=== PATIENT | male | born 1960 | race Caucasian/White ===

== ENCOUNTER 2017-07-09 13:03 | Inpatient (IN) | payer OTHER ==
--- NOTE | 2017-07-09 15:28 | PDOC ---
Attending Attestation - Resident Resident Name: KhoiMarkos su - ED Attending Attestation I have performed the following: I have examined & evaluated the patient, The case was reviewed & discussed with the resident, I agree w/resident's findings & plan, Exceptions are as noted - HPI HPI: 07/09/17 15:29 57y M hx of etoh abuse (~6 beers/day) presents with multiple complaints. Pt states that starting approximately 1 month ago, he started feeling weaker than usual, and feeling more sluggish. pt endorses frequent headche that is typically daily an dwors in the AM but pt endorses having a similar headache for many years and improves with aspirin and 'fresh air' denies any signifcian tworsenin gof his headaches. pt denies any associated vertigo, vision changes, double vision, numbness/tingling neck pain, back pain. The patient endorses having a coug hfor the past few days associated with nasal congestion, cough productive of whitish sputum w/o fever, chills, no hemoptysis, leg swelling. The patient denies any dysuria, hematuria, diarrhea, melena, black stool, chest pain, exertional shortness of breath, shortness of breath. GENERAL: The patient is awake, alert, and fully oriented, Nontoxic - in no acute distress. HEAD: Normocephalic, atraumatic. EYES: extraocular movements intact, visual verma intact, sclera anicteric, conjunctiva clear. ENT: Normal voice, dry mucous membranes. NECK: Normal range of motion, supple LUNGS: scattered wheezing HEART: Regular rate and rhythm, normal S1 and S2 without murmur, rub or gallop. ABDOMEN: Soft, nontender, normoactive bowel sounds. No guarding, no rebound. . No CVA tenderness EXTREMITIES: Normal range of motion, no edema. No clubbing or cyanosis. No cords, erythema, or tenderness. PSYCH: Normal mood, normal affect. SKIN: Warm, Dry, normal turgor, NEURO: Mental status: The patient is oriented x3. Cranial nerves: Cranial nerves II through XII are intact Motor: The upper extremities are 5 over 5 in all muscle groups. The lower extremities are 5 over 5 in all muscle groups. Negative pronator drift Sensation: Sensation is intact to light touch throughout. romberg negative Cerebellar: Vopbmd-ygxnmx-vwpw is normal in both upper extremities. Heel-knee- weldon is normal in both lower extremities. rapid alternating movements are normal. Gait: normal gait Differential for the patient's symptoms includes anemia, metabolic derangements , URI Will check labs, EKG, chest x-ray - Physicial Exam PE: 07/16/17 09:24 see above - Medical Decision Making 07/09/17 16:29 pts labs noted for hyponatremia will hydrate and observe for further management Heart Score/ECG Review - ECG Impressions Comment:: 07/09/17 17:03 Twelve-lead EKG was performed and reviewed by me. There is normal sinus rhythm with a normal rate. Rate of 77 Incomplete right bundle-branch block Left anterior fascicular block Abnormal R wave progression
--- NOTE | 2017-07-09 15:47 | PDOC ---
History of Present Illness - General Chief Complaint: Weakness Stated Complaint: WEAKNESS, FLU LIKE SYMPTOMS Time Seen by Provider: 07/09/17 13:57 History Source: Patient Exam Limitations: No Limitations - History of Present Illness Initial Comments: 07/09/17 15:34 Patient is a 57M with history of htn, alcohol abuse, and tobacco abuse here today complaining of morning headaches, weakness, dizziness, diarrhea, confusion and chest pain. He states that he's had progressively worsening headaches over the past few months that are worse in the morning. He states that in the last week he's felt dizzy and his gait has changed so that it's more broad. He's complaining of bodyaches, confusion, weight loss and decreased PO intake. Complains of fevers, chills, nausea. The chest pain is located substernally. It's not worsened with exertion or improved with rest. Denies history of blood clots, no leg swelling. Patient states that he last drank and used tobacco 6 days ago. Denies other illicits. Past History - Past Medical History Allergies/Adverse Reactions: Allergies Allergy/AdvReac Type Severity Reaction Status Date / Time No Known Allergies Allergy Verified 07/09/17 13:16 Home Medications: Ambulatory Orders NK [No Known Home Medication] 07/09/17 COPD: No Other medical history: DENIES. - Suicide/Smoking/Psychosocial Hx Smoking Status: Yes Smoking History: Current some day smoker Have you smoked in the past 12 months: Yes Number of Cigarettes Smoked Daily: 20 Information on smoking cessation initiated: No Review of Systems - Review of Systems Comments:: 07/09/17 15:47 GENERAL/CONSTITUTIONAL: Positive for fever or chills. Positive for weakness. HEAD, EYES, EARS, NOSE AND THROAT: No change in vision. No sore throat. CARDIOVASCULAR: Positive for chest pain and shortness of breath RESPIRATORY: Positive for cough, wheezing. GASTROINTESTINAL: Positive for nausea, diarrhea GENITOURINARY: No dysuria, frequency, or change in urination. MUSCULOSKELETAL: Positive for neck pain, diffuse body aches. SKIN: No rash NEUROLOGIC: Positive for headache, vertigo ENDOCRINE: No increased thirst. Positive for weight loss HEMATOLOGIC/LYMPHATIC: No anemia, easy bleeding, or history of blood clots. ALLERGIC/IMMUNOLOGIC: No hives or skin allergy. *Physical Exam - Vital Signs Last Vital Signs Temp Pulse Resp BP Pulse Ox 98 F 99 H 19 101/66 98 07/09/17 13:16 07/09/17 13:16 07/09/17 13:16 07/09/17 13:16 07/09/17 13:16 - Physical Exam Comments: 07/09/17 15:52 GENERAL: Awake, alert, and fully oriented, in no acute distress HEAD: No signs of trauma, normocephalic, atraumatic EYES: PERRLA, EOMI, sclera anicteric, conjunctiva clear ENT: Auricles normal inspection, hearing grossly normal, nares patent, oropharynx clear without exudates. Moist mucosa NECK: Normal ROM, supple, no lymphadenopathy, JVD, or masses LUNGS: No distress, speaks full sentences, bilateral wheezing HEART: Regular rate and rhythm, normal S1 and S2, no murmurs, rubs or gallops, peripheral pulses normal and equal bilaterally. ABDOMEN: Soft, nontender, normoactive bowel sounds. No guarding, no rebound. No masses EXTREMITIES: Normal inspection, Normal range of motion, no edema. No clubbing or cyanosis. NEUROLOGICAL: Cranial nerves II through XII grossly intact. Normal speech, wide gait, no focal sensorimotor deficits SKIN: Warm, Dry, normal turgor, no rashes or lesions noted. ED Treatment Course - LABORATORY CBC & Chemistry Diagram: 07/09/17 16:00 07/09/17 16:00 - RADIOLOGY Radiology Studies Ordered: Category Date Time Status HEAD CT WITHOUT CONTRAST [CT] Stat CT Scan 07/09/17 15:28 Ordered CHEST PA & LAT [RAD] Stat Radiology 07/09/17 15:27 Ordered Medical Decision Making - Medical Decision Making 07/09/17 15:55 Patient is 57M with multiple complaints. Vital signs stable. Differential diagnosis includes, but is not limited to: lung cancer, flu, viral illness, overdose of nsaids/tylenol. Will evaluate with cbc, cmp, cxr, trop, pt/inr, head ct, vbg, tylenol, salicylate levels. 07/09/17 18:32 Laboratory Tests 07/09/17 07/09/17 07/09/17 16:00 16:00 16:00 WBC 4.1 Hgb 15.6 Hct 44.6 Plt Count 204 VBG pH 7.36 Sodium 122 L* Troponin I 0.03 CBC normal. VBG pH normal. Sodium low. Possible LOI. CXR official read suggests pneumonia, but believe patient may have lung cancer given clinical presentation with lack of concern for pneumonia. Hyponatremia also concerning. CT chest added, admitted to Dr Roach. *DC/Admit/Observation/Transfer Diagnosis at time of Disposition: Shortness of breath - Discharge Dispostion Condition at time of disposition: Stable Admit: Yes - Referrals Referrals: Clarence Zazueta MD [Primary Care Provider] - - Patient Instructions - Post Discharge Activity
[2017-07-09] MEDS ORDERED: ALBUTEROL SO4 2.5/IPRATROPIUM 0.5 INH SOL 3 ML VIAL.NEB. NEB ONE ×2 (15:48→16:07)
[2017-07-09 16:26] LABS: VENOUS PC02 45.9 mmHg (38-52); VENOUS PH 7.36 (7.32-7.42)
[2017-07-09 16:27] LABS: BASO % 0.1 % (0-2.0); EOS % 0.1 % (0-4.5); HEMATOCRIT 44.6 % (35.4-49); HEMOGLOBIN 15.6 GM/dL (11.7-16.9); LYMPH % 6.4 % (8-40); MCH 33.1 pg (25.7-33.7); MCHC 34.9 g/dl (32.0-35.9); MEAN CELL VOLUME 94.8 fl (80-96); MEAN PLT VOLUME 6.6 fl (7.5-11.1); MONO % 12.8 % (3.8-10.2); NEUT % 80.6 % (42.8-82.8); PLATELET COUNT 204 K/MM3 (134-434); RDW 13.8 % (11.9-15.9); WHITE BLOOD COUNT 4.1 K/mm3 (4.0-10.0)
[2017-07-09 16:37] LABS: INR 0.94 (0.82-1.09); PROTHROMBIN TIME (PATIENT) 10.6 SEC (9.98-11.88)
[2017-07-09 16:55] LABS: ALBUMIN 3.4 g/dl (3.4-5.0); ANION GAP 13 (8-16); BILIRUBIN,TOTAL 0.3 mg/dL (0.2-1.0); BLOOD UREA NITROGEN 28 mg/dL (7-18); CALCIUM 8.1 mg/dL (8.5-10.1); CHLORIDE 84 mmol/L (98-107); CO2 25 mmol/L (21-32); CREATININE 1.6 mg/dL (0.7-1.3); GLUCOSE,RANDOM 110 mg/dL (74-106); MAGNESIUM 2.9 mg/dL (1.8-2.4); POTASSIUM 3.5 mmol/L (3.5-5.1); SGOT/AST 55 U/L (15-37); SGPT/ALT 28 U/L (12-78); TOT PROT 6.9 g/dl (6.4-8.2)
[2017-07-09 16:57] LABS: ALK PHOS 66 U/L (45-117)
[2017-07-09 17:33] LABS: SODIUM 122 mmol/L (136-145)
[2017-07-09] MEDS ORDERED: ALBUTEROL SO4 2.5/IPRATROPIUM 0.5 INH SOL 3 ML VIAL.NEB. NEB PRN (19:24)
--- NOTE | 2017-07-09 19:47 | HP ---
CHIEF COMPLAINT: SOB, Cough, CP, [place], Dizziness, Diarrhea, Weakness PCP: Dr. Clarence Zazueta Pharmacy: [facility] ([phone]) HISTORY OF PRESENT ILLNESS: This is a 57 y/o man with a past medical history of Hypertension, Former smoker quit 6 days ago. Who presents to the ED with SOB, cough, CP, dizziness, diarrhea with generalized weakness x 6 days. Patient reports increased ROJAS after taking 10-15 steps. Patient reports the cough as productive- yellow-ovalle thick phlegm. Patient describes the CP as pleuritic- worse when coughing. Patient does not admit to recent weight loss, just decreased appetite secondary to "not feeling well". Patient denies chills, AP, N/V, constipation, dysuria NUTD- Influenza, Pneumococcal vaccines ER course was notable for: (1) Chest Xray image- RUL Pneumonia (2) CT Chest- RUL Pneumonia (2) Hyponatremia- Na 122 (3) LOI- BUN 28, Cr 1.6 Recent Travel: None PAST MEDICAL HISTORY: HTN PAST SURGICAL HISTORY: Denies Social History: Smoking: Former, 1PPD x 40 yrs, quit 6 days ago Alcohol: Former- quit 6 days ago Drugs: Denies Family History: Father: Prostate Ca, age 60 Aunt: Lung Ca Grandparents: Lung Ca Allergies No Known Allergies Allergy (Verified 07/09/17 13:16) HOME MEDICATIONS: Home Medications Medication Instructions Recorded NK [No Known Home Medication] 07/09/17 REVIEW OF SYSTEMS CONSTITUTIONAL: fever, generalized weakness, malaise, loss of appetite Absent: chills, diaphoresis, weight change HEENT: Absent: rhinorrhea, nasal congestion, throat pain, throat swelling, difficulty swallowing, mouth swelling, ear pain, eye pain, visual changes CARDIOVASCULAR: chest pain Absent: syncope, palpitations, irregular heart rate, lightheadedness, peripheral edema RESPIRATORY: cough, shortness of breath, dyspnea with exertion Absent: orthopnea, wheezing, stridor, hemoptysis GASTROINTESTINAL: diarrhea Absent: abdominal pain, abdominal distension, nausea, vomiting, constipation, melena, hematochezia GENITOURINARY: Absent: dysuria, frequency, urgency, hesitancy, hematuria, flank pain, genital pain MUSCULOSKELETAL: Absent: myalgia, arthralgia, joint swelling, back pain, neck pain SKIN: Absent: rash, itching, pallor HEMATOLOGIC/IMMUNOLOGIC: Absent: easy bleeding, easy bruising, lymphadenopathy, frequent infections ENDOCRINE: Absent: unexplained weight gain, unexplained weight loss, heat intolerance, cold intolerance NEUROLOGIC: headache Absent: focal weakness or paresthesias, dizziness, unsteady gait, seizure, mental status changes, bladder or bowel incontinence PSYCHIATRIC: Absent: anxiety, depression, suicidal or homicidal ideation, hallucinations. PHYSICAL EXAMINATION Vital Signs - 24 hr 07/09/17 07/09/17 13:16 15:30 Temperature 98 F Pulse Rate 99 H Respiratory 19 Rate Blood Pressure 101/66 O2 Sat by Pulse 98 97 Oximetry (%) GENERAL: Thin, awake, alert, and fully oriented, in no acute distress. HEAD: Normal with no signs of trauma. EYES: Pupils equal, round and reactive to light, extraocular movements intact, sclera anicteric, conjunctiva clear. No lid lag. EARS, NOSE, THROAT: Dry mucous membranes. Ears normal, nares patent, oropharynx clear without exudates. NECK: Normal range of motion, supple without lymphadenopathy, JVD, or masses. LUNGS: Scattered diffuse wheezes with crackles throughout. No accessory muscle use. HEART: Regular rate and rhythm, normal S1 and S2 without murmur, rub or gallop. ABDOMEN: Soft, nontender, not distended, normoactive bowel sounds, no guarding, no rebound, no masses. No hepatomegaly or splenomegaly. MUSCULOSKELETAL: Normal range of motion at all joints. No bony deformities or tenderness. No CVA tenderness. UPPER EXTREMITIES: 2+ pulses, warm, well-perfused. No cyanosis. No clubbing. No peripheral edema. LOWER EXTREMITIES: 2+ pulses, warm, well-perfused. No calf tenderness. No peripheral edema. NEUROLOGICAL: Cranial nerves II-XII intact. Normal speech. Gait not observed. PSYCHIATRIC: Cooperative. Good eye contact. Appropriate mood and affect. SKIN: Warm, dry, normal turgor, no rashes or lesions noted, normal capillary refill. Laboratory Results - last 24 hr 07/09/17 07/09/17 07/09/17 16:00 16:00 16:00 WBC 4.1 RBC 4.70 Hgb 15.6 Hct 44.6 MCV 94.8 MCH 33.1 MCHC 34.9 RDW 13.8 Plt Count 204 MPV 6.6 L Neutrophils % 80.6 Lymphocytes % 6.4 L Monocytes % 12.8 H Eosinophils % 0.1 Basophils % 0.1 PT with INR 10.60 INR 0.94 VBG pH POC VBG pCO2 POC VBG pO2 Mixed VBG HCO3 Sodium 122 L* Potassium 3.5 Chloride 84 L Carbon Dioxide 25 Anion Gap 13 BUN 28 H Creatinine 1.6 H Creat Clearance w eGFR 44.62 Random Glucose 110 H Calcium 8.1 L Magnesium 2.9 H Total Bilirubin 0.3 AST 55 H ALT 28 Alkaline Phosphatase 66 Creatine Kinase 975 H Creatine Kinase Index 0.1 CK-MB (CK-2) 1.706 Troponin I 0.03 Total Protein 6.9 Albumin 3.4 07/09/17 16:00 WBC RBC Hgb Hct MCV MCH MCHC RDW Plt Count MPV Neutrophils % Lymphocytes % Monocytes % Eosinophils % Basophils % PT with INR INR VBG pH 7.36 POC VBG pCO2 45.9 POC VBG pO2 28.0 Mixed VBG HCO3 26.3 H Sodium Potassium Chloride Carbon Dioxide Anion Gap BUN Creatinine Creat Clearance w eGFR Random Glucose Calcium Magnesium Total Bilirubin AST ALT Alkaline Phosphatase Creatine Kinase Creatine Kinase Index CK-MB (CK-2) Troponin I Total Protein Albumin ASSESSMENT/PLAN: This is a 57 y/o man with a PMHx of HTN, Alcohol Abuse, Former Smoker. Admitted for Pneumonia, SOB, Hyponatremia. Plan: 1. Community Acquired Pneumonia - Chest Xray image- RUL Infiltrate - Chest CT- RUL Infiltrate - Urine Legionella ordered - Blood Cultures ordered - No leukocytosis, no neutrophilia - Will start Ceftriaxone, Azithromycin for CAP - Appreciate ID Consult - Rapid Flu- pending - Tylenol prn fever - Monitor vitals - Repeat CBC in am 2. SOB - Likely secondary to PNA - Chest Xray reviewed - VBG- 7.36/45.9/28.0/26.3 - Duonebs prn - O2 - Appreciate Pulm Consult 3. Hyponatremia - Likely secondary to Dehydration - Sodium Deficit 680meq - Gentle IVF - BMP - Goal Na correction of 6-8meq/24 hrs 4. LOI - Likely secondary to Dehydration - unknown baseline - Gentle IVF - Repeat BMP in am - f/u with Nephrology outpatient 5. Generalized Weakness - Likely secondary to Hyponatremia vs Dehydration - IVF - Monitor BMP - Fall Precautions - Monitor vitals - Consider PT for conditioning and gait strengthening 6. HTN - stable - Monitor BP - patient does not recall name of med, will have day provider verify with pts home pharmacy 7. Alcohol Abuse - Alcohol Cessation 8. Tobacco Dependency - tobacco cessation 6 days ago - Nicorette gum 9. FEN - NS@42cc/hr - Replete Na - Low Na Diet 10. DVT ppx - OOB - SCDs - Heparin SQ Code Status: Full Code Dispo; Requires Inpatient Care Problem List - Problem (1) Community acquired pneumonia Code(s): J18.9 - PNEUMONIA, UNSPECIFIED ORGANISM (2) Shortness of breath Code(s): R06.02 - SHORTNESS OF BREATH (3) Hyponatremia Code(s): E87.1 - HYPO-OSMOLALITY AND HYPONATREMIA (4) HTN (hypertension) Code(s): I10 - ESSENTIAL (PRIMARY) HYPERTENSION (5) Tobacco dependency Code(s): F17.200 - NICOTINE DEPENDENCE, UNSPECIFIED, UNCOMPLICATED (6) Alcohol abuse Code(s): F10.10 - ALCOHOL ABUSE, UNCOMPLICATED (7) DVT prophylaxis Code(s): RGF6106 - Visit type - Emergency Visit Emergency Visit: Yes ED Registration Date: 07/09/17 Care time: The patient presented to the Emergency Department on the above date and was hospitalized for further evaluation of their emergent condition. - New Patient This patient is new to me today: Yes Date on this admission: 07/09/17 - Critical Care Critical Care patient: No Hospitalist Screening - Colonoscopy Questionnaire Colonoscopy Questionnaire: Colonoscopy Questionnaire - Patient: 50 - 75 years old and never had a screening colonoscopy: No History of colon or rectal polyps, or CA: No History of IBD, Crohn's disease or UC: No History of abdominal radiation therapy as a child: No - Relative: 1 with colon or rectal CA, or polyps at age 60 or younger: No Colon or rectal CA diagnosed at age 45 or younger: No Multiple relatives with colon or rectal CA: No - Outcome: Screening Result: Negative Screen
[2017-07-09 19:51] LABS: ACETAMINOPHEN 18.755 ug/mL; SALICYLATE 7.208 mg/dL
[2017-07-09] MEDS ORDERED: AZITHROMYCIN IVPB 500 MG in DEXTROSE 5%-WATER - 250 ML IVPB ONE ×2 (20:58→22:45)
[2017-07-09] MEDS ORDERED: CEFTRIAXONE 1 GM in DEXTROSE 5%-WATER - 100 ML IVPB ONE (20:58)
[2017-07-09] MEDS ORDERED: SODIUM CHLORIDE 250 ML IV STA (21:05)
[2017-07-09] MEDS ORDERED: cefTRIAXone SODIUM 1 GM VIAL ONE (22:35)
[2017-07-09] MEDS ORDERED: DEXTROSE 5%-WATER - 50 ML IVPB ONE (22:36)
[2017-07-09] MEDS ORDERED: CEFTRIAXONE 1 GM in DEXTROSE 5%-WATER - 50 ML IVPB ONE (22:45)
[2017-07-09 23:16] VITALS: BMI 18.8
[2017-07-09] MEDS ORDERED: ACETAMINOPHEN 325 MG TABLET (FP) PO ONE (23:30)
[2017-07-10 02:40] LABS: URINE APPEARANCE CLEAR; URINE BILIRUBIN NEGATIVE (NEGATIVE); URINE BLOOD 1+ (NEGATIVE); URINE COLOR LTYELLOW; URINE GLUCOSE (UA) NEGATIVE (NEGATIVE); URINE KETONE TRACE (NEGATIVE); URINE LEUK ESTERASE NEGATIVE (NEGATIVE); URINE NITRITE NEGATIVE (NEGATIVE); URINE UROBILINOGEN NEGATIVE mg/dL (0.2-1.0)
[2017-07-10 02:55] LABS: URINE PROTEIN 1+ (NEGATIVE)
[2017-07-10 03:01] LABS: URINE MUCUS RARE
[2017-07-10] MEDS: ACETAMINOPHEN 325 MG TABLET (FP) PO PRN (05:33)
[2017-07-10 07:56] LABS: BASO % 0.2 % (0-2.0); EOS % 0.1 % (0-4.5); HEMATOCRIT 40.3 % (35.4-49); HEMOGLOBIN 14.2 GM/dL (11.7-16.9); LYMPH % 6.7 % (8-40); MCH 33.2 pg (25.7-33.7); MCHC 35.2 g/dl (32.0-35.9); MEAN CELL VOLUME 94.3 fl (80-96); MEAN PLT VOLUME 6.9 fl (7.5-11.1); MONO % 14.7 % (3.8-10.2); NEUT % 78.3 % (42.8-82.8); PLATELET COUNT 192 K/MM3 (134-434); RBC 4.27 M/mm3 (4.00-5.60); RDW 13.7 % (11.9-15.9); WHITE BLOOD COUNT 2.9 K/mm3 (4.0-10.0)
--- NOTE | 2017-07-10 08:38 | PN ---
Progress Note (short form) - Note Progress Note: ID Full note dictated Assessment Chronic Pneumonia with hemotysis Hyponatremia Background heavy smoking and Ethoh ? Adrenal insufficiency along with SIADH parneoplastic syndrome considered 20-30lbs weight loss Plan Ceftriaxone and Azithromycin urine Na and K Pulmonary consult HIV test CRP and ESR LDH Cortisol level Fluid restrict Quant gold Sputum for c/s and AFB x 3 plus AFB PCR Will need bronch most likely Isolate as precaution CT abd pelvis Joana ARCEO Problem List - Problems (2) Alcohol abuse Code(s): F10.10 - ALCOHOL ABUSE, UNCOMPLICATED (3) Community acquired pneumonia Code(s): J18.9 - PNEUMONIA, UNSPECIFIED ORGANISM (4) Hyponatremia Code(s): E87.1 - HYPO-OSMOLALITY AND HYPONATREMIA
[2017-07-10 08:55] LABS: CHLORIDE 86 mmol/L (98-107); POTASSIUM 3.7 mmol/L (3.5-5.1)
[2017-07-10] MEDS ORDERED: IBUPROFEN 800 MG/8 ML IJ IVPB ONE (09:00)
[2017-07-10 09:11] LABS: ANION GAP 15 (8-16); BLOOD UREA NITROGEN 18 mg/dL (7-18); CALCIUM 7.3 mg/dL (8.5-10.1); CO2 22 mmol/L (21-32); CREATININE 0.8 mg/dL (0.7-1.3); GLUCOSE,RANDOM 105 mg/dL (74-106)
--- NOTE | 2017-07-10 09:12 | CONS ---
DATE OF CONSULTATION: DATE OF DICTATION: 07/10/2017 HISTORY OF PRESENT ILLNESS: This is a 57-year-old white male whom I am asked to see for evaluation of pneumonia. The patient was admitted with a history of progressive weakness and weight loss over many weeks associated with cough and hemoptysis. He is a heavy smoker for many years and along with this has a history of alcoholism, noting that he drinks 6 cans of beer per day. He states he is HIV negative many years ago and and currently has no risk factors. On evaluation here, the patient was noted to be febrile. He has apparently experienced fever at home along with night sweats, loss of appetite and says that he has lost 20 to 30 pounds over the last several months. He also says that the most difficult thing for him has been a complete loss of energy. He is, however, working. He has a pulmonary infiltrate in the right upper lobe on CAT scan and was found to be severely hyponatremic with a sodium of 122. He has no history of recent travel, was born and raised in [place], never traveled outside the country nor to the [place] or [place]. He is . He has a pet cat and no other pets or unusual hobbies. PAST MEDICAL HISTORY: Otherwise noncontributory. MEDICATIONS: None. ALLERGIES: None known. SOCIAL HISTORY: As outlined. FAMILY HISTORY: Noncontributory. REVIEW OF SYSTEMS:Respiratory: Hemoptysis, productive cough. Denies shortness of breath. Positive night sweats. Cardiac: No chest pain, palpitation. History of murmur. Gastrointestinal: Positive weight loss. No diarrhea. No abdominal pain. No vomiting. Positive night sweats. Genitourinary: No dysuria, hematuria or urinary frequency. PHYSICAL EXAMINATION:General: Revealed a thin-appearing male in no acute distress. Vital Signs: The temperature was 101.5, pulse 94, blood pressure 129/68, respirations 18, O2 saturation 94, room air. HEENT: The pharynx: Several missing teeth. No exudate or thrush. Neck: Supple with no lymphadenopathy. Lungs: Bilateral rhonchi. Heart: S1, S2. Regular rhythm. No audible murmur. Abdomen: Soft, nontender, without organomegaly. Extremities: No clubbing, cyanosis or edema. LABORATORY DATA: Sodium 122, potassium 3.5, creatinine 3.6, BUN 28, glucose 110, bilirubin 0.3, AST 55, alkaline phosphatase 66, total protein 6.9, albumin 3.4. INR 0.94. CPK 975. Urinalysis: RBC 1, no WBC. Two sets of blood cultures currently pending. Urine culture pending. Legionella urinary antigen pending. Influenza screening negative. Chest x-ray shows a right upper lobe infiltrate, ? mass lesion. ASSESSMENT: A 57-year-old male presents with a several-month history of progressive weakness associated with loss of appetite and weight loss, presents now to the hospital with fever and a productive cough with hemoptysis which was witnessed earlier this morning. He is a heavy smoker with a background history of alcoholism. The possibility of a chronic pneumonia is considered, including tuberculosis. Hyponatremia could be on the basis of Echo disease related to TB. Additional considerations would, of course, include the possibility of a paraneoplastic syndrome with inappropriate secretion of ADH related to a lung cancer. PLAN: Treat his pneumonia at this time. Would isolate him as a precaution with AFB isolation and obtaining sputums for AFB and PCR. Cortisol level has been ordered. A TSH will also be ordered. Pulmonary consultation for possible bronchoscopy. QuantiFERON gold, HIV testing and lastly CAT scan of the abdomen. Lastly, patient appears leukopenic currently with a white count of 2.9. This could be on the basis of infection versus neoplastic etiology and/or cirrhosis. DOUGLAS ESCALERA M.D. [facility]/[id number]
[2017-07-10] MEDS: HEPARIN NA (PORCINE) 5,000 UNITS/ML 1ML VIAL SQ SCH ×2 (09:15→23:20)
--- NOTE | 2017-07-10 09:55 | EKG ---
Test Reason : Blood Pressure : / mmHG Vent. Rate : 077 BPM Atrial Rate : 077 BPM P-R Int : 126 ms QRS Dur : 104 ms QT Int : 410 ms P-R-T Axes : 079 -61 065 degrees QTc Int : 463 ms NORMAL SINUS RHYTHM BIATRIAL ENLARGEMENT INCOMPLETE RIGHT BUNDLE BRANCH BLOCK LEFT ANTERIOR FASCICULAR BLOCK SEPTAL INFARCT , AGE UNDETERMINED ABNORMAL ECG NO PREVIOUS ECGS AVAILABLE Confirmed by RIMA MIRAMONTES MD ([id number]) on 07/10/2017 9:55:18 AM Referred By: Confirmed By:RIMA MIRAMONTES MD
[2017-07-10] MEDS ORDERED: CEFTRIAXONE IN IS-OSM DEXTROSE 2 GM/50 ML BAG IVPB SCH (10:00)
[2017-07-10] MEDS ORDERED: AZITHROMYCIN IVPB 500 MG in DEXTROSE 5%-WATER - 250 ML IVPB SCH (10:00)
[2017-07-10 10:20] LABS: SODIUM 123 mmol/L (136-145)
[2017-07-10 10:59] LABS: ANION GAP 11 (8-16); BLOOD UREA NITROGEN 17 mg/dL (7-18); CALCIUM 7.5 mg/dL (8.5-10.1); CHLORIDE 87 mmol/L (98-107); CO2 24 mmol/L (21-32); CREATININE 0.8 mg/dL (0.7-1.3); GLUCOSE,RANDOM 102 mg/dL (74-106); POTASSIUM 3.9 mmol/L (3.5-5.1)
[2017-07-10 11:28] LABS: SODIUM 122 mmol/L (136-145)
[2017-07-10] MEDS ORDERED: CEFTRIAXONE 2 GM in DEXTROSE 5%-WATER - 100 ML IVPB SCH (11:29)
[2017-07-10] MEDS ORDERED: SODIUM CHLORIDE 1,000 ML IV SCH ×2 (11:30→16:02)
--- NOTE | 2017-07-10 12:09 | PN ---
Progress Note, Physician Chief Complaint: in bed coughing drinking contrast for ct scan - Current Medication List Current Medications: Active Medications Acetaminophen (Tylenol -) 650 mg PO Q6H PRN PRN Reason: PAIN OR FEVER Last Admin: 07/10/17 05:33 Dose: 650 mg Albuterol/Ipratropium (Duoneb -) 1 amp NEB Q6H PRN PRN Reason: SHORTNESS OF BREATH Heparin Sodium (Porcine) (Heparin -) 5,000 unit SQ BID TREVOR Last Admin: 07/10/17 09:15 Dose: 5,000 unit Azithromycin 500 mg/ Dextrose 250 mls @ 250 mls/hr IVPB DAILY TREVOR Sodium Chloride (Normal Saline -) 1,000 mls @ 50 mls/hr IV ASDIR TREVOR Stop: 07/11/17 11:28 Ceftriaxone Sodium 2 gm/ (Dextrose) 100 mls @ 100 mls/hr IVPB DAILY TREVOR - Objective Vital Signs: Vital Signs Temperature 99.7 F H 07/10/17 09:00 Pulse Rate 84 07/10/17 09:00 Respiratory Rate 18 07/10/17 09:00 Blood Pressure 132/70 07/10/17 09:00 O2 Sat by Pulse Oximetry (%) 94 L 07/10/17 09:00 Constitutional: Yes: Calm Neck: Yes: Trachea Midline Cardiovascular: Yes: Regular Rate and Rhythm, S1, S2 Respiratory: Yes: Diminished (on right side) Gastrointestinal: Yes: Normal Bowel Sounds, Soft Edema: No Neurological: Yes: Alert, Oriented Labs: CBC, BMP 07/10/17 06:30 07/10/17 10:05 INR, PTT INR 0.94 (0.82-1.09) 07/09/17 16:00 Problem List - Problems (1) Community acquired pneumonia Assessment/Plan: seen by ID airborne isolation ct chest noted to get ct scan abdomen azithromycin and rocephin quantiferon gold ordered dvt ppx pulm eval Code(s): J18.9 - PNEUMONIA, UNSPECIFIED ORGANISM Qualifiers: Laterality: right (2) Hyponatremia Assessment/Plan: ivf renal evaluation Code(s): E87.1 - HYPO-OSMOLALITY AND HYPONATREMIA
[2017-07-10] MEDS: CEFTRIAXONE 2 GM in DEXTROSE 5%-WATER - 100 ML IVPB SCH (12:47)
--- NOTE | 2017-07-10 13:09 | PN ---
Progress Note (short form) - Note Progress Note: PULMONARY CONSULTATION DICTATED 07/10/17 IMP RUL CONSILIDATION LIKELY PNEUMONIA CAP,?MTB,?MALIGNANCY HYPONATREMIA ?SIADH DYSPNEA SECONDARY TO PNA ,LIKELY UNDERYING COPD WT LOSS TOBACCO ABUSE PLAN BROAD SPECTRUM ABX PER ID CULTURES INHALED BRONCHODILATORS O2 URINE LYTES MONITOR LYTES ,NA F/U CHEST X-RAYS F/U CHEST CT 6-8 WKS TO DOCUMENT RESOLUTION OF INFILTRATES PFTS OUTPATIENT SMOKING CESSATION COUNSELED DR CEDENO Problem List - Problems (1) Weight loss Code(s): R63.4 - ABNORMAL WEIGHT LOSS (2) Community acquired pneumonia Code(s): J18.9 - PNEUMONIA, UNSPECIFIED ORGANISM Qualifiers: Laterality: right (3) HTN (hypertension) Code(s): I10 - ESSENTIAL (PRIMARY) HYPERTENSION (4) Hyponatremia Code(s): E87.1 - HYPO-OSMOLALITY AND HYPONATREMIA (5) Shortness of breath Code(s): R06.02 - SHORTNESS OF BREATH (6) Tobacco dependency Code(s): F17.200 - NICOTINE DEPENDENCE, UNSPECIFIED, UNCOMPLICATED (7) Tobacco abuse counseling Code(s): Z71.6 - TOBACCO ABUSE COUNSELING
--- NOTE | 2017-07-10 14:06 | CONS ---
DATE OF CONSULTATION: 07/10/2017 REFERRING PHYSICIAN: Kelly Caputo MD HISTORY OF PRESENT ILLNESS: The patient is a 57-year-old white male with a past medical history of hypertension, longstanding history of tobacco use, approximately 1 pack per day for 40 years, stopped a few days ago, admitted to [facility] with the complaint of increasing shortness of breath, dyspnea on exertion, generalized weakness and coughed up brown sputum, questionable heme. Patient states for the past month or so he has had progressive weakness and increasing dyspnea on exertion. He did not complain of chest pain, nausea or vomiting. He states that for the past month or so he has been unable to hold food down and he does not have any appetite. He says he is unsure how much weight he lost, but he says that his clothes are getting looser. On the day of admission, he states that for the past week or so he started noticing progressive weakness, shortness of breath and fevers and chills. He presented to the emergency room as above. In the ER he was noted to have a right upper lobe consolidation. He had a CT scan of the chest performed which revealed a right upper lobe consolidation. He was admitted to the floor. He was started on broad-spectrum antibiotics. He was evaluated by Infectious Disease. Dr. Bernard placed him on empiric antibiotic therapy for community-acquired pneumonia as well as TB isolation. Patient denies any history of pneumonia. There is no history of TB in the past. 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 He denies any history of COPD or asthma. He states that prior to the past couple months he has not had any shortness of breath or dyspnea on exertion. On admission, he was also noted to be markedly hyponatremic with a serum sodium of 122. He was started on normal saline. PAST MEDICAL HISTORY: Again includes hypertension. REVIEW OF SYSTEMS: Positive shortness of breath. Positive cough. Positive sputum. Questionable hemoptysis. Positive weight loss. Positive night sweats. No abdominal pain. SOCIAL HISTORY: Again has a history of tobacco use, 1 pack per day for greater than 40 years, quit a few days ago. Occasional ETOH. Previously employed in construction. Currently works at [employer]. CURRENT MEDICATIONS: Include Tylenol, ceftriaxone, normal saline and Duo-Neb. PHYSICAL EXAMINATION: General: The patient is a thin white male, well developed, awake, alert, currently in no acute distress. Vital Signs: T-max is 101.5, currently 99.7, blood pressure 132/70, respiratory rate is 18. HEENT: Normocephalic, atraumatic. Neck: Supple. Heart: Regular. Lungs: Rhonchi on the right and a few scattered crackles on the left. Abdomen: Soft. Bowel sounds are positive. Extremities: No cyanosis or edema. LABORATORIES: Serum sodium is 122, BUN 17, creatinine 0.8. CRP is 7.5. WBC is 2.9, hemoglobin 14.2, hematocrit 40.3, the platelet count 192,000. INR is 0.94. Venous blood gas: 7.36, PCO2 of 45, PO2 of 28. Chest CT: Again patchy consolidation in the right upper lobe. There is also a consolidation posteriorly. There was no evidence of adenopathy. IMPRESSION: 1. Right upper lobe consolidation, most likely community-acquired pneumonia, although cannot exclude possible tuberculosis, cannot exclude possible malignancy. 2. Hyponatremia, rule out syndrome of inappropriate antidiuretic hormone secretion. 3. Dyspnea secondary to pneumonia as well as chronic obstructive pulmonary disease secondary to longstanding history of tobacco use. PLAN: Sputum for C & S. Broad-spectrum antibiotics as per Infectious Disease. Obtain followup chest x-rays as well as CT scans to document the resolution of infiltrates. Obtain cultures. Monitor serum sodium. Inhaled bronchodilators. Also smoking cessation. Thank you. SUYAPA CEDENO M.D. [place]/[id number]
[2017-07-10 14:42] LABS: ANION GAP 12 (8-16); BLOOD UREA NITROGEN 19 mg/dL (7-18); CALCIUM 7.9 mg/dL (8.5-10.1); CHLORIDE 87 mmol/L (98-107); CO2 25 mmol/L (21-32); CREATININE 0.9 mg/dL (0.7-1.3); GLUCOSE,RANDOM 100 mg/dL (74-106)
[2017-07-10 15:25] LABS: SODIUM 124 mmol/L (136-145)
--- NOTE | 2017-07-10 16:02 | CONSULT ---
Consult Consult Specialty:: Nephrology Reason for Consultation:: hyponatremia - History of Present Illness Chief Complaint: malaise History of Present Illness: Pt is a 57 year old male who presented to the ER with malaise and fatigue. He was found to have PNA and was admitted for treatment. He was also found to be hyponatremic and I was called to evaluate him. He says he had several days of diarrhea starting Thursday. He says that he has not eaten much of anything for the last few days. He has tried to drink water. He did have loss of balance. He has lost about 20 pounds over the last few months. - History Source History Provided By: Patient, Significant Other - Smoking History Smoking history: Current some day smoker Have you smoked in the past 12 months: Yes Aproximately how many cigarettes per day: 20 Home Medications - Allergies Allergies/Adverse Reactions: Allergies Allergy/AdvReac Type Severity Reaction Status Date / Time No Known Allergies Allergy Verified 07/09/17 13:16 - Home Medications Home Medications: Ambulatory Orders NK [No Known Home Medication] 07/09/17 Family Disease History - Family Disease History Family History: Denies Review of Systems - Review of Systems Constitutional: reports: Malaise. denies: Chills, Fever Eyes: reports: No Symptoms HENT: reports: No Symptoms Neck: reports: No Symptoms Cardiovascular: reports: No Symptoms Respiratory: reports: Cough Gastrointestinal: reports: Diarrhea. denies: Vomiting Genitourinary: reports: No Symptoms Musculoskeletal: reports: No Symptoms Neurological: reports: Dizziness Endocrine: reports: No Symptoms Hematology/Lymphatic: reports: No Symptoms Psychiatric: reports: No Symptoms Physical Exam Vital Signs: Vital Signs Temperature 99.7 F H 07/10/17 09:00 Pulse Rate 84 07/10/17 09:00 Respiratory Rate 18 07/10/17 09:00 Blood Pressure 132/70 07/10/17 09:00 O2 Sat by Pulse Oximetry (%) 94 L 07/10/17 09:00 Constitutional: Yes: Calm Eyes: Yes: Conjunctiva Clear HENT: Yes: Atraumatic Neck: Yes: Supple Cardiovascular: Yes: S1, S2 Respiratory: Yes: Rhonchi Gastrointestinal: Yes: Soft Renal/: Yes: WNL Musculoskeletal: Yes: WNL Extremities: Yes: WNL Edema: No Integumentary: Yes: Tattoos Neurological: Yes: Oriented Psychiatric: Yes: Oriented Labs: CBC, BMP 07/10/17 06:30 07/10/17 14:00 Laboratory Tests 07/09/17 07/09/17 07/10/17 16:00 16:00 01:28 Hgb 15.6 Sodium 122 L* Creatinine TSH Cortisol AM Sample Urine Protein 1+ H Urine Blood 1+ H HIV 1&2 Antibody Screen HIV P24 Antigen 07/10/17 07/10/17 07/10/17 06:30 06:30 10:05 Hgb 14.2 Sodium 123 L* 122 L* Creatinine 0.8 D 0.8 TSH 0.74 Cortisol AM Sample Urine Protein Urine Blood HIV 1&2 Antibody Screen HIV P24 Antigen 07/10/17 07/10/17 07/10/17 10:05 10:05 14:00 Hgb Sodium 124 L* Creatinine 0.9 TSH Cortisol AM Sample Pending Urine Protein Urine Blood HIV 1&2 Antibody Screen Negative HIV P24 Antigen Negative Imaging - Results Cat Scan: Report Reviewed Problem List - Problems (1) HTN (hypertension) Code(s): I10 - ESSENTIAL (PRIMARY) HYPERTENSION (2) Hyponatremia Code(s): E87.1 - HYPO-OSMOLALITY AND HYPONATREMIA Assessment/Plan Current Medications Generic Name Dose Route Start Last Admin Trade Name Freq PRN Reason Stop Dose Admin Acetaminophen 650 mg 07/10/17 05:20 07/10/17 05:33 Tylenol - PO 650 mg Q6H PRN Administration PAIN OR FEVER Albuterol/Ipratropium 1 amp 07/09/17 19:24 Duoneb - NEB Q6H PRN SHORTNESS OF BREATH Heparin Sodium (Porcine) 5,000 unit 07/10/17 10:00 07/10/17 09:15 Heparin - SQ 5,000 unit BID TREVOR Administration Ceftriaxone Sodium 2 gm/ 100 mls @ 100 mls/hr 07/10/17 11:30 07/10/17 12:47 Dextrose IVPB 100 mls/hr DAILY TREVOR Administration Sodium Chloride 1,000 mls @ 75 mls/hr 07/10/17 16:02 07/10/17 16:18 Normal Saline - IV 07/11/17 11:28 75 mls/hr ASDIR TREVOR Administration Impression 1. hyponatremia 2. PNA 3. etoh misuse 4. active smoker 5. right adrenal gland adenoma 6. infrarenal AAA Plan - check urine and plasm osm - check urine sodium - cont with saline as pt clinically appears hypovolemic - malignancy screening as he had weight loss - check ua - restrict free water - diarrhea and decreased PO intake can explain hyponatremia - will comment more on etiology after more data is gathered - follow cortisol level Dr Correa
[2017-07-10 17:31] LABS: ANION GAP 13 (8-16); BLOOD UREA NITROGEN 19 mg/dL (7-18); CALCIUM 7.5 mg/dL (8.5-10.1); CHLORIDE 85 mmol/L (98-107); CO2 25 mmol/L (21-32); CREATININE 0.8 mg/dL (0.7-1.3); GLUCOSE,RANDOM 103 mg/dL (74-106); POTASSIUM 3.6 mmol/L (3.5-5.1)
[2017-07-10 17:33] LABS: SODIUM 123 mmol/L (136-145)
[2017-07-10] MEDS: SODIUM CHLORIDE 1 GM TABLET PO ONE ×2 (18:57→19:48)
[2017-07-10] MEDS: SODIUM CHLORIDE 1,000 ML IV SCH (18:57)
[2017-07-10 20:51] LABS: OSMOLALITY,SERUM 259 mosm/kg (278-305)
[2017-07-10 21:04] LABS: ANION GAP 8 (8-16); BLOOD UREA NITROGEN 16 mg/dL (7-18); CALCIUM 7.2 mg/dL (8.5-10.1); CHLORIDE 90 mmol/L (98-107); CO2 25 mmol/L (21-32); CREATININE 0.8 mg/dL (0.7-1.3); GLUCOSE,RANDOM 126 mg/dL (74-106); POTASSIUM 3.6 mmol/L (3.5-5.1)
[2017-07-10 21:06] LABS: SODIUM 123 mmol/L (136-145)
[2017-07-10] MEDS ORDERED: PT OWN MED DRAWER 7, Y5N ONE (23:14)
[2017-07-10] MEDS ORDERED: guaiFENesin/D-METHORPHAN HB 10 ML UNIT-DOSE CUPS PO PRN (23:16)
[2017-07-10] MEDS: SODIUM CHLORIDE 1 GM TABLET PO SCH (23:20)
[2017-07-11] MEDS: ACETAMINOPHEN 325 MG TABLET (FP) PO PRN (01:56)
[2017-07-11] MEDS: SODIUM CHLORIDE 1,000 ML IV SCH (04:23)
[2017-07-11 08:11] LABS: BASO % 0.2 % (0-2.0); EOS % 0.2 % (0-4.5); HEMATOCRIT 39.1 % (35.4-49); HEMOGLOBIN 13.6 GM/dL (11.7-16.9); MCH 32.8 pg (25.7-33.7); MCHC 34.7 g/dl (32.0-35.9); MEAN CELL VOLUME 94.6 fl (80-96); MEAN PLT VOLUME 6.8 fl (7.5-11.1); MONO % 17.3 % (3.8-10.2); NEUT % 72.3 % (42.8-82.8); PLATELET COUNT 216 K/MM3 (134-434); RBC 4.13 M/mm3 (4.00-5.60); RDW 13.5 % (11.9-15.9); WHITE BLOOD COUNT 3.3 K/mm3 (4.0-10.0)
[2017-07-11 08:44] LABS: CHLORIDE 90 mmol/L (98-107); POTASSIUM 3.8 mmol/L (3.5-5.1); SODIUM 126 mmol/L (136-145)
[2017-07-11 08:49] LABS: ALBUMIN 2.5 g/dl (3.4-5.0); ALK PHOS 55 U/L (45-117); ANION GAP 10 (8-16); BILIRUBIN,TOTAL 0.2 mg/dL (0.2-1.0); BLOOD UREA NITROGEN 11 mg/dL (7-18); CALCIUM 7.2 mg/dL (8.5-10.1); CO2 26 mmol/L (21-32); CREATININE 0.7 mg/dL (0.7-1.3); GLUCOSE,RANDOM 86 mg/dL (74-106); LDH 242 U/L (87-241); SGOT/AST 52 U/L (15-37); SGPT/ALT 21 U/L (12-78); TOT PROT 5.5 g/dl (6.4-8.2)
[2017-07-11] MEDS ORDERED: PT OWN MED DRAWER 7, Y5N ONE ×2 (10:14→22:03)
[2017-07-11] MEDS: CEFTRIAXONE 2 GM in DEXTROSE 5%-WATER - 100 ML IVPB SCH (10:25)
[2017-07-11] MEDS: SODIUM CHLORIDE 1 GM TABLET PO SCH ×2 (10:28→23:20)
[2017-07-11] MEDS: HEPARIN NA (PORCINE) 5,000 UNITS/ML 1ML VIAL SQ SCH ×2 (10:28→23:22)
--- NOTE | 2017-07-11 12:46 | PN ---
Progress Note (short form) - Note Progress Note: PULMONARY DOWNTRENDING TEMPS APPEARS STABLE ANICTERIC DISTANT B/L BREATH SOUNDS S1S2 BS+ NO EDEMA LABS/MICRO/IMAGES/NOTES/MEDS REVIEWED IMP: RUL CONSILIDATION LIKELY PNEUMONIA CAP,?MTB,?MALIGNANCY URINE STREP ANTIGEN + HYPONATREMIA IMPROVING ?SIADH COPD WT LOSS TOBACCO ABUSE/ETOH PLAN ABX PER ID CULTURES NEGATIVE THUS FAR INHALED BRONCHODILATORS/02 F/U CHEST X-RAYS F/U CHEST CT 6-8 WKS TO DOCUMENT RESOLUTION OF INFILTRATES PFTS OUTPATIENT SMOKING CESSATION Kristyn MANZANO MD
--- NOTE | 2017-07-11 13:21 | PN ---
Progress Note, Physician History of Present Illness: Pt feeling better Serum Sodium 126 - Current Medication List Current Medications: Active Medications Acetaminophen (Tylenol -) 650 mg PO Q6H PRN PRN Reason: PAIN OR FEVER Last Admin: 07/11/17 01:56 Dose: 650 mg Albuterol/Ipratropium (Duoneb -) 1 amp NEB Q6H PRN PRN Reason: SHORTNESS OF BREATH Guaifenesin (Robitussin Dm -) 10 ml PO Q4H PRN PRN Reason: COUGH Heparin Sodium (Porcine) (Heparin -) 5,000 unit SQ BID [facility] Last Admin: 07/11/17 10:28 Dose: 5,000 unit Ceftriaxone Sodium 2 gm/ (Dextrose) 100 mls @ 100 mls/hr IVPB DAILY [facility] Last Admin: 07/11/17 10:25 Dose: 100 mls/hr Sodium Chloride (Sodium Chloride Tablet -) 1 gm PO BID [facility] Last Admin: 07/11/17 10:28 Dose: 1 gm - Objective Vital Signs: Vital Signs Temperature 100.4 F H 07/11/17 06:00 Pulse Rate 68 07/11/17 11:38 Respiratory Rate 20 07/11/17 11:38 Blood Pressure 148/78 07/11/17 11:38 O2 Sat by Pulse Oximetry (%) 94 L 07/11/17 09:00 Constitutional: Yes: No Distress Cardiovascular: Yes: S1, S2 Respiratory: Yes: CTA Bilaterally Gastrointestinal: Yes: Soft. No: Tenderness, Rebound Edema: No Labs: CBC, BMP 07/11/17 07:20 07/11/17 07:20 INR, PTT INR 0.94 (0.82-1.09) 07/09/17 16:00 Laboratory Tests 07/11/17 07/11/17 01:40 07:20 Cortisol AM Sample Pending Ur Random Sodium 10 Ur Random Potassium 21.1 Ur Random Chloride 13 Assessment/Plan Impression 1. hyponatremia from Na depletion and which has improved on NS 2. PNA 3. Etoh misuse 4. Active smoker 5. Rght adrenal gland adenoma 6. Infrarenal AAA Plan - Continue with NS IV - Malignancy screening as he had weight loss - Follow cortisol level - Rpt labs in am Dr Gan
--- NOTE | 2017-07-11 13:59 | PN ---
Progress Note (short form) - Note Progress Note: no complaints still with productive cough Vital Signs Period Temp Pulse Resp BP Sys/Garcia Pulse Ox Last 24 Hr 100.2 F-101.5 F 68-92 20-20 123-148/77-79 94-94 cor-rrr lungs clear abd soft,nt ext no edema CBC, BMP 07/11/17 07:20 07/11/17 07:20 Microbiology 07/10/17 08:55 Sputum - Expectorated Gram Stain - Final 07/10/17 08:55 Sputum - Expectorated Sputum Culture - Preliminary NORMAL RESPIRATORY LAKESHA 07/10/17 01:28 Urine - Urine Clean Catch Urine Culture - Final NO GROWTH OBTAINED 07/09/17 22:10 Blood - Peripheral Venous Blood Culture - Preliminary NO GROWTH OBTAINED AFTER 24 HOURS, INCUBATION TO CONTINUE FOR 4 DAYS. 07/09/17 21:40 Blood - Peripheral Venous Blood Culture - Preliminary NO GROWTH OBTAINED AFTER 24 HOURS, INCUBATION TO CONTINUE FOR 4 DAYS. 07/10/17 01:28 Urine For Antigen Detection Legionella Antigen - Final 07/10/17 01:28 Urine For Antigen Detection Streptococcus pneumoniae Antigen (M - Final 07/10/17 05:30 Nasopharyngeal Swab Influenza Types A,B Antigen (HELLEN) - Final 07/10/17 05:30 Nasopharyngeal Swab - Final Pneumococcal antigen is positive in the urine! Laboratory Tests 07/10/17 10:05 HIV 1&2 Antibody Screen Negative HIV P24 Antigen Negative a/p pneumonia-?pneumococcal hyponatremia weight loss continue rocephin f/u cultures sputum afb and quantiferon pending ?malignancy
[2017-07-11 14:04] LABS: HEMATOCRIT 34.6 % (35.4-49); HEMOGLOBIN 12.1 GM/dL (11.7-16.9); MCH 33.2 pg (25.7-33.7); MEAN CELL VOLUME 94.7 fl (80-96); MEAN PLT VOLUME 6.6 fl (7.5-11.1); PLATELET COUNT 204 K/MM3 (134-434); RBC 3.65 M/mm3 (4.00-5.60); RDW 13.6 % (11.9-15.9); WHITE BLOOD COUNT 2.9 K/mm3 (4.0-10.0)
[2017-07-11 14:57] LABS: PLATELET ESTIMATE ADEQUATE
--- NOTE | 2017-07-11 16:10 | PN ---
Progress Note, Physician Chief Complaint: Hyponatremia Pneumonia History of Present Illness: NAD Still coughing a bit seen by pulmonary, ID and Nephrology IV abx, urine strep ag + Hyponatremia improved, on NS IV and tabs - Current Medication List Current Medications: Active Medications Acetaminophen (Tylenol -) 650 mg PO Q6H PRN PRN Reason: PAIN OR FEVER Last Admin: 07/11/17 01:56 Dose: 650 mg Albuterol/Ipratropium (Duoneb -) 1 amp NEB Q6H PRN PRN Reason: SHORTNESS OF BREATH Guaifenesin (Robitussin Dm -) 10 ml PO Q4H PRN PRN Reason: COUGH Heparin Sodium (Porcine) (Heparin -) 5,000 unit SQ BID [facility] Last Admin: 07/11/17 10:28 Dose: 5,000 unit Ceftriaxone Sodium 2 gm/ (Dextrose) 100 mls @ 100 mls/hr IVPB DAILY [facility] Last Admin: 07/11/17 10:25 Dose: 100 mls/hr Sodium Chloride (Sodium Chloride Tablet -) 1 gm PO BID [facility] Last Admin: 07/11/17 10:28 Dose: 1 gm - Objective Vital Signs: Vital Signs Temperature 99.3 F 07/11/17 15:20 Pulse Rate 88 07/11/17 15:20 Respiratory Rate 20 07/11/17 15:20 Blood Pressure 146/75 07/11/17 15:20 O2 Sat by Pulse Oximetry (%) 94 L 07/11/17 09:00 Constitutional: Yes: No Distress, Calm, Cachectic Cardiovascular: Yes: Regular Rate and Rhythm Respiratory: Yes: Regular Gastrointestinal: Yes: Normal Bowel Sounds, Soft Musculoskeletal: Yes: WNL Extremities: Yes: WNL Edema: No Peripheral Pulses WNL: Yes Neurological: Yes: Alert, Oriented Psychiatric: Yes: Alert, Oriented Labs: CBC, BMP 07/11/17 13:44 07/11/17 07:20 INR, PTT INR 0.94 (0.82-1.09) 07/09/17 16:00 Problem List - Problems (1) Malnourished Assessment/Plan: -RD consult -malignancy work up pending Code(s): E46 - UNSPECIFIED PROTEIN-CALORIE MALNUTRITION (2) Community acquired pneumonia Assessment/Plan: -ID consult -IV abx -Urine strep PNE positive -Febrile earlier this AM -Tylenol for fever> 100.0 F -Sputum AFB and culture pending -Quantiferon Gold pending -Airborne isolation precaution for now Code(s): J18.9 - PNEUMONIA, UNSPECIFIED ORGANISM Qualifiers: Laterality: right (3) Hyponatremia Assessment/Plan: -Improved -on IV NS and NS tabs -seen by Nephrology and cardiology -monitor trend Code(s): E87.1 - HYPO-OSMOLALITY AND HYPONATREMIA (4) SIADH (syndrome of inappropriate ADH production) Assessment/Plan: AM cortisol pending (5) Weight loss Assessment/Plan: -Ensure -RD consult Code(s): R63.4 - ABNORMAL WEIGHT LOSS Assessment/Plan see problem list
[2017-07-12] MEDS ORDERED: PT OWN MED DRAWER 7, Y5N ONE ×2 (10:25→21:43)
[2017-07-12] MEDS: SODIUM CHLORIDE 1 GM TABLET PO SCH ×2 (10:41→22:02)
[2017-07-12] MEDS: HEPARIN NA (PORCINE) 5,000 UNITS/ML 1ML VIAL SQ SCH ×2 (10:41→22:02)
[2017-07-12] MEDS: CEFTRIAXONE 2 GM in DEXTROSE 5%-WATER - 100 ML IVPB SCH (10:41)
[2017-07-12 10:59] LABS: ANION GAP 7 (8-16); BLOOD UREA NITROGEN 5 mg/dL (7-18); CALCIUM 7.2 mg/dL (8.5-10.1); CHLORIDE 92 mmol/L (98-107); CO2 29 mmol/L (21-32); GLUCOSE,RANDOM 93 mg/dL (74-106); POTASSIUM 3.8 mmol/L (3.5-5.1); SODIUM 128 mmol/L (136-145)
[2017-07-12 11:01] LABS: CREATININE 0.6 mg/dL (0.7-1.3)
--- NOTE | 2017-07-12 11:15 | PN ---
Progress Note (short form) - Note Progress Note: PULMONARY DOWNTRENDING TEMPS/NOW NORMAL NA IMPROVING APPEARS STABLE ANICTERIC DISTANT B/L BREATH SOUNDS S1S2 BS+ NO EDEMA LABS/MICRO/IMAGES/NOTES/MEDS REVIEWED IMP: RUL CONSILIDATION LIKELY PNEUMONIA CAP,?MTB,?MALIGNANCY URINE STREP ANTIGEN + HYPONATREMIA IMPROVING ?SIADH COPD WT LOSS TOBACCO ABUSE/ETOH PLAN ABX PER ID CULTURES NEGATIVE THUS FAR INHALED BRONCHODILATORS/02 F/U CHEST X-RAYS F/U CHEST CT 6-8 WKS TO DOCUMENT RESOLUTION OF INFILTRATES PFTS OUTPATIENT SMOKING CESSATION SUSPECTED MALIGNANCY W/U CAN BE PERFORMED AN OUTPATIENT Kristyn MANZANO MD
--- NOTE | 2017-07-12 12:42 | CON.NEURO ---
Consult - Smoking History Smoking history: Current some day smoker Have you smoked in the past 12 months: Yes Aproximately how many cigarettes per day: 20 Home Medications - Allergies Allergies/Adverse Reactions: Allergies Allergy/AdvReac Type Severity Reaction Status Date / Time No Known Allergies Allergy Verified 07/09/17 13:16 - Home Medications Home Medications: Ambulatory Orders NK [No Known Home Medication] 07/09/17 Physical Exam-Neuro Vital Signs: Vital Signs Temperature 98.2 F 07/12/17 06:00 Pulse Rate 80 07/12/17 09:00 Respiratory Rate 18 07/12/17 09:00 Blood Pressure 138/80 07/12/17 09:00 O2 Sat by Pulse Oximetry (%) 94 L 07/11/17 21:00 Labs: CBC, BMP 07/11/17 13:44 07/12/17 07:15 INR, PTT INR 0.94 (0.82-1.09) 07/09/17 16:00 Assessment/Plan cc called to evaluate headache and ct scan findings HPI 57 year old male hsitory of htn, former smoker . He came for dizziness, sob , cough and found to have pneumonia. He is being treated with antibiotics. He did get headache. He is not having headache. He was found to have lacunar ischemic lesion on ct head . He denies any focal neurological symptoms ,dysphagia, dyarthria or diplopia. He denies any motor weakness or sensory loss, either during this admission or in past. Past Medical History as above smoker for 40 years and recently quit NKDA FH,ROS,SH reviewed in chart Neurological Examination Alert oriented x 3 CN all intact, eomi, pupils reactive, no face asymmetry moving all ext sensation is normal ct head reviewed Assessment .1 Headache could have due to Intercurrent Illness ( Pneumonia) now resolved. 2. ischemic lesion on right caudate nucleus , totally asymptomatic. advise to start baby aspirin suggest to obtain lipid profile no need for mri a carotid ultrasound can be obtained Thanking you so much Pedro Luis Zhou MD
--- NOTE | 2017-07-12 12:44 | PN ---
Progress Note, Physician Chief Complaint: Hyponatremia Pneumonia History of Present Illness: NAD Still coughing a bit seen by pulmonary, ID and Nephrology IV abx, urine strep ag + Hyponatremia improved, on NS IV and tabs CT head lacunar infarct, Headaches - Current Medication List Current Medications: Active Medications Acetaminophen (Tylenol -) 650 mg PO Q6H PRN PRN Reason: PAIN OR FEVER Last Admin: 07/11/17 01:56 Dose: 650 mg Albuterol/Ipratropium (Duoneb -) 1 amp NEB Q6H PRN PRN Reason: SHORTNESS OF BREATH Guaifenesin (Robitussin Dm -) 10 ml PO Q4H PRN PRN Reason: COUGH Heparin Sodium (Porcine) (Heparin -) 5,000 unit SQ BID [facility] Last Admin: 07/12/17 10:41 Dose: 5,000 unit Ceftriaxone Sodium 2 gm/ (Dextrose) 100 mls @ 100 mls/hr IVPB DAILY [facility] Last Admin: 07/12/17 10:41 Dose: 100 mls/hr Sodium Chloride (Sodium Chloride Tablet -) 1 gm PO BID [facility] Last Admin: 07/12/17 10:41 Dose: 1 gm - Objective Vital Signs: Vital Signs Temperature 98.2 F 07/12/17 06:00 Pulse Rate 80 07/12/17 09:00 Respiratory Rate 18 07/12/17 09:00 Blood Pressure 138/80 07/12/17 09:00 O2 Sat by Pulse Oximetry (%) 94 L 07/11/17 21:00 Constitutional: Yes: No Distress, Calm, Thin Cardiovascular: Yes: Regular Rate and Rhythm Respiratory: Yes: Regular, Cough Gastrointestinal: Yes: Normal Bowel Sounds, Soft Neurological: Yes: Alert, Oriented Psychiatric: Yes: Alert, Oriented Labs: CBC, BMP 07/11/17 13:44 07/12/17 07:15 INR, PTT INR 0.94 (0.82-1.09) 07/09/17 16:00 Problem List - Problems (1) Malnourished Assessment/Plan: -RD consult -malignancy work up pending -Ensure BID -Multivitamin Code(s): E46 - UNSPECIFIED PROTEIN-CALORIE MALNUTRITION (2) Community acquired pneumonia Assessment/Plan: -ID consult -Pulmonary consult -IV abx -Urine strep PNE positive -Afebrile since last evening -Tylenol for fever> 100.0 F -Sputum AFB and culture pending -Quantiferon Gold pending -Airborne isolation precaution for now Code(s): J18.9 - PNEUMONIA, UNSPECIFIED ORGANISM (3) Hyponatremia Assessment/Plan: -Improved -on IV NS and NS tabs -seen by Nephrology and cardiology -monitor trend Code(s): E87.1 - HYPO-OSMOLALITY AND HYPONATREMIA (4) SIADH (syndrome of inappropriate ADH production) Assessment/Plan: AM cortisol pending (5) Weight loss Assessment/Plan: -Ensure -RD consult -Multivitamin Code(s): R63.4 - ABNORMAL WEIGHT LOSS Assessment/Plan see problem list
[2017-07-12] MEDS: MULTIVITAMINS (DAILY MVI) TABLET (FP) PO SCH (14:34)
[2017-07-12] MEDS: ASPIRIN COATED 81 MG TABLET.EC PO SCH (14:35)
--- NOTE | 2017-07-12 15:22 | PN ---
Progress Note, Physician History of Present Illness: Pt feeling better Serum Sodium 128 On isolation to R/O TB Eating well and taking his salt tabs - Current Medication List Current Medications: Active Medications Acetaminophen (Tylenol -) 650 mg PO Q6H PRN PRN Reason: PAIN OR FEVER Last Admin: 07/11/17 01:56 Dose: 650 mg Albuterol/Ipratropium (Duoneb -) 1 amp NEB Q6H PRN PRN Reason: SHORTNESS OF BREATH Aspirin (Ecotrin -) 81 mg PO DAILY [facility] Last Admin: 07/12/17 14:35 Dose: 81 mg Guaifenesin (Robitussin Dm -) 10 ml PO Q4H PRN PRN Reason: COUGH Heparin Sodium (Porcine) (Heparin -) 5,000 unit SQ BID [facility] Last Admin: 07/12/17 10:41 Dose: 5,000 unit Ceftriaxone Sodium 2 gm/ (Dextrose) 100 mls @ 100 mls/hr IVPB DAILY [facility] Last Admin: 07/12/17 10:41 Dose: 100 mls/hr Multivitamins/Minerals/Vitamin C (Tab-A-Vit -) 1 tab PO DAILY [facility] Last Admin: 07/12/17 14:34 Dose: 1 tab Sodium Chloride (Sodium Chloride Tablet -) 1 gm PO BID [facility] Last Admin: 07/12/17 10:41 Dose: 1 gm - Objective Vital Signs: Vital Signs Temperature 98.0 F 07/12/17 14:47 Pulse Rate 72 07/12/17 14:47 Respiratory Rate 20 07/12/17 14:47 Blood Pressure 153/78 07/12/17 14:47 O2 Sat by Pulse Oximetry (%) 94 L 07/11/17 21:00 Constitutional: Yes: No Distress Cardiovascular: Yes: S1, S2 Respiratory: Yes: Rhonchi Gastrointestinal: Yes: Soft. No: Tenderness, Rebound Edema: No Labs: CBC, BMP 07/11/17 13:44 07/12/17 07:15 INR, PTT INR 0.94 (0.82-1.09) 07/09/17 16:00 Assessment/Plan Impression 1. hyponatremia from Na depletion and which has improved on NS 2. PNA 3. Etoh misuse 4. Active smoker 5. Rght adrenal gland adenoma 6. Infrarenal AAA Plan - Reduce NS IV and continue with salt tabs - Malignancy screening and R/O TB as part of W/U for weight loss - Await cortisol level - Rpt labs in am Dr Gan
[2017-07-13 07:30] LABS: HEMATOCRIT 38.6 % (35.4-49); HEMOGLOBIN 13.4 GM/dL (11.7-16.9); MCH 32.9 pg (25.7-33.7); MCHC 34.8 g/dl (32.0-35.9); MEAN CELL VOLUME 94.5 fl (80-96); MEAN PLT VOLUME 6.4 fl (7.5-11.1); PLATELET COUNT 298 K/MM3 (134-434); RBC 4.08 M/mm3 (4.00-5.60); RDW 13.6 % (11.9-15.9)
--- NOTE | 2017-07-13 07:37 | PN ---
Progress Note, Physician History of Present Illness: feels better - Current Medication List Current Medications: Active Medications Acetaminophen (Tylenol -) 650 mg PO Q6H PRN PRN Reason: PAIN OR FEVER Last Admin: 07/11/17 01:56 Dose: 650 mg Albuterol/Ipratropium (Duoneb -) 1 amp NEB Q6H PRN PRN Reason: SHORTNESS OF BREATH Aspirin (Ecotrin -) 81 mg PO DAILY [facility] Last Admin: 07/12/17 14:35 Dose: 81 mg Guaifenesin (Robitussin Dm -) 10 ml PO Q4H PRN PRN Reason: COUGH Last Admin: 07/12/17 22:02 Dose: 10 ml Heparin Sodium (Porcine) (Heparin -) 5,000 unit SQ BID [facility] Last Admin: 07/12/17 22:02 Dose: 5,000 unit Ceftriaxone Sodium 2 gm/ (Dextrose) 100 mls @ 100 mls/hr IVPB DAILY [facility] Last Admin: 07/12/17 10:41 Dose: 100 mls/hr Multivitamins/Minerals/Vitamin C (Tab-A-Vit -) 1 tab PO DAILY [facility] Last Admin: 07/12/17 14:34 Dose: 1 tab Sodium Chloride (Sodium Chloride Tablet -) 1 gm PO BID [facility] Last Admin: 07/12/17 22:02 Dose: 1 gm - Objective Vital Signs: Vital Signs Temperature 98.2 F 07/13/17 05:17 Pulse Rate 71 07/13/17 05:17 Respiratory Rate 18 07/12/17 22:07 Blood Pressure 157/84 07/13/17 05:17 O2 Sat by Pulse Oximetry (%) 95 07/12/17 22:09 Cardiovascular: Yes: Regular Rate and Rhythm Respiratory: Yes: CTA Bilaterally Gastrointestinal: Yes: Normal Bowel Sounds, Soft Labs: INR, PTT INR 0.94 (0.82-1.09) 07/09/17 16:00 Assessment/Plan - Problems (1) Malnourished Assessment/Plan: -RD consult -malignancy work up pending -Ensure BID -Multivitamin Code(s): E46 - UNSPECIFIED PROTEIN-CALORIE MALNUTRITION (2) Community acquired pneumonia Assessment/Plan: -ID consult -Pulmonary consult -IV abx -Urine strep PNE positive -Afebrile since last evening -Tylenol for fever> 100.0 F -Sputum AFB and culture pending -Quantiferon Gold pending -Airborne isolation precaution for now Code(s): J18.9 - PNEUMONIA, UNSPECIFIED ORGANISM (3) Hyponatremia Assessment/Plan: -Improved -on IV NS and NS tabs -seen by Nephrology and cardiology -monitor trend Code(s): E87.1 - HYPO-OSMOLALITY AND HYPONATREMIA (4) SIADH (syndrome of inappropriate ADH production) Assessment/Plan: AM cortisol pending (5) Weight loss Assessment/Plan: -Ensure -RD consult -Multivitamin Code(s): R63.4 - ABNORMAL WEIGHT LOSS
[2017-07-13 08:03] LABS: ALBUMIN 2.5 g/dl (3.4-5.0); ANION GAP 7 (8-16); BLOOD UREA NITROGEN 5 mg/dL (7-18); CALCIUM 7.7 mg/dL (8.5-10.1); CHLORIDE 94 mmol/L (98-107); CHOLESTEROL 119 mg/dL (50-200); CO2 29 mmol/L (21-32); CREATININE 0.5 mg/dL (0.7-1.3); GLUCOSE,RANDOM 94 mg/dL (74-106); POTASSIUM 3.4 mmol/L (3.5-5.1); SGOT/AST 42 U/L (15-37); SGPT/ALT 30 U/L (12-78); SODIUM 130 mmol/L (136-145)
[2017-07-13 08:06] LABS: ALK PHOS 63 U/L (45-117); BILIRUBIN,TOTAL 0.3 mg/dL (0.2-1.0); HDL CHOLESTEROL 46 mg/dL (40-60); LDL CHOLESTEROL (ONLY SJRH) 63 mg/dL (5-100); TOT PROT 5.4 g/dl (6.4-8.2); TRIGLYCERIDES 130 mg/dL (35-160)
[2017-07-13] MEDS ORDERED: PT OWN MED DRAWER 7, Y5N ONE ×2 (10:08→20:52)
--- NOTE | 2017-07-13 10:28 | PN ---
Progress Note (short form) - Note Progress Note: cc57 year old male hsitory of htn, former smoker . He came for dizziness, sob, cough and found to have pneumonia. He is being treated with antibiotics. He did get headache. He is not having headache. He was found to have lacunar ischemic lesion on ct head . He denies any focal neurological symptoms ,dysphagia, dyarthria or diplopia. He denies any motor weakness or sensory loss, either during this admission or in past. no more headache today. Neurological Examination Alert oriented x 3 CN all intact, eomi, pupils reactive, no face asymmetry moving all ext sensation is normal ct head reviewed, carotid ultrasound and lipid profile reviewed Assessment .1 Headache could have due to Intercurrent Illness ( Pneumonia) now resolved.no headache today. 2. ischemic lesion on right caudate nucleus , totally asymptomatic. Continue aspirin, carotid ultrasound and lipid profile reviewed no need for mri of brain for abnormal ct findings Thanking you so much Pedro Luis Zhou MD
--- NOTE | 2017-07-13 10:29 | PN ---
Progress Note (short form) - Note Progress Note: no complaints poor historian now feeling much better afebrile still with productive cough notes voice change for last two weeks now Vital Signs Period Temp Pulse Resp BP Sys/Garcia Pulse Ox Last 24 Hr 98.0 F-98.2 F 71-77 18-20 150-157/78-93 95-95 cor-rrr lungs decreased bs at bases abd soft,nt ext no edema CBC, BMP 07/13/17 07:19 07/13/17 07:19 Pneumococcal antigen is positive in the urine! Laboratory Tests 07/10/17 10:05 HIV 1&2 Antibody Screen Negative HIV P24 Antigen Negative Microbiology 07/11/17 13:00 Sputum - Expectorated Direct Acid Fast Bacilli Smear - Final 07/11/17 13:00 Sputum - Expectorated Mycobacterial Culture - Preliminary 07/09/17 22:10 Blood - Peripheral Venous Blood Culture - Preliminary NO GROWTH OBTAINED AFTER 72 HOURS, INCUBATION TO CONTINUE FOR 2 DAYS. 07/09/17 21:40 Blood - Peripheral Venous Blood Culture - Preliminary NO GROWTH OBTAINED AFTER 72 HOURS, INCUBATION TO CONTINUE FOR 2 DAYS. 07/10/17 08:55 Sputum - Expectorated Gram Stain - Final 07/10/17 08:55 Sputum - Expectorated Sputum Culture - Final NORMAL RESPIRATORY LAKESHA 07/10/17 01:28 Urine - Urine Clean Catch Urine Culture - Final NO GROWTH OBTAINED 07/10/17 01:28 Urine For Antigen Detection Legionella Antigen - Final 07/10/17 01:28 Urine For Antigen Detection Streptococcus pneumoniae Antigen (M - Final 07/10/17 05:30 Nasopharyngeal Swab Influenza Types A,B Antigen (HELLEN) - Final 07/10/17 05:30 Nasopharyngeal Swab - Final Current Medications Acetaminophen (Tylenol -) 650 mg PO Q6H PRN PRN Reason: PAIN OR FEVER Last Admin: 07/11/17 01:56 Dose: 650 mg Albuterol/Ipratropium (Duoneb -) 1 amp NEB Q6H PRN PRN Reason: SHORTNESS OF BREATH Aspirin (Ecotrin -) 81 mg PO DAILY [facility] Last Admin: 07/12/17 14:35 Dose: 81 mg Guaifenesin (Robitussin Dm -) 10 ml PO Q4H PRN PRN Reason: COUGH Last Admin: 07/12/17 22:02 Dose: 10 ml Heparin Sodium (Porcine) (Heparin -) 5,000 unit SQ BID [facility] Last Admin: 07/12/17 22:02 Dose: 5,000 unit Ceftriaxone Sodium 2 gm/ (Dextrose) 100 mls @ 100 mls/hr IVPB DAILY [facility] Last Admin: 07/12/17 10:41 Dose: 100 mls/hr Multivitamins/Minerals/Vitamin C (Tab-A-Vit -) 1 tab PO DAILY [facility] Last Admin: 07/12/17 14:34 Dose: 1 tab Sodium Chloride (Sodium Chloride Tablet -) 1 gm PO BID [facility] Last Admin: 07/12/17 22:02 Dose: 1 gm a/p pneumonia-probable pneumococcal hyponatremia weight loss-not explained by the pneumococcal pneumonia continue rocephin f/u cultures sputum afb and quantiferon pending ?malignancy spoke to lab- only one sputum AFB has been received ent consult- voice change in patient who smokes/+ETOH-ENT evaluation r/o malignancy
[2017-07-13] MEDS: SODIUM CHLORIDE 1 GM TABLET PO SCH ×2 (10:31→22:05)
[2017-07-13] MEDS: CEFTRIAXONE 2 GM in DEXTROSE 5%-WATER - 100 ML IVPB SCH (10:31)
[2017-07-13] MEDS: ASPIRIN COATED 81 MG TABLET.EC PO SCH (10:31)
[2017-07-13] MEDS: MULTIVITAMINS (DAILY MVI) TABLET (FP) PO SCH (10:31)
[2017-07-13] MEDS: HEPARIN NA (PORCINE) 5,000 UNITS/ML 1ML VIAL SQ SCH ×2 (10:31→22:05)
--- NOTE | 2017-07-13 10:34 | PN ---
Progress Note (short form) - Note Progress Note: HPI 66 year old female history of dementia, stroke . She came iwth worsenig of lethargy and found to have worsening of bun and creatinine. Patient has been getting dialysis and as per nursing staff and daughter she has improved. Now she is more awake and alert. She talks very little, and she is able to eat puree diet, She is not mobile and she is mostly bed bound. Patient has stage 5 CKD. Patient has history of Dementia. no new symptoms since yesterday. Neurological Examination Alert and track objects , Patient is not having any spontaneous speech ( spoke to nursing , she speaks very slowly_ as per daughter she has improved since dialysis pupils is reactive and no face asymmetry moving all ext ( though not following command) Reflex generalized diminished CT head showed large ventricles Assessment- 1, Recent worsening of mental status due to uremic encephalopathy, improved after dialysis 2. History of Dementia, unlikley to be NPH Plan- no need for mri ofbrain or , in my opinion she would not benefit from any shunt procedure at this time. - b12,folate tsh is pending. Thanking you so much Pedro Luis Zhou MD
[2017-07-13 11:38] LABS: ACANTHOCYTES 0; ANISOCYTOSIS 0; HELMET CELLS 0; HOWELL-JOLLY BODIES 0; MACROCYTOSIS 0; OVALOCYTE 0; PLATELET ESTIMATE NORMAL; ROULEAU 0; SICKELED CELLS 0; TARGET CELLS 0; TEAR DROP CELLS 0; TOXIC GRANULATION 0
--- NOTE | 2017-07-13 14:15 | PN ---
Progress Note, Physician History of Present Illness: pulmonary feeling better,less dyspneic,+ cough - Current Medication List Current Medications: Active Medications Acetaminophen (Tylenol -) 650 mg PO Q6H PRN PRN Reason: PAIN OR FEVER Last Admin: 07/11/17 01:56 Dose: 650 mg Albuterol/Ipratropium (Duoneb -) 1 amp NEB Q6H PRN PRN Reason: SHORTNESS OF BREATH Aspirin (Ecotrin -) 81 mg PO DAILY [facility] Last Admin: 07/13/17 10:31 Dose: 81 mg Guaifenesin (Robitussin Dm -) 10 ml PO Q4H PRN PRN Reason: COUGH Last Admin: 07/12/17 22:02 Dose: 10 ml Heparin Sodium (Porcine) (Heparin -) 5,000 unit SQ BID [facility] Last Admin: 07/13/17 10:31 Dose: 5,000 unit Ceftriaxone Sodium 2 gm/ (Dextrose) 100 mls @ 100 mls/hr IVPB DAILY [facility] Last Admin: 07/13/17 10:31 Dose: 100 mls/hr Multivitamins/Minerals/Vitamin C (Tab-A-Vit -) 1 tab PO DAILY [facility] Last Admin: 07/13/17 10:31 Dose: 1 tab Sodium Chloride (Sodium Chloride Tablet -) 1 gm PO BID [facility] Last Admin: 07/13/17 10:31 Dose: 1 gm - Objective Vital Signs: Vital Signs Temperature 98.1 F 07/13/17 10:00 Pulse Rate 76 07/13/17 10:00 Respiratory Rate 20 07/13/17 10:00 Blood Pressure 152/84 07/13/17 10:00 O2 Sat by Pulse Oximetry (%) 96 07/13/17 09:00 Constitutional: Yes: Well Nourished, Calm Eyes: Yes: WNL HENT: Yes: WNL Neck: Yes: WNL Cardiovascular: Yes: Regular Rate and Rhythm, S1, S2 Respiratory: Yes: Diminished, Rales (crackles on R) Gastrointestinal: Yes: Normal Bowel Sounds, Soft Extremities: Yes: WNL Edema: No Labs: CBC, BMP 07/13/17 07:19 07/13/17 07:19 INR, PTT INR 0.94 (0.82-1.09) 07/09/17 16:00 Problem List - Problems (1) Weight loss Code(s): R63.4 - ABNORMAL WEIGHT LOSS (2) Community acquired pneumonia Code(s): J18.9 - PNEUMONIA, UNSPECIFIED ORGANISM Qualifiers: Laterality: right (3) HTN (hypertension) Code(s): I10 - ESSENTIAL (PRIMARY) HYPERTENSION (4) Hyponatremia Code(s): E87.1 - HYPO-OSMOLALITY AND HYPONATREMIA (5) Shortness of breath Code(s): R06.02 - SHORTNESS OF BREATH (6) Tobacco dependency Code(s): F17.200 - NICOTINE DEPENDENCE, UNSPECIFIED, UNCOMPLICATED (7) Tobacco abuse counseling Code(s): Z71.6 - TOBACCO ABUSE COUNSELING Assessment/Plan IMP RUL CONSILIDATION LIKELY PNEUMONIA CAP,?MTB,?MALIGNANCY HYPONATREMIA IMPROVING DYSPNEA SECONDARY TO PNA ,LIKELY UNDERYING COPD WT LOSS TOBACCO ABUSE PLAN BROAD SPECTRUM ABX PER ID INHALED BRONCHODILATORS O2 MONITOR LYTES ,NA F/U CHEST X-RAY AM F/U CHEST CT 6-8 WKS TO DOCUMENT RESOLUTION OF INFILTRATES PFTS OUTPATIENT SMOKING CESSATION COUNSELED IVF DR CEDENO Problem List - Problems (1) Weight loss Code(s): R63.4 - ABNORMAL WEIGHT LOSS (2) Community acquired pneumonia Code(s): J18.9 - PNEUMONIA, UNSPECIFIED ORGANISM Qualifiers: Laterality: right (3) HTN (hypertension) Code(s): I10 - ESSENTIAL (PRIMARY) HYPERTENSION (4) Hyponatremia Code(s): E87.1 - HYPO-OSMOLALITY AND HYPONATREMIA (5) Shortness of breath Code(s): R06.02 - SHORTNESS OF BREATH (6) Tobacco dependency Code(s): F17.200 - NICOTINE DEPENDENCE, UNSPECIFIED, UNCOMPLICATED (7) Tobacco abuse counseling Code(s): Z71.6 - TOBACCO ABUSE COUNSELING
--- NOTE | 2017-07-13 15:11 | CON.ENT ---
Consult Consult Specialty:: otolaryngology Reason for Consultation:: hoarseness - History of Present Illness Chief Complaint: hoarseness History of Present Illness: 57M with history of heavy smoking in hospital for pneumonia. He was noted to have a hoarse voice and [facility] was consulted for evaluation. He feels his voice is only slightly raspy along with his recent pulmonary problems, along with a mild cough. Apart from this he denies any dysphonia, dysphagia, sore throat, SOB, otalgia, hemoptysis. He was smoking up till his recent hospitalization. - History Source History Provided By: Patient Limitations to Obtaining History: No Limitations - Smoking History Smoking history: Current some day smoker Have you smoked in the past 12 months: Yes Aproximately how many cigarettes per day: 20 Home Medications - Allergies Allergies/Adverse Reactions: Allergies Allergy/AdvReac Type Severity Reaction Status Date / Time No Known Allergies Allergy Verified 07/09/17 13:16 - Home Medications Home Medications: Ambulatory Orders NK [No Known Home Medication] 07/09/17 Review of Systems - Review of Systems Constitutional: denies: Fever HENT: denies: Throat Pain Physical Exam-ENT Vital Signs: Vital Signs Temperature 98.1 F 07/13/17 10:00 Pulse Rate 76 07/13/17 10:00 Respiratory Rate 20 07/13/17 10:00 Blood Pressure 152/84 07/13/17 10:00 O2 Sat by Pulse Oximetry (%) 96 07/13/17 09:00 Constitutional: Yes: Well Nourished, No Distress, Calm, Normal Voice Quality, Other (no stridor/strertor. Mild husky voice. speaking full sentences. breathing quietly.) Head: Yes: WNL Face: Yes: WNL Eyes: Yes: WNL Nose: Yes: WNL Nasal Passage: Yes: WNL Oral/Pharynx: Yes: Other (2-3mm superficial ulcer left tip of tongue, likely from rubbing against suboptimally-cared for teeth. Flat. No bleeding. No deeper mass. Post o/p clear. Large eddie mandibulari B, bony, benign.) Outer Ear: Yes: WNL Ear Canal: Yes: Cerumen Respiratory: Yes: WNL Neurological: Yes: Other (CN3-7,11,12 intact,symmetrical) Imaging - Results Other: Other (Flexible Fiberoptic Laryngoscopy: Explained r/b/l/a to patient, all questions answered. Consent given. Passed through nasal cavity to supraglottis, withdrawn. Findings: 1. Both true vocal cords with diffuse mild- moderate erythema and patchy thickening/irregularity. No raised masses. 2. Normal cord mobility. 3. Pyriforms, hypopharynx, oropharynx otherwise unremarkable.) Problem List - Problems (1) Chronic laryngitis Assessment/Plan: The irregularity noted on both vocal folds is concerning for dysplasia, precancer, or cancerous changes Urged smoking cessation No airway concern at this time I discussed my findings with him. Given his history, we discussed explicitly the potential for precancerous or even cancerous changes of the vocal cords. I' d like him to see my colleague, Dr. Mehdi Reyna, a manager home improvement who can examine them closer with better optics and determine if a biopsy is needed. This could then likely be done with him awake in the office. He understands and agrees. I discussed the time-sensitivity of this and advised him to schedule as soon as possible once he is discharged. Please give the patient the following contact information for his office: Dr. Dion Reyna [address], [address] [place] [address], but he cannot remember what his insurance company is. As I cannot verify that Dr. Reyna accepts his insurance, I advised him to call me to discuss if he cannot consult with Dr. Reyna for this or any other reason. Code(s): J37.0 - CHRONIC LARYNGITIS (2) Tongue ulcer Assessment/Plan: Small, likely benign ulcer on the tip of his tongue. He is vague about this but it is likely an aphthuous ulcer that is new. I discussed that with his history of smoking and EtOH, if this doesn't resolve in the next couple of weeks, he must see me or his dentist for a biopsy to rule out cancer. He understands and agrees Possibly from rubbing against his mandibular incisors. Code(s): K14.0 - GLOSSITIS
--- NOTE | 2017-07-13 15:17 | PN ---
Progress Note, Physician History of Present Illness: Pt seen and examined at bedside. He is awake and alert. He says that he feels better. - Current Medication List Current Medications: Active Medications Acetaminophen (Tylenol -) 650 mg PO Q6H PRN PRN Reason: PAIN OR FEVER Last Admin: 07/11/17 01:56 Dose: 650 mg Albuterol/Ipratropium (Duoneb -) 1 amp NEB Q6H PRN PRN Reason: SHORTNESS OF BREATH Aspirin (Ecotrin -) 81 mg PO DAILY [facility] Last Admin: 07/13/17 10:31 Dose: 81 mg Guaifenesin (Robitussin Dm -) 10 ml PO Q4H PRN PRN Reason: COUGH Last Admin: 07/12/17 22:02 Dose: 10 ml Heparin Sodium (Porcine) (Heparin -) 5,000 unit SQ BID [facility] Last Admin: 07/13/17 10:31 Dose: 5,000 unit Ceftriaxone Sodium 2 gm/ (Dextrose) 100 mls @ 100 mls/hr IVPB DAILY [facility] Last Admin: 07/13/17 10:31 Dose: 100 mls/hr Multivitamins/Minerals/Vitamin C (Tab-A-Vit -) 1 tab PO DAILY [facility] Last Admin: 07/13/17 10:31 Dose: 1 tab Sodium Chloride (Sodium Chloride Tablet -) 1 gm PO BID [facility] Last Admin: 07/13/17 10:31 Dose: 1 gm - Objective Vital Signs: Vital Signs Temperature 98.1 F 07/13/17 10:00 Pulse Rate 76 07/13/17 10:00 Respiratory Rate 20 07/13/17 10:00 Blood Pressure 152/84 07/13/17 10:00 O2 Sat by Pulse Oximetry (%) 96 07/13/17 09:00 Constitutional: Yes: Calm Eyes: Yes: Conjunctiva Clear HENT: Yes: Atraumatic Neck: Yes: Supple Cardiovascular: Yes: S1, S2 Respiratory: Yes: CTA Bilaterally Gastrointestinal: Yes: Soft Genitourinary: Yes: WNL Musculoskeletal: Yes: WNL Edema: No Neurological: Yes: Oriented Psychiatric: Yes: Oriented Labs: CBC, BMP 07/13/17 07:19 07/13/17 07:19 INR, PTT INR 0.94 (0.82-1.09) 07/09/17 16:00 Problem List - Problems (1) HTN (hypertension) Code(s): I10 - ESSENTIAL (PRIMARY) HYPERTENSION (2) Hyponatremia Code(s): E87.1 - HYPO-OSMOLALITY AND HYPONATREMIA Assessment/Plan Current Medications Generic Name Dose Route Start Last Admin Trade Name Jos PRN Reason Stop Dose Admin Acetaminophen 650 mg 07/10/17 05:20 07/11/17 01:56 Tylenol - PO 650 mg Q6H PRN Administration PAIN OR FEVER Albuterol/Ipratropium 1 amp 07/09/17 19:24 Duoneb - NEB Q6H PRN SHORTNESS OF BREATH Aspirin 81 mg 07/12/17 12:45 07/13/17 10:31 Ecotrin - PO 81 mg DAILY [facility] Administration Guaifenesin 10 ml 07/10/17 23:16 07/12/17 22:02 Robitussin Dm - PO 10 ml Q4H PRN Administration COUGH Heparin Sodium (Porcine) 5,000 unit 07/10/17 10:00 07/13/17 10:31 Heparin - SQ 5,000 unit BID [facility] Administration Ceftriaxone Sodium 2 gm/ 100 mls @ 100 mls/hr 07/10/17 11:30 07/13/17 10:31 Dextrose IVPB 100 mls/hr DAILY [facility] Administration Multivitamins/Minerals/Vitamin C 1 tab 07/12/17 12:45 07/13/17 10:31 Tab-A-Vit - PO 1 tab DAILY [facility] Administration Sodium Chloride 1 gm 07/10/17 22:00 07/13/17 10:31 Sodium Chloride Tablet - PO 1 gm BID [facility] Administration Laboratory Tests 07/11/17 01:40 Ur Random Sodium 10 Impression 1. hyponatremia 2. PNA 3. etoh misuse 4. active smoker 5. right adrenal gland adenoma 6. infrarenal AAA Plan - sodium is improving - urine sodium was very low which speaks against siadh and does support salute loss from GI causes - resume fluids - repeat labs in am - workup in progress - pt now says that he did not have any weight loss Dr Correa
[2017-07-13] MEDS ORDERED: SODIUM CHLORIDE 1,000 ML IV SCH (15:30)
[2017-07-14 07:47] LABS: HEMATOCRIT 36.8 % (35.4-49); HEMOGLOBIN 12.7 GM/dL (11.7-16.9); MCH 32.7 pg (25.7-33.7); MCHC 34.4 g/dl (32.0-35.9); MEAN CELL VOLUME 95.3 fl (80-96); MEAN PLT VOLUME 6.7 fl (7.5-11.1); PLATELET COUNT 371 K/MM3 (134-434); RBC 3.86 M/mm3 (4.00-5.60); RDW 13.7 % (11.9-15.9); WHITE BLOOD COUNT 3.8 K/mm3 (4.0-10.0)
[2017-07-14 08:03] LABS: CHLORIDE 94 mmol/L (98-107); POTASSIUM 4.1 mmol/L (3.5-5.1); SODIUM 134 mmol/L (136-145)
[2017-07-14 08:12] LABS: ALBUMIN 2.5 g/dl (3.4-5.0); ALK PHOS 64 U/L (45-117); ANION GAP 9 (8-16); BILIRUBIN,TOTAL 0.4 mg/dL (0.2-1.0); BLOOD UREA NITROGEN 10 mg/dL (7-18); CALCIUM 7.5 mg/dL (8.5-10.1); CO2 31 mmol/L (21-32); CREATININE 0.7 mg/dL (0.7-1.3); GLUCOSE,RANDOM 95 mg/dL (74-106); SGOT/AST 34 U/L (15-37); SGPT/ALT 37 U/L (12-78); TOT PROT 5.6 g/dl (6.4-8.2)
--- NOTE | 2017-07-14 08:56 | PN ---
Progress Note, Physician History of Present Illness: feels better - Current Medication List Current Medications: Active Medications Acetaminophen (Tylenol -) 650 mg PO Q6H PRN PRN Reason: PAIN OR FEVER Last Admin: 07/11/17 01:56 Dose: 650 mg Albuterol/Ipratropium (Duoneb -) 1 amp NEB Q6H PRN PRN Reason: SHORTNESS OF BREATH Aspirin (Ecotrin -) 81 mg PO DAILY [facility] Last Admin: 07/13/17 10:31 Dose: 81 mg Guaifenesin (Robitussin Dm -) 10 ml PO Q4H PRN PRN Reason: COUGH Last Admin: 07/12/17 22:02 Dose: 10 ml Heparin Sodium (Porcine) (Heparin -) 5,000 unit SQ BID [facility] Last Admin: 07/13/17 22:05 Dose: 5,000 unit Ceftriaxone Sodium 2 gm/ (Dextrose) 100 mls @ 100 mls/hr IVPB DAILY [facility] Last Admin: 07/13/17 10:31 Dose: 100 mls/hr Sodium Chloride (Normal Saline -) 1,000 mls @ 50 mls/hr IV [facility] Stop: 07/14/17 15:17 Last Admin: 07/13/17 16:07 Dose: 50 mls/hr Multivitamins/Minerals/Vitamin C (Tab-A-Vit -) 1 tab PO DAILY [facility] Last Admin: 07/13/17 10:31 Dose: 1 tab Sodium Chloride (Sodium Chloride Tablet -) 1 gm PO BID [facility] Last Admin: 07/13/17 22:05 Dose: 1 gm - Objective Vital Signs: Vital Signs Temperature 98.4 F 07/14/17 06:00 Pulse Rate 68 07/14/17 06:00 Respiratory Rate 20 07/14/17 06:00 Blood Pressure 150/85 07/14/17 06:00 O2 Sat by Pulse Oximetry (%) 96 07/13/17 21:00 Cardiovascular: Yes: Regular Rate and Rhythm Respiratory: Yes: Rhonchi Gastrointestinal: Yes: Normal Bowel Sounds, Soft Labs: CBC, BMP 07/14/17 06:00 07/14/17 06:00 INR, PTT INR 0.94 (0.82-1.09) 07/09/17 16:00 Assessment/Plan - Problems (1) Malnourished Assessment/Plan: -RD consult -malignancy work up pending -Ensure BID -Multivitamin Code(s): E46 - UNSPECIFIED PROTEIN-CALORIE MALNUTRITION (2) Community acquired pneumonia Assessment/Plan: -ID consult -Pulmonary consult -IV abx -Urine strep PNE positive -Afebrile since last evening -Tylenol for fever> 100.0 F -Sputum AFB and culture pending -Quantiferon Gold pending -Airborne isolation precaution for now Code(s): J18.9 - PNEUMONIA, UNSPECIFIED ORGANISM (3) Hyponatremia Assessment/Plan: -Improved -on IV NS and NS tabs -seen by Nephrology and cardiology -monitor trend Code(s): E87.1 - HYPO-OSMOLALITY AND HYPONATREMIA (4) SIADH (syndrome of inappropriate ADH production) Assessment/Plan: AM cortisol pending (5) Weight loss Assessment/Plan: -Ensure -RD consult -Multivitamin Code(s): R63.4 - ABNORMAL WEIGHT LOSS (6) Hoarseness Assessment/Plan: -ENT NOTED--NEEDS FOLLOW UP TOP R/O MALIGNANCY
[2017-07-14] MEDS ORDERED: PT OWN MED DRAWER 7, Y5N ONE (09:00)
[2017-07-14] MEDS: ASPIRIN COATED 81 MG TABLET.EC PO SCH (09:16)
[2017-07-14] MEDS: MULTIVITAMINS (DAILY MVI) TABLET (FP) PO SCH (09:16)
[2017-07-14] MEDS: HEPARIN NA (PORCINE) 5,000 UNITS/ML 1ML VIAL SQ SCH ×2 (09:16→22:32)
[2017-07-14] MEDS: SODIUM CHLORIDE 1 GM TABLET PO SCH ×2 (09:16→22:32)
[2017-07-14] MEDS: CEFTRIAXONE 2 GM in DEXTROSE 5%-WATER - 100 ML IVPB SCH (09:16)
[2017-07-14 10:05] LABS: PLATELET ESTIMATE ADEQUATE
[2017-07-14 11:01] LABS: URINE APPEARANCE CLEAR; URINE BILIRUBIN NEGATIVE (<2.0 mg/dL); URINE BLOOD NEGATIVE (NEGATIVE); URINE COLOR LTYELLOW; URINE GLUCOSE (UA) NEGATIVE (NEGATIVE); URINE KETONE NEGATIVE (NEGATIVE); URINE LEUK ESTERASE NEGATIVE (NEGATIVE); URINE NITRITE NEGATIVE (NEGATIVE); URINE PROTEIN NEGATIVE (NEGATIVE); URINE UROBILINOGEN NEGATIVE mg/dL (0.2-1.0)
--- NOTE | 2017-07-14 11:20 | PN ---
Progress Note (short form) - Note Progress Note: Feels better. Less dyspnea and cough. Afebrile. No hemoptysis. ENT consult noted: concern for VC/tongue CA Intake & Output 07/11/17 07/12/17 07/13/17 07/14/17 23:59 23:59 23:59 23:59 Intake Total 2400 200 1260 600 Output Total 1900 800 Balance 2400 -1700 460 600 Last Vital Signs Temp Pulse Resp BP Pulse Ox 98.4 F 68 20 150/85 96 07/14/17 06:00 07/14/17 06:00 07/14/17 06:00 07/14/17 06:00 07/13/17 21:00 Active Medications Acetaminophen (Tylenol -) 650 mg PO Q6H PRN PRN Reason: PAIN OR FEVER Last Admin: 07/11/17 01:56 Dose: 650 mg Albuterol/Ipratropium (Duoneb -) 1 amp NEB Q6H PRN PRN Reason: SHORTNESS OF BREATH Aspirin (Ecotrin -) 81 mg PO DAILY [facility] Last Admin: 07/14/17 09:16 Dose: 81 mg Guaifenesin (Robitussin Dm -) 10 ml PO Q4H PRN PRN Reason: COUGH Last Admin: 07/12/17 22:02 Dose: 10 ml Heparin Sodium (Porcine) (Heparin -) 5,000 unit SQ BID [facility] Last Admin: 07/14/17 09:16 Dose: 5,000 unit Ceftriaxone Sodium 2 gm/ (Dextrose) 100 mls @ 100 mls/hr IVPB DAILY [facility] Last Admin: 07/14/17 09:16 Dose: 100 mls/hr Sodium Chloride (Normal Saline -) 1,000 mls @ 50 mls/hr IV [facility] Stop: 07/14/17 15:17 Last Admin: 07/13/17 16:07 Dose: 50 mls/hr Multivitamins/Minerals/Vitamin C (Tab-A-Vit -) 1 tab PO DAILY [facility] Last Admin: 07/14/17 09:16 Dose: 1 tab Sodium Chloride (Sodium Chloride Tablet -) 1 gm PO BID [facility] Last Admin: 07/14/17 09:16 Dose: 1 gm Constitutional: Yes: NAD, thin Eyes: Yes: WNL HENT: Yes: WNL Neck: Yes: WNL Cardiovascular: Yes: Regular Rate and Rhythm, S1, S2 Respiratory: Yes: Right rhonchi/crackles, no wheeze Gastrointestinal: Yes: Normal Bowel Sounds, Soft Extremities: Yes: WNL Edema: No Labs: Laboratory Results - last 24 hr 07/11/17 07/13/17 07/14/17 07:20 07:19 06:00 WBC 3.8 L RBC 3.86 L Hgb 12.7 Hct 36.8 MCV 95.3 MCH 32.7 MCHC 34.4 RDW 13.7 Plt Count 371 D MPV 6.7 L Total Counted 100 Neutrophils % No Result Required. Neutrophils % (Manual) 63.6 71.0 Band Neutrophils % 0.0 Lymphocytes % No Result Required. Lymphocytes % (Manual) 8.1 D 7.0 L Monocytes % (Manual) 18 H* 17 H* Eosinophils % (Manual) 3.0 5.0 H Basophils % (Manual) 2.0 Myelocytes % (Man) 0 Promyelocytes % (Man) 0 Blast Cells % (Manual) 0 Nucleated RBC % 0 Metamyelocytes 0 Hypochromia 0 Toxic Granulation 0 Dohle Bodies 0 Platelet Estimate Normal Adequate Polychromasia 0 Poikilocytosis 0 Basophilic Stippling 0 Anisocytosis 0 Microcytosis 0 Macrocytosis 0 Spherocytes 0 Sickle Cells 0 Target Cells 0 Tear Drop Cells 0 Ovalocytes 0 Stomatocytes 0 Helmet Cells 0 [place] Bodies 0 [place] Rings 0 John Cells 0 Acanthocytes (Spur) 0 Rouleaux 0 Fragmented RBCs 0 Schistocytes 0 Sodium Potassium Chloride Carbon Dioxide Anion Gap BUN Creatinine Creat Clearance w eGFR Random Glucose Calcium Total Bilirubin AST ALT Alkaline Phosphatase Total Protein Albumin Cortisol AM Sample 24.7 Urine Color Urine Appearance Urine pH Ur Specific [place] Urine Protein Urine Glucose (UA) Urine Ketones Urine Blood Urine Nitrite Urine Bilirubin Urine Urobilinogen Ur Leukocyte Esterase 07/14/17 07/14/17 06:00 06:30 WBC RBC Hgb Hct MCV MCH MCHC RDW Plt Count MPV Total Counted Neutrophils % Neutrophils % (Manual) Band Neutrophils % Lymphocytes % Lymphocytes % (Manual) Monocytes % (Manual) Eosinophils % (Manual) Basophils % (Manual) Myelocytes % (Man) Promyelocytes % (Man) Blast Cells % (Manual) Nucleated RBC % Metamyelocytes Hypochromia Toxic Granulation Dohle Bodies Platelet Estimate Polychromasia Poikilocytosis Basophilic Stippling Anisocytosis Microcytosis Macrocytosis Spherocytes Sickle Cells Target Cells Tear Drop Cells Ovalocytes Stomatocytes Helmet Cells [place] Bodies [place] Rings John Cells Acanthocytes (Spur) Rouleaux Fragmented RBCs Schistocytes Sodium 134 L Potassium 4.1 D Chloride 94 L Carbon Dioxide 31 Anion Gap 9 BUN 10 D Creatinine 0.7 D Creat Clearance w eGFR > 60 Random Glucose 95 Calcium 7.5 L Total Bilirubin 0.4 D AST 34 ALT 37 D Alkaline Phosphatase 64 Total Protein 5.6 L Albumin 2.5 L Cortisol AM Sample Urine Color Ltyellow Urine Appearance Clear Urine pH 8.0 D Ur Specific [place] 1.010 Urine Protein Negative Urine Glucose (UA) Negative Urine Ketones Negative Urine Blood Negative Urine Nitrite Negative Urine Bilirubin Negative Urine Urobilinogen Negative Ur Leukocyte Esterase Negative Problem List - Problems (1) Weight loss Code(s): R63.4 - ABNORMAL WEIGHT LOSS (2) Community acquired pneumonia Code(s): J18.9 - PNEUMONIA, UNSPECIFIED ORGANISM Qualifiers: Laterality: right (3) HTN (hypertension) Code(s): I10 - ESSENTIAL (PRIMARY) HYPERTENSION (4) Hyponatremia Code(s): E87.1 - HYPO-OSMOLALITY AND HYPONATREMIA (5) Shortness of breath Code(s): R06.02 - SHORTNESS OF BREATH (6) Tobacco dependency Code(s): F17.200 - NICOTINE DEPENDENCE, UNSPECIFIED, UNCOMPLICATED (7) Tobacco abuse counseling Code(s): Z71.6 - TOBACCO ABUSE COUNSELING Assessment/Plan IMP RUL CONSILIDATION: LIKELY PNEUMOCOCCAL PNEUMONIA (+ URINE ANTIGEN) HYPONATREMIA IMPROVING DYSPNEA SECONDARY TO PNA ,LIKELY UNDERYING COPD WT LOSS TOBACCO ABUSE PLAN ABX PER ID INHALED BRONCHODILATORS O2 F/U CHEST CT 6-8 WKS TO DOCUMENT RESOLUTION OF INFILTRATES PFTS OUTPATIENT SMOKING CESSATION COUNSELED FOLLOW AFB DR OTERO
--- NOTE | 2017-07-14 14:02 | PN ---
Progress Note, Physician Chief Complaint: ID Ceftriaxone Subjective improvement Still bringing p purulent sputum not a s bloody NO fever - Current Medication List Current Medications: Active Medications Acetaminophen (Tylenol -) 650 mg PO Q6H PRN PRN Reason: PAIN OR FEVER Last Admin: 07/11/17 01:56 Dose: 650 mg Albuterol/Ipratropium (Duoneb -) 1 amp NEB Q6H PRN PRN Reason: SHORTNESS OF BREATH Aspirin (Ecotrin -) 81 mg PO DAILY [facility] Last Admin: 07/14/17 09:16 Dose: 81 mg Guaifenesin (Robitussin Dm -) 10 ml PO Q4H PRN PRN Reason: COUGH Last Admin: 07/12/17 22:02 Dose: 10 ml Heparin Sodium (Porcine) (Heparin -) 5,000 unit SQ BID [facility] Last Admin: 07/14/17 09:16 Dose: 5,000 unit Ceftriaxone Sodium 2 gm/ (Dextrose) 100 mls @ 100 mls/hr IVPB DAILY [facility] Last Admin: 07/14/17 09:16 Dose: 100 mls/hr Sodium Chloride (Normal Saline -) 1,000 mls @ 50 mls/hr IV ASDIR [facility] Stop: 07/14/17 15:17 Last Admin: 07/13/17 16:07 Dose: 50 mls/hr Multivitamins/Minerals/Vitamin C (Tab-A-Vit -) 1 tab PO DAILY [facility] Last Admin: 07/14/17 09:16 Dose: 1 tab Sodium Chloride (Sodium Chloride Tablet -) 1 gm PO BID [facility] Last Admin: 07/14/17 09:16 Dose: 1 gm - Objective Vital Signs: Vital Signs Temperature 98.4 F 07/14/17 06:00 Pulse Rate 68 07/14/17 06:00 Respiratory Rate 20 07/14/17 06:00 Blood Pressure 150/85 07/14/17 06:00 O2 Sat by Pulse Oximetry (%) 97 07/14/17 11:16 Constitutional: Yes: Cachectic Eyes: Yes: Occular Prosthesis HENT: Yes: WNL. No: Pharyngeal Erythema, Thrush Cardiovascular: Yes: Regular Rate and Rhythm, S1, S2. No: Murmur Respiratory: Yes: WNL, CTA Bilaterally, Tachypnea. No: Rales, Rhonchi Gastrointestinal: Yes: WNL, Soft. No: Tenderness, Tenderness, Rebound Edema: No Labs: CBC, BMP 07/14/17 06:00 07/14/17 06:00 INR, PTT INR 0.94 (0.82-1.09) 07/09/17 16:00 Problem List - Problems (2) Alcohol abuse Code(s): F10.10 - ALCOHOL ABUSE, UNCOMPLICATED (3) Community acquired pneumonia Code(s): J18.9 - PNEUMONIA, UNSPECIFIED ORGANISM Qualifiers: Laterality: right (4) Hyponatremia Code(s): E87.1 - HYPO-OSMOLALITY AND HYPONATREMIA Assessment/Plan Microbiology 07/11/17 13:00 Sputum - Expectorated Direct Acid Fast Bacilli Smear - Final 07/10/17 08:55 Sputum - Expectorated Gram Stain - Final 07/10/17 08:55 Sputum - Expectorated Sputum Culture - Final NORMAL RESPIRATORY [place] 07/11/17 13:00 Sputum - Expectorated Mycobacterial Culture - Preliminary Laboratory Tests 07/10/17 07/10/17 07/11/17 10:05 10:05 07:20 WBC Hgb Hct Plt Count Neutrophils % (Manual) Lymphocytes % (Manual) Monocytes % (Manual) Eosinophils % (Manual) ESR 29 H Anion Gap Creatinine LD Total C-Reactive Protein 7.5 H HIV 1&2 Antibody Screen Negative HIV P24 Antigen Negative TB Test (QFT) 07/11/17 07/11/17 07/14/17 07:20 07:20 06:00 WBC 3.8 L Hgb 12.7 Hct 36.8 Plt Count 371 D Neutrophils % (Manual) 71.0 Lymphocytes % (Manual) 7.0 L Monocytes % (Manual) 17 H* Eosinophils % (Manual) 5.0 H ESR Anion Gap Creatinine LD Total 242 H C-Reactive Protein HIV 1&2 Antibody Screen HIV P24 Antigen TB Test (QFT) Pending 07/14/17 06:00 WBC Hgb Hct Plt Count Neutrophils % (Manual) Lymphocytes % (Manual) Monocytes % (Manual) Eosinophils % (Manual) ESR Anion Gap 9 Creatinine 0.7 D LD Total C-Reactive Protein HIV 1&2 Antibody Screen HIV P24 Antigen TB Test (QFT) Assessment Pneumonia suspect pneumococcal etiology Ag pos Ruling out TB Plan Finish sputum collection Stop IVF Antibiotics Why is he leukopenic monocytosis ?? myeloprliferative Quant john Bernard MD
--- NOTE | 2017-07-14 14:41 | PN ---
Progress Note, Physician History of Present Illness: Pt seen and examined at bedside. He is awake and alert. He feels that his breathing is improved. - Current Medication List Current Medications: Active Medications Acetaminophen (Tylenol -) 650 mg PO Q6H PRN PRN Reason: PAIN OR FEVER Last Admin: 07/11/17 01:56 Dose: 650 mg Albuterol/Ipratropium (Duoneb -) 1 amp NEB Q6H PRN PRN Reason: SHORTNESS OF BREATH Aspirin (Ecotrin -) 81 mg PO DAILY [facility] Last Admin: 07/14/17 09:16 Dose: 81 mg Guaifenesin (Robitussin Dm -) 10 ml PO Q4H PRN PRN Reason: COUGH Last Admin: 07/12/17 22:02 Dose: 10 ml Heparin Sodium (Porcine) (Heparin -) 5,000 unit SQ BID [facility] Last Admin: 07/14/17 09:16 Dose: 5,000 unit Ceftriaxone Sodium 2 gm/ (Dextrose) 100 mls @ 100 mls/hr IVPB DAILY [facility] Last Admin: 07/14/17 09:16 Dose: 100 mls/hr Multivitamins/Minerals/Vitamin C (Tab-A-Vit -) 1 tab PO DAILY [facility] Last Admin: 07/14/17 09:16 Dose: 1 tab Sodium Chloride (Sodium Chloride Tablet -) 1 gm PO BID [facility] Last Admin: 07/14/17 09:16 Dose: 1 gm - Objective Vital Signs: Vital Signs Temperature 98.4 F 07/14/17 06:00 Pulse Rate 68 07/14/17 06:00 Respiratory Rate 20 07/14/17 06:00 Blood Pressure 150/85 07/14/17 06:00 O2 Sat by Pulse Oximetry (%) 97 07/14/17 11:16 Constitutional: Yes: Calm Eyes: Yes: Conjunctiva Clear HENT: Yes: Atraumatic Cardiovascular: Yes: S1, S2 Respiratory: Yes: On Nasal O2 Gastrointestinal: Yes: Soft Genitourinary: Yes: WNL Musculoskeletal: Yes: WNL Edema: No Integumentary: Yes: Tattoos Neurological: Yes: Oriented Psychiatric: Yes: Oriented Labs: CBC, BMP 07/14/17 06:00 07/14/17 06:00 INR, PTT INR 0.94 (0.82-1.09) 07/09/17 16:00 Problem List - Problems (1) HTN (hypertension) Code(s): I10 - ESSENTIAL (PRIMARY) HYPERTENSION (2) Hyponatremia Code(s): E87.1 - HYPO-OSMOLALITY AND HYPONATREMIA Assessment/Plan Current Medications Generic Name Dose Route Start Last Admin Trade Name Freq PRN Reason Stop Dose Admin Acetaminophen 650 mg 07/10/17 05:20 07/11/17 01:56 Tylenol - PO 650 mg Q6H PRN Administration PAIN OR FEVER Albuterol/Ipratropium 1 amp 07/09/17 19:24 Duoneb - NEB Q6H PRN SHORTNESS OF BREATH Aspirin 81 mg 07/12/17 12:45 07/14/17 09:16 Ecotrin - PO 81 mg DAILY [facility] Administration Guaifenesin 10 ml 07/10/17 23:16 07/12/17 22:02 Robitussin Dm - PO 10 ml Q4H PRN Administration COUGH Heparin Sodium (Porcine) 5,000 unit 07/10/17 10:00 07/14/17 09:16 Heparin - SQ 5,000 unit BID [facility] Administration Ceftriaxone Sodium 2 gm/ 100 mls @ 100 mls/hr 07/10/17 11:30 07/14/17 09:16 Dextrose IVPB 100 mls/hr DAILY [facility] Administration Multivitamins/Minerals/Vitamin C 1 tab 07/12/17 12:45 07/14/17 09:16 Tab-A-Vit - PO 1 tab DAILY [facility] Administration Sodium Chloride 1 gm 07/10/17 22:00 07/14/17 09:16 Sodium Chloride Tablet - PO 1 gm BID [facility] Administration Impression 1. hyponatremia 2. PNA 3. etoh misuse 4. active smoker 5. right adrenal gland adenoma 6. infrarenal AAA Plan - sodium continues to improve - cont fluids - PO intake is improving - repeat labs in am - urine sodium was very low which speaks against siadh and does support salute loss from GI causes Dr Correa
[2017-07-15 07:52] LABS: HEMATOCRIT 38.8 % (35.4-49); HEMOGLOBIN 13.4 GM/dL (11.7-16.9); MCH 32.8 pg (25.7-33.7); MCHC 34.5 g/dl (32.0-35.9); MEAN PLT VOLUME 6.5 fl (7.5-11.1); PLATELET COUNT 489 K/MM3 (134-434); RBC 4.08 M/mm3 (4.00-5.60); RDW 13.5 % (11.9-15.9)
--- NOTE | 2017-07-15 08:06 | PN ---
Progress Note, Physician History of Present Illness: feels better - Current Medication List Current Medications: Active Medications Acetaminophen (Tylenol -) 650 mg PO Q6H PRN PRN Reason: PAIN OR FEVER Last Admin: 07/11/17 01:56 Dose: 650 mg Albuterol/Ipratropium (Duoneb -) 1 amp NEB Q6H PRN PRN Reason: SHORTNESS OF BREATH Aspirin (Ecotrin -) 81 mg PO DAILY [facility] Last Admin: 07/14/17 09:16 Dose: 81 mg Guaifenesin (Robitussin Dm -) 10 ml PO Q4H PRN PRN Reason: COUGH Last Admin: 07/12/17 22:02 Dose: 10 ml Heparin Sodium (Porcine) (Heparin -) 5,000 unit SQ BID [facility] Last Admin: 07/14/17 22:32 Dose: 5,000 unit Ceftriaxone Sodium 2 gm/ (Dextrose) 100 mls @ 100 mls/hr IVPB DAILY [facility] Last Admin: 07/14/17 09:16 Dose: 100 mls/hr Multivitamins/Minerals/Vitamin C (Tab-A-Vit -) 1 tab PO DAILY [facility] Last Admin: 07/14/17 09:16 Dose: 1 tab Sodium Chloride (Sodium Chloride Tablet -) 1 gm PO BID [facility] Last Admin: 07/14/17 22:32 Dose: 1 gm - Objective Vital Signs: Vital Signs Temperature 98.5 F 07/15/17 06:00 Pulse Rate 70 07/15/17 06:00 Respiratory Rate 20 07/15/17 06:00 Blood Pressure 144/82 07/15/17 06:00 O2 Sat by Pulse Oximetry (%) 97 07/14/17 21:00 Cardiovascular: Yes: Regular Rate and Rhythm Respiratory: Yes: Rhonchi Gastrointestinal: Yes: Normal Bowel Sounds, Soft Labs: INR, PTT INR 0.94 (0.82-1.09) 07/09/17 16:00 Assessment/Plan - Problems (1) Malnourished Assessment/Plan: -RD consult -malignancy work up pending -Ensure BID -Multivitamin Code(s): E46 - UNSPECIFIED PROTEIN-CALORIE MALNUTRITION (2) Community acquired pneumonia Assessment/Plan: -ID consult -Pulmonary consult -IV abx -Urine strep PNE positive -Afebrile since last evening -Tylenol for fever> 100.0 F -Sputum AFB and culture pending -Quantiferon Gold negative -Airborne isolation precaution for now -CxR today Code(s): J18.9 - PNEUMONIA, UNSPECIFIED ORGANISM (3) Hyponatremia Assessment/Plan: -Improved -on IV NS and NS tabs -seen by Nephrology and cardiology -monitor trend Code(s): E87.1 - HYPO-OSMOLALITY AND HYPONATREMIA (4) SIADH (syndrome of inappropriate ADH production) Assessment/Plan: AM cortisol pending (5) Weight loss Assessment/Plan: -Ensure -RD consult -Multivitamin Code(s): R63.4 - ABNORMAL WEIGHT LOSS (6) Hoarseness Assessment/Plan: -ENT NOTED--NEEDS FOLLOW UP TOP R/O MALIGNANCY
[2017-07-15 08:26] LABS: CALCIUM 7.9 mg/dL (8.5-10.1); CHLORIDE 97 mmol/L (98-107); POTASSIUM 3.6 mmol/L (3.5-5.1); SODIUM 134 mmol/L (136-145)
[2017-07-15 08:32] LABS: ALBUMIN 2.8 g/dl (3.4-5.0); ALK PHOS 76 U/L (45-117); ANION GAP 7 (8-16); BILIRUBIN,TOTAL 0.4 mg/dL (0.2-1.0); BLOOD UREA NITROGEN 9 mg/dL (7-18); CO2 30 mmol/L (21-32); CREATININE 0.6 mg/dL (0.7-1.3); GLUCOSE,RANDOM 87 mg/dL (74-106); SGOT/AST 31 U/L (15-37); SGPT/ALT 41 U/L (12-78)
[2017-07-15 09:31] LABS: ANISOCYTOSIS 0; MACROCYTOSIS 0; PLATELET ESTIMATE INCREASED
[2017-07-15] MEDS ORDERED: PT OWN MED DRAWER 7, Y5N ONE ×2 (10:29→21:51)
[2017-07-15] MEDS: SODIUM CHLORIDE 1 GM TABLET PO SCH ×2 (10:32→22:45)
[2017-07-15] MEDS: ASPIRIN COATED 81 MG TABLET.EC PO SCH (10:32)
[2017-07-15] MEDS: MULTIVITAMINS (DAILY MVI) TABLET (FP) PO SCH (10:32)
[2017-07-15] MEDS: HEPARIN NA (PORCINE) 5,000 UNITS/ML 1ML VIAL SQ SCH ×2 (10:32→22:45)
[2017-07-15] MEDS: CEFTRIAXONE 2 GM in DEXTROSE 5%-WATER - 100 ML IVPB SCH (10:32)
--- NOTE | 2017-07-15 10:36 | PN ---
Progress Note (short form) - Note Progress Note: no complaints poor historian no more hemoptysis less sputum production Vital Signs Period Temp Pulse Resp BP Sys/Garcia Pulse Ox Last 24 Hr 97.5 F-98.8 F 69-70 20-20 144-157/82-88 97-97 cor-rrr lungs bilateral wheezing abd soft,nt ext no edema CBC, BMP 07/15/17 06:40 07/15/17 06:40 Laboratory Tests 07/10/17 10:05 HIV 1&2 Antibody Screen Negative HIV P24 Antigen Negative Microbiology 07/09/17 22:10 Blood - Peripheral Venous Blood Culture - Final NO GROWTH AFTER 5 DAYS INCUBATION 07/09/17 21:40 Blood - Peripheral Venous Blood Culture - Final NO GROWTH AFTER 5 DAYS INCUBATION 07/11/17 13:00 Sputum - Expectorated AFB Smear Concentration - Final 07/11/17 13:00 Sputum - Expectorated Direct Acid Fast Bacilli Smear - Final 07/11/17 13:00 Sputum - Expectorated Mycobacterial Culture - Preliminary 07/10/17 08:55 Sputum - Expectorated Gram Stain - Final 07/10/17 08:55 Sputum - Expectorated Sputum Culture - Final NORMAL RESPIRATORY [place] 07/10/17 01:28 Urine - Urine Clean Catch Urine Culture - Final NO GROWTH OBTAINED 07/10/17 01:28 Urine For Antigen Detection Legionella Antigen - Final 07/10/17 01:28 Urine For Antigen Detection Streptococcus pneumoniae Antigen (M - Final 07/10/17 05:30 Nasopharyngeal Swab Influenza Types A,B Antigen (HELLEN) - Final 07/10/17 05:30 Nasopharyngeal Swab - Final Quantiferon Gold negative Current Medications Acetaminophen (Tylenol -) 650 mg PO Q6H PRN PRN Reason: PAIN OR FEVER Last Admin: 07/11/17 01:56 Dose: 650 mg Albuterol/Ipratropium (Duoneb -) 1 amp NEB Q6H PRN PRN Reason: SHORTNESS OF BREATH Aspirin (Ecotrin -) 81 mg PO DAILY [facility] Last Admin: 07/14/17 09:16 Dose: 81 mg Guaifenesin (Robitussin Dm -) 10 ml PO Q4H PRN PRN Reason: COUGH Last Admin: 07/12/17 22:02 Dose: 10 ml Heparin Sodium (Porcine) (Heparin -) 5,000 unit SQ BID [facility] Last Admin: 07/14/17 22:32 Dose: 5,000 unit Ceftriaxone Sodium 2 gm/ (Dextrose) 100 mls @ 100 mls/hr IVPB DAILY [facility] Last Admin: 07/14/17 09:16 Dose: 100 mls/hr Multivitamins/Minerals/Vitamin C (Tab-A-Vit -) 1 tab PO DAILY [facility] Last Admin: 07/14/17 09:16 Dose: 1 tab Sodium Chloride (Sodium Chloride Tablet -) 1 gm PO BID [facility] Last Admin: 07/14/17 22:32 Dose: 1 gm a/p pneumonia- pneumococcal hyponatremia weight loss-not explained by the pneumococcal pneumonia continue rocephin day #7 today f/u cultures sputum afb and quantiferon pending ?malignancy f/u sputum afb- pending results from AFB lab
--- NOTE | 2017-07-15 13:23 | PN ---
Progress Note, Physician History of Present Illness: Pt seen and examined at bedside. He is awake and alert. He denies shortness of breath. He feels that his cough is improving. - Current Medication List Current Medications: Active Medications Acetaminophen (Tylenol -) 650 mg PO Q6H PRN PRN Reason: PAIN OR FEVER Last Admin: 07/11/17 01:56 Dose: 650 mg Albuterol/Ipratropium (Duoneb -) 1 amp NEB Q6H PRN PRN Reason: SHORTNESS OF BREATH Aspirin (Ecotrin -) 81 mg PO DAILY [facility] Last Admin: 07/15/17 10:32 Dose: 81 mg Guaifenesin (Robitussin Dm -) 10 ml PO Q4H PRN PRN Reason: COUGH Last Admin: 07/12/17 22:02 Dose: 10 ml Heparin Sodium (Porcine) (Heparin -) 5,000 unit SQ BID [facility] Last Admin: 07/15/17 10:32 Dose: 5,000 unit Ceftriaxone Sodium 2 gm/ (Dextrose) 100 mls @ 100 mls/hr IVPB DAILY [facility] Last Admin: 07/15/17 10:32 Dose: 100 mls/hr Multivitamins/Minerals/Vitamin C (Tab-A-Vit -) 1 tab PO DAILY [facility] Last Admin: 07/15/17 10:32 Dose: 1 tab Sodium Chloride (Sodium Chloride Tablet -) 1 gm PO BID [facility] Last Admin: 07/15/17 10:32 Dose: 1 gm - Objective Vital Signs: Vital Signs Temperature 98.5 F 07/15/17 06:00 Pulse Rate 84 07/15/17 09:00 Respiratory Rate 20 07/15/17 09:00 Blood Pressure 144/73 07/15/17 09:00 O2 Sat by Pulse Oximetry (%) 97 07/14/17 21:00 Constitutional: Yes: Calm Eyes: Yes: Conjunctiva Clear HENT: Yes: Atraumatic Neck: Yes: Supple Cardiovascular: Yes: S1, S2 Respiratory: Yes: On Nasal O2 Gastrointestinal: Yes: Soft Genitourinary: Yes: WNL Musculoskeletal: Yes: WNL Edema: No Neurological: Yes: Oriented Psychiatric: Yes: Oriented Labs: CBC, BMP 07/15/17 06:40 07/15/17 06:40 INR, PTT INR 0.94 (0.82-1.09) 07/09/17 16:00 Problem List - Problems (1) HTN (hypertension) Code(s): I10 - ESSENTIAL (PRIMARY) HYPERTENSION (2) Hyponatremia Code(s): E87.1 - HYPO-OSMOLALITY AND HYPONATREMIA Assessment/Plan Current Medications Generic Name Dose Route Start Last Admin Trade Name Freq PRN Reason Stop Dose Admin Acetaminophen 650 mg 07/10/17 05:20 07/11/17 01:56 Tylenol - PO 650 mg Q6H PRN Administration PAIN OR FEVER Albuterol/Ipratropium 1 amp 07/09/17 19:24 Duoneb - NEB Q6H PRN SHORTNESS OF BREATH Aspirin 81 mg 07/12/17 12:45 07/15/17 10:32 Ecotrin - PO 81 mg DAILY [facility] Administration Guaifenesin 10 ml 07/10/17 23:16 07/12/17 22:02 Robitussin Dm - PO 10 ml Q4H PRN Administration COUGH Heparin Sodium (Porcine) 5,000 unit 07/10/17 10:00 07/15/17 10:32 Heparin - SQ 5,000 unit BID [facility] Administration Ceftriaxone Sodium 2 gm/ 100 mls @ 100 mls/hr 07/10/17 11:30 07/15/17 10:32 Dextrose IVPB 100 mls/hr DAILY [facility] Administration Multivitamins/Minerals/Vitamin C 1 tab 07/12/17 12:45 07/15/17 10:32 Tab-A-Vit - PO 1 tab DAILY [facility] Administration Sodium Chloride 1 gm 07/10/17 22:00 07/15/17 10:32 Sodium Chloride Tablet - PO 1 gm BID [facility] Administration Impression 1. hyponatremia 2. PNA 3. etoh misuse 4. active smoker 5. right adrenal gland adenoma 6. infrarenal AAA Plan - sodium is stabilizing - repeat labs in the am - encourage PO intake - will cont to follow pt - he again denies weight loss Dr Correa
--- NOTE | 2017-07-15 17:00 | PN ---
Progress Note, Physician History of Present Illness: PULMONARY ALERT,FEELING BETTER,-SOB,LESS COUGH,GOOD APPETITE - Current Medication List Current Medications: Active Medications Acetaminophen (Tylenol -) 650 mg PO Q6H PRN PRN Reason: PAIN OR FEVER Last Admin: 07/11/17 01:56 Dose: 650 mg Albuterol/Ipratropium (Duoneb -) 1 amp NEB Q6H PRN PRN Reason: SHORTNESS OF BREATH Aspirin (Ecotrin -) 81 mg PO DAILY [facility] Last Admin: 07/15/17 10:32 Dose: 81 mg Guaifenesin (Robitussin Dm -) 10 ml PO Q4H PRN PRN Reason: COUGH Last Admin: 07/12/17 22:02 Dose: 10 ml Heparin Sodium (Porcine) (Heparin -) 5,000 unit SQ BID [facility] Last Admin: 07/15/17 10:32 Dose: 5,000 unit Ceftriaxone Sodium 2 gm/ (Dextrose) 100 mls @ 100 mls/hr IVPB DAILY [facility] Last Admin: 07/15/17 10:32 Dose: 100 mls/hr Multivitamins/Minerals/Vitamin C (Tab-A-Vit -) 1 tab PO DAILY [facility] Last Admin: 07/15/17 10:32 Dose: 1 tab Sodium Chloride (Sodium Chloride Tablet -) 1 gm PO BID [facility] Last Admin: 07/15/17 10:32 Dose: 1 gm - Objective Vital Signs: Vital Signs Temperature 98.5 F 07/15/17 06:00 Pulse Rate 84 07/15/17 09:00 Respiratory Rate 20 07/15/17 09:00 Blood Pressure 144/73 07/15/17 09:00 O2 Sat by Pulse Oximetry (%) 97 07/14/17 21:00 Constitutional: Yes: Well Nourished, Calm Eyes: Yes: WNL HENT: Yes: WNL Neck: Yes: WNL Cardiovascular: Yes: Regular Rate and Rhythm, S1, S2 Respiratory: Yes: Wheezes (FEW SCATTERED WHEEZES) Gastrointestinal: Yes: Normal Bowel Sounds, Soft Extremities: Yes: WNL Edema: No Labs: CBC, BMP 07/15/17 06:40 07/15/17 06:40 INR, PTT INR 0.94 (0.82-1.09) 07/09/17 16:00 - ....Imaging Chest X-ray: Report Reviewed, Image Reviewed (IMPROVING RUL INFILTRATE) Problem List - Problems (1) Weight loss Code(s): R63.4 - ABNORMAL WEIGHT LOSS (2) Community acquired pneumonia Code(s): J18.9 - PNEUMONIA, UNSPECIFIED ORGANISM Qualifiers: Laterality: right (3) HTN (hypertension) Code(s): I10 - ESSENTIAL (PRIMARY) HYPERTENSION (4) Hyponatremia Code(s): E87.1 - HYPO-OSMOLALITY AND HYPONATREMIA (5) Shortness of breath Code(s): R06.02 - SHORTNESS OF BREATH (6) Tobacco dependency Code(s): F17.200 - NICOTINE DEPENDENCE, UNSPECIFIED, UNCOMPLICATED (7) Tobacco abuse counseling Code(s): Z71.6 - TOBACCO ABUSE COUNSELING Assessment/Plan IMP RUL CONSOLIDATION LIKELY PNEUMONIA CAP,?MTB,?MALIGNANCY HYPONATREMIA IMPROVING DYSPNEA SECONDARY TO PNA ,LIKELY UNDERYING COPD WT LOSS TOBACCO ABUSE PLAN BROAD SPECTRUM ABX PER ID INHALED BRONCHODILATORS O2 MONITOR LYTES ,NA F/U CHEST CT 6-8 WKS TO DOCUMENT RESOLUTION OF INFILTRATES PFTS OUTPATIENT SMOKING CESSATION COUNSELED IVF DR CEDENO Problem List - Problems (1) Weight loss Code(s): R63.4 - ABNORMAL WEIGHT LOSS (2) Community acquired pneumonia Code(s): J18.9 - PNEUMONIA, UNSPECIFIED ORGANISM Qualifiers: Laterality: right (3) HTN (hypertension) Code(s): I10 - ESSENTIAL (PRIMARY) HYPERTENSION (4) Hyponatremia Code(s): E87.1 - HYPO-OSMOLALITY AND HYPONATREMIA (5) Shortness of breath Code(s): R06.02 - SHORTNESS OF BREATH (6) Tobacco dependency Code(s): F17.200 - NICOTINE DEPENDENCE, UNSPECIFIED, UNCOMPLICATED (7) Tobacco abuse counseling Code(s): Z71.6 - TOBACCO ABUSE COUNSELING
--- NOTE | 2017-07-15 20:58 | CONSULT ---
Consult Consult Specialty:: Hematology - History of Present Illness History of Present Illness: 7M with history of htn, alcohol abuse, and tobacco abuse ad mitted for headaches Found to have penumococcal PNA. LE ulcers. Hematology consulted for Monocytosis. Pt seen and examined - History Source History Provided By: Patient, Medical Record - Smoking History Smoking history: Current some day smoker Have you smoked in the past 12 months: Yes Aproximately how many cigarettes per day: 20 Home Medications - Allergies Allergies/Adverse Reactions: Allergies Allergy/AdvReac Type Severity Reaction Status Date / Time No Known Allergies Allergy Verified 07/09/17 13:16 - Home Medications Home Medications: Ambulatory Orders NK [No Known Home Medication] 07/09/17 Physical Exam Vital Signs: Vital Signs Temperature 98.7 F 07/15/17 18:00 Pulse Rate 77 07/15/17 18:00 Respiratory Rate 20 07/15/17 18:00 Blood Pressure 153/93 07/15/17 18:00 O2 Sat by Pulse Oximetry (%) 97 07/14/17 21:00 Constitutional: Yes: No Distress, Calm Eyes: Yes: Conjunctiva Clear HENT: Yes: Atraumatic, Normocephalic Neck: Yes: Supple, Trachea Midline Cardiovascular: Yes: Regular Rate and Rhythm Respiratory: Yes: Regular, CTA Bilaterally Gastrointestinal: Yes: Normal Bowel Sounds, Soft ...Rectal Exam: Yes: Deferred Musculoskeletal: Yes: WNL Extremities: Yes: WNL Edema: Yes Edema: LLE: 1+, RLE: 1+ Labs: CBC, BMP 07/15/17 06:40 07/15/17 06:40 Imaging - Results Cat Scan: Report Reviewed Problem List - Problems (1) Community acquired pneumonia Code(s): J18.9 - PNEUMONIA, UNSPECIFIED ORGANISM Qualifiers: Laterality: right Assessment/Plan Monocytosis: Likely reactive , cant rule out a clonal disorder will review smear for flow to be done in the am ENT consult reviewed, pt advised again for f/u abd per ID
--- NOTE | 2017-07-16 09:28 | PN ---
Progress Note, Physician History of Present Illness: feels better - Current Medication List Current Medications: Active Medications Acetaminophen (Tylenol -) 650 mg PO Q6H PRN PRN Reason: PAIN OR FEVER Last Admin: 07/11/17 01:56 Dose: 650 mg Albuterol/Ipratropium (Duoneb -) 1 amp NEB Q6H PRN PRN Reason: SHORTNESS OF BREATH Aspirin (Ecotrin -) 81 mg PO DAILY [facility] Last Admin: 07/15/17 10:32 Dose: 81 mg Guaifenesin (Robitussin Dm -) 10 ml PO Q4H PRN PRN Reason: COUGH Last Admin: 07/12/17 22:02 Dose: 10 ml Heparin Sodium (Porcine) (Heparin -) 5,000 unit SQ BID [facility] Last Admin: 07/15/17 22:45 Dose: 5,000 unit Ceftriaxone Sodium 2 gm/ (Dextrose) 100 mls @ 100 mls/hr IVPB DAILY [facility] Last Admin: 07/15/17 10:32 Dose: 100 mls/hr Multivitamins/Minerals/Vitamin C (Tab-A-Vit -) 1 tab PO DAILY [facility] Last Admin: 07/15/17 10:32 Dose: 1 tab Sodium Chloride (Sodium Chloride Tablet -) 1 gm PO BID [facility] Last Admin: 07/15/17 22:45 Dose: 1 gm - Objective Vital Signs: Vital Signs Temperature 98.9 F 07/16/17 06:00 Pulse Rate 71 07/16/17 06:00 Respiratory Rate 20 07/16/17 06:00 Blood Pressure 140/85 07/16/17 06:00 O2 Sat by Pulse Oximetry (%) 97 07/14/17 21:00 Cardiovascular: Yes: Regular Rate and Rhythm Respiratory: Yes: Rhonchi. No: Wheezes Gastrointestinal: Yes: Normal Bowel Sounds, Soft Labs: CBC, BMP 07/15/17 06:40 07/15/17 06:40 INR, PTT INR 0.94 (0.82-1.09) 07/09/17 16:00 Assessment/Plan - Problems (1) Malnourished Assessment/Plan: -RD consult -malignancy work up pending -Ensure BID -Multivitamin Code(s): E46 - UNSPECIFIED PROTEIN-CALORIE MALNUTRITION (2) Community acquired pneumonia Assessment/Plan: -ID consult--F/U REGARDING DURATION -Pulmonary consult -IV abx -Urine strep PNE positive -Afebrile since last evening -Tylenol for fever> 100.0 F -Sputum AFB and culture pending -Quantiferon Gold negative -Airborne isolation precaution for now -CxR IMOROVED Code(s): J18.9 - PNEUMONIA, UNSPECIFIED ORGANISM (3) Hyponatremia Assessment/Plan: -Improved -on IV NS and NS tabs -seen by Nephrology and cardiology -monitor trend Code(s): E87.1 - HYPO-OSMOLALITY AND HYPONATREMIA (4) SIADH (syndrome of inappropriate ADH production) Assessment/Plan: AM cortisol pending (5) Weight loss Assessment/Plan: -Ensure -RD consult -Multivitamin Code(s): R63.4 - ABNORMAL WEIGHT LOSS (6) Hoarseness Assessment/Plan: -ENT NOTED--NEEDS FOLLOW UP TOP R/O MALIGNANCY
[2017-07-16 09:48] LABS: URIC ACID 1.6 mg/dL (2.6-7.2)
[2017-07-16] MEDS ORDERED: PT OWN MED DRAWER 7, Y5N ONE ×2 (10:45→21:04)
[2017-07-16] MEDS: MULTIVITAMINS (DAILY MVI) TABLET (FP) PO SCH (10:47)
[2017-07-16] MEDS: HEPARIN NA (PORCINE) 5,000 UNITS/ML 1ML VIAL SQ SCH ×2 (10:47→23:27)
[2017-07-16] MEDS: ASPIRIN COATED 81 MG TABLET.EC PO SCH (10:47)
[2017-07-16] MEDS: CEFTRIAXONE 2 GM in DEXTROSE 5%-WATER - 100 ML IVPB SCH (10:47)
[2017-07-16] MEDS: SODIUM CHLORIDE 1 GM TABLET PO SCH ×2 (10:48→23:27)
--- NOTE | 2017-07-16 12:04 | PN ---
Progress Note, Physician Chief Complaint: ID Day 7 antibiotics Afebrile feels better - Current Medication List Current Medications: Active Medications Acetaminophen (Tylenol -) 650 mg PO Q6H PRN PRN Reason: PAIN OR FEVER Last Admin: 07/11/17 01:56 Dose: 650 mg Albuterol/Ipratropium (Duoneb -) 1 amp NEB Q6H PRN PRN Reason: SHORTNESS OF BREATH Aspirin (Ecotrin -) 81 mg PO DAILY [facility] Last Admin: 07/16/17 10:47 Dose: 81 mg Guaifenesin (Robitussin Dm -) 10 ml PO Q4H PRN PRN Reason: COUGH Last Admin: 07/12/17 22:02 Dose: 10 ml Heparin Sodium (Porcine) (Heparin -) 5,000 unit SQ BID [facility] Last Admin: 07/16/17 10:47 Dose: 5,000 unit Ceftriaxone Sodium 2 gm/ (Dextrose) 100 mls @ 100 mls/hr IVPB DAILY [facility] Last Admin: 07/16/17 10:47 Dose: 100 mls/hr Multivitamins/Minerals/Vitamin C (Tab-A-Vit -) 1 tab PO DAILY [facility] Last Admin: 07/16/17 10:47 Dose: 1 tab Sodium Chloride (Sodium Chloride Tablet -) 1 gm PO BID [facility] Last Admin: 07/16/17 10:48 Dose: 1 gm - Objective Vital Signs: Vital Signs Temperature 98.9 F 07/16/17 06:00 Pulse Rate 71 07/16/17 06:00 Respiratory Rate 20 07/16/17 06:00 Blood Pressure 140/85 07/16/17 06:00 O2 Sat by Pulse Oximetry (%) 97 07/14/17 21:00 Constitutional: Yes: No Distress Neck: Yes: WNL, Supple Cardiovascular: Yes: S1, S2 Respiratory: Yes: WNL, Regular, CTA Bilaterally Gastrointestinal: Yes: WNL, Normal Bowel Sounds, Soft. No: Tenderness Labs: CBC, BMP 07/15/17 06:40 07/15/17 06:40 INR, PTT INR 0.94 (0.82-1.09) 07/09/17 16:00 Problem List - Problems (2) Alcohol abuse Code(s): F10.10 - ALCOHOL ABUSE, UNCOMPLICATED (3) Community acquired pneumonia Code(s): J18.9 - PNEUMONIA, UNSPECIFIED ORGANISM Qualifiers: Laterality: right (4) Hyponatremia Code(s): E87.1 - HYPO-OSMOLALITY AND HYPONATREMIA Assessment/Plan Laboratory Tests 07/10/17 07/15/17 10:05 06:40 WBC 4.0 Hgb 13.4 Hct 38.8 Plt Count 489 H D HIV 1&2 Antibody Screen Negative HIV P24 Antigen Negative Assessment Pneumonia pneumococcal etiology Plan Can be discharged in am thursday no antibiotic Malignancy evaluation to continue Will sign off Thanks Joana ARCEO
--- NOTE | 2017-07-16 12:21 | PN ---
Progress Note (short form) - Note Progress Note: Feels overall better. No CP or SOB. Cough is improving. Intake & Output 07/13/17 07/14/17 07/15/17 07/16/17 23:59 23:59 23:59 23:59 Intake Total 1260 1900 950 Output Total 800 800 Balance 460 1100 950 Last Vital Signs Temp Pulse Resp BP Pulse Ox 98.9 F 71 20 140/85 97 07/16/17 06:00 07/16/17 06:00 07/16/17 06:00 07/16/17 06:00 07/14/17 21:00 Active Medications Acetaminophen (Tylenol -) 650 mg PO Q6H PRN PRN Reason: PAIN OR FEVER Last Admin: 07/11/17 01:56 Dose: 650 mg Albuterol/Ipratropium (Duoneb -) 1 amp NEB Q6H PRN PRN Reason: SHORTNESS OF BREATH Aspirin (Ecotrin -) 81 mg PO DAILY [facility] Last Admin: 07/16/17 10:47 Dose: 81 mg Guaifenesin (Robitussin Dm -) 10 ml PO Q4H PRN PRN Reason: COUGH Last Admin: 07/12/17 22:02 Dose: 10 ml Heparin Sodium (Porcine) (Heparin -) 5,000 unit SQ BID [facility] Last Admin: 07/16/17 10:47 Dose: 5,000 unit Ceftriaxone Sodium 2 gm/ (Dextrose) 100 mls @ 100 mls/hr IVPB DAILY [facility] Last Admin: 07/16/17 10:47 Dose: 100 mls/hr Multivitamins/Minerals/Vitamin C (Tab-A-Vit -) 1 tab PO DAILY [facility] Last Admin: 07/16/17 10:47 Dose: 1 tab Sodium Chloride (Sodium Chloride Tablet -) 1 gm PO BID [facility] Last Admin: 07/16/17 10:48 Dose: 1 gm Constitutional: Yes: NAD Eyes: Yes: WNL HENT: Yes: WNL Neck: Yes: WNL Cardiovascular: Yes: Regular Rate and Rhythm, S1, S2 Respiratory: Yes: few scattered rhonchi Gastrointestinal: Yes: Normal Bowel Sounds, Soft Extremities: Yes: WNL Edema: No Labs: Laboratory Results - last 24 hr 07/16/17 07:45 Uric Acid 1.6 L LD Total 133 D Problem List - Problems (1) Weight loss Code(s): R63.4 - ABNORMAL WEIGHT LOSS (2) Community acquired pneumonia Code(s): J18.9 - PNEUMONIA, UNSPECIFIED ORGANISM Qualifiers: Laterality: right (3) HTN (hypertension) Code(s): I10 - ESSENTIAL (PRIMARY) HYPERTENSION (4) Hyponatremia Code(s): E87.1 - HYPO-OSMOLALITY AND HYPONATREMIA (5) Shortness of breath Code(s): R06.02 - SHORTNESS OF BREATH (6) Tobacco dependency Code(s): F17.200 - NICOTINE DEPENDENCE, UNSPECIFIED, UNCOMPLICATED (7) Tobacco abuse counseling Code(s): Z71.6 - TOBACCO ABUSE COUNSELING Assessment/Plan IMP RUL CONSOLIDATION LIKELY PNEUMONIA CAP,?MTB,?MALIGNANCY HYPONATREMIA IMPROVING DYSPNEA SECONDARY TO PNA ,LIKELY UNDERYING COPD WT LOSS TOBACCO ABUSE PLAN ABX PER ID INHALED BRONCHODILATORS O2 F/U CHEST CT 6-8 WKS TO DOCUMENT RESOLUTION OF INFILTRATES PFTS OUTPATIENT SMOKING CESSATION COUNSELED FOLLOW PENDING [employer] SMEARS DR OTERO
--- NOTE | 2017-07-16 13:35 | PN ---
Progress Note, Physician History of Present Illness: Pt seen and examined at bedside. He has no complaints. He denies shortness of breath. - Current Medication List Current Medications: Active Medications Acetaminophen (Tylenol -) 650 mg PO Q6H PRN PRN Reason: PAIN OR FEVER Last Admin: 07/11/17 01:56 Dose: 650 mg Albuterol/Ipratropium (Duoneb -) 1 amp NEB Q6H PRN PRN Reason: SHORTNESS OF BREATH Aspirin (Ecotrin -) 81 mg PO DAILY [facility] Last Admin: 07/16/17 10:47 Dose: 81 mg Guaifenesin (Robitussin Dm -) 10 ml PO Q4H PRN PRN Reason: COUGH Last Admin: 07/12/17 22:02 Dose: 10 ml Heparin Sodium (Porcine) (Heparin -) 5,000 unit SQ BID [facility] Last Admin: 07/16/17 10:47 Dose: 5,000 unit Ceftriaxone Sodium 2 gm/ (Dextrose) 100 mls @ 100 mls/hr IVPB DAILY [facility] Last Admin: 07/16/17 10:47 Dose: 100 mls/hr Multivitamins/Minerals/Vitamin C (Tab-A-Vit -) 1 tab PO DAILY [facility] Last Admin: 07/16/17 10:47 Dose: 1 tab Sodium Chloride (Sodium Chloride Tablet -) 1 gm PO BID [facility] Last Admin: 07/16/17 10:48 Dose: 1 gm - Objective Vital Signs: Vital Signs Temperature 98.9 F 07/16/17 06:00 Pulse Rate 71 07/16/17 06:00 Respiratory Rate 20 07/16/17 06:00 Blood Pressure 140/85 07/16/17 06:00 O2 Sat by Pulse Oximetry (%) 97 07/14/17 21:00 Constitutional: Yes: Calm Eyes: Yes: Conjunctiva Clear HENT: Yes: Atraumatic Neck: Yes: Supple Cardiovascular: Yes: S1, S2 Respiratory: Yes: CTA Bilaterally, On Nasal O2 Gastrointestinal: Yes: Soft Genitourinary: Yes: WNL Musculoskeletal: Yes: WNL Edema: No Neurological: Yes: Oriented Psychiatric: Yes: Oriented Labs: CBC, BMP 07/15/17 06:40 07/15/17 06:40 INR, PTT INR 0.94 (0.82-1.09) 07/09/17 16:00 Problem List - Problems (1) HTN (hypertension) Code(s): I10 - ESSENTIAL (PRIMARY) HYPERTENSION (2) Hyponatremia Code(s): E87.1 - HYPO-OSMOLALITY AND HYPONATREMIA Assessment/Plan Current Medications Generic Name Dose Route Start Last Admin Trade Name Freq PRN Reason Stop Dose Admin Acetaminophen 650 mg 07/10/17 05:20 07/11/17 01:56 Tylenol - PO 650 mg Q6H PRN Administration PAIN OR FEVER Albuterol/Ipratropium 1 amp 07/09/17 19:24 Duoneb - NEB Q6H PRN SHORTNESS OF BREATH Aspirin 81 mg 07/12/17 12:45 07/16/17 10:47 Ecotrin - PO 81 mg DAILY [facility] Administration Guaifenesin 10 ml 07/10/17 23:16 07/12/17 22:02 Robitussin Dm - PO 10 ml Q4H PRN Administration COUGH Heparin Sodium (Porcine) 5,000 unit 07/10/17 10:00 07/16/17 10:47 Heparin - SQ 5,000 unit BID [facility] Administration Ceftriaxone Sodium 2 gm/ 100 mls @ 100 mls/hr 07/10/17 11:30 07/16/17 10:47 Dextrose IVPB 100 mls/hr DAILY [facility] Administration Multivitamins/Minerals/Vitamin C 1 tab 07/12/17 12:45 07/16/17 10:47 Tab-A-Vit - PO 1 tab DAILY [facility] Administration Sodium Chloride 1 gm 07/10/17 22:00 07/16/17 10:48 Sodium Chloride Tablet - PO 1 gm BID [facility] Administration Impression 1. hyponatremia 2. PNA 3. etoh misuse 4. active smoker 5. right adrenal gland adenoma 6. infrarenal AAA Plan - check bmp - encourage PO intake - will cont to follow pt - sodium had been improving, no labs from today Dr Correa
[2017-07-17 06:09] LABS: IGG ANTIBODY 733 mg/dL (700-1600); IGG SUBCLASS 1 435 mg/dL (248-810); IGG SUBCLASS 2 201 mg/dL (130-555); IGG SUBCLASS 3 37 mg/dL (15-102); IGG SUBCLASS 4 5 mg/dL (2-96)
--- NOTE | 2017-07-17 09:42 | DS ---
Physical Examination Vital Signs: Vital Signs Temperature 98.3 F 07/17/17 06:00 Pulse Rate 68 07/17/17 06:00 Respiratory Rate 20 07/17/17 06:00 Blood Pressure 160/98 07/17/17 06:00 O2 Sat by Pulse Oximetry (%) 98 07/16/17 21:00 Labs: CBC, BMP 07/15/17 06:40 07/15/17 06:40 Discharge Summary Reason For Visit: SHORTNESS OF BREATH Current Active Problems Alcohol abuse (Acute) Chronic laryngitis (Acute) Community acquired pneumonia (Acute) DVT prophylaxis (Acute) HTN (hypertension) (Acute) Hyponatremia (Acute) Malnourished (Acute) SIADH (syndrome of inappropriate ADH production) (Acute) Shortness of breath (Acute) Tobacco abuse counseling (Acute) Tobacco dependency (Acute) Tongue ulcer (Acute) Weight loss (Acute) Hospital Course: 57 y/o man with a past medical history of Hypertension, Former smoker quit 6 days ago. Who presents to the ED with SOB, cough, CP, dizziness, diarrhea with generalized weakness x 6 days. Patient reports increased ROJAS after taking 10-15 steps. Patient reports the cough as productive- yellow-ovalle thick phlegm. Patient describes the CP as pleuritic- worse when coughing. Patient does not admit to recent weight loss, just decreased appetite secondary to "not feeling well". Patient denies chills, AP, N/V, constipation, dysuria NUTD- Influenza, Pneumococcal vaccines ER course was notable for: (1) Chest Xray image- RUL Pneumonia (2) CT Chest- RUL Pneumonia (2) Hyponatremia- Na 122 (3) LOI- BUN 28, Cr 1.6 Recent Travel: None PAST MEDICAL HISTORY: HTN PAST SURGICAL HISTORY: Denies Social History: Smoking: Former, 1PPD x 40 yrs, quit 6 days ago Alcohol: Former- quit 6 days ago Drugs: Denies - Problems (1) Malnourished Assessment/Plan: -RD consult -malignancy work up pending -Ensure BID -Multivitamin Code(s): E46 - UNSPECIFIED PROTEIN-CALORIE MALNUTRITION (2) Community acquired pneumonia Assessment/Plan: -ID consult--F/U REGARDING DURATION -Pulmonary consult -IV abx day 7/ -Urine strep PNE positive -Afebrile since last evening -Tylenol for fever> 100.0 F -Sputum AFB and culture pending -Quantiferon Gold negative -Airborne isolation precaution for now -CxR IMOROVED Code(s): J18.9 - PNEUMONIA, UNSPECIFIED ORGANISM (3) Hyponatremia Assessment/Plan: -Improved -on IV NS and NS tabs -seen by Nephrology and cardiology -monitor trend Code(s): E87.1 - HYPO-OSMOLALITY AND HYPONATREMIA (4) SIADH (syndrome of inappropriate ADH production) Assessment/Plan: AM cortisol pending (5) Weight loss Assessment/Plan: -Ensure -RD consult -Multivitamin Code(s): R63.4 - ABNORMAL WEIGHT LOSS (6) Hoarseness Assessment/Plan: -ENT NOTED--NEEDS FOLLOW UP TOP R/O MALIGNANCY dc home and follow up with dr dominguez ent and ct follow up discussed with patient Condition: Stable - Instructions Diet, Activity, Other Instructions: Follow up with ENT biopsy Pulmonary follow up follow up ct scan Referrals: Clarence Dominguez MD [Primary Care Provider] - 1 Week Disposition: HOME - Home Medications Comprehensive Discharge Medication List: Ambulatory Orders Albuterol 2.5/Ipratropium 0.5 [Duoneb -] 1 amp NEB Q6H PRN amp 07/17/17 Aspirin Coated [Ecotrin -] 81 mg PO DAILY tablet.ec 07/17/17 Ipratropium/Albuterol Sulfate [Combivent Respimat Inhal [place]] 4 gm IH QID #1 aer.w.adap 07/17/17 Multivitamins [Multivit ([facility] Formulary)] 1 tab PO DAILY tab 07/17/17 Sodium Chloride Tablet - 1 gm PO BID #60 tablet 07/17/17
[2017-07-17] MEDS ORDERED: PT OWN MED DRAWER 7, Y5N ONE (09:45)
[2017-07-17] MEDS: ASPIRIN COATED 81 MG TABLET.EC PO SCH (09:48)
[2017-07-17] MEDS: MULTIVITAMINS (DAILY MVI) TABLET (FP) PO SCH (09:48)
[2017-07-17] MEDS: CEFTRIAXONE 2 GM in DEXTROSE 5%-WATER - 100 ML IVPB SCH (09:48)
[2017-07-17] MEDS: HEPARIN NA (PORCINE) 5,000 UNITS/ML 1ML VIAL SQ SCH (09:49)
[2017-07-17] MEDS: SODIUM CHLORIDE 1 GM TABLET PO SCH (09:51)
[2017-07-17 12:08] VITALS: BP 139/77; PULSE 73; TEMP 98.1
[2017-07-17 12:19] LABS: HEMATOCRIT 40.5 % (35.4-49); HEMOGLOBIN 13.9 GM/dL (11.7-16.9); MCH 33.3 pg (25.7-33.7); MCHC 34.4 g/dl (32.0-35.9); MEAN CELL VOLUME 96.6 fl (80-96); MEAN PLT VOLUME 6.3 fl (7.5-11.1); PLATELET COUNT 658 K/MM3 (134-434); RBC 4.19 M/mm3 (4.00-5.60); WHITE BLOOD COUNT 5.8 K/mm3 (4.0-10.0)
[2017-07-17 12:42] LABS: ANION GAP 9 (8-16); BLOOD UREA NITROGEN 11 mg/dL (7-18); CALCIUM 8.8 mg/dL (8.5-10.1); CHLORIDE 93 mmol/L (98-107); CO2 35 mmol/L (21-32); CREATININE 0.6 mg/dL (0.7-1.3); GLUCOSE,RANDOM 106 mg/dL (74-106); POTASSIUM 3.8 mmol/L (3.5-5.1); SODIUM 137 mmol/L (136-145)
[2017-07-17 13:18] LABS: PLATELET ESTIMATE SIGNIFICANT INCREASE
--- NOTE | 2017-07-17 15:38 | PATH ---
Surgical Pathology Report Patient Name: ABBY CARBAJAL Med. Rec. #: [id number] /Age/Gender: 1960 (Age: 57) / M Account: [id number] Location: [address] [place] [address] Taken: 07/16/2017 Received: 07/16/2017 Reported: 07/17/2017 Physicians: Clementina Hardy M.D. Specimen(s) Received PERIPHERAL BLOOD Clinical History Monocytosis Final Diagnosis PERIPHERAL BLOOD: FLOW CYTOMETRY performed and interpreted at [facility], [place], [place] ([id number]) shows the following: INTERPRETATION: In the sample analyzed, there is no evidence of B or T-cell proliferative disorders or increased blasts. The monocytic cells are 11% of total events, see comment. Comment: The findings are nonspecific. Correlation with relevant clinical and laboratory data is essential. Close followup is suggested in order to assess for persistent monocytosis. Phenotype: In the sample analyzed there is a mixed population of granulocytes, monocytes, and lymphoid cells. CD34+ myeloblasts are less than 0.1%. Granulocytes are 77% of total cells. Monocytes are 11% of total cells. There is no overt abnormal myeloid antigen expression. The B-cells (0.5% of total) appear polytypic. The T-cells (9% of total) show no meeks T-cell antigenic deletion. .The CD4:CD8 ratio is 2.9:1. Electronically Signed Peter Babcock M.D. Addendum Reported: 07/23/2017 Addendum Diagnosis PERIPHERAL BLOOD: Molecular Pathology Report received from [facility] in [place], [place] ([id number]) shows the following: JAK2 [id number] MUTATION ANALYSIS BY PCR RESULTS: Only the wild-type JAK2 sequence was detected. INTERPRETATION: Negative for JAK2 (V617F) mutation Peter Babcock M.D. Gross Description Received labelled with the patient's name are 2 green top tubes of peripheral blood which are forwarded to [facility] for ancillary testing.
== END 2017-07-17 12:15 | disposition home or self-care (01) | DRG 139 ==
LOC: JER 13:03 → JERFT 13:03 → JERBED 18:35 → J7W 21:13 → J6S 07-10 09:54
PROVIDERS: ADMIT Internal Medicine; ATTEND Family Medicine
PROC: 5A1D70Z Performance of Urinary Filtration, Intermittent, Less than 6 Hours Per Day (ICD-10-PCS; principal; 2017-07-13)
DX: J13 Pneumonia due to Streptococcus pneumoniae (principal); G93.49 Other encephalopathy; N17.9 Acute kidney failure, unspecified; E46 Unspecified protein-calorie malnutrition; E22.2 Syndrome of inappropriate secretion of antidiuretic hormone; R64 Cachexia; I12.0 Hypertensive chronic kidney disease with stage 5 chronic kidney disease or end stage renal disease; N18.5 Chronic kidney disease, stage 5; E87.1 Hypo-osmolality and hyponatremia; J44.9 Chronic obstructive pulmonary disease, unspecified; I45.2 Bifascicular block; F10.10 Alcohol abuse, uncomplicated; F17.210 Nicotine dependence, cigarettes, uncomplicated; E86.0 Dehydration; D35.01 Benign neoplasm of right adrenal gland; I71.4 Abdominal aortic aneurysm, without rupture; E86.1 Hypovolemia; R63.4 Abnormal weight loss; Z68.1 Body mass index [BMI] 19.9 or less, adult; Z74.01 Bed confinement status; K14.0 Glossitis; J37.0 Chronic laryngitis; R49.0 Dysphonia
CPT/HCPCS: 36415; 70450-TC; 71046-TC-FY; 71250-TC; 74176-TC; 80048; 80053; 80061; 80307; 81003; 81015; 82378; 82436; 82533; 82550; 82553; 82784; 82787; 82803; 83615; 83721; 83735; 83883; 83930; 83935; 84133; 84300; 84443; 84484; 84550; 85025; 85610; 85651; 86140; 86480; 87040; 87070; 87086; 87116; 87205; 87206; 87389; 87804; 87899; 88300-TC; 93005; 93010; 93880-TC; 99285-25; J1644; J7030

== ENCOUNTER 2019-12-27 21:55 | Inpatient (IN) | payer OTHER ==
[2019-12-27] MEDS ORDERED: PANTOPRAZOLE SODIUM 40 MG in SODIUM CHLORIDE 100 ML IVPB ONE (22:13)
--- NOTE | 2019-12-27 22:30 | PDOC ---
Documentation entered by Enrrique Muse SCRIBE, acting as scribe for Hazel Burrows MD. Hazel Burrows MD: This documentation has been prepared by the Duane barrientos Xhesika, SCRIBE, under my direction and personally reviewed by me in its entirety. I confirm that the documentation accurately reflects all work, treatment, procedures, and medical decision making performed by me. Attending Attestation - Resident Resident Name: JasonMoose - ED Attending Attestation I have performed the following: I have examined & evaluated the patient, The case was reviewed & discussed with the resident, I agree w/resident's findings & plan, Exceptions are as noted - HPI HPI: 12/27/19 22:15 The patient is a 59y/o M with a pmh of HTN, long history of tobacco use, peripheral vascular disease (on plavix) who presents to the ED with haematemesis in front of EMS crew and then syncopized. Allergies: NKDA PCP: Clarence Zazueta - Physicial Exam PE: 12/27/19 22:18 thin appearing, slender 59 yo male with hematemsis alert, conversant eyes og eomi no head trauma neck no cervical vertebral tenderness abdomen no rebound rectal melena lungs cta b/l cvs [id number] extremites clubbing ,no edema axo x3, moving all extremities 12/27/19 22:25 12/27/19 23:46 - Medical Decision Making 12/27/19 23:44 pt now having melena hemoglobin=11.4 hct=34 will admit for GI bleed,GI consult 12/27/19 23:47 Discharge - Discharge Information Problems reviewed: Yes Clinical Impression/Diagnosis: GIB (gastrointestinal bleeding) Qualifiers: GI bleed type/associated pathology: unspecified gastrointestinal hemorrhage type Qualified Code(s): K92.2 - Gastrointestinal hemorrhage, unspecified Condition: Guarded - Follow up/Referral - Patient Discharge Instructions - Post Discharge Activity
--- NOTE | 2019-12-27 22:33 | PDOC ---
History of Present Illness - General Stated Complaint: VOMITING BLOOD Time Seen by Provider: 12/27/19 22:14 History Source: Patient Exam Limitations: No Limitations - History of Present Illness Initial Comments: 12/27/19 22:28 PCP: Carlita HPI: 59 M pmh COPD (no home O2), ETOH abuse, smoker 2ppd, PVD (on plavix) presenting with hematemesis today, syncope witnessed by EMS, no head trauma. Daily drinker, no h/o GIB. No complaints at present. 100% NRB, reportedly hypoxic en route, reduced to 3L NC on arrival. Ho history of GIB, varices, or liver cirrhosis. Meds: Per chart All: NKDA PMH: As above PSH: Per chart SHx: ETOH daily, 2ppd smoker, denies illicits Past History - Travel History Traveled outside of the country in the last 30 days: No Close contact w/someone who was outside of country & ill: No - Medical History Allergies/Adverse Reactions: Allergies Allergy/AdvReac Type Severity Reaction Status Date / Time No Known Allergies Allergy Verified 07/09/17 13:16 Home Medications: Ambulatory Orders Losartan Potassium 10 mg PO DAILY 12/28/19 Plavix 75 mg Q2D 12/28/19 COPD: No HTN: Yes - Psycho-Social/Smoking History Smoking Status: Yes Smoking History: Unknown if ever smoked Have you smoked in the past 12 months: Yes Number of Cigarettes Smoked Daily: 20 - Substance Abuse Hx (Audit-C & DAST Scrn) How often the patient has a drink containing alcohol: Monthly or less Score: In Men: 4 or > Positive; In Women: 3 or > Positive: 1 Screen Result (Pos requires Nsg. Audit-10AR): Negative Review of Systems - Review of Systems Able to Perform ROS?: Yes Is the patient limited Romanian proficient: Yes Constitutional: No: Chills, Night Sweats, Weakness HEENTM: No: Recent change in vision, Nose Congestion, Throat Pain Respiratory: No: Cough, Shortness of Breath, Wheezing Cardiac (ROS): Yes: Syncope. No: Chest Pain, Edema, Irregular Heart Rate, Lightheadedness, Palpitations, Chest Tightness ABD/GI: Yes: Nausea, Vomiting. No: Constipated, Diarrhea, Poor Appetite, Poor Fluid Intake : No: Burning, Dysuria, Frequency Musculoskeletal: No: Back Pain, Muscle Pain, Muscle Weakness, Neck Pain Neurological: No: Headache, Numbness, Tingling, Weakness Psychiatric: No: Stressors, Change in Appetite Endocrine: No: Increased Hunger, Increased Thirst Hematologic/Lymphatic: No: Anemia, Blood Clots, Easy Bleeding All Other Systems: Reviewed and Negative *Physical Exam - Vital Signs Last Vital Signs Temp Pulse Resp BP Pulse Ox 61 16 124/58 L 98 12/27/19 22:22 12/27/19 22:22 12/27/19 22:22 12/27/19 22:22 - Physical Exam 12/27/19 22:34 Vitals reviewed, AFVSS GEN: Well appearing, appears stated age, NAD, comfortable. AAOx3. HEENT: NCAT, EOMI, PERRL. Sclera anicteric, noninjected. No facial asymmetry. Moist mucous membranes. Normal voice. Trachea midline. CV: RRR, S1/S2, no murmurs / rubs / gallops appreciated. LUNG: CTABL, normal work of breathing. No wheezes, rales, rhonchi. No cough. Speaking full sentences. GI: Soft, NTND, +BS, no guarding, no rebound. No masses. EXTREMITIES: 2+ distal pulses. No clubbing / cyanosis / edema. No gross deformi ty in any extremity. SKIN: Warm, dry, no rashes appreciated, non-jaundiced. PSYCH: Normal mood and affect. Cooperative and appropriate. NEURO: CN grossly intact. Moving all extremities well. Normal strength and sensation grossly. Procedures - Intubation Time of Intubation: 04:15 Intubation Method: orotracheal Blade used: Mac Tube Size (Fr): 7.5 Medications: Rocuronium, Versed Tube position @ lip (cm): 20 Tube position confirmed by: Direct visualization, CO2 detector, Chest x-ray, Breath sounds Breath Sounds after Intubation: equal Intubation Complications: vomited, apparent aspiration, oralbleed Post Intubation Xray: Yes (advanced 20 to 22at the lip) ED Treatment Course - LABORATORY CBC & Chemistry Diagram: 01/02/20 14:00 01/02/20 05:50 Medical Decision Making - Critical Care Time Total Critical Care Time (minutes): 90 Critical Care Statement: The care of this patient involved high complexity decision making to prevent further life threatening deterioration of the patient's condition and/or to evaluate & treat vital organ system(s) failure or risk of failure. - Medical Decision Making 12/27/19 22:34 59 M pmh COPD (no home O2), ETOH abuse, smoker 2ppd, PVD (on plavix) presenting with hematemesis today, syncope witnessed by EMS, no head trauma. Concerning for GIB, h/o ETOH making varices possible. Likely admission for continued monitoring. - CBC, CMP, Coags, Cardiac Profile, T&S, FOBT - Pantoprazole - EKG, CXR 12/27/19 23:57 - Developed BRBPR in the department - Na 124 - H&H within normal limits - Rectal with external hemorrhoids, normal tone, +melena, FOBT sent - EKG ordered, pending 12/28/19 00:31 EKG: Sinus with short FL, left axis, 86bpm, QTc 445 Admit Tele 12/28/19 05:16 Patient with episode of unresponsiveness, vomiting with gurgling respirations. Immediate intubation with 50 kobe, 4 versed with copious emesis >1.5L of dark / coffee ground emesis. Cordis placed in R femoral vein. MTP initiated. Protonix Drip, Octreotide drip initiated. GI Dr. Youngblood consulted. Zosyn ordered. Plts for plavix / ASA use. Sedated post intubation with versed drip given return of baseline hypertension. CT chest / abdomen / pelvis ordered. Call placed to patient's partner, no answer. Endorsed to ICU team for upgraded admission. Discharge - Discharge Information Problems reviewed: Yes Clinical Impression/Diagnosis: Respiratory distress, acute GIB (gastrointestinal bleeding) Qualifiers: GI bleed type/associated pathology: unspecified gastrointestinal hemorrhage type Qualified Code(s): K92.2 - Gastrointestinal hemorrhage, unspecified Condition: Critical Disposition: TRANSFER ACUTE CARE/OTHER HOSP - Follow up/Referral - Patient Discharge Instructions - Post Discharge Activity
[2019-12-27 23:19] LABS: BASO % 0.7 % (0-2.0); EOS % 1.4 % (0-4.5); HEMATOCRIT 34.1 % (35.4-49); HEMOGLOBIN 11.6 GM/dL (11.7-16.9); LYMPH % 8.4 % (8-40); MCH 35.5 pg (25.7-33.7); MCHC 33.9 g/dl (32.0-35.9); MEAN CELL VOLUME 104.7 fl (80-96); MEAN PLT VOLUME 6.2 fl (7.5-11.1); MONO % 5.9 % (3.8-10.2); NEUT % 83.6 % (42.8-82.8); PLATELET COUNT 312 K/MM3 (134-434); RBC 3.26 M/mm3 (4.00-5.60); RDW 13.3 % (11.9-15.9); WHITE BLOOD COUNT 7.1 K/mm3 (4.0-10.0)
[2019-12-27 23:27] LABS: INR 1.01 (0.83-1.09); PROTHROMBIN TIME (PATIENT) 11.9 SEC (9.7-13.0)
[2019-12-27 23:44] LABS: ALBUMIN 3.2 g/dl (3.4-5.0); BILIRUBIN,TOTAL 0.4 mg/dL (0.2-1); BLOOD UREA NITROGEN 8.9 mg/dL (7-18); CREATININE 0.9 mg/dL (0.55-1.3); POTASSIUM 4.4 mmol/L (3.5-5.1)
[2019-12-27] MEDS ORDERED: PANTOPRAZOLE SODIUM 40 MG/100 ML BAG IVPB ONE (23:53)
--- NOTE | 2019-12-28 02:51 | PN ---
Teaching Attending Note Name of Resident: Jessica Gambino ATTENDING PHYSICIAN STATEMENT I saw and evaluated the patient. I reviewed the resident's note and discussed the case with the resident. I agree with the resident's findings and plan as documented. 59yoM with h/o chronic alcohol use, HTN, peripheral vascular disease on Plavix and aspirin, COPD, and chronic NSAID use who presented with hematemesis and also noted to have maroon colored stools in the ED. No known history of cirrhosis, varices, or prior GI bleed. Initial vitals stable without tachycardia or hypotension and labs notable for Hgb 11.6, sodium 125. Plan as discussed with resident had been for fluid resuscitation, rpt H/H, NPO, GI consult, hold antiplatelets/NSAIDs, consider CTA if active/brisk bleeding. When I arrived to assess patient in the ED, he was unresponsive and ED team was in the process of intubating patient. Please see ED documentation for additional details.
[2019-12-28] MEDS ORDERED: SODIUM CHLORIDE 1,000 ML IV STA (02:54)
--- NOTE | 2019-12-28 03:10 | HP ---
CHIEF COMPLAINT: I vomited so much blood PCP: Dr. Zazueta HISTORY OF PRESENT ILLNESS: 59yo M with PMHx of HTN, PVD (on plavix), active smoker, alcohol use disorder, extensive NSAIDs use, and COPD who presents to the ED due to hematemesis. Patient was going about his usual business earlier in the day. He went to the pharmacy to buy eccedrin which he takes multiple times per week for occasional headaches. At around 4pm, we started feeling a bit dizzy and when we went to the bathroom he started vomiting blood. Patient explained that "it looked like I committed murder in my bathroom" because there was so much blood. He has never experienced anything like this before. Besides his usual occasional headaches and some mild dizziness earlier in the day, patient denied any associated symptoms including nausea, diarrhea, constipation, dysuria, polyuria. Patient had a colonoscopy ~6months ago and said that they found some polyps but his doctor "cleared me for the next 5 years". ER course was notable for: (1) Hgb 11.6, Hct 34.1, Na 125 (2) FOBT + (3) EKG: short MA interval, left axis deviation, septal infarct (4) inverted -[place] BP 120/59, sitting BP 102/61 Recent Travel: none PAST MEDICAL HISTORY: as per HPI PAST SURGICAL HISTORY: vasectomy angioplasty x2 (each leg) Family History: father: prostate cancer, alcohol use disorder mother: " of boredom" brother: of heroin overdose sister: of "alcohol poisoning" Social History: Smokin to 1.5 ppd since ~45 years Alcohol: 8x 12oz beer cans per day Drugs: denied Work: [employer], not working since COVID Home: lives with long-term life partner Allergies No Known Allergies Allergy (Verified 07/09/17 13:16) HOME MEDICATIONS: Home Medications Medication Instructions Recorded Losartan Potassium 10 mg PO DAILY 12/28/19 Plavix 75 mg Q2D 12/28/19 REVIEW OF SYSTEMS as per HPI PHYSICAL EXAMINATION Vital Signs - 24 hr 12/27/19 22:22 Pulse Rate 61 Respiratory 16 Rate Blood Pressure 124/58 L O2 Sat by Pulse 98 Oximetry (%) GENERAL: M, cachectic body habitus, AAOx4 showing no signs of acute distress HEAD: Normal with no signs of trauma, poor dentition EYES: PERRL, extraocular movements intact bilaterally EARS, NOSE, THROAT: dry mucous membranes. NECK: Normal range of motion, no lymphadenopathy noted LUNGS: Distant breath sounds but CTAB. No wheezing appreciated HEART: RRR, normal S1 more pronounced than S2 without murmur ABDOMEN: Soft, nontender, flat, not distended not protuberant, active bowel sounds EXTREMITIES: 2+ radial and dorsalis pedis pulses, warm to touch bilaterally, nontender to palpation, no peripheral edema appreciated NEUROLOGICAL: Cranial nerves II-XII grossly intact. Normal speech with symmetricalfacial movements. Normal gait but weak PSYCHIATRIC: Cooperative and interactive, responds appropriately. Good eye contact. Appropriate/good mood and affect congruent with stated mood SKIN: Warm, dry, normal turgor, no rashes or lesions noted, normal capillary refill. Laboratory Results - last 24 hr 12/27/19 12/27/19 12/27/19 22:45 22:45 22:45 WBC 7.1 RBC 3.26 L Hgb 11.6 L Hct 34.1 L D MCV 104.7 H MCH 35.5 H MCHC 33.9 RDW 13.3 Plt Count 312 D MPV 6.2 L Absolute Neuts (auto) 5.9 Neutrophils % 83.6 H Lymphocytes % 8.4 Monocytes % 5.9 Eosinophils % 1.4 D Basophils % 0.7 D Nucleated RBC % 0 Retic Count 1.50 PT with INR INR Sodium 125 L Potassium 4.4 Chloride 90 L Carbon Dioxide 20 L Anion Gap 14 BUN 8.9 Creatinine 0.9 Est GFR (CKD-EPI)AfAm 107.22 Est GFR (CKD-EPI)NonAf 92.51 Random Glucose 105 Calcium 8.0 L Total Bilirubin 0.4 AST 22 ALT 15 Alkaline Phosphatase 99 Creatine Kinase Troponin I Total Protein 6.0 L Albumin 3.2 L Stool Occult Blood Blood Type A NEGATIVE Antibody Screen Negative 12/27/19 12/27/19 12/28/19 22:45 22:45 00:01 WBC RBC Hgb Hct MCV MCH MCHC RDW Plt Count MPV Absolute Neuts (auto) Neutrophils % Lymphocytes % Monocytes % Eosinophils % Basophils % Nucleated RBC % Retic Count PT with INR 11.90 INR 1.01 Sodium Potassium Chloride Carbon Dioxide Anion Gap BUN Creatinine Est GFR (CKD-EPI)AfAm Est GFR (CKD-EPI)NonAf Random Glucose Calcium Total Bilirubin AST ALT Alkaline Phosphatase Creatine Kinase 84 Troponin I < 0.02 Total Protein Albumin Stool Occult Blood Positive Blood Type Antibody Screen ASSESSMENT/PLAN: 59yo M with PMHx of HTN, PVD (on plavix), active smoker, alcohol use disorder, extensive NSAIDs use, and COPD who presents to the ED due to hematemesis. ED workup was remarkable for Hgb 11.6, Hct 34.1, Na 125, FOBT +, EKG: short MA interval, left axis deviation, septal infarct, and inverted -[place] BP 120/59, sitting BP 102/61. #GIB --likely upper GIB 2/2 to chronic NSAID usage; possibly EtOH-gastritis; less likely esophageal varices #hematemesis, then dark-maroon colored-stool, then bright mucoid stool >HD stable, but at-risk for rapid acute decompensation >CT A/P from June 2017 showed normal sized liver with normal contours >Hgb 11.6 >FOBT positive - NPO - GI consult - 1L NS bolus - hold HTN meds - hold ASA, plavix, NSAIDs - 2 large bore IVs - orthostatics done: 120/59 --> 102/61 - SCDs - repeat H&H - monitor sodium - Dispo: Telemetry Family Medical History Family History: As Documented Visit type - Emergency Visit Emergency Visit: Yes ED Registration Date: 12/28/19 Care time: The patient presented to the Emergency Department on the above date and was hospitalized for further evaluation of their emergent condition. - New Patient This patient is new to me today: Yes Date on this admission: 12/29/19 - Critical Care Critical Care patient: No ATTENDING PHYSICIAN STATEMENT I saw and evaluated the patient. I reviewed the resident's note and discussed the case with the resident. I agree with the resident's findings and plan as documented. SUBJECTIVE: OBJECTIVE: ASSESSMENT AND PLAN:
[2019-12-28] MEDS ORDERED: RAPID SEQUENCE INTUBATION KIT NR ONE (03:30)
[2019-12-28] MEDS ORDERED: MIDAZOLAM HCL 2 MG/2 ML SINGLE DOSE VIAL ONE ×2 (03:31→04:15)
[2019-12-28] MEDS ORDERED: PIPERACILLIN/TAZOB 3.375 GM 3.375 GM in DEXTROSE 5%-WATER - 50 ML IVPB ONE (03:53)
[2019-12-28] MEDS ORDERED: MIDAZOLAM HCL 5 MG/1 ML Single Dose Vial IVPUSH ONE ×2 (04:00→04:13)
[2019-12-28] MEDS ORDERED: MIDAZOLAM IN 0.9 % SOD.CHLORID 1 MG/1 ML PLAST..BAG ONE ×2 (04:14→23:40)
[2019-12-28] MEDS ORDERED: MIDAZOLAM 100 MG in SODIUM CHLORIDE 100 ML IVPB SCH (04:15)
[2019-12-28] MEDS ORDERED: ROCURONIUM BROMIDE 50 MG/5 ML VIAL IV ONE (04:16)
--- NOTE | 2019-12-28 04:16 | CONSULT ---
Consultation: REQUESTING PROVIDER: Dr. Hazel Burrows CONSULT REQUEST: We have been asked to medically evaluate this patient for GI bleed with intubation for airway protection. HISTORY OF PRESENT ILLNESS: 59 YO M with PMH HTN, PVD (on plavix), chronic NSAID use (excedrine, ibuprofen), h/o tobacco use presents with hematemsis and syncope. Pt endorsed hematemasis in bathtub at home. Endorsed feeling weak and light-headed. Per ED note, EMS witnessed hematemasis and syncope. En route to the ED, patient was hypoxic and started on 100% NRB, which was later decreased to 3 L NC on arrival to the ED. While in the ED, the patient had an episode of maroon colored stool and later had bright red blood per rectum. On admission, Na+ was 125 and Hgb/Hct was 11.4/34. Pt was admitted for GI bleed. Patient drinks alcohol daily and uses NSAIDs chronically [~ 5 days/week, 3 tabs/day (including excedrine & ibuprofen)]/ Patient later became unresponsive, and had further hematemasis with gurgling. Patient was intubated for airway protection. Patient had >1.5 coffee ground emesis. Protonix drip & octreotide drip were started, and zosyn was ordered for aspiration pneumonia. History was per ED and night float team, as patient was intubated and sedated on exam. PHYSICAL EXAMINATION Vital Signs - 24 hr 12/27/19 22:22 Pulse Rate 61 Respiratory 16 Rate Blood Pressure 124/58 L O2 Sat by Pulse 98 Oximetry (%) GENERAL: Intubated and Sedated; thin male HEENT: Normal with no signs of trauma. PERRL, dry mucous membranes. LUNGS: Breath sounds equal, wheezes b/l. No crackles. HEART: Regular rate and rhythm, normal S1 and S2 without murmur, rub or gallop. ABDOMEN: Soft, nontender, not distended, normoactive bowel sounds, no guarding MUSCULOSKELETAL: Normal range of motion at all joints. No bony deformities or tenderness. No CVA tenderness. UPPER EXTREMITIES: 2+ pulses, warm, well-perfused. No cyanosis. No clubbing. Cap refill <2 seconds. No peripheral edema. LOWER EXTREMITIES: 2+ pulses, warm, well-perfused. No calf tenderness. No peripheral edema. Laboratory Results - last 24 hr 12/27/19 12/27/19 12/27/19 22:45 22:45 22:45 WBC 7.1 RBC 3.26 L Hgb 11.6 L Hct 34.1 L D MCV 104.7 H MCH 35.5 H MCHC 33.9 RDW 13.3 Plt Count 312 D MPV 6.2 L Absolute Neuts (auto) 5.9 Neutrophils % 83.6 H Lymphocytes % 8.4 Monocytes % 5.9 Eosinophils % 1.4 D Basophils % 0.7 D Nucleated RBC % 0 Retic Count 1.50 PT with INR INR Sodium 125 L Potassium 4.4 Chloride 90 L Carbon Dioxide 20 L Anion Gap 14 BUN 8.9 Creatinine 0.9 Est GFR (CKD-EPI)AfAm 107.22 Est GFR (CKD-EPI)NonAf 92.51 Random Glucose 105 Calcium 8.0 L Total Bilirubin 0.4 AST 22 ALT 15 Alkaline Phosphatase 99 Creatine Kinase Troponin I Total Protein 6.0 L Albumin 3.2 L Stool Occult Blood Blood Type A NEGATIVE Antibody Screen Negative Crossmatch See Detail 12/27/19 12/27/19 12/28/19 22:45 22:45 00:01 WBC RBC Hgb Hct MCV MCH MCHC RDW Plt Count MPV Absolute Neuts (auto) Neutrophils % Lymphocytes % Monocytes % Eosinophils % Basophils % Nucleated RBC % Retic Count PT with INR 11.90 INR 1.01 Sodium Potassium Chloride Carbon Dioxide Anion Gap BUN Creatinine Est GFR (CKD-EPI)AfAm Est GFR (CKD-EPI)NonAf Random Glucose Calcium Total Bilirubin AST ALT Alkaline Phosphatase Creatine Kinase 84 Troponin I < 0.02 Total Protein Albumin Stool Occult Blood Positive Blood Type Antibody Screen Crossmatch Active Medications Generic Name Dose Route Start Last Admin Trade Name Freq PRN Reason Stop Dose Admin Pantoprazole Sodium 80 mg/ 100 mls @ 10 mls/hr 12/28/19 03:45 Sodium Chloride IVPB 12/31/19 03:43 Q10H TREVOR 8 MG/HR Octreotide Acetate 200 mcg/ 500 mls @ 20.833 mls/hr 12/28/19 03:45 Octreotide Acetate 1,000 mcg/ IVPB Dextrose ASDIR TREVOR Piperacillin Sod/Tazobactam 50 mls @ 100 mls/hr 12/28/19 03:53 Sod 3.375 gm/ Dextrose IVPB 12/28/19 04:22 ONCE ONE Protocol Midazolam HCl 100 mg/ Sodium 100 mls @ 1 mls/hr 12/28/19 04:15 Chloride IVPB 12/29/19 04:14 TITR TREVOR Protocol 1 MG/HR ASSESSMENT/PLAN: 59 YO M with PMH HTN, PVD (on plavix), chronic NSAID use (excedrine, ibuprofen), h/o tobacco use presents with hematemsis and syncope. Neuro -Patient is intubated and sedated. Patient is unresponsive -syncope per ED note. orthostatics per night team : 120/59 --> 102/61 -CTH without contrast ordered Gastroenterology -likely varices 2/2 alcohol use VS peptic ulcer disease 2/2 extensive NSAID use. Hold NSAIDs, ASA, plavix. -NPO -ED discussed with Dr. Youngblood. Recommended octretotide, platelets, FFP. -Massive transfusion protocol initiated with blood, platelets, and ffp. s/p 1 unit RBC in ED. 1 L NS bolus in ED -octreotide drip -protonix drip -CTAP ordered -GI consulted Pulm -intubated and sedated with versed 2 mcg -Rate 14, TV 400, O2 80%, PEEP 5, Pplat 13 -f/u CXR -Chest CT ordered -ABG ordered Cardio EKG ordered #HTN #PVD (on plavix) ID -zosyn 3.375 Q8H for aspiration pneumonia. -ID (Dr. Bey) consulted Heme Hgb/Hct 11.6/34.1 to 9.5/28.4. PRBCs ordered Renal BUN/Cr: 8.9/0.9 Hyponatremia improved from 125 to 127. On NS @125 ml/hr. Will continue to m onitor Na+ DVT PPX hold AC in setting of GI bleed. SCDs Lines Right femoral cordis (12/27) 18 gauge Left AC (12/27) 20 gauge R AC (12/27) Left IJ (12/27) DISPO icu Dispo: We will continue to follow the patient. Thank you for this consultative opportunity. Visit type - Emergency Visit Emergency Visit: Yes ED Registration Date: 12/28/19 Care time: The patient presented to the Emergency Department on the above date and was hospitalized for further evaluation of their emergent condition. - New Patient This patient is new to me today: No - Critical Care Critical Care patient: No ATTENDING PHYSICIAN STATEMENT I saw and evaluated the patient. I reviewed the resident's note and discussed the case with the resident. I agree with the resident's findings and plan as documented. SUBJECTIVE: OBJECTIVE: ASSESSMENT AND PLAN:
--- NOTE | 2019-12-28 04:31 | PDOC ---
*Physical Exam - Vital Signs Last Vital Signs Temp Pulse Resp BP Pulse Ox 61 16 124/58 L 100 12/27/19 22:22 12/28/19 04:02 12/27/19 22:22 12/28/19 04:02 ED Treatment Course - LABORATORY CBC & Chemistry Diagram: 12/29/19 05:35 12/29/19 05:35 - ADDITIONAL ORDERS Additional order review: Laboratory Results 12/28/19 12/28/19 12/27/19 00:01 00:00 22:45 PT with INR 11.90 INR 1.01 Sodium Potassium Chloride Carbon Dioxide Anion Gap BUN Creatinine Est GFR (CKD-EPI)AfAm Est GFR (CKD-EPI)NonAf Random Glucose Calcium Total Bilirubin AST ALT Alkaline Phosphatase Creatine Kinase Troponin I Total Protein Albumin Stool Occult Blood Positive Blood Type A NEGATIVE Antibody Screen Crossmatch 12/27/19 12/27/19 12/27/19 22:45 22:45 22:45 PT with INR INR Sodium 125 L Potassium 4.4 Chloride 90 L Carbon Dioxide 20 L Anion Gap 14 BUN 8.9 Creatinine 0.9 Est GFR (CKD-EPI)AfAm 107.22 Est GFR (CKD-EPI)NonAf 92.51 Random Glucose 105 Calcium 8.0 L Total Bilirubin 0.4 AST 22 ALT 15 Alkaline Phosphatase 99 Creatine Kinase 84 Troponin I < 0.02 Total Protein 6.0 L Albumin 3.2 L Stool Occult Blood Blood Type A NEGATIVE Antibody Screen Negative Crossmatch See Detail 12/27/19 22:45 RBC 3.26 L MCV 104.7 H MCHC 33.9 RDW 13.3 MPV 6.2 L Neutrophils % 83.6 H Lymphocytes % 8.4 Monocytes % 5.9 Eosinophils % 1.4 D Basophils % 0.7 D - Medications Given in the ED: ED Medications Discontinued Medications Generic Name Dose Route Start Last Admin Trade Name Freq PRN Reason Stop Dose Admin Pantoprazole Sodium 40 mg/ 100 mls @ 200 mls/hr 12/27/19 22:13 12/28/19 00:25 Sodium Chloride IVPB 12/27/19 22:42 200 mls/hr ONCE ONE Administration Sodium Chloride 1,000 mls @ 1,000 mls/hr 12/28/19 02:54 12/28/19 04:10 Normal Saline - IV 12/28/19 03:53 1,000 mls/hr ASDIR STA Administration Medical Decision Making - Medical Decision Making 12/28/19 04:31 Patient started vomiting large amounts of coffee ground emesis in the ED - Cordis placed emergently for large bore access - Massive transfusion protocol initiated with blood, platelets, and ffp Additional triple lumen placed in left IJ in case patient needs pressors and due to multiple drips running for patient Discharge - Discharge Information Problems reviewed: Yes Clinical Impression/Diagnosis: Respiratory distress, acute GIB (gastrointestinal bleeding) Qualifiers: GI bleed type/associated pathology: unspecified gastrointestinal hemorrhage type Qualified Code(s): K92.2 - Gastrointestinal hemorrhage, unspecified Condition: Guarded - Follow up/Referral - Patient Discharge Instructions - Post Discharge Activity Procedures - Central Line Central Line Lumen: Cordis Central Line Position: femoral (R) Complications: none Post Central Line Insertion: sutured, good blood return
--- NOTE | 2019-12-28 04:55 | PDOC ---
*Physical Exam - Vital Signs Last Vital Signs Temp Pulse Resp BP Pulse Ox 61 16 124/58 L 100 12/27/19 22:22 12/28/19 04:02 12/27/19 22:22 12/28/19 04:02 ED Treatment Course - LABORATORY CBC & Chemistry Diagram: 12/27/19 22:45 12/27/19 22:45 - ADDITIONAL ORDERS Additional order review: Laboratory Results 12/28/19 12/28/19 12/27/19 00:01 00:00 22:45 PT with INR 11.90 INR 1.01 Sodium Potassium Chloride Carbon Dioxide Anion Gap BUN Creatinine Est GFR (CKD-EPI)AfAm Est GFR (CKD-EPI)NonAf Random Glucose Calcium Total Bilirubin AST ALT Alkaline Phosphatase Creatine Kinase Troponin I Total Protein Albumin Stool Occult Blood Positive Blood Type A NEGATIVE Antibody Screen Crossmatch 12/27/19 12/27/19 12/27/19 22:45 22:45 22:45 PT with INR INR Sodium 125 L Potassium 4.4 Chloride 90 L Carbon Dioxide 20 L Anion Gap 14 BUN 8.9 Creatinine 0.9 Est GFR (CKD-EPI)AfAm 107.22 Est GFR (CKD-EPI)NonAf 92.51 Random Glucose 105 Calcium 8.0 L Total Bilirubin 0.4 AST 22 ALT 15 Alkaline Phosphatase 99 Creatine Kinase 84 Troponin I < 0.02 Total Protein 6.0 L Albumin 3.2 L Stool Occult Blood Blood Type A NEGATIVE Antibody Screen Negative Crossmatch See Detail 12/27/19 22:45 RBC 3.26 L MCV 104.7 H MCHC 33.9 RDW 13.3 MPV 6.2 L Neutrophils % 83.6 H Lymphocytes % 8.4 Monocytes % 5.9 Eosinophils % 1.4 D Basophils % 0.7 D - Medications Given in the ED: ED Medications Discontinued Medications Generic Name Dose Route Start Last Admin Trade Name Freq PRN Reason Stop Dose Admin Pantoprazole Sodium 40 mg/ 100 mls @ 200 mls/hr 12/27/19 22:13 12/28/19 00:25 Sodium Chloride IVPB 12/27/19 22:42 200 mls/hr ONCE ONE Administration Sodium Chloride 1,000 mls @ 1,000 mls/hr 12/28/19 02:54 12/28/19 04:10 Normal Saline - IV 12/28/19 03:53 1,000 mls/hr ASDIR STA Administration Medical Decision Making - Critical Care Time Total Critical Care Time (minutes): 90 Critical Care Statement: The care of this patient involved high complexity decision making to prevent further life threatening deterioration of the patient's condition and/or to evaluate & treat vital organ system(s) failure or risk of failure. - Medical Decision Making 12/28/19 04:50 Patient noted to have gurgling respirations Patient appeared diaphoretic with labored respirations Patient vomited copious amounts of coffee-ground emesis Patient intubated using RSI technique with 7.5 ET tube End-tidal CO2 confirmed Post intubation chest x-ray showed ET tube in place though in need of advancem ent Advanced from 20 cm to 22 cm with respiratory at bedside Zosyn 3.75 given for aspiration risk Right femoral Cordis inserted Massive transfusion protocol initiated due to active rectal bleeding and coffee- ground emesis as well as history of alcohol abuse and possible varices GI called, platelets and octreotide recommended and ordered Case discussed with ICU team Plan for CT scan of the chest abdomen and pelvis with IV contrast and moved to the ICU note attempt was made to contact patient's significant other without success 12/28/19 04:55 Discharge - Discharge Information Problems reviewed: Yes Clinical Impression/Diagnosis: Respiratory distress, acute GIB (gastrointestinal bleeding) Qualifiers: GI bleed type/associated pathology: unspecified gastrointestinal hemorrhage type Qualified Code(s): K92.2 - Gastrointestinal hemorrhage, unspecified Condition: Guarded - Follow up/Referral - Patient Discharge Instructions - Post Discharge Activity
[2019-12-28 05:31] LABS: HEMATOCRIT 28.4 % (35.4-49); HEMOGLOBIN 9.5 GM/dL (11.7-16.9); MCHC 33.4 g/dl (32.0-35.9); MEAN CELL VOLUME 104.6 fl (80-96); MEAN PLT VOLUME 6.6 fl (7.5-11.1); PLATELET COUNT 348 K/MM3 (134-434); RBC 2.72 M/mm3 (4.00-5.60); RDW 13.6 % (11.9-15.9); WHITE BLOOD COUNT 11.5 K/mm3 (4.0-10.0)
[2019-12-28] MEDS ORDERED: MIDAZOLAM HCL 2 MG/2 ML SINGLE DOSE VIAL IVPUSH ONE (05:34)
[2019-12-28 05:37] LABS: ALBUMIN 2.7 g/dl (3.4-5.0); BILIRUBIN,TOTAL 0.4 mg/dL (0.2-1); BLOOD UREA NITROGEN 15.8 mg/dL (7-18); CALCIUM 7.2 mg/dL (8.5-10.1); CREATININE 0.9 mg/dL (0.55-1.3); POTASSIUM 4.6 mmol/L (3.5-5.1); TOT PROT 5.1 g/dl (6.4-8.2)
[2019-12-28] MEDS ORDERED: FOLIC ACID INJECTION - 1 MG, THIAMINE HCL 100 MG, MULTIVIT INJECTION ADULT 10 ML in SOD... IVPB ONE (06:00)
[2019-12-28] MEDS ORDERED: PROPOFOL 1,000,000 MCG/100 ML VIAL ONE ×2 (06:46→12:41)
[2019-12-28] MEDS ORDERED: FENTANYL IVPB 500 MCG/100 ML BAG IVPB ONE (06:57)
[2019-12-28] MEDS: FENTANYL NS IVPB 500 MCG/100 ML BAG IVPB SCH ×2 (07:00→20:10)
[2019-12-28] MEDS ORDERED: PHENYLEPHRINE HCL 10 MG/1 ML SINGLE DOSE VIAL ONE ×2 (07:09→07:13)
[2019-12-28] MEDS: PROPOFOL 1,000,000 MCG/100 ML VIAL IVPB SCH ×2 (07:30→20:09)
[2019-12-28 07:50] LABS: ARTERIAL BLD GAS O2 SATURATION 98.1 mmHg (95-98); ARTERIAL BLOOD GAS BASE EXCESS -9.3 mmol/L (-2-2); ARTERIAL BLOOD GAS PO2 128.3 mmHg (80-100); ARTERIAL BLOOD GAS pH 7.246 (7.350-7.450)
[2019-12-28] MEDS ORDERED: ERYTHROMYCIN *INJECTION* 500 MG VIAL IVPB ONE (07:56)
[2019-12-28] MEDS: OCTREOTIDE ACETATE 200 MCG, OCTREOTIDE ACETATE 1,000 MCG in DEXTROSE 5%-WATER - 496 ML IVPB SCH (08:17)
[2019-12-28] MEDS: PANTOPRAZOLE SODIUM 80 MG in SODIUM CHLORIDE 100 ML IVPB SCH ×2 (08:17→16:43)
[2019-12-28] MEDS: SODIUM CHLORIDE 1,000 ML IV SCH (08:18)
[2019-12-28 08:23] LABS: ALLENS TEST POSITIVE; VENT MODE AC; VENT RATE 14
[2019-12-28] MEDS ORDERED: DEXTROSE 5%-WATER - 50 ML IVPB ONE ×2 (08:30→16:14)
[2019-12-28] MEDS ORDERED: PIPERACILLIN/TAZOBACTAM 3.375 GM VIAL IVPB ONE ×2 (08:30→16:14)
[2019-12-28] MEDS ORDERED: SODIUM CHLORIDE IVPB ONE (08:45)
[2019-12-28] MEDS ORDERED: ERYTHROMYCIN IVPB ONE (08:45)
[2019-12-28] MEDS ORDERED: CEFTRIAXONE 1 GM in DEXTROSE 5%-WATER - 50 ML IVPB SCH (10:00)
[2019-12-28] MEDS: MUPIROCIN 2% TOPICAL OINTMENT FOR DECOLONIZATION NS SCH ×2 (10:03→22:06)
[2019-12-28] MEDS: PIPERACILLIN/TAZOB 3.375 GM 3.375 GM in DEXTROSE 5%-WATER - 50 ML IVPB SCH ×2 (10:04→17:01)
--- NOTE | 2019-12-28 10:54 | PN ---
Progress Note, Physician Chief Complaint: Hematemesis Acute respiratory failure History of Present Illness: 59 M pmh COPD (no home O2), ETOH abuse, smoker 2ppd, PVD (on plavix) presenting with hematemesis today, syncope witnessed by EMS, no head trauma. Daily drinker, no h/o GIB. No complaints at present. 100% NRB, reportedly hypoxic en route, reduced to 3L NC on arrival. Ho history of GIB, varices, or liver cirrhosis. - Current Medication List Current Medications: Active Medications Chlorhexidine Gluconate (Hibiclens For Decolonization -) 1 applic TP HS TREVOR Pantoprazole Sodium 80 mg/ (Sodium Chloride) 100 mls @ 10 mls/hr IVPB Q10H TREVOR Stop: 12/31/19 03:43 Last Admin: 12/28/19 08:17 Dose: 10 mls/hr Documented by: Octreotide Acetate 200 mcg/Octreotide Acetate 1,000 mcg/Dextrose 500 mls @ 20.833 mls/hr IVPB ASDIR TREVOR Last Admin: 12/28/19 08:17 Dose: 20.833 mls/hr Documented by: Midazolam HCl 100 mg/ Sodium (Chloride) 100 mls @ 1 mls/hr IVPB TITR TREVOR; Protocol Stop: 12/29/19 04:14 Last Admin: 12/28/19 05:03 Dose: 2 mg/hr, 2 mls/hr Documented by: Sodium Chloride (Normal Saline -) 1,000 mls @ 125 mls/hr IV ASDIR TREVOR Last Admin: 12/28/19 08:18 Dose: 125 mls/hr Documented by: Folic Acid 1 mg/ Thiamine HCl 100 mg/ Multivitamins/Minerals 10 ml/ Sodium Chloride 1,000 mls @ 125 mls/hr IVPB ONCE ONE Stop: 12/28/19 13:59 Last Admin: 12/28/19 10:02 Dose: 125 mls/hr Documented by: Piperacillin Sod/Tazobactam (Sod 3.375 gm/ Dextrose) 50 mls @ 100 mls/hr IVPB Q8H-IV TREVOR; Protocol Piperacillin Sod/Tazobactam (Sod 3.375 gm/ Dextrose) 50 mls @ 100 mls/hr IVPB Q8H-IV TREVOR; Protocol Stop: 12/29/19 02:29 Last Admin: 12/28/19 10:04 Dose: 100 mls/hr Documented by: Mupirocin (Bactroban Ointment (For Decolonization) -) 1 applic NS BID TREVOR Stop: 01/02/20 09:59 Last Admin: 12/28/19 10:03 Dose: 1 applic Documented by: - Objective Vital Signs: Vital Signs Temperature Pulse Rate 61 12/27/19 22:22 Respiratory Rate 24 H 12/28/19 08:25 Blood Pressure 124/58 L 12/27/19 22:22 O2 Sat by Pulse Oximetry (%) 100 12/28/19 08:25 Constitutional: Yes: No Distress, Calm, Cachectic Cardiovascular: Yes: Regular Rate and Rhythm Respiratory: Yes: Regular, CTA Bilaterally Gastrointestinal: Yes: Normal Bowel Sounds, Soft Genitourinary: Yes: Munoz Present Musculoskeletal: Yes: WNL Extremities: Yes: WNL Edema: No Labs: CBC, BMP 12/28/19 04:34 12/28/19 04:34 INR, PTT INR 1.01 (0.83-1.09) 12/27/19 22:45 Problem List - Problems (1) Anemia Assessment/Plan: -2/2 to acute blood loss -Monitor H/H -normal transfusion parameters -Check Iron profile, replace if indicated -B12 inj daily -PPI -Continue octreotide drip Problems reviewed: Yes Code(s): D64.9 - ANEMIA, UNSPECIFIED (2) GIB (gastrointestinal bleeding) Assessment/Plan: -GI consult appreciated -EGD in AM -monitor H/H closely -Transfuse as needed to keep Hg>8.0 -PPI -Octreotide drip Problems reviewed: Yes Code(s): K92.2 - GASTROINTESTINAL HEMORRHAGE, UNSPECIFIED Qualifiers: GI bleed type/associated pathology: unspecified gastrointestinal hemorrhage type Qualified Code(s): K92.2 - Gastrointestinal hemorrhage, unspecified (3) Pneumonia Assessment/Plan: -Pulmonary on board -[facility] vent -COVID 19 PCR negative Problems reviewed: Yes Code(s): J18.9 - PNEUMONIA, UNSPECIFIED ORGANISM (4) Respiratory failure Assessment/Plan: as above -Wean as tolerated Problems reviewed: Yes Code(s): J96.90 - RESPIRATORY FAILURE, UNSP, UNSP W HYPOXIA OR HYPERCAPNIA (5) Alcohol abuse Assessment/Plan: -Thiamine IVPB -Cyanocobalamine 1g IM daily Problems reviewed: Yes Code(s): F10.10 - ALCOHOL ABUSE, UNCOMPLICATED (6) Hyponatremia Assessment/Plan: -Nephrology consult -Continue IVF -Monitor trend Problems reviewed: Yes Code(s): E87.1 - HYPO-OSMOLALITY AND HYPONATREMIA (7) Malnourished Problems reviewed: Yes Code(s): E46 - UNSPECIFIED PROTEIN-CALORIE MALNUTRITION Assessment/Plan See problem list
[2019-12-28 11:33] LABS: BASO % 0.1 % (0-2.0); LYMPH % 1.6 % (8-40); MCH 31.1 pg (25.7-33.7); MCHC 34.2 g/dl (32.0-35.9); MEAN CELL VOLUME 91.2 fl (80-96); MEAN PLT VOLUME 6.6 fl (7.5-11.1); MONO % 3.8 % (3.8-10.2); NEUT % 94.5 % (42.8-82.8); PLATELET COUNT 217 K/MM3 (134-434); RBC 3.84 M/mm3 (4.00-5.60); RDW 27.1 % (11.9-15.9); WHITE BLOOD COUNT 7.5 K/mm3 (4.0-10.0)
[2019-12-28 11:42] LABS: INR 1.11 (0.83-1.09); PROTHROMBIN TIME (PATIENT) 13.1 SEC (9.7-13.0)
--- NOTE | 2019-12-28 12:56 | EKG ---
Test Reason : Blood Pressure : / mmHG Vent. Rate : 086 BPM Atrial Rate : 086 BPM P-R Int : 108 ms QRS Dur : 082 ms QT Int : 372 ms P-R-T Axes : 072 -44 033 degrees QTc Int : 445 ms SINUS RHYTHM WITH SHORT MN LEFT AXIS DEVIATION SEPTAL INFARCT (CITED ON OR BEFORE 09-JUL-2017) ABNORMAL ECG WHEN COMPARED WITH ECG OF 09-JUL-2017 16:38, INCOMPLETE RIGHT BUNDLE BRANCH BLOCK IS NO LONGER PRESENT QUESTIONABLE CHANGE IN INITIAL FORCES OF SEPTAL LEADS Confirmed by MD TRI, MELITA ([id number]) on 12/28/2019 12:56:30 PM Referred By: Confirmed By:MELITA BARTLETT MD
[2019-12-28 13:01] LABS: EPI CELLS 6 /uL (0-25.1); HYALINE CASTS 0 /uL (0-3.1); PH,URINE 6.5 (5.0-8.0); URINE APPEARANCE CLEAR; URINE BACTERIA 57 /uL (0-1359); URINE BILIRUBIN NEGATIVE (NEGATIVE); URINE COLOR YELLOW; URINE GLUCOSE (UA) 1+ (NEGATIVE); URINE KETONE NEGATIVE (NEGATIVE); URINE LEUK ESTERASE NEGATIVE (NEGATIVE); URINE NITRITE NEGATIVE (NEGATIVE); URINE PROTEIN NEGATIVE (NEGATIVE); URINE RBC 99 /uL (0-23.9); URINE UROBILINOGEN 0.2 mg/dL (0.2-1.0); URINE WBC 3 /uL (0-25.8)
[2019-12-28 13:16] LABS: COCAINE, UR NEGATIVE ng/ml (CUTOFF=300); METHADONE, UR NEGATIVE ng/ml (CUTOFF=300); OPIATES, URI NEGATIVE ng/ml (CUTOFF=300); PHENCYCLIDINE,URINE NEGATIVE ng/ml (CUTOFF=25); URINE AMPHETAMINES NEGATIVE ng/ml (CUTOFF=500); URINE BARBITURATES NEGATIVE ng/ml (CUTOFF=200)
--- NOTE | 2019-12-28 13:24 | PN ---
Progress Note (short form) - Note Progress Note: GI CONSULT DICTATED - NPO / IVF - OCTREOTIDE AND PPI INFUSION - SERIAL H/H KEEP HG BETWEEN 8-9 - HOLD ANTIPLATELET REGIMEN - F/U COVID 19 TESTING - PLAN FOR EGD TOMORROW - MICU CARE
--- NOTE | 2019-12-28 13:27 | PN ---
Teaching Attending Note Name of Resident: Varsha Davis ATTENDING PHYSICIAN STATEMENT I saw and evaluated the patient. I reviewed the resident's note and discussed the case with the resident. I agree with the resident's findings and plan as documented. SUBJECTIVE: Pt seen and examined in the ICU. Remains intubated, sedated on protonix and octreotide gtts. Phenylephrine gtt tapered off this AM. Old blood lavaged from NGT this AM. Last H/H stable OBJECTIVE: Vital Signs Period Temp Pulse Resp BP Sys/Garcia Pulse Ox Last 24 Hr 96.4 F-96.8 F 61-100 10-24 92-139/58-90 78-100 Intake & Output 12/25/19 12/26/19 12/27/19 12/28/19 23:59 23:59 23:59 23:59 Weight 72.575 kg 58.7 kg Gen: intubated, sedated Heart: RRR Lung: bilateral rhonchi Abd: soft, nontender Ext: no edema CBC, BMP 12/28/19 11:00 12/28/19 04:34 Active Medications Chlorhexidine Gluconate (Hibiclens For Decolonization -) 1 applic TP HS TREVOR Pantoprazole Sodium 80 mg/ (Sodium Chloride) 100 mls @ 10 mls/hr IVPB Q10H TREVOR Stop: 12/31/19 03:43 Last Admin: 12/28/19 08:17 Dose: 10 mls/hr Documented by: Octreotide Acetate 200 mcg/Octreotide Acetate 1,000 mcg/Dextrose 500 mls @ 20.833 mls/hr IVPB ASDIR TREVOR Last Admin: 12/28/19 08:17 Dose: 20.833 mls/hr Documented by: Midazolam HCl 100 mg/ Sodium (Chloride) 100 mls @ 1 mls/hr IVPB TITR TREVOR; Protocol Stop: 12/29/19 04:14 Last Admin: 12/28/19 05:03 Dose: 2 mg/hr, 2 mls/hr Documented by: Sodium Chloride (Normal Saline -) 1,000 mls @ 125 mls/hr IV ASDIR TREVOR Last Admin: 12/28/19 08:18 Dose: 125 mls/hr Documented by: Folic Acid 1 mg/ Thiamine HCl 100 mg/ Multivitamins/Minerals 10 ml/ Sodium Chloride 1,000 mls @ 125 mls/hr IVPB ONCE ONE Stop: 12/28/19 13:59 Last Admin: 12/28/19 10:02 Dose: 125 mls/hr Documented by: Piperacillin Sod/Tazobactam (Sod 3.375 gm/ Dextrose) 50 mls @ 100 mls/hr IVPB Q8H-IV TREVOR; Protocol Piperacillin Sod/Tazobactam (Sod 3.375 gm/ Dextrose) 50 mls @ 100 mls/hr IVPB Q8H-IV TREVOR; Protocol Stop: 12/29/19 02:29 Last Admin: 12/28/19 10:04 Dose: 100 mls/hr Documented by: Propofol (Diprivan -) 1,000,000 mcg in 100 mls @ 1.761 mls/hr IVPB TITR TREVOR; Protocol Mupirocin (Bactroban Ointment (For Decolonization) -) 1 applic NS BID TREVOR Stop: 01/02/20 09:59 Last Admin: 12/28/19 10:03 Dose: 1 applic Documented by: ASSESSMENT AND PLAN: Acute Respiratory Failure GI Bleed suspect Upper Pneumonia likely Aspiration Chronic NSAID use Hyponatremia Lactic Acidosis HTN PAD - continue protonix, octreotide gtts - monitor H/H - transfuse as needed - continue antibiotics - f/u cultures - IVF - monitor lytes - NPO - continue volume assist control - DVT prophylaxis - continue ICU monitoring critical care time spent in reviewing chart, evaluating patient and formulating plan 35 min
[2019-12-28 13:42] LABS: URINE BENZODIAZEPINES POSITIVE ng/ml (CUTOFF=200)
[2019-12-28 13:57] LABS: ANISOCYTOSIS 1+; MACROCYTOSIS 0; PLATELET ESTIMATE NORMAL
--- NOTE | 2019-12-28 14:48 | PN ---
Progress Note (short form) - Note Progress Note: ID consult dictated imp/reccd 59 yo man admitted from home on 12/26 with hemetemesis and maroon stool he became unresponsive in the ED and was intubated chest ct with left base consolidation and upper lobe patchy infiltrate he was started on zosyn this am resp failure GI bleed probable aspiration pneumonia sputum culture urinary antigens zosyn for now GI f/u for endoscopy Problem List - Problems (1) Respiratory failure Code(s): J96.90 - RESPIRATORY FAILURE, UNSP, UNSP W HYPOXIA OR HYPERCAPNIA (2) GIB (gastrointestinal bleeding) Code(s): K92.2 - GASTROINTESTINAL HEMORRHAGE, UNSPECIFIED Qualifiers: GI bleed type/associated pathology: unspecified gastrointestinal hemorrhage type Qualified Code(s): K92.2 - Gastrointestinal hemorrhage, unspecified (3) Pneumonia Code(s): J18.9 - PNEUMONIA, UNSPECIFIED ORGANISM
--- NOTE | 2019-12-28 15:15 | PN ---
Physical Exam: SUBJECTIVE: Patient seen and examined bedside, intubated and sedated. With Dr. Rahman NGT was lavaged. No jagdish blood but lots of brown coffee ground emesis. OBJECTIVE: Vital Signs Temp Pulse Resp BP Pulse Ox 96.4 F L 100 H 22 H 92/69 100 12/28/19 09:00 12/28/19 11:00 12/28/19 12:35 12/28/19 11:00 12/28/19 12:35 GENERAL: The patient is sedated HEAD: Normal with no signs of trauma. EYES: PERRL ENT: intubated, NGT in place NECK: Trachea midline LUNGS: decreased breath sounds on right side HEART: Tachy, regular rhythm ABDOMEN: Soft, nontender, nondistended, EXTREMITIES: warm, well-perfused, no edema. NEUROLOGICAL: sedated SKIN: Warm, dry, multiple ecchymosis on BL arms and legs Intake & Output 12/25/19 12/26/19 12/27/19 12/28/19 23:59 23:59 23:59 23:59 Weight 160 lb 129 lb 6.581 oz Laboratory Results - last 24 hr 12/27/19 12/27/19 12/27/19 22:45 22:45 22:45 WBC 7.1 RBC 3.26 L Hgb 11.6 L Hct 34.1 L D MCV 104.7 H MCH 35.5 H MCHC 33.9 RDW 13.3 Plt Count 312 D MPV 6.2 L Absolute Neuts (auto) 5.9 Neutrophils % 83.6 H Neutrophils % (Manual) Band Neutrophils % Lymphocytes % 8.4 Lymphocytes % (Manual) Monocytes % 5.9 Monocytes % (Manual) Eosinophils % 1.4 D Eosinophils % (Manual) Basophils % 0.7 D Basophils % (Manual) Myelocytes % (Man) Promyelocytes % (Man) Blast Cells % (Manual) Nucleated RBC % 0 Metamyelocytes Hypochromia Platelet Estimate Polychromasia Poikilocytosis Anisocytosis Microcytosis Macrocytosis [place] Cells Retic Count 1.50 PT with INR INR PTT (Actin FS) Fibrinogen Anticoagulation Therapy Puncture Site Patient Temperature ABG pH ABG pCO2 ABG pO2 ABG HCO3 ABG O2 Sat (Measured) ABG O2 Content ABG Base Excess Vipul Test Patient On Oxygen O2 Delivery Device Oxygen Flow Rate Vent Mode Vent Rate Mechanical Rate PEEP Pressure Support Vent Sodium 125 L Potassium 4.4 Chloride 90 L Carbon Dioxide 20 L Anion Gap 14 BUN 8.9 Creatinine 0.9 Est GFR (CKD-EPI)AfAm 107.22 Est GFR (CKD-EPI)NonAf 92.51 Random Glucose 105 Lactic Acid Calcium 8.0 L Phosphorus Magnesium Total Bilirubin 0.4 AST 22 ALT 15 Alkaline Phosphatase 99 Creatine Kinase Troponin I Total Protein 6.0 L Albumin 3.2 L Vitamin B12 Serum Folate Urine Color Urine Appearance Urine pH Ur Specific Strum Urine Protein Urine Glucose (UA) Urine Ketones Urine Blood Urine Nitrite Urine Bilirubin Urine Urobilinogen Ur Leukocyte Esterase Urine WBC (Auto) Urine RBC (Auto) Urine Casts (Auto) U Epithel Cells (Auto) Urine Bacteria (Auto) Stool Occult Blood Opiates Screen Methadone Screen Barbiturate Screen Phencyclidine Screen Ur Amphetamines Screen MDMA (Ecstasy) Screen Benzodiazepines Screen Cocaine Screen U Marijuana (THC) Screen Alcohol, Quantitative Blood Type A NEGATIVE Antibody Screen Negative Crossmatch See Detail 12/27/19 12/27/19 12/28/19 22:45 22:45 00:00 WBC RBC Hgb Hct MCV MCH MCHC RDW Plt Count MPV Absolute Neuts (auto) Neutrophils % Neutrophils % (Manual) Band Neutrophils % Lymphocytes % Lymphocytes % (Manual) Monocytes % Monocytes % (Manual) Eosinophils % Eosinophils % (Manual) Basophils % Basophils % (Manual) Myelocytes % (Man) Promyelocytes % (Man) Blast Cells % (Manual) Nucleated RBC % Metamyelocytes Hypochromia Platelet Estimate Polychromasia Poikilocytosis Anisocytosis Microcytosis Macrocytosis [place] Cells Retic Count PT with INR 11.90 INR 1.01 PTT (Actin FS) Fibrinogen Anticoagulation Therapy Puncture Site Patient Temperature ABG pH ABG pCO2 ABG pO2 ABG HCO3 ABG O2 Sat (Measured) ABG O2 Content ABG Base Excess Vipul Test Patient On Oxygen O2 Delivery Device Oxygen Flow Rate Vent Mode Vent Rate Mechanical Rate PEEP Pressure Support Vent Sodium Potassium Chloride Carbon Dioxide Anion Gap BUN Creatinine Est GFR (CKD-EPI)AfAm Est GFR (CKD-EPI)NonAf Random Glucose Lactic Acid Calcium Phosphorus Magnesium Total Bilirubin AST ALT Alkaline Phosphatase Creatine Kinase 84 Troponin I < 0.02 Total Protein Albumin Vitamin B12 Serum Folate Urine Color Urine Appearance Urine pH Ur Specific Strum Urine Protein Urine Glucose (UA) Urine Ketones Urine Blood Urine Nitrite Urine Bilirubin Urine Urobilinogen Ur Leukocyte Esterase Urine WBC (Auto) Urine RBC (Auto) Urine Casts (Auto) U Epithel Cells (Auto) Urine Bacteria (Auto) Stool Occult Blood Opiates Screen Methadone Screen Barbiturate Screen Phencyclidine Screen Ur Amphetamines Screen MDMA (Ecstasy) Screen Benzodiazepines Screen Cocaine Screen U Marijuana (THC) Screen Alcohol, Quantitative Blood Type A NEGATIVE Antibody Screen Crossmatch 12/28/19 12/28/19 12/28/19 00:01 04:34 04:34 WBC RBC Hgb Hct MCV MCH MCHC RDW Plt Count MPV Absolute Neuts (auto) Neutrophils % Neutrophils % (Manual) Band Neutrophils % Lymphocytes % Lymphocytes % (Manual) Monocytes % Monocytes % (Manual) Eosinophils % Eosinophils % (Manual) Basophils % Basophils % (Manual) Myelocytes % (Man) Promyelocytes % (Man) Blast Cells % (Manual) Nucleated RBC % Metamyelocytes Hypochromia Platelet Estimate Polychromasia Poikilocytosis Anisocytosis Microcytosis Macrocytosis [place] Cells Retic Count PT with INR INR PTT (Actin FS) Fibrinogen Anticoagulation Therapy Puncture Site Patient Temperature ABG pH ABG pCO2 ABG pO2 ABG HCO3 ABG O2 Sat (Measured) ABG O2 Content ABG Base Excess Vipul Test Patient On Oxygen O2 Delivery Device Oxygen Flow Rate Vent Mode Vent Rate Mechanical Rate PEEP Pressure Support Vent Sodium 127 L Potassium 4.6 Chloride 92 L Carbon Dioxide 20 L Anion Gap 15 BUN 15.8 Creatinine 0.9 Est GFR (CKD-EPI)AfAm 107.22 Est GFR (CKD-EPI)NonAf 92.51 Random Glucose 143 H Lactic Acid Calcium 7.2 L Phosphorus 6.0 H Magnesium 2.0 Total Bilirubin 0.4 AST 23 ALT 16 Alkaline Phosphatase 89 Creatine Kinase Troponin I Total Protein 5.1 L Albumin 2.7 L Vitamin B12 338 Serum Folate 6 Urine Color Urine Appearance Urine pH Ur Specific Strum Urine Protein Urine Glucose (UA) Urine Ketones Urine Blood Urine Nitrite Urine Bilirubin Urine Urobilinogen Ur Leukocyte Esterase Urine WBC (Auto) Urine RBC (Auto) Urine Casts (Auto) U Epithel Cells (Auto) Urine Bacteria (Auto) Stool Occult Blood Positive Opiates Screen Methadone Screen Barbiturate Screen Phencyclidine Screen Ur Amphetamines Screen MDMA (Ecstasy) Screen Benzodiazepines Screen Cocaine Screen U Marijuana (THC) Screen Alcohol, Quantitative Blood Type A NEGATIVE Antibody Screen Negative Crossmatch 0912/28/19 12/28/19 04:34 04:34 04:34 WBC 11.5 H RBC 2.72 L Hgb 9.5 L Hct 28.4 L D MCV 104.6 H MCH 35.0 H MCHC 33.4 RDW 13.6 Plt Count 348 MPV 6.6 L Absolute Neuts (auto) Neutrophils % Neutrophils % (Manual) Band Neutrophils % Lymphocytes % Lymphocytes % (Manual) Monocytes % Monocytes % (Manual) Eosinophils % Eosinophils % (Manual) Basophils % Basophils % (Manual) Myelocytes % (Man) Promyelocytes % (Man) Blast Cells % (Manual) Nucleated RBC % Metamyelocytes Hypochromia Platelet Estimate Polychromasia Poikilocytosis Anisocytosis Microcytosis Macrocytosis [place] Cells Retic Count PT with INR INR PTT (Actin FS) Fibrinogen Anticoagulation Therapy Puncture Site Patient Temperature ABG pH ABG pCO2 ABG pO2 ABG HCO3 ABG O2 Sat (Measured) ABG O2 Content ABG Base Excess Vipul Test Patient On Oxygen O2 Delivery Device Oxygen Flow Rate Vent Mode Vent Rate Mechanical Rate PEEP Pressure Support Vent Sodium Potassium Chloride Carbon Dioxide Anion Gap BUN Creatinine Est GFR (CKD-EPI)AfAm Est GFR (CKD-EPI)NonAf Random Glucose Lactic Acid 6.5 H* Calcium Phosphorus Magnesium Total Bilirubin AST ALT Alkaline Phosphatase Creatine Kinase Troponin I Total Protein Albumin Vitamin B12 Serum Folate Urine Color Urine Appearance Urine pH Ur Specific Strum Urine Protein Urine Glucose (UA) Urine Ketones Urine Blood Urine Nitrite Urine Bilirubin Urine Urobilinogen Ur Leukocyte Esterase Urine WBC (Auto) Urine RBC (Auto) Urine Casts (Auto) U Epithel Cells (Auto) Urine Bacteria (Auto) Stool Occult Blood Opiates Screen Methadone Screen Barbiturate Screen Phencyclidine Screen Ur Amphetamines Screen MDMA (Ecstasy) Screen Benzodiazepines Screen Cocaine Screen U Marijuana (THC) Screen Alcohol, Quantitative 64.2 H Blood Type Antibody Screen Crossmatch 12/28/19 12/28/19 12/28/19 07:42 11:00 11:00 WBC 7.5 RBC 3.84 L Hgb 12.0 Hct 35.0 L D MCV 91.2 D MCH 31.1 D MCHC 34.2 RDW 27.1 H Plt Count 217 D MPV 6.6 L Absolute Neuts (auto) 7.1 Neutrophils % 94.5 H Neutrophils % (Manual) 94.9 H D Band Neutrophils % 1.0 Lymphocytes % 1.6 L D Lymphocytes % (Manual) 1.0 L D Monocytes % 3.8 Monocytes % (Manual) 3 L Eosinophils % 0.0 D Eosinophils % (Manual) 0.0 D Basophils % 0.1 Basophils % (Manual) 0.0 Myelocytes % (Man) 0 Promyelocytes % (Man) 0 Blast Cells % (Manual) 0 Nucleated RBC % 0 Metamyelocytes 0 Hypochromia 0 Platelet Estimate Normal Polychromasia 1+ Poikilocytosis 1+ Anisocytosis 1+ Microcytosis 1+ Macrocytosis 0 John Cells 1+ Retic Count PT with INR INR PTT (Actin FS) Fibrinogen 249.0 Anticoagulation Therapy No Result Required. Puncture Site Right radial Patient Temperature No Result Required. ABG pH 7.246 L ABG pCO2 41.10 ABG pO2 128.3 H ABG HCO3 17.5 L ABG O2 Sat (Measured) 98.1 H ABG O2 Content No Result Required. ABG Base Excess -9.3 L Vipul Test Positive Patient On Oxygen Yes O2 Delivery Device V Oxygen Flow Rate 100 Vent Mode Ac Vent Rate 14 Mechanical Rate V PEEP 10.0 Pressure Support Vent 360 Sodium Potassium Chloride Carbon Dioxide Anion Gap BUN Creatinine Est GFR (CKD-EPI)AfAm Est GFR (CKD-EPI)NonAf Random Glucose Lactic Acid Calcium Phosphorus Magnesium Total Bilirubin AST ALT Alkaline Phosphatase Creatine Kinase Troponin I Total Protein Albumin Vitamin B12 Serum Folate Urine Color Urine Appearance Urine pH Ur Specific Strum Urine Protein Urine Glucose (UA) Urine Ketones Urine Blood Urine Nitrite Urine Bilirubin Urine Urobilinogen Ur Leukocyte Esterase Urine WBC (Auto) Urine RBC (Auto) Urine Casts (Auto) U Epithel Cells (Auto) Urine Bacteria (Auto) Stool Occult Blood Opiates Screen Methadone Screen Barbiturate Screen Phencyclidine Screen Ur Amphetamines Screen MDMA (Ecstasy) Screen Benzodiazepines Screen Cocaine Screen U Marijuana (THC) Screen Alcohol, Quantitative Blood Type Antibody Screen Crossmatch 12/28/19 12/28/19 12/28/19 11:00 11:00 11:55 WBC RBC Hgb Hct MCV MCH MCHC RDW Plt Count MPV Absolute Neuts (auto) Neutrophils % Neutrophils % (Manual) Band Neutrophils % Lymphocytes % Lymphocytes % (Manual) Monocytes % Monocytes % (Manual) Eosinophils % Eosinophils % (Manual) Basophils % Basophils % (Manual) Myelocytes % (Man) Promyelocytes % (Man) Blast Cells % (Manual) Nucleated RBC % Metamyelocytes Hypochromia Platelet Estimate Polychromasia Poikilocytosis Anisocytosis Microcytosis Macrocytosis [place] Cells Retic Count PT with INR 13.10 H INR 1.11 H PTT (Actin FS) 30.0 Fibrinogen Anticoagulation Therapy Puncture Site Patient Temperature ABG pH ABG pCO2 ABG pO2 ABG HCO3 ABG O2 Sat (Measured) ABG O2 Content ABG Base Excess Vipul Test Patient On Oxygen O2 Delivery Device Oxygen Flow Rate Vent Mode Vent Rate Mechanical Rate PEEP Pressure Support Vent Sodium Potassium Chloride Carbon Dioxide Anion Gap BUN Creatinine Est GFR (CKD-EPI)AfAm Est GFR (CKD-EPI)NonAf Random Glucose Lactic Acid 1.4 Calcium Phosphorus Magnesium Total Bilirubin AST ALT Alkaline Phosphatase Creatine Kinase Troponin I Total Protein Albumin Vitamin B12 Serum Folate Urine Color Yellow Urine Appearance Clear Urine pH 6.5 Ur Specific Strum 1.033 Urine Protein Negative Urine Glucose (UA) 1+ H Urine Ketones Negative Urine Blood 1+ H Urine Nitrite Negative Urine Bilirubin Negative Urine Urobilinogen 0.2 Ur Leukocyte Esterase Negative Urine WBC (Auto) 3 Urine RBC (Auto) 99 Urine Casts (Auto) 0 U Epithel Cells (Auto) 6 Urine Bacteria (Auto) 57 Stool Occult Blood Opiates Screen Methadone Screen Barbiturate Screen Phencyclidine Screen Ur Amphetamines Screen MDMA (Ecstasy) Screen Benzodiazepines Screen Cocaine Screen U Marijuana (THC) Screen Alcohol, Quantitative Blood Type Antibody Screen Crossmatch 12/28/19 11:55 WBC RBC Hgb Hct MCV MCH MCHC RDW Plt Count MPV Absolute Neuts (auto) Neutrophils % Neutrophils % (Manual) Band Neutrophils % Lymphocytes % Lymphocytes % (Manual) Monocytes % Monocytes % (Manual) Eosinophils % Eosinophils % (Manual) Basophils % Basophils % (Manual) Myelocytes % (Man) Promyelocytes % (Man) Blast Cells % (Manual) Nucleated RBC % Metamyelocytes Hypochromia Platelet Estimate Polychromasia Poikilocytosis Anisocytosis Microcytosis Macrocytosis [place] Cells Retic Count PT with INR INR PTT (Actin FS) Fibrinogen Anticoagulation Therapy Puncture Site Patient Temperature ABG pH ABG pCO2 ABG pO2 ABG HCO3 ABG O2 Sat (Measured) ABG O2 Content ABG Base Excess Vipul Test Patient On Oxygen O2 Delivery Device Oxygen Flow Rate Vent Mode Vent Rate Mechanical Rate PEEP Pressure Support Vent Sodium Potassium Chloride Carbon Dioxide Anion Gap BUN Creatinine Est GFR (CKD-EPI)AfAm Est GFR (CKD-EPI)NonAf Random Glucose Lactic Acid Calcium Phosphorus Magnesium Total Bilirubin AST ALT Alkaline Phosphatase Creatine Kinase Troponin I Total Protein Albumin Vitamin B12 Serum Folate Urine Color Urine Appearance Urine pH Ur Specific Strum Urine Protein Urine Glucose (UA) Urine Ketones Urine Blood Urine Nitrite Urine Bilirubin Urine Urobilinogen Ur Leukocyte Esterase Urine WBC (Auto) Urine RBC (Auto) Urine Casts (Auto) U Epithel Cells (Auto) Urine Bacteria (Auto) Stool Occult Blood Opiates Screen Negative Methadone Screen Negative Barbiturate Screen Negative Phencyclidine Screen Negative Ur Amphetamines Screen Negative MDMA (Ecstasy) Screen Negative Benzodiazepines Screen Positive A* Cocaine Screen Negative U Marijuana (THC) Screen Negative Alcohol, Quantitative Blood Type Antibody Screen Crossmatch Active Medications Generic Name Dose Route Start Last Admin Trade Name Freq PRN Reason Stop Dose Admin Chlorhexidine Gluconate 1 applic 12/28/19 22:00 Hibiclens For Decolonization - TP HS TREVOR Pantoprazole Sodium 80 mg/ 100 mls @ 10 mls/hr 12/28/19 03:45 12/28/19 08:17 Sodium Chloride IVPB 12/31/19 03:43 10 mls/hr Q10H TREVOR Administration 8 MG/HR Octreotide Acetate 200 mcg/ 500 mls @ 20.833 mls/hr 12/28/19 03:45 12/28/19 08:17 Octreotide Acetate 1,000 mcg/ IVPB 20.833 mls/hr Dextrose ASDIR TREVOR Administration Midazolam HCl 100 mg/ Sodium 100 mls @ 1 mls/hr 12/28/19 04:15 12/28/19 05:03 Chloride IVPB 12/29/19 04:14 2 mg/hr TITR TREVOR 2 mls/hr Administration Protocol 1 MG/HR Sodium Chloride 1,000 mls @ 125 mls/hr 12/28/19 04:30 12/28/19 08:18 Normal Saline - IV 125 mls/hr ASDIR TREVOR Administration Piperacillin Sod/Tazobactam 50 mls @ 100 mls/hr 12/28/19 10:00 Sod 3.375 gm/ Dextrose IVPB Q8H-IV TREVOR Protocol Piperacillin Sod/Tazobactam 50 mls @ 100 mls/hr 12/28/19 10:00 12/28/19 10:04 Sod 3.375 gm/ Dextrose IVPB 12/29/19 02:29 100 mls/hr Q8H-IV TREVOR Administration Protocol Propofol 1,000,000 mcg in 100 mls @ 1.761 mls/hr 12/28/19 12:45 Diprivan - IVPB TITR TREVOR Protocol 5 MCG/KG/MIN Mupirocin 1 applic 12/28/19 10:00 12/28/19 10:03 Bactroban Ointment (For Decolonization) - NS 01/02/20 09:59 1 applic BID TREVOR Administration CTA Left lower lobe consolidate with patchy infiltrations within the upper lobes. The study is limited from motion artifact. Saccular aneurysm of the infrarenal aorta as described previously. No rupture seen. Liquid stools within the cecum and right colon which could represent diarrhea illness. No colonic wall thickening, or pneumatosis seen. No evidence of bowel obstruction. No extravasation intraluminal of contrast media was identified. Nasogastric tube and endotracheal tube as discussed above. Additional comments above. ASSESSMENT/PLAN: 59 YO M with PMH HTN, PVD (on plavix), chronic alcohol, NSAID, & tobacco use presents with hematemsis and syncope. Neuro - Patient is intubated and sedated. Patient is unresponsive - on fentanyl, propofol & versed GI - likely varices 2/2 alcohol use VS peptic ulcer disease 2/2 extensive NSAID use. Hold NSAIDs, ASA, plavix. - S/P 1 unit RBC in ED. 1 L NS bolus in ED - octreotide drip - protonix drip - GI consulted, Dr. Smith: EGD tomorrow Pulm - intubated and sedated - CXR showed ET too high, adjusted Cardio - HTN - PVD (on plavix) - phenylephrine stopped, BP stable ID - Zosyn 3.375 Q8H for aspiration pneumonia. - Lactic acid 6.5 >> down to 1.4 - ID (Dr. Rdz) consulted probable aspiration pneumonia sputum culture urinary antigens Heme - continue to monitor hbg/hct - Repeat CBC @ 8 pm - transfuse if Hbg < 7.0 Renal - Dr. Correa consulted - monitor hyponatremia, don't correct too quickly DVT PPX - hold AC in setting of GI bleed. - SCDs Lines - Right femoral cordis (12/27) >>> if patient remains stable, remove line tomorrow - 18 gauge Left AC (12/27) - 20 gauge R AC (12/27) - Left IJ (12/27) FEN - NPO DISPO icu Visit type - Emergency Visit Emergency Visit: Yes ED Registration Date: 12/28/19 Care time: The patient presented to the Emergency Department on the above date and was hospitalized for further evaluation of their emergent condition. - New Patient This patient is new to me today: Yes Date on this admission: 12/28/19 - Critical Care Critical Care patient: Yes Total Critical Care Time (in minutes): 38 Critical Care Statement: The care of this patient involved high complexity decision making to prevent further life threatening deterioration of the patient's condition and/or to evaluate & treat vital organ system(s) failure or risk of failure. - Discharge Referral Referred to [facility] No ATTENDING PHYSICIAN STATEMENT I saw and evaluated the patient. I reviewed the resident's note and discussed the case with the resident. I agree with the resident's findings and plan as documented. SUBJECTIVE: OBJECTIVE: ASSESSMENT AND PLAN:
--- NOTE | 2019-12-28 15:20 | CONS ---
INFECTIOUS DISEASE CONSULTATION DATE OF CONSULTATION: DATE OF DICTATION: 12/28/2019 HISTORY: This is a 59-year-old man with a history of peripheral vascular disease on Plavix. He has a history of hypertension, tobacco use and alcohol use who presented to the ER with feeling weak-headed and lightheaded. He had hematemesis at home and maroon stools. In the ER he was found to be hypoxic. He was placed on 100% nonrebreather. In the ER he became unresponsive and required intubation. He had further hematemesis as well. He was intubated for airway protection. He had large amount of coffee-ground emesis. Protonix drip and octreotide drip were started. He had a CAT scan of his chest, abdomen and pelvis and was noted to have a left basilar consolidation with upper lobe patchy infiltrates. He also has an infrarenal aortic aneurysm which was noted on the CAT scan. He was admitted and sedated and is in the ICU. I am asked to see him for further evaluation. PAST MEDICAL HISTORY: Hypertension, peripheral vascular disease. SOCIAL HISTORY: He smokes cigarettes and drinks alcohol. He is also a chronic nonsteroidal user. ALLERGIES: He has no known drug allergies. MEDICATIONS AT HOME: Include losartan and Plavix. REVIEW OF SYSTEMS: Not obtainable. PHYSICAL EXAMINATION: Vital Signs: Temperature is 96.4. He has had no fever. Pulse of 100, blood pressure is 92/69. He is saturating 100% on 50% FiO2 and he is sedated. He is not on any pressors. He was transiently on pressors when he was intubated, but was weaned off. General: He is a thin man in no acute distress. HEENT: He is normocephalic. He is orally intubated. NG tube has coffee grounds. Lungs: Diminished breath sounds at the bases. Heart: Tachycardic. Abdomen: Soft. There is no distention. Extremities: Without edema. White count was 11.5, now 7.5, hemoglobin 12. Platelets are 217. BUN is 15 and creatinine 0.9. LFTs are normal. Lactic acid was 6.5, on repeat is 1.4. Urinalysis is negative for white cells. Stool occult blood is positive. He had a measurable alcohol level of 64 and his COVID serology is pending. cultures were sent. Imaging is as stated. In summary, this is a 59-year-old man admitted with respiratory failure, GI bleed, probable aspiration pneumonia. Would obtain sputum cultures and a urinary antigen for completeness. Would continue Zosyn for now with GI followup for endoscopy. Overall status is guarded. JOSUE NGUYEN M.D. [id number]
--- NOTE | 2019-12-28 16:34 | CONS ---
DATE OF CONSULTATION: 12/28/2019 Patient is a 59-year-old man with a past medical history of hypertension, PVD on Plavix, chronic NSAID use with Excedrin and ibuprofen, who was admitted to the hospital with coffee-ground emesis. Apparently there was a witnessed episode with EMS with hematemesis and syncope. En route to the emergency room the patient was hypoxic and was intubated on arrival. He also became unresponsive. Therefore, he was intubated for airway protection. As per the FAST and nurse on duty, he has not had any further episodes of melena or hematemesis while in the ICU. He has been started on Protonix and octreotide drip and covered with Zosyn for aspiration pneumonia. Of note, he was noted to have an abnormal lactic acid and hyponatremia also. PAST MEDICAL AND SURGICAL HISTORY: As listed in the HPI and as per the chart. ALLERGIES: No known drug allergies. HOME MEDICATIONS: Reviewed. SOCIAL HISTORY: Significant for alcohol use. No drug abuse. FAMILY HISTORY: Unable to obtain. PHYSICAL EXAMINATION: Vital Signs: Temperature 98, pulse 98, blood pressure 108/80, pulse oximetry 100% on 50% FiO2, respiratory rate 16. General: Intubated, sedated, no acute distress. HEENT: Anicteric sclera. Cardiovascular: S1, S2, regular rate and rhythm. Lungs: Clear bilaterally anteriorly. Abdomen: Soft and nontender. Extremities: No edema. LABORATORY: White blood cell count is 7.5, hemoglobin on admission was 11.6, down to 9.5. Received blood transfusion and presently 12. Hematocrit 35, MCV 91, platelet count 217, INR 1.1. Sodium 127, potassium 4.6, chloride 92, BUN 15, creatinine 0.9, lactic acid 6.5, calcium 7.2, AST 23, ALT 16, alkaline phosphatase 89, troponin is negative. Stool for occult blood was positive. Benzodiazepine screen was positive. Alcohol also positive at 64. COVID-19 testing is pending at this time. He had a chest x-ray, which revealed an NG tube below the level of the GE junction. Questionable atelectasis or infiltrate. He also had an abdominal x-ray, which revealed generalized abdominal distention and ileus. No obstruction. Cultures were not done during this admission. IMPRESSION: Episode of coffee-ground emesis. Differential diagnoses include peptic ulcer disease, varices, portal hypertensive gastropathy as an etiology of his gastrointestinal bleed considering he does abuse alcohol. At this time, there is no sign of an overt gastrointestinal bleed. He is hemodynamically stable and off pressors. RECOMMENDATIONS: N.P.O., IV fluids, continue him on octreotide and Protonix infusion, serial hemoglobin and hematocrit q.8. Keep hemoglobin between 8 and 9. Alcohol withdrawal protocol. Hold antiplatelet regimen and follow up COVID-19 testing. I would continue him on Zosyn therapy for likely aspiration pneumonia. We will tentatively put him on schedule for upper endoscopy tomorrow. If he were to develop signs of an overt GI bleed, this can be done sooner, but once again he should be adequately resuscitated considering he has a lactic acid over 6. This patient will be followed by the GI service. DO ERICA CASTAÑEDA/[id number]
[2019-12-28] MEDS ORDERED: FENTANYL NS IVPB 500 MCG/100 ML BAG IVPB SCH (17:15)
--- NOTE | 2019-12-28 18:37 | CONSULT ---
Consult Consult Specialty:: Nephrology Reason for Consultation:: hyponatremia and lactic acidosis - History of Present Illness Chief Complaint: hematemesis History of Present Illness: Pt is a 59 year old male with pmhx of etoh abuse, copd on home o2, active smoker, pvd who presents with hematemesis. He was found to have hyponatremia and I was called to evaluate him. He is now intubated. He was also found to have lectic acidosis. He is unable to give history. His is an active drinker and drinks every day. He does not have history of varices or GI bleed. - Past Medical History Cardio/Vascular: Yes: HTN Pulmonary: Yes: COPD - Alcohol/Substance Use Hx Alcohol Use: Yes (daily) - Smoking History Smoking history: Current every day smoker Have you smoked in the past 12 months: Yes Aproximately how many cigarettes per day: 40 Home Medications - Allergies Allergies/Adverse Reactions: Allergies Allergy/AdvReac Type Severity Reaction Status Date / Time No Known Allergies Allergy Verified 07/09/17 13:16 - Home Medications Home Medications: Ambulatory Orders Losartan Potassium 10 mg PO DAILY 12/28/19 Plavix 75 mg Q2D 12/28/19 Family Medical History Family History: Unable to Obtain Review of Systems Unable to obtain ROS, reason: intubated Physical Exam Vital Signs: Vital Signs Temperature 98.3 F 12/28/19 18:00 Pulse Rate 100 H 12/28/19 18:00 Respiratory Rate 16 12/28/19 18:00 Blood Pressure 97/61 12/28/19 18:00 O2 Sat by Pulse Oximetry (%) 100 12/28/19 14:00 Constitutional: Yes: Cachectic Eyes: Yes: Conjunctiva Clear HENT: Yes: Atraumatic Cardiovascular: Yes: S1, S2 Respiratory: Yes: Mechanically Ventilated Gastrointestinal: Yes: Soft Renal/: Yes: Munoz Present Musculoskeletal: Yes: Muscle Weakness Edema: No Integumentary: Yes: Tattoos Neurological: Yes: Lethargy Labs: CBC, BMP 12/28/19 11:00 12/28/19 04:34 Laboratory Tests 12/27/19 12/28/19 12/28/19 22:45 04:34 04:34 Sodium 125 L 127 L Creatinine 0.9 0.9 Lactic Acid 6.5 H* Phosphorus 6.0 H 12/28/19 11:00 Sodium Creatinine Lactic Acid 1.4 Phosphorus Imaging - Results Chest X-ray: Report Reviewed Problem List - Problems (1) GIB (gastrointestinal bleeding) Code(s): K92.2 - GASTROINTESTINAL HEMORRHAGE, UNSPECIFIED Qualifiers: GI bleed type/associated pathology: unspecified gastrointestinal hemorrhage type Qualified Code(s): K92.2 - Gastrointestinal hemorrhage, unspecified (2) Respiratory distress, acute Code(s): R06.03 - ACUTE RESPIRATORY DISTRESS (3) Alcohol abuse Code(s): F10.10 - ALCOHOL ABUSE, UNCOMPLICATED (4) HTN (hypertension) Code(s): I10 - ESSENTIAL (PRIMARY) HYPERTENSION (5) Hyponatremia Code(s): E87.1 - HYPO-OSMOLALITY AND HYPONATREMIA Assessment/Plan Current Medications Generic Name Dose Route Start Last Admin Trade Name Freq PRN Reason Stop Dose Admin Chlorhexidine Gluconate 1 applic 12/28/19 22:00 Hibiclens For Decolonization - TP HS TREVOR Pantoprazole Sodium 80 mg/ 100 mls @ 10 mls/hr 12/28/19 03:45 12/28/19 16:43 Sodium Chloride IVPB 12/31/19 03:43 10 mls/hr Q10H TREVOR Administration 8 MG/HR Octreotide Acetate 200 mcg/ 500 mls @ 20.833 mls/hr 12/28/19 03:45 12/28/19 08:17 Octreotide Acetate 1,000 mcg/ IVPB 20.833 mls/hr Dextrose ASDIR TREVOR Administration Midazolam HCl 100 mg/ Sodium 100 mls @ 1 mls/hr 12/28/19 04:15 12/28/19 05:03 Chloride IVPB 12/29/19 04:14 2 mg/hr TITR TREVOR 2 mls/hr Administration Protocol 1 MG/HR Sodium Chloride 1,000 mls @ 125 mls/hr 12/28/19 04:30 12/28/19 08:18 Normal Saline - IV 125 mls/hr ASDIR TREVOR Administration Piperacillin Sod/Tazobactam 50 mls @ 100 mls/hr 12/28/19 10:00 Sod 3.375 gm/ Dextrose IVPB Q8H-IV TREVOR Protocol Piperacillin Sod/Tazobactam 50 mls @ 100 mls/hr 12/28/19 10:00 12/28/19 17:01 Sod 3.375 gm/ Dextrose IVPB 12/29/19 02:29 100 mls/hr Q8H-IV TREVOR Administration Protocol Propofol 1,000,000 mcg in 100 mls @ 1.761 mls/hr 12/28/19 12:45 12/28/19 15:30 Diprivan - IVPB 28.39 mcg/kg/min TITR TREVOR 10 mls/hr Titration Protocol 5 MCG/KG/MIN Fentanyl 500 mcg in 100 mls @ 1 mls/hr 12/28/19 17:50 12/28/19 07:00 Sublimaze Ivpb IVPB 25 mcg/hr TITR TREVOR 5 mls/hr Administration 5 MCG/HR Mupirocin 1 applic 12/28/19 10:00 12/28/19 10:03 Bactroban Ointment (For Decolonization) - NS 01/02/20 09:59 1 applic BID TREVOR Administration Impression 1. hyponatremia 2. lactic acidosis 3. resp failure requiring intubation 4. etoh abuse 5. hematemesis 6. possible aspiration pna 7. active smoker 8. cood on home oxygen 9. pvd 10. gi bleed Plan - cont fluids - sodium improving - lactiv acid improved - monitor hg - gi eval - cont vent support - monitor in ICU - monitor response to saline - avoid a change in sodium of greater than 6 to 8 in 24 hours - will follow
[2019-12-28 21:38] LABS: HEMATOCRIT 27.8 % (35.4-49); HEMOGLOBIN 9.7 GM/dL (11.7-16.9); MEAN CELL VOLUME 91.6 fl (80-96); MEAN PLT VOLUME 6.8 fl (7.5-11.1); PLATELET COUNT 186 K/MM3 (134-434); RBC 3.04 M/mm3 (4.00-5.60); RDW 27.3 % (11.9-15.9); WHITE BLOOD COUNT 7.1 K/mm3 (4.0-10.0)
[2019-12-28] MEDS: CHLORHEXIDINE GLUCONATE 4% CLEANSER FOR DECOLONIZATION TP SCH (22:06)
[2019-12-28 23:40] LABS: EPI CELLS 2 /uL (0-25.1); HYALINE CASTS 0 /uL (0-3.1); URINE APPEARANCE CLEAR; URINE BACTERIA 0 /uL (0-1359); URINE BILIRUBIN NEGATIVE (NEGATIVE); URINE COLOR YELLOW; URINE GLUCOSE (UA) NEGATIVE (NEGATIVE); URINE KETONE NEGATIVE (NEGATIVE); URINE LEUK ESTERASE NEGATIVE (NEGATIVE); URINE NITRITE NEGATIVE (NEGATIVE); URINE PROTEIN NEGATIVE (NEGATIVE); URINE RBC 289 /uL (0-23.9); URINE UROBILINOGEN 0.2 mg/dL (0.2-1.0); URINE WBC 9 /uL (0-25.8)
[2019-12-29] MEDS ORDERED: PIPERACILLIN/TAZOBACTAM 3.375 GM VIAL IVPB ONE ×2 (02:05→17:12)
[2019-12-29] MEDS ORDERED: DEXTROSE 5%-WATER - 50 ML IVPB ONE ×2 (02:06→17:12)
[2019-12-29] MEDS: PANTOPRAZOLE SODIUM 80 MG in SODIUM CHLORIDE 100 ML IVPB SCH ×2 (02:55→18:30)
[2019-12-29] MEDS: PIPERACILLIN/TAZOB 3.375 GM 3.375 GM in DEXTROSE 5%-WATER - 50 ML IVPB SCH ×2 (02:55→17:16)
[2019-12-29] MEDS: SODIUM CHLORIDE 1,000 ML IV SCH ×2 (02:56→21:28)
[2019-12-29] MEDS: PROPOFOL 1,000,000 MCG/100 ML VIAL IVPB SCH ×3 (02:58→21:16)
[2019-12-29] MEDS: MIDAZOLAM IN 0.9 % SOD.CHLORID 100 MG/100 ML PLAST..BAG IVPB SCH (05:37)
[2019-12-29 06:54] LABS: HEMATOCRIT 27.1 % (35.4-49); HEMOGLOBIN 9.2 GM/dL (11.7-16.9); MCH 31.1 pg (25.7-33.7); MCHC 34.1 g/dl (32.0-35.9); MEAN CELL VOLUME 91.5 fl (80-96); PLATELET COUNT 174 K/MM3 (134-434); RBC 2.96 M/mm3 (4.00-5.60); RDW 27.4 % (11.9-15.9); WHITE BLOOD COUNT 6.3 K/mm3 (4.0-10.0)
[2019-12-29 07:24] LABS: ALBUMIN 2.1 g/dl (3.4-5.0); BILIRUBIN,TOTAL 0.8 mg/dL (0.2-1); CREATININE 0.7 mg/dL (0.55-1.3); MAGNESIUM 1.5 mg/dL (1.8-2.4); PHOSPHOROUS 2.7 mg/dL (2.5-4.9); POTASSIUM 4.4 mmol/L (3.5-5.1); TOT PROT 4.3 g/dl (6.4-8.2)
[2019-12-29 07:48] LABS: CALCIUM 6.9 mg/dL (8.5-10.1)
[2019-12-29] MEDS ORDERED: CALCIUM ACETATE 667 MG CAPSULE (FP) PO ONE (07:59)
--- NOTE | 2019-12-29 09:13 | PN.GI ---
GI Progress Note Subjective: Remains intubated No gross bleeding Dark blood from NGT noted - Objective Vital Signs: Vital Signs Temperature 97.8 F 12/29/19 06:00 Pulse Rate 85 12/29/19 06:00 Respiratory Rate 14 12/29/19 06:00 Blood Pressure 83/57 L 12/29/19 06:00 O2 Sat by Pulse Oximetry (%) 100 12/29/19 06:00 Constitutional: Calm Eyes: No: Sclera Icterus HENT: Yes: Other (NGT in place, lavaged with 500 sterile water. Some clots aspirated) Cardiovascular: Yes: Regular Rate and Rhythm Respiratory: Yes: Diminished (At bases b/l) Gastrointestinal Inspection: No: Distention ...Auscultate: Yes: Normoactive Bowel Sounds ...Palpate: Yes: Soft. No: Tenderness (No grimacing upon palpation) ...Percussion: No: Tympanitic ...Rectal Exam: Yes: Other (Dark blood in rectal vault) Edema: No (No LE edema) Neurological: Yes: Alert Labs: CBC, BMP 12/29/19 05:35 12/29/19 05:35 INR, PTT INR 1.11 (0.83-1.09) H 12/28/19 11:00 Fibrinogen 249.0 mg/dL (238-498) 12/28/19 11:00 Hepatic Panel Total Bilirubin 0.8 mg/dL (0.2-1) 12/29/19 05:35 AST 20 U/L (15-37) 12/29/19 05:35 ALT 11 U/L (13-61) L 12/29/19 05:35 Alkaline Phosphatase 51 U/L (45-117) 12/29/19 05:35 Albumin 2.1 g/dl (3.4-5.0) L 12/29/19 05:35 Problem List - Problems (1) GIB (gastrointestinal bleeding) Assessment/Plan: Transfuse 1 U SD Platelets Keep 2 U PRBC on hold Monitor for overt bleding Plan for EGD. Will d/w family Code(s): K92.2 - GASTROINTESTINAL HEMORRHAGE, UNSPECIFIED Qualifiers: GI bleed type/associated pathology: unspecified gastrointestinal hemorrhage type Qualified Code(s): K92.2 - Gastrointestinal hemorrhage, unspecified
[2019-12-29] MEDS: FENTANYL NS IVPB 500 MCG/100 ML BAG IVPB SCH (10:00)
[2019-12-29] MEDS ORDERED: MAGNESIUM 1GM/D5W 100ML - 100 ML IVPB IVPB ONE (10:15)
[2019-12-29] MEDS: MUPIROCIN 2% TOPICAL OINTMENT FOR DECOLONIZATION NS SCH ×2 (10:56→22:43)
[2019-12-29] MEDS: OCTREOTIDE ACETATE 200 MCG, OCTREOTIDE ACETATE 1,000 MCG in DEXTROSE 5%-WATER - 496 ML IVPB SCH (10:56)
--- NOTE | 2019-12-29 11:35 | PN ---
Progress Note (short form) - Note Progress Note: Discussed current clinical situation with patient's sister Danna via telephone [phone]. Discussed plan for upper endoscopy to assess and potentially treat source of upper GI bleeding. Discussed potential risks of the procedure like but not limited to bleeding, perforation requiring surgery to repair, infection, sedation medication effects all of which could be potentially life threatening. Discussed possibility of banding of esophageal varices as well. She has agreed to the procedure. Consent witnessed by ICU nursing staff. Problem List - Problems (1) GIB (gastrointestinal bleeding) Code(s): K92.2 - GASTROINTESTINAL HEMORRHAGE, UNSPECIFIED Qualifiers: GI bleed type/associated pathology: unspecified gastrointestinal hemorrhage type Qualified Code(s): K92.2 - Gastrointestinal hemorrhage, unspecified
--- NOTE | 2019-12-29 12:01 | PN ---
Physical Exam: SUBJECTIVE: Patient seen and examined bedside. Sedated and intubated. No events overnight. Plan for EGD today. OBJECTIVE: Vital Signs Temp Pulse Resp BP Pulse Ox 97.6 F 74 14 95/56 L 100 12/29/19 10:00 12/29/19 10:00 12/29/19 10:00 12/29/19 10:00 12/29/19 09:20 GENERAL: The patient is sedated HEAD: Normal with no signs of trauma. EYES: PERRL ENT: intubated, NGT in place NECK: Trachea midline LUNGS: decreased breath sounds on right side HEART: RRR, s1, s2 ABDOMEN: Soft, nontender, nondistended, EXTREMITIES: warm, well-perfused, no edema. NEUROLOGICAL: sedated SKIN: Warm, dry, multiple ecchymosis on BL arms and legs Laboratory Results - last 24 hr 12/28/19 12/28/19 12/28/19 04:34 11:00 11:00 WBC RBC Hgb Hct MCV MCH MCHC RDW Plt Count MPV Neutrophils % (Manual) 94.9 H D Band Neutrophils % 1.0 Lymphocytes % (Manual) 1.0 L D Monocytes % (Manual) 3 L Eosinophils % (Manual) 0.0 D Basophils % (Manual) 0.0 Myelocytes % (Man) 0 Promyelocytes % (Man) 0 Blast Cells % (Manual) 0 Nucleated RBC % 0 Metamyelocytes 0 Hypochromia 0 Platelet Estimate Normal Polychromasia 1+ Poikilocytosis 1+ Anisocytosis 1+ Microcytosis 1+ Macrocytosis 0 John Cells 1+ Fibrinogen 249.0 Sodium Potassium Chloride Carbon Dioxide Anion Gap BUN Creatinine Est GFR (CKD-EPI)AfAm Est GFR (CKD-EPI)NonAf Random Glucose Serum Osmolality Lactic Acid Calcium Phosphorus Magnesium Total Bilirubin AST ALT Alkaline Phosphatase Total Protein Albumin Vitamin B12 Serum Folate Urine Color Urine Appearance Urine pH Ur Specific [place] Urine Protein Urine Glucose (UA) Urine Ketones Urine Blood Urine Nitrite Urine Bilirubin Urine Urobilinogen Ur Leukocyte Esterase Urine WBC (Auto) Urine RBC (Auto) Urine Casts (Auto) U Epithel Cells (Auto) Urine Bacteria (Auto) Urine Osmolality Ur Random Sodium Ur Random Potassium Ur Random Chloride Opiates Screen Methadone Screen Barbiturate Screen Phencyclidine Screen Ur Amphetamines Screen MDMA (Ecstasy) Screen Benzodiazepines Screen Cocaine Screen U Marijuana (THC) Screen Alcohol, Quantitative 64.2 H COVID-19 (PASQUALE) Blood Type Antibody Screen Crossmatch 12/28/19 12/28/19 12/28/19 11:00 11:00 11:55 WBC RBC Hgb Hct MCV MCH MCHC RDW Plt Count MPV Neutrophils % (Manual) Band Neutrophils % Lymphocytes % (Manual) Monocytes % (Manual) Eosinophils % (Manual) Basophils % (Manual) Myelocytes % (Man) Promyelocytes % (Man) Blast Cells % (Manual) Nucleated RBC % Metamyelocytes Hypochromia Platelet Estimate Polychromasia Poikilocytosis Anisocytosis Microcytosis Macrocytosis [place] Cells Fibrinogen Sodium Potassium Chloride Carbon Dioxide Anion Gap BUN Creatinine Est GFR (CKD-EPI)AfAm Est GFR (CKD-EPI)NonAf Random Glucose Serum Osmolality Lactic Acid 1.4 Calcium Phosphorus Magnesium Total Bilirubin AST ALT Alkaline Phosphatase Total Protein Albumin Vitamin B12 Serum Folate Urine Color Yellow Urine Appearance Clear Urine pH 6.5 Ur Specific [place] 1.033 Urine Protein Negative Urine Glucose (UA) 1+ H Urine Ketones Negative Urine Blood 1+ H Urine Nitrite Negative Urine Bilirubin Negative Urine Urobilinogen 0.2 Ur Leukocyte Esterase Negative Urine WBC (Auto) 3 Urine RBC (Auto) 99 Urine Casts (Auto) 0 U Epithel Cells (Auto) 6 Urine Bacteria (Auto) 57 Urine Osmolality Ur Random Sodium Ur Random Potassium Ur Random Chloride Opiates Screen Methadone Screen Barbiturate Screen Phencyclidine Screen Ur Amphetamines Screen MDMA (Ecstasy) Screen Benzodiazepines Screen Cocaine Screen U Marijuana (THC) Screen Alcohol, Quantitative COVID-19 ([place]ALE) Not detected Blood Type Antibody Screen Crossmatch 12/28/19 12/28/19 12/28/19 11:55 20:20 20:20 WBC RBC Hgb Hct MCV MCH MCHC RDW Plt Count MPV Neutrophils % (Manual) Band Neutrophils % Lymphocytes % (Manual) Monocytes % (Manual) Eosinophils % (Manual) Basophils % (Manual) Myelocytes % (Man) Promyelocytes % (Man) Blast Cells % (Manual) Nucleated RBC % Metamyelocytes Hypochromia Platelet Estimate Polychromasia Poikilocytosis Anisocytosis Microcytosis Macrocytosis [place] Cells Fibrinogen Sodium Potassium Chloride Carbon Dioxide Anion Gap BUN Creatinine Est GFR (CKD-EPI)AfAm Est GFR (CKD-EPI)NonAf Random Glucose Serum Osmolality Lactic Acid Calcium Phosphorus Magnesium Total Bilirubin AST ALT Alkaline Phosphatase Total Protein Albumin Vitamin B12 Serum Folate Urine Color Yellow Urine Appearance Clear Urine pH 6.0 Ur Specific [place] 1.023 Urine Protein Negative Urine Glucose (UA) Negative Urine Ketones Negative Urine Blood 3+ H Urine Nitrite Negative Urine Bilirubin Negative Urine Urobilinogen 0.2 Ur Leukocyte Esterase Negative Urine WBC (Auto) 9 Urine RBC (Auto) 289 Urine Casts (Auto) 0 U Epithel Cells (Auto) 2 Urine Bacteria (Auto) 0 Urine Osmolality 518 Ur Random Sodium 39 L Ur Random Potassium 62.0 Ur Random Chloride 78 L Opiates Screen Negative Methadone Screen Negative Barbiturate Screen Negative Phencyclidine Screen Negative Ur Amphetamines Screen Negative MDMA (Ecstasy) Screen Negative Benzodiazepines Screen Positive A* Cocaine Screen Negative U Marijuana (THC) Screen Negative Alcohol, Quantitative COVID-19 (P[place]ALE) Blood Type Antibody Screen Crossmatch 12/28/19 12/29/19 12/29/19 21:15 05:35 05:35 WBC 7.1 6.3 RBC 3.04 L 2.96 L Hgb 9.7 L 9.2 L Hct 27.8 L D 27.1 L MCV 91.6 91.5 MCH 32.0 31.1 MCHC 35.0 34.1 RDW 27.3 H 27.4 H Plt Count 186 174 MPV 6.8 L 7.0 L Neutrophils % (Manual) Band Neutrophils % Lymphocytes % (Manual) Monocytes % (Manual) Eosinophils % (Manual) Basophils % (Manual) Myelocytes % (Man) Promyelocytes % (Man) Blast Cells % (Manual) Nucleated RBC % Metamyelocytes Hypochromia Platelet Estimate Polychromasia Poikilocytosis Anisocytosis Microcytosis Macrocytosis [place] Cells Fibrinogen Sodium 131 L Potassium 4.4 Chloride 100 Carbon Dioxide 25 Anion Gap 6 L BUN 14.0 Creatinine 0.7 Est GFR (CKD-EPI)AfAm 118.88 Est GFR (CKD-EPI)NonAf 102.57 Random Glucose 141 H Serum Osmolality Lactic Acid Calcium 6.9 L* Phosphorus 2.7 Magnesium 1.5 L Total Bilirubin 0.8 AST 20 ALT 11 L Alkaline Phosphatase 51 Total Protein 4.3 L Albumin 2.1 L Vitamin B12 Serum Folate Urine Color Urine Appearance Urine pH Ur Specific [place] Urine Protein Urine Glucose (UA) Urine Ketones Urine Blood Urine Nitrite Urine Bilirubin Urine Urobilinogen Ur Leukocyte Esterase Urine WBC (Auto) Urine RBC (Auto) Urine Casts (Auto) U Epithel Cells (Auto) Urine Bacteria (Auto) Urine Osmolality Ur Random Sodium Ur Random Potassium Ur Random Chloride Opiates Screen Methadone Screen Barbiturate Screen Phencyclidine Screen Ur Amphetamines Screen MDMA (Ecstasy) Screen Benzodiazepines Screen Cocaine Screen U Marijuana (THC) Screen Alcohol, Quantitative COVID-19 (P[place]ALE) Blood Type Antibody Screen Crossmatch 12/29/19 05:35 WBC RBC Hgb Hct MCV MCH MCHC RDW Plt Count MPV Neutrophils % (Manual) Band Neutrophils % Lymphocytes % (Manual) Monocytes % (Manual) Eosinophils % (Manual) Basophils % (Manual) Myelocytes % (Man) Promyelocytes % (Man) Blast Cells % (Manual) Nucleated RBC % Metamyelocytes Hypochromia Platelet Estimate Polychromasia Poikilocytosis Anisocytosis Microcytosis Macrocytosis [place] Cells Fibrinogen Sodium Potassium Chloride Carbon Dioxide Anion Gap BUN Creatinine Est GFR (CKD-EPI)AfAm Est GFR (CKD-EPI)NonAf Random Glucose Serum Osmolality 268 L Lactic Acid Calcium Phosphorus Magnesium Total Bilirubin AST ALT Alkaline Phosphatase Total Protein Albumin Vitamin B12 Serum Folate Urine Color Urine Appearance Urine pH Ur Specific [place] Urine Protein Urine Glucose (UA) Urine Ketones Urine Blood Urine Nitrite Urine Bilirubin Urine Urobilinogen Ur Leukocyte Esterase Urine WBC (Auto) Urine RBC (Auto) Urine Casts (Auto) U Epithel Cells (Auto) Urine Bacteria (Auto) Urine Osmolality Ur Random Sodium Ur Random Potassium Ur Random Chloride Opiates Screen Methadone Screen Barbiturate Screen Phencyclidine Screen Ur Amphetamines Screen MDMA (Ecstasy) Screen Benzodiazepines Screen Cocaine Screen U Marijuana (THC) Screen Alcohol, Quantitative COVID-19 (PASQUALE) Blood Type Antibody Screen Crossmatch Active Medications Generic Name Dose Route Start Last Admin Trade Name Freq PRN Reason Stop Dose Admin Chlorhexidine Gluconate 1 applic 12/28/19 22:00 12/28/19 22:06 Hibiclens For Decolonization - TP 1 applic HS TREVOR Administration Pantoprazole Sodium 80 mg/ 100 mls @ 10 mls/hr 12/28/19 03:45 12/29/19 02:55 Sodium Chloride IVPB 12/31/19 03:43 10 mls/hr Q10H TREVOR Administration 8 MG/HR Octreotide Acetate 200 mcg/ 500 mls @ 20.833 mls/hr 12/28/19 03:45 12/29/19 10:56 Octreotide Acetate 1,000 mcg/ IVPB 20.833 mls/hr Dextrose ASDIR TREVOR Administration Sodium Chloride 1,000 mls @ 125 mls/hr 12/28/19 04:30 12/29/19 02:56 Normal Saline - IV 125 mls/hr ASDIR TREVOR Administration Piperacillin Sod/Tazobactam 50 mls @ 100 mls/hr 12/28/19 10:00 Sod 3.375 gm/ Dextrose IVPB Q8H-IV TREVOR Protocol Propofol 1,000,000 mcg in 100 mls @ 1.761 mls/hr 12/28/19 12:45 12/29/19 02:58 Diprivan - IVPB 35 mcg/kg/min TITR TREVOR 12.327 mls/hr Administration Protocol 5 MCG/KG/MIN Fentanyl 500 mcg in 100 mls @ 1 mls/hr 12/28/19 17:50 12/28/19 20:10 Sublimaze Ivpb IVPB 25 mcg/hr TITR TREVOR 5 mls/hr Administration 5 MCG/HR Midazolam HCl 100 mg in 100 mls @ 1 mls/hr 12/29/19 05:00 12/29/19 05:37 Midazolam 100mg/100ml-0.9%Nacl IVPB 2 mg/hr TITR TREVOR 2 mls/hr Administration Protocol 1 MG/HR Mupirocin 1 applic 12/28/19 10:00 12/29/19 10:56 Bactroban Ointment (For Decolonization) - NS 01/02/20 09:59 1 applic BID TREVOR Administration ASSESSMENT/PLAN: ASSESSMENT/PLAN: 59 YO M with PMH HTN, PVD (on plavix), chronic alcohol, NSAID, & tobacco use presents with hematemsis and syncope. Neuro - Patient is intubated and sedated. Patient is unresponsive - on fentanyl, propofol & versed GI - likely varices 2/2 alcohol use VS peptic ulcer disease 2/2 extensive NSAID use - protonix drip - EGD today with Dr. Steven Transfuse 1 U SD Platelets prior to EGD no varices, clot in fundus with linear ulcers in gastric cardia large clean based ulcer with non bleeding flat red spots in angulated area of junction of duodenal bulb and 1st portion duodenum d/c octreotide Pulm - intubated and sedated Cardio - HTN - PVD (on plavix) - no pressors ID - Zosyn 3.375 Q8H for aspiration pneumonia. - ID (Dr. Rdz) consulted probable aspiration pneumonia sputum culture pending urine cultures pending Heme - acute blood loss, hbg/hct remain stable - continue to monitor hbg/hct Renal - Dr. Correa consulted - monitor hyponatremia, 127 >> 131 - avoid a change in sodium > 6-8 in 24H DVT PPX - hold AC in setting of GI bleed. - SCDs GI PPX - protonix drip Lines - Right femoral cordis (12/27) plan to remove today after EGD - 18 gauge Left AC (12/27) - 20 gauge R AC (12/27) - Left IJ (12/27) FEN - NPO DISPO Visit type - Emergency Visit Emergency Visit: Yes ED Registration Date: 12/28/19 Care time: The patient presented to the Emergency Department on the above date and was hospitalized for further evaluation of their emergent condition. - New Patient This patient is new to me today: No - Critical Care Critical Care patient: Yes Total Critical Care Time (in minutes): 38 Critical Care Statement: The care of this patient involved high complexity decision making to prevent further life threatening deterioration of the patient's condition and/or to evaluate & treat vital organ system(s) failure or risk of failure. - Discharge Referral Referred to [facility] No ATTENDING PHYSICIAN STATEMENT I saw and evaluated the patient. I reviewed the resident's note and discussed the case with the resident. I agree with the resident's findings and plan as documented. SUBJECTIVE: OBJECTIVE: ASSESSMENT AND PLAN:
--- NOTE | 2019-12-29 12:48 | PN ---
Progress Note (short form) - Note Progress Note: Bedside EGD complete. report will be left in the procedural section of the physical chart and will be scanned into [employer]. Problem List - Problems (1) GIB (gastrointestinal bleeding) Code(s): K92.2 - GASTROINTESTINAL HEMORRHAGE, UNSPECIFIED Qualifiers: GI bleed type/associated pathology: unspecified gastrointestinal hemorrhage type Qualified Code(s): K92.2 - Gastrointestinal hemorrhage, unspecified
[2019-12-29] MEDS ORDERED: FOLIC ACID 5 MG/1 ML SQ ONE ×2 (13:29)
--- NOTE | 2019-12-29 13:30 | PN ---
Progress Note, Physician Chief Complaint: Hematemesis Acute respiratory failure Anemia GI bleed Hyponatremia History of Present Illness: 59 M pmh COPD (no home O2), ETOH abuse, smoker 2ppd, PVD (on plavix) presenting with hematemesis, syncope witnessed by EMS, no head trauma. Daily drinker, no h/o GIB. No complaints at present. 100% NRB, reportedly hypoxic en route, acute respiratory failure in ER, intubated thereafter NAD remains intubated s/p egd today - Current Medication List Current Medications: Active Medications Chlorhexidine Gluconate (Hibiclens For Decolonization -) 1 applic TP HS [facility] Last Admin: 12/28/19 22:06 Dose: 1 applic Documented by: Pantoprazole Sodium 80 mg/ (Sodium Chloride) 100 mls @ 10 mls/hr IVPB Q10H [facility] Stop: 12/31/19 03:43 Last Admin: 12/29/19 02:55 Dose: 10 mls/hr Documented by: Octreotide Acetate 200 mcg/Octreotide Acetate 1,000 mcg/Dextrose 500 mls @ 20.833 mls/hr IVPB ASDIR [facility] Last Admin: 12/29/19 10:56 Dose: 20.833 mls/hr Documented by: Sodium Chloride (Normal Saline -) 1,000 mls @ 125 mls/hr IV ASDIR [facility]REV[facility] Last Admin: 12/29/19 02:56 Dose: 125 mls/hr Documented by: Piperacillin Sod/Tazobactam (Sod 3.375 gm/ Dextrose) 50 mls @ 100 mls/hr IVPB Q8H-IV [facility]; Protocol Propofol (Diprivan -) 1,000,000 mcg in 100 mls @ 1.761 mls/hr IVPB TITR [facility]; Protocol Last Admin: 12/29/19 02:58 Dose: 35 mcg/kg/min, 12.327 mls/hr Documented by: Fentanyl (Sublimaze Ivpb) 500 mcg in 100 mls @ 1 mls/hr IVPB TITR [facility] Last Admin: 12/28/19 20:10 Dose: 25 mcg/hr, 5 mls/hr Documented by: Midazolam HCl (Midazolam 100mg/100ml-0.9%Nacl) 100 mg in 100 mls @ 1 mls/hr IVPB TITR [facility]; Protocol Last Admin: 12/29/19 05:37 Dose: 2 mg/hr, 2 mls/hr Documented by: Mupirocin (Bactroban Ointment (For Decolonization) -) 1 applic NS BID [facility] Stop: 01/02/20 09:59 Last Admin: 12/29/19 10:56 Dose: 1 applic Documented by: - Objective Vital Signs: Vital Signs Temperature 97.3 F L 12/29/19 13:25 Pulse Rate 74 12/29/19 13:25 Respiratory Rate 14 12/29/19 13:25 Blood Pressure 106/51 L 12/29/19 13:25 O2 Sat by Pulse Oximetry (%) 100 12/29/19 09:20 Constitutional: Yes: No Distress, Calm, Cachectic Cardiovascular: Yes: Regular Rate and Rhythm Respiratory: Yes: Regular, Mechanically Ventilated, Rhonchi (diffuse) Gastrointestinal: Yes: Normal Bowel Sounds, Soft Genitourinary: Yes: Munoz Present Musculoskeletal: Yes: Muscle Weakness Edema: No Peripheral Pulses WNL: Yes Neurological: Yes: Other (sedated) Labs: CBC, BMP 12/29/19 05:35 12/29/19 05:35 INR, PTT INR 1.11 (0.83-1.09) H 12/28/19 11:00 Fibrinogen 249.0 mg/dL (238-498) 12/28/19 11:00 Problem List - Problems (1) GIB (gastrointestinal bleeding) Assessment/Plan: -GI consult appreciated -S/P EGD-awit report -monitor H/H closely -S/P PRBC x 1 FFP X 2 Problems reviewed: Yes Code(s): K92.2 - GASTROINTESTINAL HEMORRHAGE, UNSPECIFIED Qualifiers: GI bleed type/associated pathology: unspecified gastrointestinal hemorrhage type Qualified Code(s): K92.2 - Gastrointestinal hemorrhage, unspecified (2) Pneumonia Assessment/Plan: -Pulmonary on board -[facility] vent -COVID 19 PCR negative Problems reviewed: Yes Code(s): J18.9 - PNEUMONIA, UNSPECIFIED ORGANISM (3) Respiratory failure Assessment/Plan: as above -Wean as tolerated Problems reviewed: Yes Code(s): J96.90 - RESPIRATORY FAILURE, UNSP, UNSP W HYPOXIA OR HYPERCAPNIA (4) Alcohol abuse Assessment/Plan: -Thiamine IVPB -Cyanocobalamine 1g IM daily -FA 0.4 mg once Problems reviewed: Yes Code(s): F10.10 - ALCOHOL ABUSE, UNCOMPLICATED (5) Malnourished Problems reviewed: Yes Code(s): E46 - UNSPECIFIED PROTEIN-CALORIE MALNUTRITION (6) Anemia Assessment/Plan: -2/2 to acute blood loss -Monitor H/H -normal transfusion parameters -Check Iron profile, replace if indicated -B12 inj daily Problems reviewed: Yes Code(s): D64.9 - ANEMIA, UNSPECIFIED (7) Hyponatremia Assessment/Plan: -Nephrology consult -Continue IVF -Monitor trend Problems reviewed: Yes Code(s): E87.1 - HYPO-OSMOLALITY AND HYPONATREMIA Assessment/Plan See problem list SCD's
[2019-12-29] MEDS ORDERED: CALCIUM GLUCONATE 10% - 1,000 MG/10 ML VIAL IVPB ONE (15:05)
[2019-12-29] MEDS: THIAMINE HCL 200 MG/2 ML VIAL IVPB SCH (15:08)
--- NOTE | 2019-12-29 15:08 | PN ---
Progress Note, Physician History of Present Illness: Pt seen and examined at bedside. He remains in the ICU. He remains intubated. - Current Medication List Current Medications: Active Medications Calcium Gluconate (Calcium Gluconate 10% -) 1,000 mg IVPB ONCE ONE Stop: 12/29/19 15:06 Chlorhexidine Gluconate (Hibiclens For Decolonization -) 1 applic TP HS TRE[facility] Last Admin: 12/28/19 22:06 Dose: 1 applic Documented by: Cyanocobalamin (Vitamin B12 Injection -) 1,000 mcg IM DAILY [facility] Pantoprazole Sodium 80 mg/ (Sodium Chloride) 100 mls @ 10 mls/hr IVPB Q10H [facility] Stop: 12/31/19 03:43 Last Admin: 12/29/19 02:55 Dose: 10 mls/hr Documented by: Sodium Chloride (Normal Saline -) 1,000 mls @ 125 mls/hr IV ASDIR [facility]RE[facility] Last Admin: 12/29/19 02:56 Dose: 125 mls/hr Documented by: Piperacillin Sod/Tazobactam (Sod 3.375 gm/ Dextrose) 50 mls @ 100 mls/hr IVPB Q8H-IV [facility]; Protocol Propofol (Diprivan -) 1,000,000 mcg in 100 mls @ 1.761 mls/hr IVPB TITR [facility]; Protocol Last Admin: 12/29/19 02:58 Dose: 35 mcg/kg/min, 12.327 mls/hr Documented by: Fentanyl (Sublimaze Ivpb) 500 mcg in 100 mls @ 1 mls/hr IVPB TITR [facility] Last Admin: 12/28/19 20:10 Dose: 25 mcg/hr, 5 mls/hr Documented by: Midazolam HCl (Midazolam 100mg/100ml-0.9%Nacl) 100 mg in 100 mls @ 1 mls/hr IVPB TITR [facility]; Protocol Last Admin: 12/29/19 05:37 Dose: 2 mg/hr, 2 mls/hr Documented by: Mupirocin (Bactroban Ointment (For Decolonization) -) 1 applic NS BID [facility] Stop: 01/02/20 09:59 Last Admin: 12/29/19 10:56 Dose: 1 applic Documented by: Thiamine HCl (Vitamin B1 Injection -) 200 mg IVPB DAILY [facility] - Objective Vital Signs: Vital Signs Temperature 97.3 F L 12/29/19 14:00 Pulse Rate 69 12/29/19 14:55 Respiratory Rate 14 12/29/19 14:55 Blood Pressure 105/59 L 12/29/19 14:55 O2 Sat by Pulse Oximetry (%) 100 12/29/19 10:00 Constitutional: Yes: Calm HENT: Yes: Atraumatic Neck: Yes: Supple Cardiovascular: Yes: S1, S2 Respiratory: Yes: Mechanically Ventilated Gastrointestinal: Yes: Normal Bowel Sounds, Soft Genitourinary: Yes: Munoz Present Musculoskeletal: Yes: Muscle Weakness Edema: No Integumentary: Yes: Tattoos Neurological: Yes: Lethargy Labs: CBC, BMP 12/29/19 05:35 12/29/19 05:35 INR, PTT INR 1.11 (0.83-1.09) H 12/28/19 11:00 Fibrinogen 249.0 mg/dL (238-498) 12/28/19 11:00 Problem List - Problems (1) GIB (gastrointestinal bleeding) Code(s): K92.2 - GASTROINTESTINAL HEMORRHAGE, UNSPECIFIED Qualifiers: Qualified Code(s): K92.2 - Gastrointestinal hemorrhage, unspecified (2) Respiratory distress, acute Code(s): R06.03 - ACUTE RESPIRATORY DISTRESS (3) Alcohol abuse Code(s): F10.10 - ALCOHOL ABUSE, UNCOMPLICATED (4) HTN (hypertension) Code(s): I10 - ESSENTIAL (PRIMARY) HYPERTENSION (5) Hyponatremia Code(s): E87.1 - HYPO-OSMOLALITY AND HYPONATREMIA Assessment/Plan Current Medications Generic Name Dose Route Start Last Admin Trade Name Jos PRN Reason Stop Dose Admin Calcium Gluconate 1,000 mg 12/29/19 15:05 Calcium Gluconate 10% - IVPB 12/29/19 15:06 ONCE ONE Chlorhexidine Gluconate 1 applic 12/28/19 22:00 12/28/19 22:06 Hibiclens For Decolonization - TP 1 applic HS TRE[facility]OR Administration Cyanocobalamin 1,000 mcg 12/29/19 13:30 Vitamin B12 Injection - IM DAILY TRE[facility] Pantoprazole Sodium 80 mg/ 100 mls @ 10 mls/hr 12/28/19 03:45 12/29/19 02:55 Sodium Chloride IVPB 12/31/19 03:43 10 mls/hr Q10H TRE[facility] Administration 8 MG/HR Sodium Chloride 1,000 mls @ 125 mls/hr 12/28/19 04:30 12/29/19 02:56 Normal Saline - IV 125 mls/hr ASDIR TREVOR Administration Piperacillin Sod/Tazobactam 50 mls @ 100 mls/hr 12/28/19 10:00 Sod 3.375 gm/ Dextrose IVPB Q8H-IV [facility] Protocol Propofol 1,000,000 mcg in 100 mls @ 1.761 mls/hr 12/28/19 12:45 12/29/19 02:58 Diprivan - IVPB 35 mcg/kg/min TITR T[facility] 12.327 mls/hr Administration Protocol 5 MCG/KG/MIN Fentanyl 500 mcg in 100 mls @ 1 mls/hr 12/28/19 17:50 12/28/19 20:10 Sublimaze Ivpb IVPB 25 mcg/hr TITR [facility] 5 mls/hr Administration 5 MCG/HR Midazolam HCl 100 mg in 100 mls @ 1 mls/hr 12/29/19 05:00 12/29/19 05:37 Midazolam 100mg/100ml-0.9%Nacl IVPB 2 mg/hr TITR TRE[facility] 2 mls/hr Administration Protocol 1 MG/HR Mupirocin 1 applic 12/28/19 10:00 12/29/19 10:56 Bactroban Ointment (For Decolonization) - NS 01/02/20 09:59 1 applic BID TRE[facility] Administration Thiamine HCl 200 mg 12/29/19 13:45 Vitamin B1 Injection - IVPB DAILY TRE[facility] Impression 1. hyponatremia 2. lactic acidosis 3. resp failure requiring intubation 4. etoh abuse 5. hematemesis 6. possible aspiration pna 7. active smoker 8. copd on home oxygen 9. pvd 10. gi bleed Plan - sodium improving - pt responding to saline - replace calcium - can start to decrease rate of fluids - GI follow up - avoid a change in sodium of greater than 6 to 8 in 24 hours - will follow
--- NOTE | 2019-12-29 15:09 | PN ---
Progress Note (short form) - Note Progress Note: s/p egd today-clots, no varices remains intubated Vital Signs Period Temp Pulse Resp BP Sys/Garcia Pulse Ox Last 24 Hr 97.3 F-98.8 F 69-100 14-28 81-126/51-81 99-100 cor-rrr lungs decreased bs at bases abd soft,nt ext no edema CBC, BMP 12/29/19 05:35 12/29/19 05:35 Microbiology 12/28/19 18:00 Urine For Antigen Detection Legionella Antigen - Final 12/28/19 18:00 Urine For Antigen Detection Streptococcus pneumoniae Antigen (M - Final Active Medications Calcium Gluconate (Calcium Gluconate 10% -) 1,000 mg IVPB ONCE ONE Stop: 12/29/19 15:06 Chlorhexidine Gluconate (Hibiclens For Decolonization -) 1 applic TP HS TREVOR Last Admin: 12/28/19 22:06 Dose: 1 applic Documented by: Cyanocobalamin (Vitamin B12 Injection -) 1,000 mcg IM DAILY [facility] Pantoprazole Sodium 80 mg/ (Sodium Chloride) 100 mls @ 10 mls/hr IVPB Q10H [facility] Stop: 12/31/19 03:43 Last Admin: 12/29/19 02:55 Dose: 10 mls/hr Documented by: Sodium Chloride (Normal Saline -) 1,000 mls @ 125 mls/hr IV ASDIR TREVOR Last Admin: 12/29/19 02:56 Dose: 125 mls/hr Documented by: Piperacillin Sod/Tazobactam (Sod 3.375 gm/ Dextrose) 50 mls @ 100 mls/hr IVPB Q8H-IV [facility]RE[facility]OR; Protocol Propofol (Diprivan -) 1,000,000 mcg in 100 mls @ 1.761 mls/hr IVPB TITR [facility]RE[facility]; Protocol Last Admin: 12/29/19 02:58 Dose: 35 mcg/kg/min, 12.327 mls/hr Documented by: Fentanyl (Sublimaze Ivpb) 500 mcg in 100 mls @ 1 mls/hr IVPB TITR TRE[facility] Last Admin: 12/28/19 20:10 Dose: 25 mcg/hr, 5 mls/hr Documented by: Midazolam HCl (Midazolam 100mg/100ml-0.9%Nacl) 100 mg in 100 mls @ 1 mls/hr IVPB TITR TRE[facility]; Protocol Last Admin: 12/29/19 05:37 Dose: 2 mg/hr, 2 mls/hr Documented by: Mupirocin (Bactroban Ointment (For Decolonization) -) 1 applic NS BID [facility] Stop: 01/02/20 09:59 Last Admin: 12/29/19 10:56 Dose: 1 applic Documented by: Thiamine HCl (Vitamin B1 Injection -) 200 mg IVPB DAILY [facility] imp/reccd resp failure GI bleed probable aspiration pneumonia sputum culture urinary antigens are negative zosyn for now Problem List - Problems (1) Respiratory failure Code(s): J96.90 - RESPIRATORY FAILURE, UNSP, UNSP W HYPOXIA OR HYPERCAPNIA (2) GIB (gastrointestinal bleeding) Code(s): K92.2 - GASTROINTESTINAL HEMORRHAGE, UNSPECIFIED Qualifiers: GI bleed type/associated pathology: unspecified gastrointestinal hemorrhage type Qualified Code(s): K92.2 - Gastrointestinal hemorrhage, unspecified (3) Pneumonia Code(s): J18.9 - PNEUMONIA, UNSPECIFIED ORGANISM
--- NOTE | 2019-12-29 15:36 | PN ---
Teaching Attending Note Name of Resident: Varsha Davis ATTENDING PHYSICIAN STATEMENT I saw and evaluated the patient. I reviewed the resident's note and discussed the case with the resident. I agree with the resident's findings and plan as documented. SUBJECTIVE: Patient seen and examined in the ICU. Sedated and intubated. Plan for EGD today. OBJECTIVE: Intake & Output 12/26/19 12/27/19 12/28/19 12/29/19 23:59 23:59 23:59 23:59 Intake Total 2830 4518 Output Total 1300 2400 Balance 1530 2118 Weight 160 lb 129 lb 6.581 oz Last Vital Signs Temp Pulse Resp BP Pulse Ox 97.3 F L 69 14 105/59 L 100 12/29/19 14:00 12/29/19 14:55 12/29/19 14:55 12/29/19 14:55 12/29/19 10:00 Active Medications Chlorhexidine Gluconate (Hibiclens For Decolonization -) 1 applic TP HS TRE[facility] Last Admin: 12/28/19 22:06 Dose: 1 applic Documented by: Cyanocobalamin (Vitamin B12 Injection -) 1,000 mcg IM DAILY [facility] Pantoprazole Sodium 80 mg/ (Sodium Chloride) 100 mls @ 10 mls/hr IVPB Q10H [facility] Stop: 12/31/19 03:43 Last Admin: 12/29/19 02:55 Dose: 10 mls/hr Documented by: Sodium Chloride (Normal Saline -) 1,000 mls @ 125 mls/hr IV ASDIR [facility] Last Admin: 12/29/19 02:56 Dose: 125 mls/hr Documented by: Piperacillin Sod/Tazobactam (Sod 3.375 gm/ Dextrose) 50 mls @ 100 mls/hr IVPB Q8H-IV [facility]; Protocol Propofol (Diprivan -) 1,000,000 mcg in 100 mls @ 1.761 mls/hr IVPB TITR [facility]; Protocol Last Admin: 12/29/19 02:58 Dose: 35 mcg/kg/min, 12.327 mls/hr Documented by: Fentanyl (Sublimaze Ivpb) 500 mcg in 100 mls @ 1 mls/hr IVPB TITR [facility] Last Admin: 12/28/19 20:10 Dose: 25 mcg/hr, 5 mls/hr Documented by: Midazolam HCl (Midazolam 100mg/100ml-0.9%Nacl) 100 mg in 100 mls @ 1 mls/hr IVPB TITR [facility]; Protocol Last Admin: 12/29/19 05:37 Dose: 2 mg/hr, 2 mls/hr Documented by: Mupirocin (Bactroban Ointment (For Decolonization) -) 1 applic NS BID [facility] Stop: 01/02/20 09:59 Last Admin: 12/29/19 10:56 Dose: 1 applic Documented by: Thiamine HCl (Vitamin B1 Injection -) 200 mg IVPB DAILY [facility] Last Admin: 12/29/19 15:08 Dose: 200 mg Documented by: GENERAL: Intubated and sedated HEAD: NC / AT EYES: (-) Icterus ENT: intubated, NGT in place NECK: Trachea midline LUNGS: Vented, diminished at the bases HEART: RRR, S1, S2 ABDOMEN: Soft, nontender, nondistended, EXTREMITIES: warm, well-perfused, no edema. NEUROLOGICAL: sedated SKIN: Warm, dry, multiple ecchymosis on BL arms and legs Laboratory Results - last 24 hr 12/28/19 12/28/19 12/28/19 04:34 11:00 11:00 WBC RBC Hgb Hct MCV MCH MCHC RDW Plt Count MPV Neutrophils % (Manual) 94.9 H D Band Neutrophils % 1.0 Lymphocytes % (Manual) 1.0 L D Monocytes % (Manual) 3 L Eosinophils % (Manual) 0.0 D Basophils % (Manual) 0.0 Myelocytes % (Man) 0 Promyelocytes % (Man) 0 Blast Cells % (Manual) 0 Nucleated RBC % 0 Metamyelocytes 0 Hypochromia 0 Platelet Estimate Normal Polychromasia 1+ Poikilocytosis 1+ Anisocytosis 1+ Microcytosis 1+ Macrocytosis 0 [place] Cells 1+ Fibrinogen 249.0 Sodium Potassium Chloride Carbon Dioxide Anion Gap BUN Creatinine Est GFR (CKD-EPI)AfAm Est GFR (CKD-EPI)NonAf Random Glucose Serum Osmolality Lactic Acid Calcium Phosphorus Magnesium Total Bilirubin AST ALT Alkaline Phosphatase Total Protein Albumin Vitamin B12 Serum Folate Urine Color Urine Appearance Urine pH Ur Specific [place] Urine Protein Urine Glucose (UA) Urine Ketones Urine Blood Urine Nitrite Urine Bilirubin Urine Urobilinogen Ur Leukocyte Esterase Urine WBC (Auto) Urine RBC (Auto) Urine Casts (Auto) U Epithel Cells (Auto) Urine Bacteria (Auto) Urine Osmolality Ur Random Sodium Ur Random Potassium Ur Random Chloride Opiates Screen Methadone Screen Barbiturate Screen Phencyclidine Screen Ur Amphetamines Screen MDMA (Ecstasy) Screen Benzodiazepines Screen Cocaine Screen U Marijuana (THC) Screen Alcohol, Quantitative 64.2 H COVID-19 ([place]ALE) Blood Type Antibody Screen Crossmatch 12/28/19 12/28/19 12/28/19 11:00 11:00 11:55 WBC RBC Hgb Hct MCV MCH MCHC RDW Plt Count MPV Neutrophils % (Manual) Band Neutrophils % Lymphocytes % (Manual) Monocytes % (Manual) Eosinophils % (Manual) Basophils % (Manual) Myelocytes % (Man) Promyelocytes % (Man) Blast Cells % (Manual) Nucleated RBC % Metamyelocytes Hypochromia Platelet Estimate Polychromasia Poikilocytosis Anisocytosis Microcytosis Macrocytosis [place] Cells Fibrinogen Sodium Potassium Chloride Carbon Dioxide Anion Gap BUN Creatinine Est GFR (CKD-EPI)AfAm Est GFR (CKD-EPI)NonAf Random Glucose Serum Osmolality Lactic Acid 1.4 Calcium Phosphorus Magnesium Total Bilirubin AST ALT Alkaline Phosphatase Total Protein Albumin Vitamin B12 Serum Folate Urine Color Yellow Urine Appearance Clear Urine pH 6.5 Ur Specific [place] 1.033 Urine Protein Negative Urine Glucose (UA) 1+ H Urine Ketones Negative Urine Blood 1+ H Urine Nitrite Negative Urine Bilirubin Negative Urine Urobilinogen 0.2 Ur Leukocyte Esterase Negative Urine WBC (Auto) 3 Urine RBC (Auto) 99 Urine Casts (Auto) 0 U Epithel Cells (Auto) 6 Urine Bacteria (Auto) 57 Urine Osmolality Ur Random Sodium Ur Random Potassium Ur Random Chloride Opiates Screen Methadone Screen Barbiturate Screen Phencyclidine Screen Ur Amphetamines Screen MDMA (Ecstasy) Screen Benzodiazepines Screen Cocaine Screen U Marijuana (THC) Screen Alcohol, Quantitative COVID-19 ([place]) Not detected Blood Type Antibody Screen Crossmatch 12/28/19 12/28/19 12/28/19 11:55 20:20 20:20 WBC RBC Hgb Hct MCV MCH MCHC RDW Plt Count MPV Neutrophils % (Manual) Band Neutrophils % Lymphocytes % (Manual) Monocytes % (Manual) Eosinophils % (Manual) Basophils % (Manual) Myelocytes % (Man) Promyelocytes % (Man) Blast Cells % (Manual) Nucleated RBC % Metamyelocytes Hypochromia Platelet Estimate Polychromasia Poikilocytosis Anisocytosis Microcytosis Macrocytosis [place] Cells Fibrinogen Sodium Potassium Chloride Carbon Dioxide Anion Gap BUN Creatinine Est GFR (CKD-EPI)AfAm Est GFR (CKD-EPI)NonAf Random Glucose Serum Osmolality Lactic Acid Calcium Phosphorus Magnesium Total Bilirubin AST ALT Alkaline Phosphatase Total Protein Albumin Vitamin B12 Serum Folate Urine Color Yellow Urine Appearance Clear Urine pH 6.0 Ur Specific [place] 1.023 Urine Protein Negative Urine Glucose (UA) Negative Urine Ketones Negative Urine Blood 3+ H Urine Nitrite Negative Urine Bilirubin Negative Urine Urobilinogen 0.2 Ur Leukocyte Esterase Negative Urine WBC (Auto) 9 Urine RBC (Auto) 289 Urine Casts (Auto) 0 U Epithel Cells (Auto) 2 Urine Bacteria (Auto) 0 Urine Osmolality 518 Ur Random Sodium 39 L Ur Random Potassium 62.0 Ur Random Chloride 78 L Opiates Screen Negative Methadone Screen Negative Barbiturate Screen Negative Phencyclidine Screen Negative Ur Amphetamines Screen Negative MDMA (Ecstasy) Screen Negative Benzodiazepines Screen Positive A* Cocaine Screen Negative U Marijuana (THC) Screen Negative Alcohol, Quantitative COVID-19 ([place]) Blood Type Antibody Screen Crossmatch 12/28/19 12/29/19 12/29/19 21:15 05:35 05:35 WBC 7.1 6.3 RBC 3.04 L 2.96 L Hgb 9.7 L 9.2 L Hct 27.8 L D 27.1 L MCV 91.6 91.5 MCH 32.0 31.1 MCHC 35.0 34.1 RDW 27.3 H 27.4 H Plt Count 186 174 MPV 6.8 L 7.0 L Neutrophils % (Manual) Band Neutrophils % Lymphocytes % (Manual) Monocytes % (Manual) Eosinophils % (Manual) Basophils % (Manual) Myelocytes % (Man) Promyelocytes % (Man) Blast Cells % (Manual) Nucleated RBC % Metamyelocytes Hypochromia Platelet Estimate Polychromasia Poikilocytosis Anisocytosis Microcytosis Macrocytosis [place] Cells Fibrinogen Sodium 131 L Potassium 4.4 Chloride 100 Carbon Dioxide 25 Anion Gap 6 L BUN 14.0 Creatinine 0.7 Est GFR (CKD-EPI)AfAm 118.88 Est GFR (CKD-EPI)NonAf 102.57 Random Glucose 141 H Serum Osmolality Lactic Acid Calcium 6.9 L* Phosphorus 2.7 Magnesium 1.5 L Total Bilirubin 0.8 AST 20 ALT 11 L Alkaline Phosphatase 51 Total Protein 4.3 L Albumin 2.1 L Vitamin B12 Serum Folate Urine Color Urine Appearance Urine pH Ur Specific [place] Urine Protein Urine Glucose (UA) Urine Ketones Urine Blood Urine Nitrite Urine Bilirubin Urine Urobilinogen Ur Leukocyte Esterase Urine WBC (Auto) Urine RBC (Auto) Urine Casts (Auto) U Epithel Cells (Auto) Urine Bacteria (Auto) Urine Osmolality Ur Random Sodium Ur Random Potassium Ur Random Chloride Opiates Screen Methadone Screen Barbiturate Screen Phencyclidine Screen Ur Amphetamines Screen MDMA (Ecstasy) Screen Benzodiazepines Screen Cocaine Screen U Marijuana (THC) Screen Alcohol, Quantitative COVID-19 ([place]) Blood Type Antibody Screen Crossmatch 12/29/19 05:35 WBC RBC Hgb Hct MCV MCH MCHC RDW Plt Count MPV Neutrophils % (Manual) Band Neutrophils % Lymphocytes % (Manual) Monocytes % (Manual) Eosinophils % (Manual) Basophils % (Manual) Myelocytes % (Man) Promyelocytes % (Man) Blast Cells % (Manual) Nucleated RBC % Metamyelocytes Hypochromia Platelet Estimate Polychromasia Poikilocytosis Anisocytosis Microcytosis Macrocytosis [place] Cells Fibrinogen Sodium Potassium Chloride Carbon Dioxide Anion Gap BUN Creatinine Est GFR (CKD-EPI)AfAm Est GFR (CKD-EPI)NonAf Random Glucose Serum Osmolality 268 L Lactic Acid Calcium Phosphorus Magnesium Total Bilirubin AST ALT Alkaline Phosphatase Total Protein Albumin Vitamin B12 Serum Folate Urine Color Urine Appearance Urine pH Ur Specific [place] Urine Protein Urine Glucose (UA) Urine Ketones Urine Blood Urine Nitrite Urine Bilirubin Urine Urobilinogen Ur Leukocyte Esterase Urine WBC (Auto) Urine RBC (Auto) Urine Casts (Auto) U Epithel Cells (Auto) Urine Bacteria (Auto) Urine Osmolality Ur Random Sodium Ur Random Potassium Ur Random Chloride Opiates Screen Methadone Screen Barbiturate Screen Phencyclidine Screen Ur Amphetamines Screen MDMA (Ecstasy) Screen Benzodiazepines Screen Cocaine Screen U Marijuana (THC) Screen Alcohol, Quantitative COVID-19 ([place]) Blood Type Antibody Screen Crossmatch ASSESSMENT/PLAN: Acute Respiratory Failure Suspected Aspiration PNA HTN PVD Chronic alcohol abuse, NSAID, & tobacco abuse Hematemsis Syncope EGD Follow CBC Normal transfusion thresholds Octreotide PPI drip Hold AC Mechanical VTE prophylaxis ABX per ID Can DC femoral access if no occult bleeding Requires ICU monitoring Dr Avalos Critical care time spent in reviewing chart, evaluating patient and formulating plan - 36 minutes.
[2019-12-29 17:14] LABS: BASO % 0.8 % (0-2.0); EOS % 0.9 % (0-4.5); HEMATOCRIT 23.6 % (35.4-49); HEMOGLOBIN 8.1 GM/dL (11.7-16.9); LYMPH % 6.4 % (8-40); MCHC 34.3 g/dl (32.0-35.9); MEAN CELL VOLUME 93.3 fl (80-96); MEAN PLT VOLUME 7.3 fl (7.5-11.1); MONO % 5.6 % (3.8-10.2); NEUT % 86.3 % (42.8-82.8); PLATELET COUNT 184 K/MM3 (134-434); RBC 2.53 M/mm3 (4.00-5.60); RDW 27.5 % (11.9-15.9); WHITE BLOOD COUNT 5.9 K/mm3 (4.0-10.0)
[2019-12-29] MEDS: CYANOCOBALAMIN (VITAMIN B-12) 1000 MCG/1 ML VIAL IM SCH (17:16)
[2019-12-29 17:33] LABS: IRON SERUM 10 ug/dL (50-175); TOTAL IRON BINDING CAPACITY 128 ug/dL (250-450)
[2019-12-29] MEDS: CHLORHEXIDINE GLUCONATE 4% CLEANSER FOR DECOLONIZATION TP SCH (22:43)
[2019-12-30] MEDS ORDERED: PIPERACILLIN/TAZOBACTAM 3.375 GM VIAL IVPB ONE ×3 (01:32→17:46)
[2019-12-30] MEDS ORDERED: DEXTROSE 5%-WATER - 50 ML IVPB ONE ×3 (01:32→17:46)
[2019-12-30] MEDS ORDERED: INSULIN (NOVOLOG) ASPART 100 UNITS/ML 10ML VIAL ONE (01:33)
[2019-12-30] MEDS: PIPERACILLIN/TAZOB 3.375 GM 3.375 GM in DEXTROSE 5%-WATER - 50 ML IVPB SCH ×3 (01:39→18:06)
[2019-12-30] MEDS: MIDAZOLAM IN 0.9 % SOD.CHLORID 100 MG/100 ML PLAST..BAG IVPB SCH ×2 (03:02→21:37)
[2019-12-30] MEDS: PROPOFOL 1,000,000 MCG/100 ML VIAL IVPB SCH (03:02)
[2019-12-30] MEDS: PANTOPRAZOLE SODIUM 80 MG in SODIUM CHLORIDE 100 ML IVPB SCH ×2 (03:03→16:05)
[2019-12-30] MEDS: SODIUM CHLORIDE 1,000 ML IV SCH (05:17)
[2019-12-30 06:48] LABS: HEMATOCRIT 22.9 % (35.4-49); HEMOGLOBIN 7.7 GM/dL (11.7-16.9); MCH 31.3 pg (25.7-33.7); MCHC 33.8 g/dl (32.0-35.9); MEAN CELL VOLUME 92.7 fl (80-96); PLATELET COUNT 185 K/MM3 (134-434); RBC 2.48 M/mm3 (4.00-5.60); RDW 27.4 % (11.9-15.9); WHITE BLOOD COUNT 5.3 K/mm3 (4.0-10.0)
[2019-12-30 07:06] LABS: ARTERIAL BLD GAS O2 SATURATION 96.9 mmHg (95-98); ARTERIAL BLOOD GAS BASE EXCESS -1.6 mmol/L (-2-2)
[2019-12-30 07:08] LABS: ALLENS TEST POSITIVE; VENT MODE AC; VENT RATE 16
[2019-12-30 07:16] LABS: ALBUMIN 1.9 g/dl (3.4-5.0); BILIRUBIN,TOTAL 0.6 mg/dL (0.2-1); BLOOD UREA NITROGEN 9.2 mg/dL (7-18); CREATININE 0.5 mg/dL (0.55-1.3); PHOSPHOROUS 2.2 mg/dL (2.5-4.9); TOT PROT 4.3 g/dl (6.4-8.2)
[2019-12-30] MEDS ORDERED: PT OWN MED DRAWER 7, Y5N ONE ×2 (09:40→13:52)
[2019-12-30] MEDS: THIAMINE HCL 200 MG/2 ML VIAL IVPB SCH (10:02)
[2019-12-30] MEDS: CYANOCOBALAMIN (VITAMIN B-12) 1000 MCG/1 ML VIAL IM SCH (10:02)
[2019-12-30] MEDS: MUPIROCIN 2% TOPICAL OINTMENT FOR DECOLONIZATION NS SCH ×2 (10:02→22:00)
--- NOTE | 2019-12-30 10:46 | PN ---
Progress Note (short form) - Note Progress Note: s/p egd yesterday-clots, no varices remains intubated Vital Signs Period Temp Pulse Resp BP Sys/Garcia Pulse Ox Last 24 Hr 97.3 F-98.4 F 62-79 14-28 94-120/51-71 16-100 cor-rrr lungs decreased bs at bases abd soft, nt ext no edema CBC, BMP 12/30/19 06:00 12/30/19 06:00 Microbiology 12/28/19 18:00 Sputum - Endotrachea Suction/Ventilator Gram Stain - Final 12/28/19 18:00 Sputum - Endotrachea Suction/Ventilator Sputum Culture - Preliminary Non Lactose Fermenting Gnb Yeast Like Organism 12/28/19 18:00 Urine For Antigen Detection Legionella Antigen - Final 12/28/19 18:00 Urine For Antigen Detection Streptococcus pneumoniae Antigen (M - Final imp/reccd resp failure GI bleed probable aspiration pneumonia sputum culture pending urinary antigens are negative continue zosyn day #3 extubation per ICU Problem List - Problems (1) Respiratory failure Code(s): J96.90 - RESPIRATORY FAILURE, UNSP, UNSP W HYPOXIA OR HYPERCAPNIA (2) GIB (gastrointestinal bleeding) Code(s): K92.2 - GASTROINTESTINAL HEMORRHAGE, UNSPECIFIED Qualifiers: GI bleed type/associated pathology: unspecified gastrointestinal hemorrhage type Qualified Code(s): K92.2 - Gastrointestinal hemorrhage, unspecified (3) Pneumonia Code(s): J18.9 - PNEUMONIA, UNSPECIFIED ORGANISM
--- NOTE | 2019-12-30 11:10 | PN ---
Progress Note, Physician Chief Complaint: Hematemesis Acute respiratory failure History of Present Illness: 59 M pmh COPD (no home O2), ETOH abuse, smoker 2ppd, PVD (on plavix) presenting with hematemesis today, syncope witnessed by EMS, no head trauma. Daily drinker, no h/o GIB. No complaints at present. 100% NRB, reportedly hypoxic en route, reduced to 3L NC on arrival. Ho history of GIB, varices, or liver cirrhosis. Remains intubated and sedated S/P EGD- gastric erosions + Duodenal ulceration Hematochezia upon examination, Hg plumbed to 6.4, with systolic BP in 50's STAT bolus IVF + 2 U PRBC + Plts in process CTA abd STAT - Current Medication List Current Medications: Active Medications Chlorhexidine Gluconate (Hibiclens For Decolonization -) 1 applic TP HS [facility] Last Admin: 12/29/19 22:43 Dose: 1 applic Documented by: Cyanocobalamin (Vitamin B12 Injection -) 1,000 mcg IM DAILY [facility] Last Admin: 12/30/19 10:02 Dose: 1,000 mcg Documented by: Pantoprazole Sodium 80 mg/ (Sodium Chloride) 100 mls @ 10 mls/hr IVPB Q10H [facility] Stop: 12/31/19 03:43 Last Admin: 12/30/19 03:03 Dose: 10 mls/hr Documented by: Sodium Chloride (Normal Saline -) 1,000 mls @ 125 mls/hr IV ASDIR [facility] Last Admin: 12/30/19 05:17 Dose: 125 mls/hr Documented by: Piperacillin Sod/Tazobactam (Sod 3.375 gm/ Dextrose) 50 mls @ 100 mls/hr IVPB Q8H-IV [facility]; Protocol Last Admin: 12/30/19 10:02 Dose: 100 mls/hr Documented by: Propofol (Diprivan -) 1,000,000 mcg in 100 mls @ 1.761 mls/hr IVPB TITR [facility]; Protocol Last Admin: 12/30/19 03:02 Dose: 30 mcg/kg/min, 10.566 mls/hr Documented by: Fentanyl (Sublimaze Ivpb) 500 mcg in 100 mls @ 1 mls/hr IVPB TITR [facility] Last Admin: 12/29/19 10:00 Dose: 25 mcg/hr, 5 mls/hr Documented by: Midazolam HCl (Midazolam 100mg/100ml-0.9%Nacl) 100 mg in 100 mls @ 1 mls/hr IVPB TITR [facility]; Protocol Last Admin: 12/30/19 03:02 Dose: 5 mg/hr, 5 mls/hr Documented by: Mupirocin (Bactroban Ointment (For Decolonization) -) 1 applic NS BID [facility] Stop: 01/02/20 09:59 Last Admin: 12/30/19 10:02 Dose: 1 applic Documented by: Thiamine HCl (Vitamin B1 Injection -) 200 mg IVPB DAILY [facility] Last Admin: 12/30/19 10:02 Dose: 200 mg Documented by: - Objective Vital Signs: Vital Signs Temperature 98.2 F 12/30/19 06:00 Pulse Rate 75 12/30/19 10:03 Respiratory Rate 16 12/30/19 10:03 Blood Pressure 111/64 12/30/19 10:03 O2 Sat by Pulse Oximetry (%) 98 12/30/19 10:03 Constitutional: Yes: Well Nourished, No Distress, Calm Cardiovascular: Yes: Regular Rate and Rhythm Respiratory: Yes: Regular, CTA Bilaterally, Mechanically Ventilated Gastrointestinal: Yes: Normal Bowel Sounds, Soft Genitourinary: Yes: Munoz Present Edema: No Peripheral Pulses WNL: Yes Neurological: Yes: Other (sedated) Labs: CBC, BMP 12/30/19 06:00 12/30/19 06:00 INR, PTT INR 1.11 (0.83-1.09) H 12/28/19 11:00 Fibrinogen 249.0 mg/dL (238-498) 12/28/19 11:00 Problem List - Problems (1) Anemia Assessment/Plan: -2/2 to acute blood loss -Monitor H/H -normal transfusion parameters -Check Iron profile, replace if indicated -B12 inj daily -PPI -Continue octreotide drip Problems reviewed: Yes Code(s): D64.9 - ANEMIA, UNSPECIFIED (2) GIB (gastrointestinal bleeding) Assessment/Plan: -GI consult appreciated -S/P EGD, may need repeat -monitor H/H closely -Transfuse as needed to keep Hg>8.0 -PPI -Octreotide drip -CTA abd stat -IVF bolus -Plt Problems reviewed: Yes Code(s): K92.2 - GASTROINTESTINAL HEMORRHAGE, UNSPECIFIED Qualifiers: GI bleed type/associated pathology: unspecified gastrointestinal hemorrhage type Qualified Code(s): K92.2 - Gastrointestinal hemorrhage, unspecified (3) Pneumonia Assessment/Plan: -Pulmonary on board -Mech vent -COVID 19 PCR negative Problems reviewed: Yes Code(s): J18.9 - PNEUMONIA, UNSPECIFIED ORGANISM (4) Respiratory failure Assessment/Plan: as above -Wean as tolerated Problems reviewed: Yes Code(s): J96.90 - RESPIRATORY FAILURE, UNSP, UNSP W HYPOXIA OR HYPERCAPNIA (5) Alcohol abuse Assessment/Plan: -Thiamine IVPB -Cyanocobalamine 1g IM daily Problems reviewed: Yes Code(s): F10.10 - ALCOHOL ABUSE, UNCOMPLICATED (6) Hyponatremia Assessment/Plan: -Nephrology consult -Continue IVF -Monitor trend Problems reviewed: Yes Code(s): E87.1 - HYPO-OSMOLALITY AND HYPONATREMIA (7) Malnourished Problems reviewed: Yes Code(s): E46 - UNSPECIFIED PROTEIN-CALORIE MALNUTRITION Assessment/Plan See problem list Spoke to Kaden (son) who wants to defer all the medical decision making to pt's sister Danna. Called Magali twice with no answer, left 2 messages. SW Lori Luciano was able to get hold of Magali, who told Lori Luciano that "she herself cannot make decisions" and she "needs it to be Danna to make all decisions."
--- NOTE | 2019-12-30 11:16 | PN.GI ---
GI Progress Note Subjective: No acute events No overt bleeding reported - Objective Vital Signs: Vital Signs Temperature 98.2 F 12/30/19 06:00 Pulse Rate 75 12/30/19 10:03 Respiratory Rate 16 12/30/19 10:03 Blood Pressure 111/64 12/30/19 10:03 O2 Sat by Pulse Oximetry (%) 98 12/30/19 10:03 Constitutional: Calm Eyes: No: Sclera Icterus Cardiovascular: Yes: Regular Rate and Rhythm Respiratory: Yes: Diminished (at bases bilaterally) Gastrointestinal Inspection: No: Distention ...Auscultate: Yes: Normoactive Bowel Sounds ...Palpate: No: Tenderness (No grimacing upon palpation) ...Percussion: No: Tympanitic Edema: No (No LE edema) Neurological: Yes: Alert Labs: CBC, BMP 12/30/19 06:00 12/30/19 06:00 INR, PTT INR 1.11 (0.83-1.09) H 12/28/19 11:00 Fibrinogen 249.0 mg/dL (238-498) 12/28/19 11:00 Hepatic Panel Total Bilirubin 0.6 mg/dL (0.2-1) 12/30/19 06:00 AST 12 U/L (15-37) L 12/30/19 06:00 ALT 9 U/L (13-61) L 12/30/19 06:00 Alkaline Phosphatase 55 U/L (45-117) 12/30/19 06:00 Albumin 1.9 g/dl (3.4-5.0) L 12/30/19 06:00 Problem List - Problems (1) GIB (gastrointestinal bleeding) Assessment/Plan: No overt bleeding and Remains hemodynamically stable Advise: NPO IV Hydration Continued Protonix infusion @ 8mg/hr Repeat CBC @ 12 Code(s): K92.2 - GASTROINTESTINAL HEMORRHAGE, UNSPECIFIED Qualifiers: GI bleed type/associated pathology: unspecified gastrointestinal hemorrhage type Qualified Code(s): K92.2 - Gastrointestinal hemorrhage, unspecified
[2019-12-30] MEDS: VASOPRESSIN 40 UNITS in SODIUM CHLORIDE 98 ML IVPB SCH (12:00)
[2019-12-30 12:35] LABS: BASO % 1.5 % (0-2.0); EOS % 1.8 % (0-4.5); HEMATOCRIT 18.8 % (35.4-49); MCH 32.4 pg (25.7-33.7); MCHC 34.2 g/dl (32.0-35.9); MEAN CELL VOLUME 94.9 fl (80-96); MEAN PLT VOLUME 7.3 fl (7.5-11.1); MONO % 5.8 % (3.8-10.2); NEUT % 79.9 % (42.8-82.8); PLATELET COUNT 266 K/MM3 (134-434); RBC 1.98 M/mm3 (4.00-5.60); RDW 27.3 % (11.9-15.9); WHITE BLOOD COUNT 9.2 K/mm3 (4.0-10.0)
[2019-12-30 12:39] LABS: HEMOGLOBIN 6.4 GM/dL (11.7-16.9)
[2019-12-30] MEDS ORDERED: NOREPINEPHRINE NS PREMIX 16,000 MCG/500 ML BAG IVPB ONE (13:10)
[2019-12-30] MEDS ORDERED: VASOPRESSIN 20 UNITS/ML VIAL IV ONE (13:22)
--- NOTE | 2019-12-30 13:43 | PN ---
Progress Note (short form) - Note Progress Note: Called by resident: hematochezia, Hgb 6.4 Reeval;uated patient: hypotensive to 50's systolic Being resuscitated. Receiving blood. Advised platelet transfusion as well Not stable enough for repeat EGD at this time. Ordered CTA to try to localize bleeding source D/W IR Dr. Valentin Cortez. Aware of the need for possible embolization Discussed findings with patient's sister Danna. Consented for repeat EGD if clinical status permits. Problem List - Problems (1) GIB (gastrointestinal bleeding) Code(s): K92.2 - GASTROINTESTINAL HEMORRHAGE, UNSPECIFIED Qualifiers: GI bleed type/associated pathology: unspecified gastrointestinal hemorrhage type Qualified Code(s): K92.2 - Gastrointestinal hemorrhage, unspecified
[2019-12-30] MEDS ORDERED: ERYTHROMYCIN *INJECTION* 500 MG VIAL IVPB ONE (13:45)
[2019-12-30] MEDS ORDERED: ERYTHROMYCIN INJECTION - 250 MG in SODIUM CHLORIDE 100 ML IVPB ONE (14:15)
[2019-12-30] MEDS ORDERED: ROCURONIUM BROMIDE 50 MG/5 ML SYRINGE ONE (14:28)
--- NOTE | 2019-12-30 14:28 | PN ---
Teaching Attending Note Name of Resident: Varsha Davis ATTENDING PHYSICIAN STATEMENT I saw and evaluated the patient. I reviewed the resident's note and discussed the case with the resident. I agree with the resident's findings and plan as documented. SUBJECTIVE: Patient seen and examined in the ICU. Sedated and intubated. Recurrent GI bleeding : Now on NE and Vasopressin for hemodynamic support. GI at the bedside for emergent EGD. CTA also being arranged. OBJECTIVE: Intake & Output 12/27/19 12/28/19 12/29/19 12/30/19 23:59 23:59 23:59 23:59 Intake Total 2830 6504.4 1461 Output Total 1300 2400 500 Balance 1530 4104.4 961 Weight 160 lb 129 lb 6.581 oz Last Vital Signs Temp Pulse Resp BP Pulse Ox 98.2 F 123 H 24 H 95/65 96 12/30/19 06:00 12/30/19 12:00 12/30/19 12:10 12/30/19 12:00 12/30/19 12:16 Active Medications Chlorhexidine Gluconate (Hibiclens For Decolonization -) 1 applic TP HS [facility] Last Admin: 12/29/19 22:43 Dose: 1 applic Documented by: Cyanocobalamin (Vitamin B12 Injection -) 1,000 mcg IM DAILY [facility] Last Admin: 12/30/19 10:02 Dose: 1,000 mcg Documented by: Pantoprazole Sodium 80 mg/ (Sodium Chloride) 100 mls @ 10 mls/hr IVPB Q10H [facility] Stop: 12/31/19 03:43 Last Admin: 12/30/19 03:03 Dose: 10 mls/hr Documented by: Sodium Chloride (Normal Saline -) 1,000 mls @ 125 mls/hr IV ASDIR [facility] Last Admin: 12/30/19 05:17 Dose: 125 mls/hr Documented by: Piperacillin Sod/Tazobactam (Sod 3.375 gm/ Dextrose) 50 mls @ 100 mls/hr IVPB Q8H-IV [facility]; Protocol Last Admin: 12/30/19 10:02 Dose: 100 mls/hr Documented by: Propofol (Diprivan -) 1,000,000 mcg in 100 mls @ 1.761 mls/hr IVPB TITR [facility]; Protocol Last Admin: 12/30/19 03:02 Dose: 30 mcg/kg/min, 10.566 mls/hr Documented by: Fentanyl (Sublimaze Ivpb) 500 mcg in 100 mls @ 1 mls/hr IVPB TITR [facility] Last Admin: 12/29/19 10:00 Dose: 25 mcg/hr, 5 mls/hr Documented by: Midazolam HCl (Midazolam 100mg/100ml-0.9%Nacl) 100 mg in 100 mls @ 1 mls/hr IVPB TITR [facility]; Protocol Last Admin: 12/30/19 03:02 Dose: 5 mg/hr, 5 mls/hr Documented by: Vasopressin 40 units/ Sodium (Chloride) 100 mls @ 5 mls/hr IVPB ASDIR [facility]; Protocol Erythromycin Lactobionate 250 (mg/ Sodium Chloride) 100 mls @ 100 mls/hr IVPB ONCE ONE Stop: 12/30/19 15:14 Mupirocin (Bactroban Ointment (For Decolonization) -) 1 applic NS BID [facility] Stop: 01/02/20 09:59 Last Admin: 12/30/19 10:02 Dose: 1 applic Documented by: Thiamine HCl (Vitamin B1 Injection -) 200 mg IVPB DAILY [facility] Last Admin: 12/30/19 10:02 Dose: 200 mg Documented by: GENERAL: Intubated and sedated HEAD: NC / AT EYES: (-) Icterus ENT: intubated, NGT in place NECK: Trachea midline LUNGS: Vented, diminished at the bases HEART: RRR, S1, S2 ABDOMEN: Soft, nontender, nondistended, EXTREMITIES: cool, no edema. NEUROLOGICAL: sedated SKIN: Warm, dry, multiple ecchymosis on BL arms and legs Laboratory Results - last 24 hr 12/28/19 12/29/19 12/29/19 04:34 16:00 16:00 WBC RBC Hgb Hct MCV MCH MCHC RDW Plt Count MPV Absolute Neuts (auto) Neutrophils % Lymphocytes % Monocytes % Eosinophils % Basophils % Nucleated RBC % Anticoagulation Therapy Puncture Site Patient Temperature ABG pH ABG pCO2 ABG pO2 ABG HCO3 ABG O2 Sat (Measured) ABG O2 Content ABG Base Excess Vipul Test Patient On Oxygen O2 Delivery Device Oxygen Flow Rate Vent Mode Vent Rate Mechanical Rate PEEP Pressure Support Vent Sodium Potassium Chloride Carbon Dioxide Anion Gap BUN Creatinine Est GFR (CKD-EPI)AfAm Est GFR (CKD-EPI)NonAf Random Glucose Calcium Phosphorus Magnesium Iron 10 L TIBC 128 L Iron Saturation 7 L Unsaturated IBC 118 L Ferritin 325.7 Total Bilirubin AST ALT Alkaline Phosphatase Total Protein Albumin Blood Type A NEGATIVE Antibody Screen Negative Crossmatch See Detail 12/29/19 12/30/19 12/30/19 16:00 06:00 06:00 WBC 5.9 5.3 RBC 2.53 L 2.48 L Hgb 8.1 L 7.7 L Hct 23.6 L 22.9 L MCV 93.3 92.7 MCH 32.0 31.3 MCHC 34.3 33.8 RDW 27.5 H 27.4 H Plt Count 184 185 MPV 7.3 L 7.0 L Absolute Neuts (auto) 5.1 Neutrophils % 86.3 H Lymphocytes % 6.4 L D Monocytes % 5.6 Eosinophils % 0.9 D Basophils % 0.8 D Nucleated RBC % 0 Anticoagulation Therapy Puncture Site Patient Temperature ABG pH ABG pCO2 ABG pO2 ABG HCO3 ABG O2 Sat (Measured) ABG O2 Content ABG Base Excess Vipul Test Patient On Oxygen O2 Delivery Device Oxygen Flow Rate Vent Mode Vent Rate Mechanical Rate PEEP Pressure Support Vent Sodium 134 L Potassium 4.0 Chloride 102 Carbon Dioxide 26 Anion Gap 5 L BUN 9.2 Creatinine 0.5 L Est GFR (CKD-EPI)AfAm 136.51 Est GFR (CKD-EPI)NonAf 117.79 Random Glucose 91 Calcium 7.0 L Phosphorus 2.2 L Magnesium 2.0 Iron TIBC Iron Saturation Unsaturated IBC Ferritin Total Bilirubin 0.6 AST 12 L ALT 9 L Alkaline Phosphatase 55 Total Protein 4.3 L Albumin 1.9 L Blood Type Antibody Screen Crossmatch 12/30/19 12/30/19 12/30/19 06:00 06:25 12:20 WBC 9.2 RBC 1.98 L Hgb 6.4 L* Hct 18.8 L D MCV 94.9 MCH 32.4 MCHC 34.2 RDW 27.3 H Plt Count 266 D MPV 7.3 L Absolute Neuts (auto) 7.4 Neutrophils % 79.9 Lymphocytes % 11.0 D Monocytes % 5.8 Eosinophils % 1.8 D Basophils % 1.5 Nucleated RBC % 0 Anticoagulation Therapy No Result Required. Puncture Site Left radial Patient Temperature No Result Required. ABG pH 7.370 ABG pCO2 41.70 ABG pO2 93.0 ABG HCO3 23.6 ABG O2 Sat (Measured) 96.9 ABG O2 Content No Result Required. ABG Base Excess -1.6 Vipul Test Positive Patient On Oxygen Yes O2 Delivery Device Vent Oxygen Flow Rate 50% Vent Mode Ac Vent Rate 16 Mechanical Rate Yes PEEP 5.0 Pressure Support Vent 450 Sodium Potassium Chloride Carbon Dioxide Anion Gap BUN Creatinine Est GFR (CKD-EPI)AfAm Est GFR (CKD-EPI)NonAf Random Glucose Calcium Phosphorus Magnesium Iron TIBC Iron Saturation Unsaturated IBC Ferritin Total Bilirubin AST ALT Alkaline Phosphatase Total Protein Albumin Blood Type A NEGATIVE Antibody Screen Negative Crossmatch See Detail ASSESSMENT/PLAN: Acute Respiratory Failure Suspected Aspiration PNA HTN PVD Chronic alcohol abuse, NSAID, & tobacco abuse Hematemsis Syncope EGD per GI CTA was ordered Close monitoring of CBC Transfusional support Octreotide PPI drip Hold AC Mechanical VTE prophylaxis ABX per ID Requires ICU monitoring Dr Avalos Critical care time spent in reviewing chart, evaluating patient and formulating plan - 36 minutes.
--- NOTE | 2019-12-30 15:25 | PN ---
Progress Note, Physician History of Present Illness: Pt seen and examined at bedside. He remains in the ICU. He remains intubated. - Current Medication List Current Medications: Active Medications Chlorhexidine Gluconate (Hibiclens For Decolonization -) 1 applic TP HS [facility] Last Admin: 12/29/19 22:43 Dose: 1 applic Documented by: Cyanocobalamin (Vitamin B12 Injection -) 1,000 mcg IM DAILY [facility] Last Admin: 12/30/19 10:02 Dose: 1,000 mcg Documented by: Pantoprazole Sodium 80 mg/ (Sodium Chloride) 100 mls @ 10 mls/hr IVPB Q10H [facility] Stop: 12/31/19 03:43 Last Admin: 12/30/19 03:03 Dose: 10 mls/hr Documented by: Sodium Chloride (Normal Saline -) 1,000 mls @ 125 mls/hr IV ASDIR [facility] Last Admin: 12/30/19 05:17 Dose: 125 mls/hr Documented by: Piperacillin Sod/Tazobactam (Sod 3.375 gm/ Dextrose) 50 mls @ 100 mls/hr IVPB Q8H-IV [facility]; Protocol Last Admin: 12/30/19 10:02 Dose: 100 mls/hr Documented by: Propofol (Diprivan -) 1,000,000 mcg in 100 mls @ 1.761 mls/hr IVPB TITR [facility]; Pr otocol Last Admin: 12/30/19 03:02 Dose: 30 mcg/kg/min, 10.566 mls/hr Documented by: Fentanyl (Sublimaze Ivpb) 500 mcg in 100 mls @ 1 mls/hr IVPB TITR [facility] Last Admin: 12/29/19 10:00 Dose: 25 mcg/hr, 5 mls/hr Documented by: Midazolam HCl (Midazolam 100mg/100ml-0.9%Nacl) 100 mg in 100 mls @ 1 mls/hr IVPB TITR [facility]; Protocol Last Admin: 12/30/19 03:02 Dose: 5 mg/hr, 5 mls/hr Documented by: Vasopressin 40 units/ Sodium (Chloride) 100 mls @ 5 mls/hr IVPB ASDIR [facility]; Protocol Mupirocin (Bactroban Ointment (For Decolonization) -) 1 applic NS BID [facility] Stop: 01/02/20 09:59 Last Admin: 12/30/19 10:02 Dose: 1 applic Documented by: Thiamine HCl (Vitamin B1 Injection -) 200 mg IVPB DAILY [facility] Last Admin: 12/30/19 10:02 Dose: 200 mg Documented by: - Objective Vital Signs: Vital Signs Temperature 98.2 F 12/30/19 06:00 Pulse Rate 123 H 12/30/19 12:00 Respiratory Rate 24 H 12/30/19 12:10 Blood Pressure 95/65 12/30/19 12:00 O2 Sat by Pulse Oximetry (%) 96 12/30/19 12:16 Constitutional: Yes: Calm HENT: Yes: Atraumatic Cardiovascular: Yes: S1, S2 Respiratory: Yes: Mechanically Ventilated Gastrointestinal: Yes: Soft Genitourinary: Yes: Munoz Present Musculoskeletal: Yes: WNL Edema: No Neurological: Yes: Lethargy Labs: CBC, BMP 12/30/19 12:20 12/30/19 06:00 INR, PTT INR 1.11 (0.83-1.09) H 12/28/19 11:00 Fibrinogen 249.0 mg/dL (238-498) 12/28/19 11:00 Problem List - Problems (1) GIB (gastrointestinal bleeding) Code(s): K92.2 - GASTROINTESTINAL HEMORRHAGE, UNSPECIFIED Qualifiers: GI bleed type/associated pathology: unspecified gastrointestinal hemorrhage type Qualified Code(s): K92.2 - Gastrointestinal hemorrhage, unspecified (2) Respiratory distress, acute Code(s): R06.03 - ACUTE RESPIRATORY DISTRESS (3) Alcohol abuse Code(s): F10.10 - ALCOHOL ABUSE, UNCOMPLICATED (4) HTN (hypertension) Code(s): I10 - ESSENTIAL (PRIMARY) HYPERTENSION (5) Hyponatremia Code(s): E87.1 - HYPO-OSMOLALITY AND HYPONATREMIA Assessment/Plan Current Medications Generic Name Dose Route Start Last Admin Trade Name Freq PRN Reason Stop Dose Admin Chlorhexidine Gluconate 1 applic 12/28/19 22:00 12/29/19 22:43 Hibiclens For Decolonization - TP 1 applic HS [facility] Administration Cyanocobalamin 1,000 mcg 12/29/19 13:30 12/30/19 10:02 Vitamin B12 Injection - IM 1,000 mcg DAILY [facility] Administration Pantoprazole Sodium 80 mg/ 100 mls @ 10 mls/hr 12/28/19 03:45 12/30/19 03:03 Sodium Chloride IVPB 12/31/19 03:43 10 mls/hr Q10H [facility] Administration 8 MG/HR Sodium Chloride 1,000 mls @ 125 mls/hr 12/28/19 04:30 12/30/19 05:17 Normal Saline - IV 125 mls/hr ASDIR [facility] Administration Piperacillin Sod/Tazobactam 50 mls @ 100 mls/hr 12/29/19 18:00 12/30/19 10:02 Sod 3.375 gm/ Dextrose IVPB 100 mls/hr Q8H-IV [facility] Administration Protocol Propofol 1,000,000 mcg in 100 mls @ 1.761 mls/hr 12/28/19 12:45 12/30/19 03:02 Diprivan - IVPB 30 mcg/kg/min TITR [facility] 10.566 mls/hr Administration Protocol 5 MCG/KG/MIN Fentanyl 500 mcg in 100 mls @ 1 mls/hr 12/28/19 17:50 12/29/19 10:00 Sublimaze Ivpb IVPB 25 mcg/hr TITR [facility] 5 mls/hr Administration 5 MCG/HR Midazolam HCl 100 mg in 100 mls @ 1 mls/hr 12/29/19 05:00 12/30/19 03:02 Midazolam 100mg/100ml-0.9%Nacl IVPB 5 mg/hr TITR [facility] 5 mls/hr Administration Protocol 1 MG/HR Vasopressin 40 units/ Sodium 100 mls @ 5 mls/hr 12/30/19 13:30 Chloride IVPB ASDIR [facility] Protocol 2 UNITS/HR Mupirocin 1 applic 12/28/19 10:00 12/30/19 10:02 Bactroban Ointment (For Decolonization) - NS 01/02/20 09:59 1 applic BID [facility] Administration Thiamine HCl 200 mg 12/29/19 13:45 12/30/19 10:02 Vitamin B1 Injection - IVPB 200 mg DAILY [facility] Administration Impression 1. hyponatremia 2. lactic acidosis 3. resp failure requiring intubation 4. etoh abuse 5. hematemesis 6. possible aspiration pna 7. active smoker 8. copd on home oxygen 9. pvd 10. gi bleed Plan - sodium continues to improve - monitor hg - gi follow up - cont vent support - avoid a change in sodium of greater than 6 to 8 in 24 hours - will follow
--- NOTE | 2019-12-30 16:11 | PN ---
Physical Exam: SUBJECTIVE: Patient seen and examined at the bedside, intubated and sedated OBJECTIVE: Vital Signs Period Temp Pulse Resp BP Sys/Garcia Pulse Ox Last 24 Hr 98.2 F-98.4 F 62-123 14-28 94-117/54-71 16-100 GENERAL: The patient is sedated HEAD: Normal with no signs of trauma. EYES: PERRL ENT: intubated, NGT in place NECK: Trachea midline LUNGS: decreased breath sounds on right side HEART: RRR, s1, s2 ABDOMEN: Soft, nontender, nondistended, EXTREMITIES: warm, well-perfused, no edema. NEUROLOGICAL: sedated SKIN: Warm, dry, multiple ecchymosis on BL arms and legs Laboratory Results - last 24 hr 12/28/19 12/29/19 12/29/19 04:34 16:00 16:00 WBC RBC Hgb Hct MCV MCH MCHC RDW Plt Count MPV Absolute Neuts (auto) Neutrophils % Lymphocytes % Monocytes % Eosinophils % Basophils % Nucleated RBC % Anticoagulation Therapy Puncture Site Patient Temperature ABG pH ABG pCO2 ABG pO2 ABG HCO3 ABG O2 Sat (Measured) ABG O2 Content ABG Base Excess Vipul Test Patient On Oxygen O2 Delivery Device Oxygen Flow Rate Vent Mode Vent Rate Mechanical Rate PEEP Pressure Support Vent Sodium Potassium Chloride Carbon Dioxide Anion Gap BUN Creatinine Est GFR (CKD-EPI)AfAm Est GFR (CKD-EPI)NonAf Random Glucose Calcium Phosphorus Magnesium Iron 10 L TIBC 128 L Iron Saturation 7 L Unsaturated IBC 118 L Ferritin 325.7 Total Bilirubin AST ALT Alkaline Phosphatase Total Protein Albumin Blood Type A NEGATIVE Antibody Screen Negative Crossmatch See Detail 12/29/19 12/30/19 12/30/19 16:00 06:00 06:00 WBC 5.9 5.3 RBC 2.53 L 2.48 L Hgb 8.1 L 7.7 L Hct 23.6 L 22.9 L MCV 93.3 92.7 MCH 32.0 31.3 MCHC 34.3 33.8 RDW 27.5 H 27.4 H Plt Count 184 185 MPV 7.3 L 7.0 L Absolute Neuts (auto) 5.1 Neutrophils % 86.3 H Lymphocytes % 6.4 L D Monocytes % 5.6 Eosinophils % 0.9 D Basophils % 0.8 D Nucleated RBC % 0 Anticoagulation Therapy Puncture Site Patient Temperature ABG pH ABG pCO2 ABG pO2 ABG HCO3 ABG O2 Sat (Measured) ABG O2 Content ABG Base Excess Vipul Test Patient On Oxygen O2 Delivery Device Oxygen Flow Rate Vent Mode Vent Rate Mechanical Rate PEEP Pressure Support Vent Sodium 134 L Potassium 4.0 Chloride 102 Carbon Dioxide 26 Anion Gap 5 L BUN 9.2 Creatinine 0.5 L Est GFR (CKD-EPI)AfAm 136.51 Est GFR (CKD-EPI)NonAf 117.79 Random Glucose 91 Calcium 7.0 L Phosphorus 2.2 L Magnesium 2.0 Iron TIBC Iron Saturation Unsaturated IBC Ferritin Total Bilirubin 0.6 AST 12 L ALT 9 L Alkaline Phosphatase 55 Total Protein 4.3 L Albumin 1.9 L Blood Type Antibody Screen Crossmatch 12/30/19 12/30/19 12/30/19 06:00 06:25 12:20 WBC 9.2 RBC 1.98 L Hgb 6.4 L* Hct 18.8 L D MCV 94.9 MCH 32.4 MCHC 34.2 RDW 27.3 H Plt Count 266 D MPV 7.3 L Absolute Neuts (auto) 7.4 Neutrophils % 79.9 Lymphocytes % 11.0 D Monocytes % 5.8 Eosinophils % 1.8 D Basophils % 1.5 Nucleated RBC % 0 Anticoagulation Therapy No Result Required. Puncture Site Left radial Patient Temperature No Result Required. ABG pH 7.370 ABG pCO2 41.70 ABG pO2 93.0 ABG HCO3 23.6 ABG O2 Sat (Measured) 96.9 ABG O2 Content No Result Required. ABG Base Excess -1.6 Vipul Test Positive Patient On Oxygen Yes O2 Delivery Device Vent Oxygen Flow Rate 50% Vent Mode Ac Vent Rate 16 Mechanical Rate Yes PEEP 5.0 Pressure Support Vent 450 Sodium Potassium Chloride Carbon Dioxide Anion Gap BUN Creatinine Est GFR (CKD-EPI)AfAm Est GFR (CKD-EPI)NonAf Random Glucose Calcium Phosphorus Magnesium Iron TIBC Iron Saturation Unsaturated IBC Ferritin Total Bilirubin AST ALT Alkaline Phosphatase Total Protein Albumin Blood Type A NEGATIVE Antibody Screen Negative Crossmatch See Detail Active Medications Generic Name Dose Route Start Last Admin Trade Name Freq PRN Reason Stop Dose Admin Chlorhexidine Gluconate 1 applic 12/28/19 22:00 12/29/19 22:43 Hibiclens For Decolonization - TP 1 applic HS TREVOR Administration Cyanocobalamin 1,000 mcg 12/29/19 13:30 12/30/19 10:02 Vitamin B12 Injection - IM 1,000 mcg DAILY TREVOR Administration Pantoprazole Sodium 80 mg/ 100 mls @ 10 mls/hr 12/28/19 03:45 12/30/19 03:03 Sodium Chloride IVPB 12/31/19 03:43 10 mls/hr Q10H TREVOR Administration 8 MG/HR Sodium Chloride 1,000 mls @ 125 mls/hr 12/28/19 04:30 12/30/19 05:17 Normal Saline - IV 125 mls/hr ASDIR TREVOR Administration Piperacillin Sod/Tazobactam 50 mls @ 100 mls/hr 12/29/19 18:00 12/30/19 10:02 Sod 3.375 gm/ Dextrose IVPB 100 mls/hr Q8H-IV TREVOR Administration Protocol Propofol 1,000,000 mcg in 100 mls @ 1.761 mls/hr 12/28/19 12:45 12/30/19 03:02 Diprivan - IVPB 30 mcg/kg/min TITR TREVOR 10.566 mls/hr Administration Protocol 5 MCG/KG/MIN Fentanyl 500 mcg in 100 mls @ 1 mls/hr 12/28/19 17:50 12/29/19 10:00 Sublimaze Ivpb IVPB 25 mcg/hr TITR TREVOR 5 mls/hr Administration 5 MCG/HR Midazolam HCl 100 mg in 100 mls @ 1 mls/hr 12/29/19 05:00 12/30/19 03:02 Midazolam 100mg/100ml-0.9%Nacl IVPB 5 mg/hr TITR TRE[facility]OR 5 mls/hr Administration Protocol 1 MG/HR Vasopressin 40 units/ Sodium 100 mls @ 5 mls/hr 12/30/19 13:30 Chloride IVPB ASDIR [facility]RE[facility] Protocol 2 UNITS/HR Mupirocin 1 applic 12/28/19 10:00 12/30/19 10:02 Bactroban Ointment (For Decolonization) - NS 01/02/20 09:59 1 applic BID TREVOR Administration Thiamine HCl 200 mg 12/29/19 13:45 12/30/19 10:02 Vitamin B1 Injection - IVPB 200 mg DAILY TREVOR Administration ASSESSMENT/PLAN: 59 YO M with PMH HTN, PVD (on plavix), chronic alcohol, NSAID, & tobacco use presents with hematemsis and syncope, had an episode of ME bleeding today, given PRBC, put back on pressors, CTA and angio performed. #Neuro - Intubated, on fentanyl, propofol #Cardio - Started on Vasopressin and Norepinephrine after he pt became hypotensive 2/2 bleeding ME #Pulm - intubated and sedated - PEEP 5, FiO2 50 #GI - EGD (12/28): large clean based ulcer with non bleeding flat red spots in angulated area of junction of duodenal bulb and 1st portion duodenum - ME bleeding today, CTA done, Dr. Cortez read on the spot and took the pt for angio and embolization, pt currently in procedure #ID - Urine Leg negative, Sputum cx positive for yeast like organism as well as NLFGNB - ID on board - Zosyn 3.375 Q8H for aspiration pneumonia. #Heme - Will trend H/H #Renal - Hyponatremia, 127 >> 131 - avoid a change in sodium > 6-8 in 24H - Nephro on board #FEN - NPO #Prophylaxis - Hold AC, on Protonix drip #Dispo - ICU monitoring Visit type - Emergency Visit Emergency Visit: No - New Patient This patient is new to me today: No - Critical Care Critical Care patient: Yes Total Critical Care Time (in minutes): 36 Critical Care Statement: The care of this patient involved high complexity decision making to prevent further life threatening deterioration of the patient's condition and/or to evaluate & treat vital organ system(s) failure or risk of failure. ATTENDING PHYSICIAN STATEMENT I saw and evaluated the patient. I reviewed the resident's note and discussed the case with the resident. I agree with the resident's findings and plan as documented. SUBJECTIVE: OBJECTIVE: ASSESSMENT AND PLAN:
[2019-12-30 16:26] VITALS: BMI 19.5
[2019-12-30 18:33] LABS: BASO % 0.3 % (0-2.0); HEMOGLOBIN 7.4 GM/dL (11.7-16.9); LYMPH % 2.2 % (8-40); MCH 30.5 pg (25.7-33.7); MCHC 33.8 g/dl (32.0-35.9); MEAN CELL VOLUME 90.2 fl (80-96); MEAN PLT VOLUME 7.4 fl (7.5-11.1); MONO % 8.3 % (3.8-10.2); NEUT % 89.2 % (42.8-82.8); PLATELET COUNT 167 K/MM3 (134-434); RBC 2.43 M/mm3 (4.00-5.60); RDW 19.6 % (11.9-15.9)
[2019-12-30] MEDS: FENTANYL NS IVPB 500 MCG/100 ML BAG IVPB SCH (21:37)
[2019-12-30] MEDS: NOREPINEPHRINE D5W PREMIX 16,000 MCG/500 ML BAG IVPB SCH (21:37)
[2019-12-30] MEDS: CHLORHEXIDINE GLUCONATE 4% CLEANSER FOR DECOLONIZATION TP SCH (22:00)
[2019-12-30 22:23] LABS: ARTERIAL BLD GAS O2 SATURATION 99.3 mmHg (95-98); ARTERIAL BLOOD GAS BASE EXCESS -5.5 mmol/L (-2-2); ARTERIAL BLOOD GAS PO2 203.2 mmHg (80-100); ARTERIAL BLOOD GAS pH 7.298 (7.350-7.450)
[2019-12-30 22:24] LABS: ALLENS TEST POSITIVE; VENT MODE A/C; VENT RATE 16
[2019-12-31] MEDS ORDERED: DEXTROSE 5%-WATER - 50 ML IVPB ONE ×3 (01:16→17:58)
[2019-12-31] MEDS ORDERED: PT OWN MED DRAWER 7, Y5N ONE ×2 (01:16→09:24)
[2019-12-31] MEDS ORDERED: PIPERACILLIN/TAZOBACTAM 3.375 GM VIAL IVPB ONE ×3 (01:16→17:58)
[2019-12-31] MEDS: PIPERACILLIN/TAZOB 3.375 GM 3.375 GM in DEXTROSE 5%-WATER - 50 ML IVPB SCH ×3 (02:15→18:29)
[2019-12-31] MEDS: PANTOPRAZOLE SODIUM 80 MG in SODIUM CHLORIDE 100 ML IVPB SCH ×2 (02:30→13:30)
[2019-12-31] MEDS: MIDAZOLAM IN 0.9 % SOD.CHLORID 100 MG/100 ML PLAST..BAG IVPB SCH ×3 (04:52→10:00)
[2019-12-31 05:05] LABS: HEMATOCRIT 24.4 % (35.4-49); HEMOGLOBIN 8.6 GM/dL (11.7-16.9); MCH 31.8 pg (25.7-33.7); MCHC 35.4 g/dl (32.0-35.9); MEAN CELL VOLUME 89.9 fl (80-96); MEAN PLT VOLUME 7.9 fl (7.5-11.1); PLATELET COUNT 162 K/MM3 (134-434); RBC 2.71 M/mm3 (4.00-5.60); RDW 17.6 % (11.9-15.9); WHITE BLOOD COUNT 10.7 K/mm3 (4.0-10.0)
[2019-12-31 05:15] LABS: INR 1.22 (0.83-1.09); PROTHROMBIN TIME (PATIENT) 14.4 SEC (9.7-13.0)
[2019-12-31 05:18] LABS: ACTIVATED PTT 35.9 SECONDS (25.2-36.5)
[2019-12-31 05:26] LABS: ALBUMIN 1.4 g/dl (3.4-5.0); BILIRUBIN,TOTAL 0.8 mg/dL (0.2-1); MAGNESIUM 1.6 mg/dL (1.8-2.4); PHOSPHOROUS 3.9 mg/dL (2.5-4.9); POTASSIUM 4.9 mmol/L (3.5-5.1); TOT PROT 3.2 g/dl (6.4-8.2)
[2019-12-31 05:57] LABS: CALCIUM 6.5 mg/dL (8.5-10.1)
[2019-12-31 06:51] LABS: ARTERIAL BLD GAS O2 SATURATION 99.3 mmHg (95-98); ARTERIAL BLOOD GAS BASE EXCESS -8.7 mmol/L (-2-2); ARTERIAL BLOOD GAS PO2 223.6 mmHg (80-100)
[2019-12-31 06:58] LABS: ALLENS TEST POSITIVE
[2019-12-31 06:59] LABS: VENT MODE A/C; VENT RATE 16
[2019-12-31] MEDS: SODIUM CHLORIDE 1,000 ML IV SCH ×3 (07:00→11:58)
[2019-12-31 07:01] LABS: ARTERIAL BLOOD GAS pH 7.191 (7.350-7.450)
--- NOTE | 2019-12-31 08:38 | PN ---
Progress Note (short form) - Note Progress Note: Attending Surgeon Patient was seen and evaluated last PM; full note follow; s/p embolization of the GDA for bleeding DU; continue present tx. Justin Johnston MD FACS
[2019-12-31] MEDS: PROPOFOL 1,000,000 MCG/100 ML VIAL IVPB SCH ×2 (09:39→18:28)
[2019-12-31] MEDS: CYANOCOBALAMIN (VITAMIN B-12) 1000 MCG/1 ML VIAL IM SCH (09:41)
[2019-12-31] MEDS: THIAMINE HCL 200 MG/2 ML VIAL IVPB SCH (09:41)
[2019-12-31] MEDS: MUPIROCIN 2% TOPICAL OINTMENT FOR DECOLONIZATION NS SCH ×2 (09:41→23:00)
--- NOTE | 2019-12-31 10:52 | CONSULT ---
- Consultation REQUESTING PROVIDER: Eulogio Flynn MD CONSULT REQUEST: We have been asked to surgically evaluate this patient for an UGIB Hospitalist:Brennan Baird HISTORY OF PRESENT ILLNESS: TENAP who is a 59 y/o male who presented with UGI bleeding; called 72 hours post admission and after extensive dx. and tx. w/u; aptient ahs # co mobid medical problems most notable EtOH abuse ( 8 12 oz. cans of beer/day and nicotine dependance and use of Excedrin for headaches. PMHx: PSHx: Home Medications Medication Instructions Recorded Losartan Potassium 10 mg PO DAILY 12/28/19 Plavix 75 mg Q2D 12/28/19 Allergies Allergy/AdvReac Type Severity Reaction Status Date / Time No Known Allergies Allergy Verified 07/09/17 13:16 REVIEW OF SYSTEMS: CONSTITUTIONAL: Absent: fever, chills, diaphoresis, generalized weakness, malaise, loss of appetite, weight change CARDIOVASCULAR: Absent: chest pain, syncope, palpitations, irregular heart rate, lightheadedness, peripheral edema RESPIRATORY: Absent: cough, shortness of breath, dyspnea with exertion, wheezing, stridor, hemoptysis GASTROINTESTINAL: Absent: abdominal pain, abdominal distension, nausea, vomiting, diarrhea, constipation, melena, hematochezia GENITOURINARY: Absent: dysuria, frequency, urgency, hesitancy, hematuria, flank pain, genital pain MUSCULOSKELETAL: Absent: myalgia, arthralgia, joint swelling, back pain, neck pain SKIN: Absent: rash, itching, pallor HEMATOLOGIC/IMMUNOLOGIC: Absent: easy bleeding, easy bruising, lymphadenopathy NEUROLOGIC: Absent: headache, focal weakness, paresthesias, dizziness, unsteady gait, seizure, mental status changes, bladder or bowel incontinence PSYCHIATRIC: Absent: anxiety, depression, suicidal or homicidal ideation, hallucinations. PHYSICAL EXAM: GENERAL: Awake, alert, and fully oriented, in no acute distress. HEAD: Normal with no signs of trauma. EYES: PERRL, sclera anicteric, conjunctiva clear. NECK: Normal ROM, supple without lymphadenopathy, JVD, or masses. LUNGS: Clear to auscultation bilat anteriorly. No wheezes, and no crackles. No accessory muscle use. HEART: Regular rate and rhythm. No murmurs ABDOMEN: Soft, nontender, not distended, normoactive bowel sounds, no guarding, no rebound, no masses. No organomegaly. MUSCULOSKELETAL: Normal ROM at all joints. No bony deformities or tenderness. No CVA tenderness. UPPER EXTREMITIES: 2+ pulses, warm, well-perfused. No cyanosis. Cap refill <2 seconds. No peripheral edema. LOWER EXTREMITIES: 2+ pulses, warm, well-perfused. No calf tenderness. No peripheral edema. NEUROLOGICAL: Normal speech, gait not observed. PSYCH: Cooperative. Good eye contact. Appropriate mood and affect. SKIN: Warm, dry, normal turgor, no rashes or lesions noted. Vital Signs Temperature 99.2 F 12/31/19 06:00 Pulse Rate 73 12/31/19 08:00 Respiratory Rate 17 12/31/19 08:57 Blood Pressure 114/63 12/31/19 08:00 O2 Sat by Pulse Oximetry (%) 97 12/31/19 08:35 Lab Results WBC 10.7 K/mm3 (4.0-10.0) H 12/31/19 04:27 RBC 2.71 M/mm3 (4.00-5.60) L 12/31/19 04:27 Hgb 8.6 GM/dL (11.7-16.9) L 12/31/19 04:27 Hct 24.4 % (35.4-49) L 12/31/19 04:27 MCV 89.9 fl (80-96) 12/31/19 04:27 MCHC 35.4 g/dl (32.0-35.9) 12/31/19 04:27 RDW 17.6 % (11.9-15.9) H 12/31/19 04:27 Plt Count 162 K/MM3 (134-434) 12/31/19 04:27 INR 1.22 (0.83-1.09) H 12/31/19 04:27 Sodium 139 mmol/L (136-145) 12/31/19 04:27 Potassium 4.9 mmol/L (3.5-5.1) 12/31/19 04:27 Chloride 111 mmol/L (98-107) H 12/31/19 04:27 Carbon Dioxide 24 mmol/L (21-32) 12/31/19 04:27 Anion Gap 5 MMOL/L (8-16) L 12/31/19 04:27 BUN 19.0 mg/dL (7-18) H 12/31/19 04:27 Creatinine 1.0 mg/dL (0.55-1.3) 12/31/19 04:27 Random Glucose 131 mg/dL (74-106) H 12/31/19 04:27 Calcium 6.5 mg/dL (8.5-10.1) L* 12/31/19 04:27 Blood Type A NEGATIVE 12/30/19 06:00 Antibody Screen Negative 12/30/19 06:00
--- NOTE | 2019-12-31 10:54 | PN ---
Progress Note, Physician Chief Complaint: Hematemesis Acute respiratory failure History of Present Illness: 59 M pmh COPD (no home O2), ETOH abuse, smoker 2ppd, PVD (on plavix) presenting with hematemesis today, syncope witnessed by EMS, no head trauma. Daily drinker, no h/o GIB. No complaints at present. 100% NRB, reportedly hypoxic en route, reduced to 3L NC on arrival. Ho history of GIB, varices, or liver cirrhosis. Remains intubated and sedated S/P EGD- gastric erosions + Duodenal ulceration s/p embolization of the GDA for bleeding DU Hg dropped to 6.8 again overnight Transfused PRBC On Vasopressin + Levophed - Current Medication List Current Medications: Active Medications Chlorhexidine Gluconate (Hibiclens For Decolonization -) 1 applic TP HS TREVOR Last Admin: 12/30/19 22:00 Dose: 1 applic Documented by: Cyanocobalamin (Vitamin B12 Injection -) 1,000 mcg IM DAILY TREVOR Last Admin: 12/31/19 09:41 Dose: 1,000 mcg Documented by: Sodium Chloride (Normal Saline -) 1,000 mls @ 125 mls/hr IV ASDIR TREVOR Last Admin: 12/31/19 00:00 Dose: 125 mls/hr Documented by: Piperacillin Sod/Tazobactam (Sod 3.375 gm/ Dextrose) 50 mls @ 100 mls/hr IVPB Q8H-IV TREVOR; Protocol Last Admin: 12/31/19 09:40 Dose: 100 mls/hr Documented by: Propofol (Diprivan -) 1,000,000 mcg in 100 mls @ 1.761 mls/hr IVPB TITR TREVOR; Protocol Last Admin: 12/31/19 09:39 Dose: 30 mcg/kg/min, 10.566 mls/hr Documented by: Fentanyl (Sublimaze Ivpb) 500 mcg in 100 mls @ 1 mls/hr IVPB TITR TREVOR Last Titration: 12/30/19 23:29 Dose: 75 mcg/hr, 15 mls/hr Documented by: Midazolam HCl (Midazolam 100mg/100ml-0.9%Nacl) 100 mg in 100 mls @ 1 mls/hr IVPB TITR TREVOR; Protocol Last Admin: 12/31/19 09:39 Dose: 5 mg/hr, 5 mls/hr Documented by: Vasopressin 40 units/ Sodium (Chloride) 100 mls @ 5 mls/hr IVPB ASDIR [facility]; Protocol Last Admin: 12/30/19 12:00 Dose: 2.4 units/hr, 6 mls/hr Documented by: Norepinephrine Bitartrate (Levophed Bag) 16,000 mcg in 500 mls @ 9.375 mls/hr IVPB TITR [facility]; Protocol Last Admin: 12/30/19 21:37 Dose: 10 mcg/min, 18.75 mls/hr Documented by: Mupirocin (Bactroban Ointment (For Decolonization) -) 1 applic NS BID [facility] Stop: 01/02/20 09:59 Last Admin: 12/31/19 09:41 Dose: 1 applic Documented by: Thiamine HCl (Vitamin B1 Injection -) 200 mg IVPB DAILY [facility] Last Admin: 12/31/19 09:41 Dose: 200 mg Documented by: - Objective Vital Signs: Vital Signs Temperature 99.2 F 12/31/19 06:00 Pulse Rate 73 12/31/19 08:00 Respiratory Rate 17 12/31/19 08:57 Blood Pressure 114/63 12/31/19 08:00 O2 Sat by Pulse Oximetry (%) 97 12/31/19 08:35 Constitutional: Yes: No Distress, Calm, Cachectic Cardiovascular: Yes: Regular Rate and Rhythm Respiratory: Yes: Regular, CTA Bilaterally, Mechanically Ventilated Gastrointestinal: Yes: Normal Bowel Sounds, Soft Genitourinary: Yes: Munoz Present Edema: Yes Edema: LLE: 1+, RLE: 1+ Peripheral Pulses WNL: Yes Neurological: Yes: Other (sedated) Labs: CBC, BMP 12/31/19 04:27 12/31/19 04:27 INR, PTT INR 1.22 (0.83-1.09) H 12/31/19 04:27 Fibrinogen 249.0 mg/dL (238-498) 12/28/19 11:00 Problem List - Problems (1) Anemia Assessment/Plan: -2/2 to acute blood loss -Monitor H/H -normal transfusion parameters -Iron % low -Injectafer once -B12 inj daily -PPI -Continue octreotide drip Problems reviewed: Yes Code(s): D64.9 - ANEMIA, UNSPECIFIED (2) GIB (gastrointestinal bleeding) Assessment/Plan: -GI consult appreciated -S/P EGD, may need repeat -monitor H/H closely -Transfuse as needed to keep Hg>8.0 -PPI -Octreotide drip -CTA abd -bleeding DU,s/p embolization of the GDA for bleeding DU -IVF Problems reviewed: Yes Code(s): K92.2 - GASTROINTESTINAL HEMORRHAGE, UNSPECIFIED Qualifiers: GI bleed type/associated pathology: unspecified gastrointestinal hemorrhage type Qualified Code(s): K92.2 - Gastrointestinal hemorrhage, unspecified (3) Pneumonia Assessment/Plan: -Pulmonary on board -[facility] vent -COVID 19 PCR negative Problems reviewed: Yes Code(s): J18.9 - PNEUMONIA, UNSPECIFIED ORGANISM (4) Respiratory failure Assessment/Plan: as above -Wean as tolerated Problems reviewed: Yes Code(s): J96.90 - RESPIRATORY FAILURE, UNSP, UNSP W HYPOXIA OR HYPERCAPNIA (5) Alcohol abuse Assessment/Plan: -Thiamine IVPB -Cyanocobalamine 1g IM daily Problems reviewed: Yes Code(s): F10.10 - ALCOHOL ABUSE, UNCOMPLICATED (6) Hyponatremia Assessment/Plan: -Nephrology consult -Continue IVF -Monitor trend Problems reviewed: Yes Code(s): E87.1 - HYPO-OSMOLALITY AND HYPONATREMIA (7) Malnourished Problems reviewed: Yes Code(s): E46 - UNSPECIFIED PROTEIN-CALORIE MALNUTRITION Assessment/Plan See problem list Spoke to Kaden (son) who wants to defer all the medical decision making to pt's sister Danna. Called Magali twice with no answer, left 2 messages. SW Lori Luciano was able to get hold of Magali, who told Lori Luciano that "she herself cannot make decisions" and she "needs it to be Danna to make all decisions."
--- NOTE | 2019-12-31 11:12 | CONSULT ---
- Consultation REQUESTING PROVIDER: Rina ARCEO CONSULT REQUEST: We have been asked to surgically evaluate this patient for UGIB Hospitalist:Brennan Baird HISTORY OF PRESENT ILLNESS: CTSP 72 hours into admission for e/m of UGIBleeding; patient presented w/hematemesis; he has been taking Excedrin for PENNINGTON's on a regular basis and Plavix for arterial PVD; he drinks 8 12 oz. beers per day; he had a syncopal episode and hematemesis and was BIBA; an extensive imaging and GI w/u has been done; he had IR embolization of his GDA; he remains intubated and sedated in the ICU on pressors and a Protonix gtt. PMHx: HTN/Arterial PVD PSHx: none known Home Medications Medication Instructions Recorded Losartan Potassium 10 mg PO DAILY 12/28/19 Plavix 75 mg Q2D 12/28/19 Allergies Allergy/AdvReac Type Severity Reaction Status Date / Time No Known Allergies Allergy Verified 07/09/17 13:16 REVIEW OF SYSTEMS: unable to provide and reviewed from earlier in the admission. PHYSICAL EXAM: GENERAL: intubated and sedated HEAD: Normal with no signs of trauma. EYES: sclera anicteric, conjunctiva clear. NECK: supple without lymphadenopathy, JVD, or masses. ABDOMEN: Soft, nontender, not distended, normoactive bowel sounds, no hernias MUSCULOSKELETAL: No bony deformities or tenderness. UPPER EXTREMITIES: 1+ pulses, warm, well-perfused. No cyanosis. Cap refill <2 seconds. No peripheral edema. LOWER EXTREMITIES: 1+ pulses, warm, well-perfused. No calf tenderness. No peripheral edema. NEUROLOGICAL: intubated SKIN: Warm, dry, normal turgor, no rashes or lesions noted. Vital Signs Temperature 99.2 F 12/31/19 06:00 Pulse Rate 73 12/31/19 08:00 Respiratory Rate 17 12/31/19 08:57 Blood Pressure 114/63 12/31/19 08:00 O2 Sat by Pulse Oximetry (%) 97 12/31/19 08:35 Lab Results WBC 10.7 K/mm3 (4.0-10.0) H 12/31/19 04:27 RBC 2.71 M/mm3 (4.00-5.60) L 12/31/19 04:27 Hgb 8.6 GM/dL (11.7-16.9) L 12/31/19 04:27 Hct 24.4 % (35.4-49) L 12/31/19 04:27 MCV 89.9 fl (80-96) 12/31/19 04:27 MCHC 35.4 g/dl (32.0-35.9) 12/31/19 04:27 RDW 17.6 % (11.9-15.9) H 12/31/19 04:27 Plt Count 162 K/MM3 (134-434) 12/31/19 04:27 INR 1.22 (0.83-1.09) H 12/31/19 04:27 Sodium 139 mmol/L (136-145) 12/31/19 04:27 Potassium 4.9 mmol/L (3.5-5.1) 12/31/19 04:27 Chloride 111 mmol/L (98-107) H 12/31/19 04:27 Carbon Dioxide 24 mmol/L (21-32) 12/31/19 04:27 Anion Gap 5 MMOL/L (8-16) L 12/31/19 04:27 BUN 19.0 mg/dL (7-18) H 12/31/19 04:27 Creatinine 1.0 mg/dL (0.55-1.3) 12/31/19 04:27 Random Glucose 131 mg/dL (74-106) H 12/31/19 04:27 Calcium 6.5 mg/dL (8.5-10.1) L* 12/31/19 04:27 Blood Type A NEGATIVE 12/30/19 06:00 Antibody Screen Negative 12/30/19 06:00 Imaging and Consultative w/u reviewed; he had embolization of the GDA; reports and images reviewed IMP: UGI secondary to duodenal ulcer. PLAN: Continue as per recommendations of GI; there is no indication for surgical intervention at this time; will f/u. Justin Johnston MD FACS
[2019-12-31 11:21] LABS: ANISOCYTOSIS 1+; MACROCYTOSIS 0; PLATELET ESTIMATE DECREASED
--- NOTE | 2019-12-31 11:24 | PN ---
Progress Note, Physician History of Present Illness: SEDATED ON VENTILATOR HYPOTENSIVE ON PRESSORS AFEBRILE WBC IMPROVED - Current Medication List Current Medications: Active Medications Chlorhexidine Gluconate (Hibiclens For Decolonization -) 1 applic TP HS TREVOR Last Admin: 12/30/19 22:00 Dose: 1 applic Documented by: Cyanocobalamin (Vitamin B12 Injection -) 1,000 mcg IM DAILY TREVOR Last Admin: 12/31/19 09:41 Dose: 1,000 mcg Documented by: Sodium Chloride (Normal Saline -) 1,000 mls @ 125 mls/hr IV ASDIR TREVOR Last Admin: 12/31/19 00:00 Dose: 125 mls/hr Documented by: Piperacillin Sod/Tazobactam (Sod 3.375 gm/ Dextrose) 50 mls @ 100 mls/hr IVPB Q8H-IV TREVOR; Protocol Last Admin: 12/31/19 09:40 Dose: 100 mls/hr Documented by: Propofol (Diprivan -) 1,000,000 mcg in 100 mls @ 1.761 mls/hr IVPB TITR TREVOR; Protocol Last Admin: 12/31/19 09:39 Dose: 30 mcg/kg/min, 10.566 mls/hr Documented by: Fentanyl (Sublimaze Ivpb) 500 mcg in 100 mls @ 1 mls/hr IVPB TITR TREVOR Last Titration: 12/30/19 23:29 Dose: 75 mcg/hr, 15 mls/hr Documented by: Midazolam HCl (Midazolam 100mg/100ml-0.9%Nacl) 100 mg in 100 mls @ 1 mls/hr IVPB TITR TREVOR; Protocol Last Admin: 12/31/19 09:39 Dose: 5 mg/hr, 5 mls/hr Documented by: Vasopressin 40 units/ Sodium (Chloride) 100 mls @ 5 mls/hr IVPB ASDIR TRE[facility]OR; Protocol Last Admin: 12/30/19 12:00 Dose: 2.4 units/hr, 6 mls/hr Documented by: Norepinephrine Bitartrate (Levophed Bag) 16,000 mcg in 500 mls @ 9.375 mls/hr IVPB TITR TREVOR; Protocol Last Admin: 12/30/19 21:37 Dose: 10 mcg/min, 18.75 mls/hr Documented by: Mupirocin (Bactroban Ointment (For Decolonization) -) 1 applic NS BID [facility] Stop: 01/02/20 09:59 Last Admin: 12/31/19 09:41 Dose: 1 applic Documented by: Thiamine HCl (Vitamin B1 Injection -) 200 mg IVPB DAILY [facility] Last Admin: 12/31/19 09:41 Dose: 200 mg Documented by: - Objective Vital Signs: Vital Signs Temperature 99.2 F 12/31/19 06:00 Pulse Rate 73 12/31/19 08:00 Respiratory Rate 17 12/31/19 08:57 Blood Pressure 114/63 12/31/19 08:00 O2 Sat by Pulse Oximetry (%) 97 12/31/19 08:35 Constitutional: Yes: No Distress Eyes: Yes: Conjunctiva Clear Cardiovascular: Yes: Regular Rate and Rhythm, S1, S2 Respiratory: Yes: Mechanically Ventilated Gastrointestinal: Yes: Normal Bowel Sounds, Soft. No: Tenderness Edema: No Labs: CBC, BMP 12/31/19 04:27 12/31/19 04:27 INR, PTT INR 1.22 (0.83-1.09) H 12/31/19 04:27 Fibrinogen 249.0 mg/dL (238-498) 12/28/19 11:00 Assessment/Plan S/P GI BLEED RESP FAILURE R/O ASP PNEUMONIA CONTINUE EMPIRIC ZOSYN, VENTILATORY SUPPORT
--- NOTE | 2019-12-31 11:49 | PN ---
Progress Note, Physician History of Present Illness: Pt seen and examined at bedside. He remains in the ICU. He remains intubated. - Current Medication List Current Medications: Active Medications Chlorhexidine Gluconate (Hibiclens For Decolonization -) 1 applic TP HS [facility] Last Admin: 12/30/19 22:00 Dose: 1 applic Documented by: Cyanocobalamin (Vitamin B12 Injection -) 1,000 mcg IM DAILY [facility] Last Admin: 12/31/19 09:41 Dose: 1,000 mcg Documented by: Sodium Chloride (Normal Saline -) 1,000 mls @ 125 mls/hr IV ASDIR [facility] Last Admin: 12/31/19 00:00 Dose: 125 mls/hr Documented by: Piperacillin Sod/Tazobactam (Sod 3.375 gm/ Dextrose) 50 mls @ 100 mls/hr IVPB Q8H-IV [facility]; Protocol Last Admin: 12/31/19 09:40 Dose: 100 mls/hr Documented by: Propofol (Diprivan -) 1,000,000 mcg in 100 mls @ 1.761 mls/hr IVPB TITR [facility]; Protocol Last Admin: 12/31/19 09:39 Dose: 30 mcg/kg/min, 10.566 mls/hr Documented by: Fentanyl (Sublimaze Ivpb) 500 mcg in 100 mls @ 1 mls/hr IVPB TITR [facility] Last Titration: 12/30/19 23:29 Dose: 75 mcg/hr, 15 mls/hr Documented by: Midazolam HCl (Midazolam 100mg/100ml-0.9%Nacl) 100 mg in 100 mls @ 1 mls/hr IVPB TITR [facility]; Protocol Last Admin: 12/31/19 09:39 Dose: 5 mg/hr, 5 mls/hr Documented by: Vasopressin 40 units/ Sodium (Chloride) 100 mls @ 5 mls/hr IVPB ASDIR [facility]TE[facility]; Protocol Last Admin: 12/30/19 12:00 Dose: 2.4 units/hr, 6 mls/hr Documented by: Norepinephrine Bitartrate (Levophed Bag) 16,000 mcg in 500 mls @ 9.375 mls/hr IVPB TITR [facility]; Protocol Last Admin: 12/30/19 21:37 Dose: 10 mcg/min, 18.75 mls/hr Documented by: Mupirocin (Bactroban Ointment (For Decolonization) -) 1 applic NS BID [facility] Stop: 01/02/20 09:59 Last Admin: 12/31/19 09:41 Dose: 1 applic Documented by: Thiamine HCl (Vitamin B1 Injection -) 200 mg IVPB DAILY [facility] Last Admin: 12/31/19 09:41 Dose: 200 mg Documented by: - Objective Vital Signs: Vital Signs Temperature 99.2 F 12/31/19 06:00 Pulse Rate 73 12/31/19 08:00 Respiratory Rate 17 12/31/19 08:57 Blood Pressure 114/63 12/31/19 08:00 O2 Sat by Pulse Oximetry (%) 97 12/31/19 08:35 Constitutional: Yes: Calm Eyes: Yes: Conjunctiva Clear HENT: Yes: Atraumatic Cardiovascular: Yes: S1, S2 Respiratory: Yes: Mechanically Ventilated Gastrointestinal: Yes: Soft Genitourinary: Yes: Munoz Present Musculoskeletal: Yes: Muscle Weakness Edema: No Integumentary: Yes: Tattoos Neurological: Yes: Lethargy Labs: CBC, BMP 12/31/19 04:27 12/31/19 04:27 INR, PTT INR 1.22 (0.83-1.09) H 12/31/19 04:27 Fibrinogen 249.0 mg/dL (238-498) 12/28/19 11:00 Problem List - Problems (1) GIB (gastrointestinal bleeding) Code(s): K92.2 - GASTROINTESTINAL HEMORRHAGE, UNSPECIFIED Qualifiers: GI bleed type/associated pathology: unspecified gastrointestinal hemorrhage type Qualified Code(s): K92.2 - Gastrointestinal hemorrhage, unspecified (2) Respiratory distress, acute Code(s): R06.03 - ACUTE RESPIRATORY DISTRESS (3) Alcohol abuse Code(s): F10.10 - ALCOHOL ABUSE, UNCOMPLICATED (4) HTN (hypertension) Code(s): I10 - ESSENTIAL (PRIMARY) HYPERTENSION (5) Hyponatremia Code(s): E87.1 - HYPO-OSMOLALITY AND HYPONATREMIA Assessment/Plan Current Medications Generic Name Dose Route Start Last Admin Trade Name Freq PRN Reason Stop Dose Admin Chlorhexidine Gluconate 1 applic 12/28/19 22:00 12/30/19 22:00 Hibiclens For Decolonization - TP 1 applic HS [facility] Administration Cyanocobalamin 1,000 mcg 12/29/19 13:30 12/31/19 09:41 Vitamin B12 Injection - IM 1,000 mcg DAILY [facility] Administration Sodium Chloride 1,000 mls @ 125 mls/hr 12/28/19 04:30 12/31/19 00:00 Normal Saline - IV 125 mls/hr ASDIR [facility] Administration Piperacillin Sod/Tazobactam 50 mls @ 100 mls/hr 12/29/19 18:00 12/31/19 09:40 Sod 3.375 gm/ Dextrose IVPB 100 mls/hr Q8H-IV [facility] Administration Protocol Propofol 1,000,000 mcg in 100 mls @ 1.761 mls/hr 12/28/19 12:45 12/31/19 09:39 Diprivan - IVPB 30 mcg/kg/min TITR [facility] 10.566 mls/hr Administration Protocol 5 MCG/KG/MIN Fentanyl 500 mcg in 100 mls @ 1 mls/hr 12/28/19 17:50 12/30/19 23:29 Sublimaze Ivpb IVPB 75 mcg/hr TITR [facility] 15 mls/hr Titration 5 MCG/HR Midazolam HCl 100 mg in 100 mls @ 1 mls/hr 12/29/19 05:00 12/31/19 09:39 Midazolam 100mg/100ml-0.9%Nacl IVPB 5 mg/hr TITR [facility] 5 mls/hr Administration Protocol 1 MG/HR Vasopressin 40 units/ Sodium 100 mls @ 5 mls/hr 12/30/19 13:30 12/30/19 12:00 Chloride IVPB 2.4 units/hr ASDIR [facility] 6 mls/hr Administration Protocol 2 UNITS/HR Norepinephrine Bitartrate 16,000 mcg in 500 mls @ 9.375 mls/hr 12/30/19 21:15 12/30/19 21:37 Levophed Bag IVPB 10 mcg/min TITR [facility] 18.75 mls/hr Administration Protocol 5 MCG/MIN Mupirocin 1 applic 12/28/19 10:00 12/31/19 09:41 Bactroban Ointment (For Decolonization) - NS 01/02/20 09:59 1 applic BID [facility] Administration Thiamine HCl 200 mg 12/29/19 13:45 12/31/19 09:41 Vitamin B1 Injection - IVPB 200 mg DAILY [facility] Administration Impression 1. hyponatremia 2. lactic acidosis 3. resp failure requiring intubation 4. etoh abuse 5. hematemesis 6. possible aspiration pna 7. active smoker 8. copd on home oxygen 9. pvd 10. gi bleed Plan - sodium stable - monitor hg - monitor lytes - cont vent support - cont to monitor renal function - surgery follow up - maintain map 65 - discussed with ICU - monitor volume status
--- NOTE | 2019-12-31 13:34 | PN ---
Teaching Attending Note Name of Resident: Eulogio Piedra ATTENDING PHYSICIAN STATEMENT I saw and evaluated the patient. I reviewed the resident's note and discussed the case with the resident. I agree with the resident's findings and plan as documented. SUBJECTIVE: Patient seen and examined in the ICU. Sedated and intubated. Still with maroon stools. 20mcq NE and 6 units Vasopressin for hemodynamic support. OBJECTIVE: Intake & Output 12/28/19 12/29/19 12/30/19 12/31/19 23:59 23:59 23:59 23:59 Intake Total 2830 6504.4 3690.8 2818 Output Total 1300 2400 950 600 Balance 1530 4104.4 2740.8 2218 Weight 129 lb 6.581 oz 129 lb Last Vital Signs Temp Pulse Resp BP Pulse Ox 99.2 F 73 17 114/63 97 12/31/19 06:00 12/31/19 08:00 12/31/19 08:57 12/31/19 08:00 12/31/19 08:35 Active Medications Chlorhexidine Gluconate (Hibiclens For Decolonization -) 1 applic TP HS [facility] Last Admin: 12/30/19 22:00 Dose: 1 applic Documented by: Cyanocobalamin (Vitamin B12 Injection -) 1,000 mcg IM DAILY [facility] Last Admin: 12/31/19 09:41 Dose: 1,000 mcg Documented by: Sodium Chloride (Normal Saline -) 1,000 mls @ 125 mls/hr IV ASDIR [facility] Last Admin: 12/31/19 11:58 Dose: 125 mls/hr Documented by: Piperacillin Sod/Tazobactam (Sod 3.375 gm/ Dextrose) 50 mls @ 100 mls/hr IVPB Q8H-IV [facility]; Protocol Last Admin: 12/31/19 09:40 Dose: 100 mls/hr Documented by: Propofol (Diprivan -) 1,000,000 mcg in 100 mls @ 1.761 mls/hr IVPB TITR [facility]; Protocol Last Admin: 12/31/19 09:39 Dose: 30 mcg/kg/min, 10.566 mls/hr Documented by: Fentanyl (Sublimaze Ivpb) 500 mcg in 100 mls @ 1 mls/hr IVPB TITR [facility] Last Titration: 12/31/19 07:00 Dose: 75 mcg/hr, 15 mls/hr Documented by: Midazolam HCl (Midazolam 100mg/100ml-0.9%Nacl) 100 mg in 100 mls @ 1 mls/hr IVPB TITR [facility]; Protocol Last Admin: 12/31/19 10:00 Dose: 8 mg/hr, 8 mls/hr Documented by: Vasopressin 40 units/ Sodium (Chloride) 100 mls @ 5 mls/hr IVPB ASDIR [facility]; Protocol Last Admin: 12/30/19 12:00 Dose: 2.4 units/hr, 6 mls/hr Documented by: Norepinephrine Bitartrate (Levophed Bag) 16,000 mcg in 500 mls @ 9.375 mls/hr IVPB TITR [facility]; Protocol Last Admin: 12/30/19 21:37 Dose: 10 mcg/min, 18.75 mls/hr Documented by: Pantoprazole Sodium 80 mg/ (Sodium Chloride) 100 mls @ 10 mls/hr IVPB Q10H [facility] Stop: 01/03/20 12:07 Mupirocin (Bactroban Ointment (For Decolonization) -) 1 applic NS BID [facility] Stop: 01/02/20 09:59 Last Admin: 12/31/19 09:41 Dose: 1 applic Documented by: Thiamine HCl (Vitamin B1 Injection -) 200 mg IVPB DAILY [facility] Last Admin: 12/31/19 09:41 Dose: 200 mg Documented by: GENERAL: Intubated and sedated HEAD: NC / AT EYES: (-) Icterus ENT: intubated, NGT in place NECK: Trachea midline LUNGS: Vented, diminished at the bases HEART: RRR, S1, S2 ABDOMEN: Soft, nontender, nondistended, EXTREMITIES: cool, no edema. NEUROLOGICAL: sedated SKIN: Warm, dry, multiple ecchymosis on BL arms and legs Laboratory Results - last 24 hr 12/27/19 12/30/19 12/30/19 22:45 06:00 18:15 WBC 13.0 H RBC 2.43 L Hgb 7.4 L Hct 22.0 L D MCV 90.2 MCH 30.5 MCHC 33.8 RDW 19.6 H Plt Count 167 D MPV 7.4 L Absolute Neuts (auto) 11.6 H Neutrophils % 89.2 H Neutrophils % (Manual) Band Neutrophils % Lymphocytes % 2.2 L D Lymphocytes % (Manual) Monocytes % 8.3 Monocytes % (Manual) Eosinophils % 0.0 D Eosinophils % (Manual) Basophils % 0.3 Basophils % (Manual) Myelocytes % (Man) Promyelocytes % (Man) Blast Cells % (Manual) Nucleated RBC % 0 Metamyelocytes Hypochromia Platelet Estimate Polychromasia Poikilocytosis Anisocytosis Microcytosis Macrocytosis [place] Cells PT with INR INR PTT (Actin FS) Anticoagulation Therapy Puncture Site Patient Temperature ABG pH ABG pCO2 ABG pO2 ABG HCO3 ABG O2 Sat (Measured) ABG O2 Content ABG Base Excess Vipul Test Patient On Oxygen O2 Delivery Device Oxygen Flow Rate Vent Mode Vent Rate Mechanical Rate PEEP Pressure Support Vent Sodium Potassium Chloride Carbon Dioxide Anion Gap BUN Creatinine Est GFR (CKD-EPI)AfAm Est GFR (CKD-EPI)NonAf Random Glucose Calcium Phosphorus Magnesium Total Bilirubin AST ALT Alkaline Phosphatase Total Protein Albumin Blood Type A NEGATIVE A NEGATIVE Antibody Screen Negative Negative Crossmatch See Detail See Detail 12/30/19 12/31/19 12/31/19 22:15 04:27 04:27 WBC RBC Hgb Hct MCV MCH MCHC RDW Plt Count MPV Absolute Neuts (auto) Neutrophils % Neutrophils % (Manual) Band Neutrophils % Lymphocytes % Lymphocytes % (Manual) Monocytes % Monocytes % (Manual) Eosinophils % Eosinophils % (Manual) Basophils % Basophils % (Manual) Myelocytes % (Man) Promyelocytes % (Man) Blast Cells % (Manual) Nucleated RBC % Metamyelocytes Hypochromia Platelet Estimate Polychromasia Poikilocytosis Anisocytosis Microcytosis Macrocytosis [place] Cells PT with INR 14.40 H INR 1.22 H PTT (Actin FS) 35.9 Anticoagulation Therapy No Result Required. Puncture Site Left radial Patient Temperature No Result Required. ABG pH 7.298 L ABG pCO2 42.90 ABG pO2 203.2 H ABG HCO3 20.5 L ABG O2 Sat (Measured) 99.3 H ABG O2 Content No Result Required. ABG Base Excess -5.5 L Vipul Test Positive Patient On Oxygen Yes O2 Delivery Device Vent Oxygen Flow Rate 100 Vent Mode A/c Vent Rate 16 Mechanical Rate No Result Required. PEEP 5.0 Pressure Support Vent 450 Sodium 139 Potassium 4.9 Chloride 111 H Carbon Dioxide 24 Anion Gap 5 L BUN 19.0 H Creatinine 1.0 Est GFR (CKD-EPI)AfAm 94.39 Est GFR (CKD-EPI)NonAf 81.44 Random Glucose 131 H Calcium 6.5 L* Phosphorus 3.9 Magnesium 1.6 L Total Bilirubin 0.8 AST 515 H ALT 192 H Alkaline Phosphatase 47 Total Protein 3.2 L Albumin 1.4 L Blood Type Antibody Screen Crossmatch 12/31/19 12/31/19 04:27 06:30 WBC 10.7 H RBC 2.71 L Hgb 8.6 L Hct 24.4 L MCV 89.9 MCH 31.8 MCHC 35.4 RDW 17.6 H Plt Count 162 MPV 7.9 Absolute Neuts (auto) Neutrophils % Neutrophils % (Manual) 88.9 H Band Neutrophils % 3.0 Lymphocytes % Lymphocytes % (Manual) 3.1 L D Monocytes % Monocytes % (Manual) 1 L Eosinophils % Eosinophils % (Manual) 0.0 Basophils % Basophils % (Manual) 0.0 Myelocytes % (Man) 1 D Promyelocytes % (Man) 0 Blast Cells % (Manual) 0 Nucleated RBC % 0 Metamyelocytes 1 D Hypochromia 0 Platelet Estimate Decreased Polychromasia 1+ Poikilocytosis 1+ Anisocytosis 1+ Microcytosis 1+ Macrocytosis 0 [place] Cells 2+ PT with INR INR PTT (Actin FS) Anticoagulation Therapy No Result Required. Puncture Site Left radial Patient Temperature No Result Required. ABG pH 7.191 L* ABG pCO2 51.00 H ABG pO2 223.6 H ABG HCO3 19.1 L ABG O2 Sat (Measured) 99.3 H ABG O2 Content No Result Required. ABG Base Excess -8.7 L Vipul Test Positive Patient On Oxygen Yes O2 Delivery Device Vent Oxygen Flow Rate 80% Vent Mode A/c Vent Rate 16 Mechanical Rate Yes PEEP 5.0 Pressure Support Vent 450 Sodium Potassium Chloride Carbon Dioxide Anion Gap BUN Creatinine Est GFR (CKD-EPI)AfAm Est GFR (CKD-EPI)NonAf Random Glucose Calcium Phosphorus Magnesium Total Bilirubin AST ALT Alkaline Phosphatase Total Protein Albumin Blood Type Antibody Screen Crossmatch ASSESSMENT/PLAN: Acute Respiratory Failure Suspected Aspiration PNA Acute Duodenal bleed HTN PVD Chronic alcohol abuse, NSAID, & tobacco abuse Hematemsis Syncope AC Mode of vent Pressors to maintain MAP Transfusional support Octreotide PPI drip Hold AC Mechanical VTE prophylaxis ABX per ID Requires ICU monitoring Dr Avalos Critical care time spent in reviewing chart, evaluating patient and formulating plan - 36 minutes.
--- NOTE | 2019-12-31 14:20 | PN ---
Physical Exam: SUBJECTIVE: Patient seen and examined at the bedside, intubated and sedated. OBJECTIVE: Vital Signs Period Temp Pulse Resp BP Sys/Garcia Pulse Ox Last 24 Hr 96.8 F-99.2 F 66-117 15-24 103-131/56-84 96-97 GENERAL: The patient is sedated HEAD: Normal with no signs of trauma. EYES: PERRL ENT: intubated, NGT in place NECK: Trachea midline LUNGS: decreased breath sounds on right side HEART: RRR, s1, s2 ABDOMEN: Soft, nontender, nondistended, EXTREMITIES: warm, well-perfused, no edema. NEUROLOGICAL: sedated SKIN: Warm, dry, multiple ecchymosis on BL arms and legs Laboratory Results - last 24 hr 12/27/19 12/30/19 12/30/19 22:45 06:00 18:15 WBC 13.0 H RBC 2.43 L Hgb 7.4 L Hct 22.0 L D MCV 90.2 MCH 30.5 MCHC 33.8 RDW 19.6 H Plt Count 167 D MPV 7.4 L Absolute Neuts (auto) 11.6 H Neutrophils % 89.2 H Neutrophils % (Manual) Band Neutrophils % Lymphocytes % 2.2 L D Lymphocytes % (Manual) Monocytes % 8.3 Monocytes % (Manual) Eosinophils % 0.0 D Eosinophils % (Manual) Basophils % 0.3 Basophils % (Manual) Myelocytes % (Man) Promyelocytes % (Man) Blast Cells % (Manual) Nucleated RBC % 0 Metamyelocytes Hypochromia Platelet Estimate Polychromasia Poikilocytosis Anisocytosis Microcytosis Macrocytosis [place] Cells PT with INR INR PTT (Actin FS) Anticoagulation Therapy Puncture Site Patient Temperature ABG pH ABG pCO2 ABG pO2 ABG HCO3 ABG O2 Sat (Measured) ABG O2 Content ABG Base Excess Vipul Test Patient On Oxygen O2 Delivery Device Oxygen Flow Rate Vent Mode Vent Rate Mechanical Rate PEEP Pressure Support Vent Sodium Potassium Chloride Carbon Dioxide Anion Gap BUN Creatinine Est GFR (CKD-EPI)AfAm Est GFR (CKD-EPI)NonAf Random Glucose Calcium Phosphorus Magnesium Total Bilirubin AST ALT Alkaline Phosphatase Total Protein Albumin Blood Type A NEGATIVE A NEGATIVE Antibody Screen Negative Negative Crossmatch See Detail See Detail 12/30/19 12/31/19 12/31/19 22:15 04:27 04:27 WBC RBC Hgb Hct MCV MCH MCHC RDW Plt Count MPV Absolute Neuts (auto) Neutrophils % Neutrophils % (Manual) Band Neutrophils % Lymphocytes % Lymphocytes % (Manual) Monocytes % Monocytes % (Manual) Eosinophils % Eosinophils % (Manual) Basophils % Basophils % (Manual) Myelocytes % (Man) Promyelocytes % (Man) Blast Cells % (Manual) Nucleated RBC % Metamyelocytes Hypochromia Platelet Estimate Polychromasia Poikilocytosis Anisocytosis Microcytosis Macrocytosis [place] Cells PT with INR 14.40 H INR 1.22 H PTT (Actin FS) 35.9 Anticoagulation Therapy No Result Required. Puncture Site Left radial Patient Temperature No Result Required. ABG pH 7.298 L ABG pCO2 42.90 ABG pO2 203.2 H ABG HCO3 20.5 L ABG O2 Sat (Measured) 99.3 H ABG O2 Content No Result Required. ABG Base Excess -5.5 L Vipul Test Positive Patient On Oxygen Yes O2 Delivery Device Vent Oxygen Flow Rate 100 Vent Mode A/c Vent Rate 16 Mechanical Rate No Result Required. PEEP 5.0 Pressure Support Vent 450 Sodium 139 Potassium 4.9 Chloride 111 H Carbon Dioxide 24 Anion Gap 5 L BUN 19.0 H Creatinine 1.0 Est GFR (CKD-EPI)AfAm 94.39 Est GFR (CKD-EPI)NonAf 81.44 Random Glucose 131 H Calcium 6.5 L* Phosphorus 3.9 Magnesium 1.6 L Total Bilirubin 0.8 AST 515 H ALT 192 H Alkaline Phosphatase 47 Total Protein 3.2 L Albumin 1.4 L Blood Type Antibody Screen Crossmatch 12/31/19 12/31/19 04:27 06:30 WBC 10.7 H RBC 2.71 L Hgb 8.6 L Hct 24.4 L MCV 89.9 MCH 31.8 MCHC 35.4 RDW 17.6 H Plt Count 162 MPV 7.9 Absolute Neuts (auto) Neutrophils % Neutrophils % (Manual) 88.9 H Band Neutrophils % 3.0 Lymphocytes % Lymphocytes % (Manual) 3.1 L D Monocytes % Monocytes % (Manual) 1 L Eosinophils % Eosinophils % (Manual) 0.0 Basophils % Basophils % (Manual) 0.0 Myelocytes % (Man) 1 D Promyelocytes % (Man) 0 Blast Cells % (Manual) 0 Nucleated RBC % 0 Metamyelocytes 1 D Hypochromia 0 Platelet Estimate Decreased Polychromasia 1+ Poikilocytosis 1+ Anisocytosis 1+ Microcytosis 1+ Macrocytosis 0 [place] Cells 2+ PT with INR INR PTT (Actin FS) Anticoagulation Therapy No Result Required. Puncture Site Left radial Patient Temperature No Result Required. ABG pH 7.191 L* ABG pCO2 51.00 H ABG pO2 223.6 H ABG HCO3 19.1 L ABG O2 Sat (Measured) 99.3 H ABG O2 Content No Result Required. ABG Base Excess -8.7 L Vipul Test Positive Patient On Oxygen Yes O2 Delivery Device Vent Oxygen Flow Rate 80% Vent Mode A/c Vent Rate 16 Mechanical Rate Yes PEEP 5.0 Pressure Support Vent 450 Sodium Potassium Chloride Carbon Dioxide Anion Gap BUN Creatinine Est GFR (CKD-EPI)AfAm Est GFR (CKD-EPI)NonAf Random Glucose Calcium Phosphorus Magnesium Total Bilirubin AST ALT Alkaline Phosphatase Total Protein Albumin Blood Type Antibody Screen Crossmatch Active Medications Generic Name Dose Route Start Last Admin Trade Name Freq PRN Reason Stop Dose Admin Chlorhexidine Gluconate 1 applic 12/28/19 22:00 12/30/19 22:00 Hibiclens For Decolonization - TP 1 applic HS [facility] Administration Cyanocobalamin 1,000 mcg 12/29/19 13:30 12/31/19 09:41 Vitamin B12 Injection - IM 1,000 mcg DAILY [facility] Administration Sodium Chloride 1,000 mls @ 125 mls/hr 12/28/19 04:30 12/31/19 11:58 Normal Saline - IV 125 mls/hr ASDIR [facility] Administration Piperacillin Sod/Tazobactam 50 mls @ 100 mls/hr 12/29/19 18:00 12/31/19 09:40 Sod 3.375 gm/ Dextrose IVPB 100 mls/hr Q8H-IV [facility] Administration Protocol Propofol 1,000,000 mcg in 100 mls @ 1.761 mls/hr 12/28/19 12:45 12/31/19 09:39 Diprivan - IVPB 30 mcg/kg/min TITR [facility] 10.566 mls/hr Administration Protocol 5 MCG/KG/MIN Fentanyl 500 mcg in 100 mls @ 1 mls/hr 12/28/19 17:50 12/31/19 07:00 Sublimaze Ivpb IVPB 75 mcg/hr TITR [facility] 15 mls/hr Titration 5 MCG/HR Midazolam HCl 100 mg in 100 mls @ 1 mls/hr 12/29/19 05:00 12/31/19 10:00 Midazolam 100mg/100ml-0.9%Nacl IVPB 8 mg/hr TITR [facility] 8 mls/hr Administration Protocol 1 MG/HR Vasopressin 40 units/ Sodium 100 mls @ 5 mls/hr 12/30/19 13:30 12/30/19 12:00 Chloride IVPB 2.4 units/hr ASDIR [facility]RE[facility] 6 mls/hr Administration Protocol 2 UNITS/HR Norepinephrine Bitartrate 16,000 mcg in 500 mls @ 9.375 mls/hr 12/30/19 21:15 12/30/19 21:37 Levophed Bag IVPB 10 mcg/min TITR [facility] 18.75 mls/hr Administration Protocol 5 MCG/MIN Pantoprazole Sodium 80 mg/ 100 mls @ 10 mls/hr 12/31/19 12:15 12/31/19 13:30 Sodium Chloride IVPB 01/03/20 12:07 10 mls/hr Q10H [facility] Administration 8 MG/HR Mupirocin 1 applic 12/28/19 10:00 12/31/19 09:41 Bactroban Ointment (For Decolonization) - NS 01/02/20 09:59 1 applic BID [facility] Administration Thiamine HCl 200 mg 12/29/19 13:45 12/31/19 09:41 Vitamin B1 Injection - IVPB 200 mg DAILY [facility] Administration ASSESSMENT/PLAN: 59 YO M with PMH HTN, PVD (on plavix), chronic alcohol, NSAID, & tobacco use presents with hematemsis and syncope, had an episode of VA bleeding yesterday, s/p embolization gastroduodenal artery #Neuro - Intubated, on fentanyl, propofol, midazolam #Cardio - Started on Vasopressin and Norepinephrine yesterday, not currently on pressors #Pulm - intubated and sedated - PEEP 5, FiO2 70 - ABG today with pH 7.19, pCO2 51, RR increased from 16 to 20, F/U ABG in AM #GI - EGD (12/28): large clean based ulcer with non bleeding flat red spots in angulated area of junction of duodenal bulb and 1st portion duodenum - s/p embolization gastroduodenal artery - H/H 6.4 -> 7.4 -> 8.6 #ID - Urine Leg negative, Sputum cx positive for yeast like organism as well as NLFGNB - ID on board - Zosyn 3.375 Q8H for aspiration PNA (12/27) #Heme - s/p embolization gastroduodenal artery - H/H 6.4 -> 7.4 -> 8.6 #Renal - Hyponatremia 131 -> 134 -> 139 - Avoid a change in sodium > 6-8 in 24H - Nephro on board #FEN - NPO #Prophylaxis - Hold AC, on Protonix drip #Dispo - ICU monitoring Visit type - Emergency Visit Emergency Visit: No - New Patient This patient is new to me today: No - Critical Care Critical Care patient: Yes Total Critical Care Time (in minutes): 36 Critical Care Statement: The care of this patient involved high complexity decision making to prevent further life threatening deterioration of the patient's condition and/or to evaluate & treat vital organ system(s) failure or risk of failure. ATTENDING PHYSICIAN STATEMENT I saw and evaluated the patient. I reviewed the resident's note and discussed the case with the resident. I agree with the resident's findings and plan as documented. SUBJECTIVE: OBJECTIVE: ASSESSMENT AND PLAN:
--- NOTE | 2019-12-31 18:02 | PN.GI ---
GI Progress Note Subjective: no active bleeding, s/p IR - Objective Vital Signs: Vital Signs Temperature 98.1 F 12/31/19 16:00 Pulse Rate 65 12/31/19 16:00 Respiratory Rate 12/31/19 17:10 Blood Pressure 134/60 12/31/19 16:00 O2 Sat by Pulse Oximetry (%) 99 12/31/19 15:58 Constitutional: Other (intubated) Eyes: Yes: Conjunctiva Clear HENT: Yes: Atraumatic Neck: Yes: Supple Cardiovascular: Yes: Regular Rate and Rhythm Respiratory: Yes: CTA Bilaterally ...Palpate: Yes: Soft. No: Firm/Rigid, Guarding, Hepatomegaly, Mass, Pulsatile Mass, Splenomegaly, Tenderness Labs: CBC, BMP 12/31/19 04:27 12/31/19 04:27 INR, PTT INR 1.22 (0.83-1.09) H 12/31/19 04:27 Fibrinogen 249.0 mg/dL (238-498) 12/28/19 11:00 Problem List - Problems (1) Duodenal ulcer Assessment/Plan: no active bleeding R> serial abdominal examination CBC in am continue PPI Code(s): K26.9 - DUODENAL ULCER, UNSP ACUTE OR CHRONIC, W/O HEMOR OR PERF
[2019-12-31 22:23] LABS: HEMATOCRIT 19.4 % (35.4-49); MCH 31.8 pg (25.7-33.7); MCHC 34.9 g/dl (32.0-35.9); MEAN CELL VOLUME 91.1 fl (80-96); MEAN PLT VOLUME 7.3 fl (7.5-11.1); PLATELET COUNT 194 K/MM3 (134-434); RBC 2.13 M/mm3 (4.00-5.60); RDW 17.9 % (11.9-15.9); WHITE BLOOD COUNT 9.2 K/mm3 (4.0-10.0)
[2019-12-31 22:30] LABS: HEMOGLOBIN 6.8 GM/dL (11.7-16.9)
[2019-12-31] MEDS: CHLORHEXIDINE GLUCONATE 4% CLEANSER FOR DECOLONIZATION TP SCH (23:00)
[2020-01-01] MEDS: MIDAZOLAM IN 0.9 % SOD.CHLORID 100 MG/100 ML PLAST..BAG IVPB SCH ×2 (00:41→15:40)
[2020-01-01] MEDS: NOREPINEPHRINE D5W PREMIX 16,000 MCG/500 ML BAG IVPB SCH ×2 (00:41→18:02)
[2020-01-01] MEDS: PIPERACILLIN/TAZOB 3.375 GM 3.375 GM in DEXTROSE 5%-WATER - 50 ML IVPB SCH ×3 (02:00→18:26)
[2020-01-01] MEDS ORDERED: PIPERACILLIN/TAZOBACTAM 3.375 GM VIAL IVPB ONE ×3 (02:30→17:59)
[2020-01-01] MEDS ORDERED: DEXTROSE 5%-WATER - 50 ML IVPB ONE ×3 (02:31→17:59)
[2020-01-01 03:53] LABS: HEMATOCRIT 23.4 % (35.4-49); HEMOGLOBIN 8.1 GM/dL (11.7-16.9); MCH 32.3 pg (25.7-33.7); MCHC 34.9 g/dl (32.0-35.9); MEAN CELL VOLUME 92.6 fl (80-96); MEAN PLT VOLUME 7.3 fl (7.5-11.1); PLATELET COUNT 187 K/MM3 (134-434); RBC 2.52 M/mm3 (4.00-5.60); RDW 17.4 % (11.9-15.9); WHITE BLOOD COUNT 10.4 K/mm3 (4.0-10.0)
[2020-01-01 05:18] LABS: ARTERIAL BLD GAS O2 SATURATION 95.1 mmHg (95-98); ARTERIAL BLOOD GAS BASE EXCESS -4.8 mmol/L (-2-2); ARTERIAL BLOOD GAS PO2 78.1 mmHg (80-100)
[2020-01-01 05:29] LABS: ALLENS TEST POSITIVE; VENT MODE AC; VENT RATE 20
--- NOTE | 2020-01-01 06:23 | PN ---
Progress Note (short form) - Note Progress Note: Evening CBC showed Hg of 6.8. Upon examination, pt found to have large, bloody BM in diaper, however no active bleeding was identified. 2 unit PRBC was ordered, 1 unit was transfused, and repeat CBC showed Hg of 8.1. Will wait for morning CBC and consider transfusion of second unit depending on Hg/evidence of further bleeding. Pt's BP remained stable with a MAP in 80s overnight.
[2020-01-01] MEDS: SODIUM CHLORIDE 1,000 ML IV SCH ×2 (07:00→15:41)
[2020-01-01 07:05] LABS: BASO % 0.2 % (0-2.0); EOS % 1.1 % (0-4.5); HEMATOCRIT 23.8 % (35.4-49); HEMOGLOBIN 8.2 GM/dL (11.7-16.9); MCH 31.7 pg (25.7-33.7); MCHC 34.4 g/dl (32.0-35.9); MEAN CELL VOLUME 92.2 fl (80-96); MEAN PLT VOLUME 7.3 fl (7.5-11.1); MONO % 14.2 % (3.8-10.2); NEUT % 79.5 % (42.8-82.8); PLATELET COUNT 190 K/MM3 (134-434); RBC 2.58 M/mm3 (4.00-5.60); RDW 17.2 % (11.9-15.9); WHITE BLOOD COUNT 10.3 K/mm3 (4.0-10.0)
[2020-01-01 07:40] LABS: ALBUMIN 1.3 g/dl (3.4-5.0); CREATININE 0.8 mg/dL (0.55-1.3); MAGNESIUM 1.8 mg/dL (1.8-2.4); PHOSPHOROUS 2.6 mg/dL (2.5-4.9); POTASSIUM 4.4 mmol/L (3.5-5.1); TOT PROT 3.5 g/dl (6.4-8.2)
[2020-01-01 07:43] LABS: CALCIUM 6.8 mg/dL (8.5-10.1)
[2020-01-01] MEDS: PANTOPRAZOLE SODIUM 80 MG in SODIUM CHLORIDE 100 ML IVPB SCH ×3 (08:08→18:45)
[2020-01-01] MEDS ORDERED: PT OWN MED DRAWER 7, Y5N ONE ×5 (09:09→18:27)
[2020-01-01 09:22] LABS: ANISOCYTOSIS 1+; MACROCYTOSIS 0; PLATELET ESTIMATE NORMAL
[2020-01-01] MEDS: CYANOCOBALAMIN (VITAMIN B-12) 1000 MCG/1 ML VIAL IM SCH (09:47)
[2020-01-01] MEDS: THIAMINE HCL 200 MG/2 ML VIAL IVPB SCH (09:48)
[2020-01-01] MEDS: MUPIROCIN 2% TOPICAL OINTMENT FOR DECOLONIZATION NS SCH ×2 (09:48→21:53)
[2020-01-01] MEDS: FENTANYL NS IVPB 500 MCG/100 ML BAG IVPB SCH (10:16)
--- NOTE | 2020-01-01 11:01 | PN ---
Progress Note, Physician Chief Complaint: Hematemesis Acute respiratory failure History of Present Illness: 59 M pmh COPD (no home O2), ETOH abuse, smoker 2ppd, PVD (on plavix) presenting with hematemesis today, syncope witnessed by EMS, no head trauma. Daily drinker, no h/o GIB. No complaints at present. 100% NRB, reportedly hypoxic en route, reduced to 3L NC on arrival. Ho history of GIB, varices, or liver cirrhosis. Remains intubated and sedated S/P EGD- gastric erosions + Duodenal ulceration Blood BM overnight, given 1 more unit of PRBC with increase in Hg to 8.1 Continue to have dark bloody output form NGT On pressors to maintain MAP >65 - Current Medication List Current Medications: Active Medications Chlorhexidine Gluconate (Hibiclens For Decolonization -) 1 applic TP HS [facility] Last Admin: 12/31/19 23:00 Dose: 1 applic Documented by: Cyanocobalamin (Vitamin B12 Injection -) 1,000 mcg IM DAILY [facility] Last Admin: 01/01/20 09:47 Dose: 1,000 mcg Documented by: Sodium Chloride (Normal Saline -) 1,000 mls @ 125 mls/hr IV ASDIR [facility] Last Admin: 01/01/20 07:00 Dose: Not Given Documented by: Piperacillin Sod/Tazobactam (Sod 3.375 gm/ Dextrose) 50 mls @ 100 mls/hr IVPB Q8H-IV [facility]; Protocol Last Admin: 01/01/20 09:46 Dose: 100 mls/hr Documented by: Propofol (Diprivan -) 1,000,000 mcg in 100 mls @ 1.761 mls/hr IVPB TITR [facility]; Protocol Last Admin: 12/31/19 18:28 Dose: 30 mcg/kg/min, 10.566 mls/hr Documented by: Fentanyl (Sublimaze Ivpb) 500 mcg in 100 mls @ 1 mls/hr IVPB TITR [facility] Last Admin: 01/01/20 10:16 Dose: 75 mcg/hr, 15 mls/hr Documented by: Midazolam HCl (Midazolam 100mg/100ml-0.9%Nacl) 100 mg in 100 mls @ 1 mls/hr IVPB TITR [facility]; Protocol Last Admin: 01/01/20 00:41 Dose: 8 mg/hr, 8 mls/hr Documented by: Vasopressin 40 units/ Sodium (Chloride) 100 mls @ 5 mls/hr IVPB ASDIR [facility]; Protocol Last Admin: 12/30/19 12:00 Dose: 2.4 units/hr, 6 mls/hr Documented by: Norepinephrine Bitartrate (Levophed Bag) 16,000 mcg in 500 mls @ 9.375 mls/hr IVPB TITR [facility]; Protocol Last Titration: 01/01/20 09:48 Dose: 4 mcg/min, 7.5 mls/hr Documented by: Pantoprazole Sodium 80 mg/ (Sodium Chloride) 100 mls @ 10 mls/hr IVPB Q10H [facility] Stop: 01/03/20 12:07 Last Admin: 01/01/20 09:00 Dose: 10 mls/hr Documented by: Mupirocin (Bactroban Ointment (For Decolonization) -) 1 applic NS BID [facility] Stop: 01/02/20 09:59 Last Admin: 01/01/20 09:48 Dose: 1 applic Documented by: Thiamine HCl (Vitamin B1 Injection -) 200 mg IVPB DAILY [facility] Last Admin: 01/01/20 09:48 Dose: 200 mg Documented by: - Objective Vital Signs: Vital Signs Temperature 97.9 F 01/01/20 02:00 Pulse Rate 57 L 01/01/20 10:00 Respiratory Rate 01/01/20 10:00 Blood Pressure 111/68 01/01/20 10:00 O2 Sat by Pulse Oximetry (%) 100 12/31/19 20:25 Constitutional: Yes: No Distress, Cachectic Cardiovascular: Yes: Regular Rate and Rhythm Respiratory: Yes: Regular, Mechanically Ventilated, Rhonchi (diffuse) Gastrointestinal: Yes: Normal Bowel Sounds, Soft Genitourinary: Yes: Munoz Present Musculoskeletal: Yes: Muscle Weakness Edema: Yes Edema: LLE: 1+, RLE: 1+ Peripheral Pulses WNL: Yes Neurological: Yes: Other (sedated) Labs: CBC, BMP 01/01/20 05:30 01/01/20 05:30 INR, PTT INR 1.22 (0.83-1.09) H 12/31/19 04:27 Fibrinogen 249.0 mg/dL (238-498) 12/28/19 11:00 Problem List - Problems (1) Anemia Assessment/Plan: -2/2 to acute blood loss -Monitor H/H -normal transfusion parameters -Iron % low -Injectafer once this admission -B12 inj daily -PPI -Continue octreotide drip -Need for repeat EGD upon GI discretion Problems reviewed: Yes Code(s): D64.9 - ANEMIA, UNSPECIFIED (2) GIB (gastrointestinal bleeding) Assessment/Plan: -GI consult appreciated -S/P EGD, may need repeat -monitor H/H closely -Transfuse as needed to keep Hg>8.0 -PPI -Octreotide drip -CTA abd -bleeding DU,s/p embolization of the GDA for bleeding DU -IVF Problems reviewed: Yes Code(s): K92.2 - GASTROINTESTINAL HEMORRHAGE, UNSPECIFIED Qualifiers: GI bleed type/associated pathology: unspecified gastrointestinal hemorrhage type Qualified Code(s): K92.2 - Gastrointestinal hemorrhage, unspecified (3) Pneumonia Assessment/Plan: -Pulmonary on board -[facility] vent -COVID 19 PCR negative Problems reviewed: Yes Code(s): J18.9 - PNEUMONIA, UNSPECIFIED ORGANISM (4) Respiratory failure Assessment/Plan: as above -Wean as tolerated Problems reviewed: Yes Code(s): J96.90 - RESPIRATORY FAILURE, UNSP, UNSP W HYPOXIA OR HYPERCAPNIA (5) Alcohol abuse Assessment/Plan: -Thiamine IVPB -Cyanocobalamine 1g IM daily Problems reviewed: Yes Code(s): F10.10 - ALCOHOL ABUSE, UNCOMPLICATED (6) Hyponatremia Assessment/Plan: -Nephrology consult -Continue IVF -Monitor trend Problems reviewed: Yes Code(s): E87.1 - HYPO-OSMOLALITY AND HYPONATREMIA (7) Malnourished Problems reviewed: Yes Code(s): E46 - UNSPECIFIED PROTEIN-CALORIE MALNUTRITION Assessment/Plan See problem list Conversation earlier in admission with Kaden (son) who wants to defer all the medical decision making to pt's sister Danna. Called Magali twice with no answer, left 2 messages. SW Lori Luciano was able to get hold of Magali, who told Lori Luciano that "she herself cannot make decisions" and she "needs it to be Danna to make all decisions."
[2020-01-01] MEDS ORDERED: FERRIC CARBOXYMALTOSE 750 MG in SODIUM CHLORIDE 250 ML IVPB ONE (12:00)
--- NOTE | 2020-01-01 12:42 | PN ---
Progress Note (short form) - Note Progress Note: Patient seen and examined in the ICU. Sedated and intubated. AC Mode of vent, 60% FiO2. Still with dark stools but no occult bleeding noted. 10 mcq NE and 4 units Vasopressin for hemodynamic support. Intake & Output 12/29/19 12/30/19 12/31/19 01/01/20 23:59 23:59 23:59 23:59 Intake Total 6504.4 3690.8 5643 2582 Output Total 2400 950 1150 2100 Balance 4104.4 2740.8 4493 482 Weight 129 lb Last Vital Signs Temp Pulse Resp BP Pulse Ox 97.9 F 57 L 20 111/68 100 01/01/20 02:00 01/01/20 10:00 01/01/20 10:00 01/01/20 10:00 01/01/20 09:00 Active Medications Chlorhexidine Gluconate (Hibiclens For Decolonization -) 1 applic TP HS [facility] Last Admin: 12/31/19 23:00 Dose: 1 applic Documented by: Cyanocobalamin (Vitamin B12 Injection -) 1,000 mcg IM DAILY [facility] Last Admin: 01/01/20 09:47 Dose: 1,000 mcg Documented by: Sodium Chloride (Normal Saline -) 1,000 mls @ 125 mls/hr IV ASDIR [facility] Last Admin: 01/01/20 07:00 Dose: Not Given Documented by: Piperacillin Sod/Tazobactam (Sod 3.375 gm/ Dextrose) 50 mls @ 100 mls/hr IVPB Q8H-IV [facility]; Protocol Last Admin: 01/01/20 09:46 Dose: 100 mls/hr Documented by: Propofol (Diprivan -) 1,000,000 mcg in 100 mls @ 1.761 mls/hr IVPB TITR [facility]; Protocol Last Admin: 12/31/19 18:28 Dose: 30 mcg/kg/min, 10.566 mls/hr Documented by: Fentanyl (Sublimaze Ivpb) 500 mcg in 100 mls @ 1 mls/hr IVPB TITR [facility] Last Admin: 01/01/20 10:16 Dose: 75 mcg/hr, 15 mls/hr Documented by: Midazolam HCl (Midazolam 100mg/100ml-0.9%Nacl) 100 mg in 100 mls @ 1 mls/hr IVPB TITR [facility]; Protocol Last Admin: 01/01/20 00:41 Dose: 8 mg/hr, 8 mls/hr Documented by: Vasopressin 40 units/ Sodium (Chloride) 100 mls @ 5 mls/hr IVPB ASDIR [facility]; Protocol Last Admin: 12/30/19 12:00 Dose: 2.4 units/hr, 6 mls/hr Documented by: Norepinephrine Bitartrate (Levophed Bag) 16,000 mcg in 500 mls @ 9.375 mls/hr IVPB TITR [facility]; Protocol Last Titration: 01/01/20 09:48 Dose: 4 mcg/min, 7.5 mls/hr Documented by: Pantoprazole Sodium 80 mg/ (Sodium Chloride) 100 mls @ 10 mls/hr IVPB Q10H [facility] Stop: 01/03/20 12:07 Last Admin: 01/01/20 09:00 Dose: 10 mls/hr Documented by: Mupirocin (Bactroban Ointment (For Decolonization) -) 1 applic NS BID [facility] Stop: 01/02/20 09:59 Last Admin: 01/01/20 09:48 Dose: 1 applic Documented by: Thiamine HCl (Vitamin B1 Injection -) 200 mg IVPB DAILY [facility] Last Admin: 01/01/20 09:48 Dose: 200 mg Documented by: GENERAL: Intubated and sedated HEAD: NC / AT EYES: (-) Icterus ENT: intubated, NGT in place NECK: Trachea midline LUNGS: Vented, diminished at the bases HEART: RRR, S1, S2 ABDOMEN: Soft, nontender, nondistended, EXTREMITIES: cool, no edema. NEUROLOGICAL: sedated SKIN: Warm, dry, multiple ecchymosis on BL arms and legs Laboratory Results - last 24 hr 12/30/19 12/31/19 01/01/20 06:00 22:15 03:30 WBC 9.2 10.4 H RBC 2.13 L 2.52 L Hgb 6.8 L* 8.1 L Hct 19.4 L D 23.4 L D MCV 91.1 92.6 MCH 31.8 32.3 MCHC 34.9 34.9 RDW 17.9 H 17.4 H Plt Count 194 187 MPV 7.3 L 7.3 L Absolute Neuts (auto) Neutrophils % Neutrophils % (Manual) Band Neutrophils % Lymphocytes % Lymphocytes % (Manual) Monocytes % Monocytes % (Manual) Eosinophils % Eosinophils % (Manual) Basophils % Basophils % (Manual) Myelocytes % (Man) Promyelocytes % (Man) Blast Cells % (Manual) Nucleated RBC % Metamyelocytes Hypochromia Platelet Estimate Polychromasia Poikilocytosis Anisocytosis Microcytosis Macrocytosis [place] Cells Anticoagulation Therapy Puncture Site Patient Temperature ABG pH ABG pCO2 ABG pO2 ABG HCO3 ABG O2 Sat (Measured) ABG O2 Content ABG Base Excess Vipul Test Patient On Oxygen O2 Delivery Device Oxygen Flow Rate Vent Mode Vent Rate Mechanical Rate PEEP Pressure Support Vent Sodium Potassium Chloride Carbon Dioxide Anion Gap BUN Creatinine Est GFR (CKD-EPI)AfAm Est GFR (CKD-EPI)NonAf Random Glucose Calcium Phosphorus Magnesium Total Bilirubin AST ALT Alkaline Phosphatase Total Protein Albumin Blood Type A NEGATIVE Antibody Screen Negative Crossmatch See Detail 01/01/20 01/01/20 01/01/20 05:10 05:30 05:30 WBC 10.3 H RBC 2.58 L Hgb 8.2 L Hct 23.8 L MCV 92.2 MCH 31.7 MCHC 34.4 RDW 17.2 H Plt Count 190 MPV 7.3 L Absolute Neuts (auto) 8.2 H Neutrophils % 79.5 Neutrophils % (Manual) 85.0 H Band Neutrophils % 0.0 Lymphocytes % 5.0 L D Lymphocytes % (Manual) 7.0 L D Monocytes % 14.2 H Monocytes % (Manual) 7 D Eosinophils % 1.1 D Eosinophils % (Manual) 1.0 D Basophils % 0.2 Basophils % (Manual) 0.0 Myelocytes % (Man) 0 D Promyelocytes % (Man) 0 Blast Cells % (Manual) 0 Nucleated RBC % 0 Metamyelocytes 0 D Hypochromia 0 Platelet Estimate Normal Polychromasia 1+ Poikilocytosis 1+ Anisocytosis 1+ Microcytosis 0 Macrocytosis 0 John Cells 1+ Anticoagulation Therapy No Result Required. Puncture Site Left radial Patient Temperature No Result Required. ABG pH 7.350 ABG pCO2 37.80 ABG pO2 78.1 L ABG HCO3 20.4 L ABG O2 Sat (Measured) 95.1 ABG O2 Content No Result Required. ABG Base Excess -4.8 L Vipul Test Positive Patient On Oxygen Yes O2 Delivery Device Vent Oxygen Flow Rate 70% Vent Mode Ac Vent Rate 20 Mechanical Rate Yes PEEP 5.0 Pressure Support Vent 450 Sodium 141 Potassium 4.4 Chloride 112 H Carbon Dioxide 24 Anion Gap 4 L BUN 16.0 Creatinine 0.8 Est GFR (CKD-EPI)AfAm 112.53 Est GFR (CKD-EPI)NonAf 97.10 Random Glucose 116 H Calcium 6.8 L* Phosphorus 2.6 Magnesium 1.8 Total Bilirubin 1.0 AST 149 H ALT 140 H Alkaline Phosphatase 55 Total Protein 3.5 L Albumin 1.3 L Blood Type Antibody Screen Crossmatch ASSESSMENT/PLAN: Acute Respiratory Failure Aspiration PNA Acute Duodenal bleed HTN PVD Chronic alcohol abuse, NSAID, & tobacco abuse Hematemsis Syncope AC Mode of vent Pressors to maintain MAP Transfusional support Octreotide PPI drip Hold AC Mechanical VTE prophylaxis ABX per ID Requires ICU monitoring Dr Avalos Critical care time spent in reviewing chart, evaluating patient and formulating plan - 36 minutes.
--- NOTE | 2020-01-01 12:43 | PN ---
Progress Note (short form) - Note Progress Note: Attending Surgeon Seen in f/u; remains in ICU on vent sedated and on pressors and Protonix gtt abdo-soft; non tender; NGT draining dark blood/clots labs noted; received 1 unit PRBC's last PM/early AM sputum growing bowel ivelisse IMP: UGIB s/p angioembolization of the GDA PLAN: NGT should be irrigated as necessary to keep patent; old blood and clots are present. ? need for repeat endoscopy to document that there is no active bleeding. Justin Johnston MD FACS
--- NOTE | 2020-01-01 14:28 | PN.GI ---
GI Progress Note Subjective: had 1 large bowel movement last evening associated with a drop in HGB. He received 1 unit of PRBC. His HHGB now is 8 - Objective Vital Signs: Vital Signs Temperature 97.9 F 01/01/20 02:00 Pulse Rate 57 L 01/01/20 10:00 Respiratory Rate 01/01/20 10:00 Blood Pressure 111/68 01/01/20 10:00 O2 Sat by Pulse Oximetry (%) 100 01/01/20 09:00 Constitutional: Well Nourished Eyes: Yes: Conjunctiva Clear HENT: Yes: Atraumatic Neck: Yes: Supple Cardiovascular: Yes: Regular Rate and Rhythm Respiratory: Yes: CTA Bilaterally ...Palpate: Yes: Soft. No: Firm/Rigid, Guarding, Hepatomegaly, Mass, Pulsatile Mass, Splenomegaly Labs: CBC, BMP 01/01/20 05:30 01/01/20 05:30 INR, PTT INR 1.22 (0.83-1.09) H 12/31/19 04:27 Fibrinogen 249.0 mg/dL (238-498) 12/28/19 11:00 Problem List - Problems (1) Duodenal ulcer Assessment/Plan: The patient has intermittent bleeding from a posterior wall duodenal ulcer despite EGD and interventional radiology. It would be difficult to control endoscopicaly because of large feeding vessel. He will eventually need surgical intervention if further bleeding occurs. Will need to consider second surgical opinion. Discussed with Christiane. Code(s): K26.9 - DUODENAL ULCER, UNSP ACUTE OR CHRONIC, W/O HEMOR OR PERF
--- NOTE | 2020-01-01 14:49 | PN ---
Progress Note, Physician History of Present Illness: Pt seen and examined at bedside. He remains in the ICU. He remains intubated. - Current Medication List Current Medications: Active Medications Chlorhexidine Gluconate (Hibiclens For Decolonization -) 1 applic TP HS [facility] Last Admin: 12/31/19 23:00 Dose: 1 applic Documented by: Cyanocobalamin (Vitamin B12 Injection -) 1,000 mcg IM DAILY [facility] Last Admin: 01/01/20 09:47 Dose: 1,000 mcg Documented by: Sodium Chloride (Normal Saline -) 1,000 mls @ 125 mls/hr IV ASDIR [facility] Last Admin: 01/01/20 07:00 Dose: Not Given Documented by: Piperacillin Sod/Tazobactam (Sod 3.375 gm/ Dextrose) 50 mls @ 100 mls/hr IVPB Q8H-IV [facility]; Protocol Last Admin: 01/01/20 09:46 Dose: 100 mls/hr Documented by: Propofol (Diprivan -) 1,000,000 mcg in 100 mls @ 1.761 mls/hr IVPB TITR [facility]; Protocol Last Admin: 12/31/19 18:28 Dose: 30 mcg/kg/min, 10.566 mls/hr Documented by: Fentanyl (Sublimaze Ivpb) 500 mcg in 100 mls @ 1 mls/hr IVPB TITR [facility] Last Admin: 01/01/20 10:16 Dose: 75 mcg/hr, 15 mls/hr Documented by: Midazolam HCl (Midazolam 100mg/100ml-0.9%Nacl) 100 mg in 100 mls @ 1 mls/hr IVPB TITR [facility]; Protocol Last Admin: 01/01/20 00:41 Dose: 8 mg/hr, 8 mls/hr Documented by: Vasopressin 40 units/ Sodium (Chloride) 100 mls @ 5 mls/hr IVPB ASDIR [facility]; Protocol Last Admin: 12/30/19 12:00 Dose: 2.4 units/hr, 6 mls/hr Documented by: Norepinephrine Bitartrate (Levophed Bag) 16,000 mcg in 500 mls @ 9.375 mls/hr IVPB TITR [facility]; Protocol Last Titration: 01/01/20 09:48 Dose: 4 mcg/min, 7.5 mls/hr Documented by: Pantoprazole Sodium 80 mg/ (Sodium Chloride) 100 mls @ 10 mls/hr IVPB Q10H [facility] Stop: 01/03/20 12:07 Last Admin: 01/01/20 09:00 Dose: 10 mls/hr Documented by: Mupirocin (Bactroban Ointment (For Decolonization) -) 1 applic NS BID [facility] Stop: 01/02/20 09:59 Last Admin: 01/01/20 09:48 Dose: 1 applic Documented by: Thiamine HCl (Vitamin B1 Injection -) 200 mg IVPB DAILY [facility] Last Admin: 01/01/20 09:48 Dose: 200 mg Documented by: - Objective Vital Signs: Vital Signs Temperature 97.9 F 01/01/20 02:00 Pulse Rate 57 L 01/01/20 10:00 Respiratory Rate 01/01/20 13:15 Blood Pressure 111/68 01/01/20 10:00 O2 Sat by Pulse Oximetry (%) 100 01/01/20 13:15 Constitutional: Yes: Calm Eyes: Yes: Conjunctiva Clear HENT: Yes: Atraumatic Cardiovascular: Yes: S1, S2 Respiratory: Yes: Mechanically Ventilated Gastrointestinal: Yes: Soft Genitourinary: Yes: Munoz Present Musculoskeletal: Yes: Muscle Weakness Edema: No Integumentary: Yes: Tattoos Neurological: Yes: Lethargy Labs: CBC, BMP 01/01/20 05:30 01/01/20 05:30 INR, PTT INR 1.22 (0.83-1.09) H 12/31/19 04:27 Fibrinogen 249.0 mg/dL (238-498) 12/28/19 11:00 Problem List - Problems (1) GIB (gastrointestinal bleeding) Code(s): K92.2 - GASTROINTESTINAL HEMORRHAGE, UNSPECIFIED Qualifiers: GI bleed type/associated pathology: unspecified gastrointestinal hemorrhage type Qualified Code(s): K92.2 - Gastrointestinal hemorrhage, unspecified (2) Respiratory distress, acute Code(s): R06.03 - ACUTE RESPIRATORY DISTRESS (3) Alcohol abuse Code(s): F10.10 - ALCOHOL ABUSE, UNCOMPLICATED (4) HTN (hypertension) Code(s): I10 - ESSENTIAL (PRIMARY) HYPERTENSION (5) Hyponatremia Code(s): E87.1 - HYPO-OSMOLALITY AND HYPONATREMIA Assessment/Plan Current Medications Generic Name Dose Route Start Last Admin Trade Name Freq PRN Reason Stop Dose Admin Chlorhexidine Gluconate 1 applic 12/28/19 22:00 12/31/19 23:00 Hibiclens For Decolonization - TP 1 applic HS [facility] Administration Cyanocobalamin 1,000 mcg 12/29/19 13:30 01/01/20 09:47 Vitamin B12 Injection - IM 1,000 mcg DAILY [facility] Administration Sodium Chloride 1,000 mls @ 125 mls/hr 12/28/19 04:30 01/01/20 07:00 Normal Saline - IV Not Given ASDIR [facility] Piperacillin Sod/Tazobactam 50 mls @ 100 mls/hr 12/29/19 18:00 01/01/20 09:46 Sod 3.375 gm/ Dextrose IVPB 100 mls/hr Q8H-IV [facility] Administration Protocol Propofol 1,000,000 mcg in 100 mls @ 1.761 mls/hr 12/28/19 12:45 12/31/19 18:28 Diprivan - IVPB 30 mcg/kg/min TITR [facility] 10.566 mls/hr Administration Protocol 5 MCG/KG/MIN Fentanyl 500 mcg in 100 mls @ 1 mls/hr 12/28/19 17:50 01/01/20 10:16 Sublimaze Ivpb IVPB 75 mcg/hr TITR [facility] 15 mls/hr Administration 5 MCG/HR Midazolam HCl 100 mg in 100 mls @ 1 mls/hr 12/29/19 05:00 01/01/20 00:41 Midazolam 100mg/100ml-0.9%Nacl IVPB 8 mg/hr TITR [facility] 8 mls/hr Administration Protocol 1 MG/HR Vasopressin 40 units/ Sodium 100 mls @ 5 mls/hr 12/30/19 13:30 12/30/19 12:00 Chloride IVPB 2.4 units/hr ASDIR [facility] 6 mls/hr Administration Protocol 2 UNITS/HR Norepinephrine Bitartrate 16,000 mcg in 500 mls @ 9.375 mls/hr 12/30/19 21:15 01/01/20 09:48 Levophed Bag IVPB 4 mcg/min TITR [facility] 7.5 mls/hr Titration Protocol 5 MCG/MIN Pantoprazole Sodium 80 mg/ 100 mls @ 10 mls/hr 12/31/19 12:15 01/01/20 09:00 Sodium Chloride IVPB 09/15/20 12:07 10 mls/hr Q10H [facility] Administration 8 MG/HR Mupirocin 1 applic 12/28/19 10:00 01/01/20 09:48 Bactroban Ointment (For Decolonization) - NS 01/02/20 09:59 1 applic BID [facility] Administration Thiamine HCl 200 mg 12/29/19 13:45 01/01/20 09:48 Vitamin B1 Injection - IVPB 200 mg DAILY [facility] Administration Impression 1. hyponatremia 2. lactic acidosis 3. resp failure requiring intubation 4. etoh abuse 5. hematemesis 6. possible aspiration pna 7. active smoker 8. copd on home oxygen 9. pvd 10. gi bleed Plan - monitor lytes - renal function stable - can decrease fluids - vent support - monitor hg - cont ICU care - maintain map 65 - discussed with ICU - monitor volume status
[2020-01-01 16:54] LABS: BASO % 0.4 % (0-2.0); EOS % 1.5 % (0-4.5); HEMATOCRIT 21.9 % (35.4-49); HEMOGLOBIN 7.6 GM/dL (11.7-16.9); LYMPH % 6.5 % (8-40); MCH 32.2 pg (25.7-33.7); MCHC 34.7 g/dl (32.0-35.9); MEAN CELL VOLUME 92.8 fl (80-96); MEAN PLT VOLUME 7.3 fl (7.5-11.1); MONO % 12.4 % (3.8-10.2); NEUT % 79.2 % (42.8-82.8); PLATELET COUNT 159 K/MM3 (134-434); RBC 2.36 M/mm3 (4.00-5.60); RDW 16.8 % (11.9-15.9); WHITE BLOOD COUNT 4.9 K/mm3 (4.0-10.0)
[2020-01-01 18:15] LABS: ANISOCYTOSIS 1+; MACROCYTOSIS 0; PLATELET ESTIMATE NORMAL
[2020-01-01] MEDS: VASOPRESSIN 40 UNITS in SODIUM CHLORIDE 98 ML IVPB SCH (20:35)
[2020-01-01] MEDS: CHLORHEXIDINE GLUCONATE 4% CLEANSER FOR DECOLONIZATION TP SCH (21:53)
[2020-01-01 23:32] LABS: BASO % 0.2 % (0-2.0); EOS % 0.3 % (0-4.5); HEMOGLOBIN 7.3 GM/dL (11.7-16.9); LYMPH % 1.9 % (8-40); MCH 31.5 pg (25.7-33.7); MCHC 34.7 g/dl (32.0-35.9); MEAN CELL VOLUME 90.9 fl (80-96); MEAN PLT VOLUME 7.2 fl (7.5-11.1); MONO % 7.8 % (3.8-10.2); NEUT % 89.8 % (42.8-82.8); PLATELET COUNT 149 K/MM3 (134-434); RBC 2.31 M/mm3 (4.00-5.60); RDW 16.4 % (11.9-15.9); WHITE BLOOD COUNT 5.6 K/mm3 (4.0-10.0)
[2020-01-02] MEDS: PIPERACILLIN/TAZOB 3.375 GM 3.375 GM in DEXTROSE 5%-WATER - 50 ML IVPB SCH ×2 (02:30→08:59)
[2020-01-02] MEDS ORDERED: DEXTROSE 5%-WATER - 50 ML IVPB ONE ×2 (02:56→08:29)
[2020-01-02] MEDS ORDERED: PIPERACILLIN/TAZOBACTAM 3.375 GM VIAL IVPB ONE ×2 (02:56→08:29)
[2020-01-02] MEDS: PANTOPRAZOLE SODIUM 80 MG in SODIUM CHLORIDE 100 ML IVPB SCH (05:10)
[2020-01-02] MEDS: FENTANYL NS IVPB 500 MCG/100 ML BAG IVPB SCH (05:12)
[2020-01-02 06:53] LABS: ALBUMIN 1.1 g/dl (3.4-5.0); BILIRUBIN,TOTAL 0.5 mg/dL (0.2-1); BLOOD UREA NITROGEN 10.8 mg/dL (7-18); CREATININE 0.7 mg/dL (0.55-1.3); MAGNESIUM 1.7 mg/dL (1.8-2.4); TOT PROT 3.1 g/dl (6.4-8.2)
[2020-01-02 07:14] LABS: CALCIUM 6.6 mg/dL (8.5-10.1)
[2020-01-02] MEDS ORDERED: D5-1/2NS+20 MEQ KCL - 20 MEQ/1,000 ML INFUS.BAG IV SCH (07:45)
[2020-01-02] MEDS: KCL 10 MEQ IVPB 10 MEQ/100 ML INFUS.BAG IVPB SCH ×3 (07:49→10:53)
[2020-01-02] MEDS: MIDAZOLAM IN 0.9 % SOD.CHLORID 100 MG/100 ML PLAST..BAG IVPB SCH (07:56)
[2020-01-02] MEDS ORDERED: MAGNESIUM 2GM/50ML STERILE WATER IVPB IVPB ONE (08:00)
--- NOTE | 2020-01-02 08:07 | PN ---
Progress Note, Physician - Current Medication List Current Medications: Active Medications Chlorhexidine Gluconate (Hibiclens For Decolonization -) 1 applic TP HS [facility] Last Admin: 01/01/20 21:53 Dose: 1 applic Documented by: Cyanocobalamin (Vitamin B12 Injection -) 1,000 mcg IM DAILY [facility] Last Admin: 01/01/20 09:47 Dose: 1,000 mcg Documented by: Fentanyl (Sublimaze Ivpb) 500 mcg in 100 mls @ 1 mls/hr IVPB TITR [facility] Last Admin: 01/02/20 05:12 Dose: 75 mcg/hr, 15 mls/hr Documented by: Midazolam HCl (Midazolam 100mg/100ml-0.9%Nacl) 100 mg in 100 mls @ 1 mls/hr IVPB TITR [facility]; Protocol Last Titration: 01/02/20 08:01 Dose: 3 mg/hr, 3 mls/hr Documented by: Vasopressin 40 units/ Sodium (Chloride) 100 mls @ 5 mls/hr IVPB ASDIR [facility]; Protocol Last Admin: 01/01/20 20:35 Dose: 2.4 units/hr, 6 mls/hr Documented by: Norepinephrine Bitartrate (Levophed Bag) 16,000 mcg in 500 mls @ 9.375 mls/hr IVPB TITR [facility]; Protocol Last Admin: 01/01/20 18:02 Dose: 4 mcg/min, 7.5 mls/hr Documented by: Pantoprazole Sodium 80 mg/ (Sodium Chloride) 100 mls @ 10 mls/hr IVPB Q10H [facility] Stop: 01/03/20 12:07 Last Admin: 01/02/20 05:10 Dose: 10 mls/hr Documented by: Piperacillin Sod/Tazobactam (Sod 3.375 gm/ Dextrose) 50 mls @ 100 mls/hr IVPB Q8H-IV [facility]; Protocol Last Admin: 01/02/20 02:30 Dose: 100 mls/hr Documented by: Potassium Chloride (Potassium Chloride 10 Meq Premix Ivpb -) 10 meq in 100 mls @ 100 mls/hr IVPB Q60M [facility] Stop: 01/02/20 11:14 Last Admin: 01/02/20 07:49 Dose: 100 mls/hr Documented by: Potassium Chloride/Dextrose/Sod Cl (D5-1/2ns+20 Meq Kcl -) 20 meq in 1,000 mls @ 75 mls/hr IV ASDIR [facility] Last Admin: 01/02/20 07:48 Dose: 75 mls/hr Documented by: Mupirocin (Bactroban Ointment (For Decolonization) -) 1 applic NS BID [facility] Stop: 01/02/20 09:59 Last Admin: 01/01/20 21:53 Dose: 1 applic Documented by: Thiamine HCl (Vitamin B1 Injection -) 200 mg IVPB DAILY [facility] Last Admin: 01/01/20 09:48 Dose: 200 mg Documented by: - Objective Vital Signs: Vital Signs Temperature 99 F 01/02/20 05:58 Pulse Rate 100 H 01/02/20 07:54 Respiratory Rate 26 H 01/02/20 07:54 Blood Pressure 108/57 L 01/02/20 07:00 O2 Sat by Pulse Oximetry (%) 94 L 01/02/20 00:15 Cardiovascular: Yes: S1, S2 Respiratory: Yes: Mechanically Ventilated Gastrointestinal: Yes: Normal Bowel Sounds, Soft Labs: CBC, BMP 01/02/20 05:50 INR, PTT INR 1.22 (0.83-1.09) H 12/31/19 04:27 Fibrinogen 249.0 mg/dL (238-498) 12/28/19 11:00 Assessment/Plan - Problems (1) Anemia Assessment/Plan: -2/2 to acute blood loss -Monitor H/H -normal transfusion parameters -Iron % low -Injectafer once this admission -B12 inj daily -PPI -Continue octreotide drip -Need for repeat EGD upon GI discretion Problems reviewed: Yes Code(s): D64.9 - ANEMIA, UNSPECIFIED (2) GIB (gastrointestinal bleeding) Assessment/Plan: -GI consult appreciated -S/P EGD, may need repeat -monitor H/H closely -Transfuse as needed to keep Hg>8.0 -PPI -Octreotide drip -CTA abd -bleeding DU,s/p embolization of the GDA for bleeding DU -IVF Problems reviewed: Yes Code(s): K92.2 - GASTROINTESTINAL HEMORRHAGE, UNSPECIFIED Qualifiers: GI bleed type/associated pathology: unspecified gastrointestinal hemorrhage type Qualified Code(s): K92.2 - Gastrointestinal hemorrhage, unspecified (3) Pneumonia Assessment/Plan: -Pulmonary on board -[facility] vent -COVID 19 PCR negative Problems reviewed: Yes Code(s): J18.9 - PNEUMONIA, UNSPECIFIED ORGANISM (4) Respiratory failure Assessment/Plan: as above -Wean as tolerated Problems reviewed: Yes Code(s): J96.90 - RESPIRATORY FAILURE, UNSP, UNSP W HYPOXIA OR HYPERCAPNIA (5) Alcohol abuse Assessment/Plan: -Thiamine IVPB -Cyanocobalamine 1g IM daily Problems reviewed: Yes Code(s): F10.10 - ALCOHOL ABUSE, UNCOMPLICATED (6) Hyponatremia Assessment/Plan: -Nephrology consult -Continue IVF -Monitor trend Problems reviewed: Yes Code(s): E87.1 - HYPO-OSMOLALITY AND HYPONATREMIA (7) Malnourished Problems reviewed: Yes Code(s): E46 - UNSPECIFIED PROTEIN-CALORIE MALNUTRITION
[2020-01-02] MEDS ORDERED: PT OWN MED DRAWER 7, Y5N ONE ×2 (08:29→15:11)
[2020-01-02] MEDS: THIAMINE HCL 200 MG/2 ML VIAL IVPB SCH (09:00)
[2020-01-02] MEDS: CYANOCOBALAMIN (VITAMIN B-12) 1000 MCG/1 ML VIAL IM SCH (09:01)
[2020-01-02 09:15] LABS: BASO % 0.1 % (0-2.0); LYMPH % 1.9 % (8-40); MCH 30.8 pg (25.7-33.7); MCHC 33.2 g/dl (32.0-35.9); MEAN CELL VOLUME 92.8 fl (80-96); MEAN PLT VOLUME 7.5 fl (7.5-11.1); MONO % 6.7 % (3.8-10.2); NEUT % 91.3 % (42.8-82.8); PLATELET COUNT 161 K/MM3 (134-434); RBC 2.05 M/mm3 (4.00-5.60); RDW 16.8 % (11.9-15.9)
[2020-01-02 09:17] LABS: HEMOGLOBIN 6.3 GM/dL (11.7-16.9)
[2020-01-02] MEDS ORDERED: POTASSIUM CHLORIDE 20 MEQ PREMIX IVPB 100 ML IVPB SCH (10:00)
[2020-01-02] MEDS ORDERED: NAPH,MB-DB/K PH,MBDB POWDER PACKET PO SCH (10:00)
[2020-01-02] MEDS ORDERED: SODIUM PHOSPHATE - 15 MM in SODIUM CHLORIDE 250 ML IVPB ONE (10:00)
--- NOTE | 2020-01-02 10:23 | PN ---
Progress Note (short form) - Note Progress Note: Attending Surgeon Seen in f/u; remains in ICU on vent sedated and on pressors and Protonix gtt abdo-soft; non tender; NGT persistently draining dark blood/clots labs noted; h/h low again sputum growing bowel ivelisse c/w aspiration pneumonia IMP: UGIB s/p angio embolization of the GDA PLAN: Again NGT should be irrigated as necessary to keep patent; old blood and clots are present; I suspect the stomach is filled w/clots. ? need for repeat endoscopy to document that there is no active bleeding at the site of the duodenal ulcer; if this is the source and or the patient has diffuse gastritis he will need a partial or total gastrectomy w/reconstruction which would require xfer to a higher level of care that cannot be provided here. Justin Johnston MD FACS
[2020-01-02] MEDS ORDERED: ACETAMINOPHEN 1000 MG/100 ML VIAL (NON FORMULARY) IVPB ONE (10:40)
[2020-01-02] MEDS ORDERED: ACETAMINOPHEN INJECTION 100 ML IVPB ONE (10:42)
--- NOTE | 2020-01-02 11:03 | PN ---
Progress Note (short form) - Note Progress Note: s/p embolectomy intubation for GI re-evaluation Vital Signs Period Temp Pulse Resp BP Sys/Garcia Pulse Ox Last 24 Hr 99 F-100.9 F 56-101 17-27 96-134/57-71 94-100 cor-rrr llungs decreased bs at bases abd soft,nt +femoral line left IJ cvp ext +edema NGT- dark black blood CBC, BMP 01/02/20 05:50 01/02/20 05:50 Microbiology 12/28/19 18:00 Sputum - Endotrachea Suction/Ventilator Gram Stain - Final 12/28/19 18:00 Sputum - Endotrachea Suction/Ventilator Sputum Culture - Final Escherichia Coli Klebsiella Pneumoniae Yeast Like Organism 12/28/19 18:00 Urine For Antigen Detection Legionella Antigen - Final 12/28/19 18:00 Urine For Antigen Detection Streptococcus pneumoniae Antigen (M - Final imp/reccd resp failure GI bleed probable aspiration pneumonia continue zosyn fever this am obtain blood cultures add vancomycin change femoral line GI f/u transfusion Problem List - Problems (1) Respiratory failure Code(s): J96.90 - RESPIRATORY FAILURE, UNSP, UNSP W HYPOXIA OR HYPERCAPNIA (2) GIB (gastrointestinal bleeding) Code(s): K92.2 - GASTROINTESTINAL HEMORRHAGE, UNSPECIFIED Qualifiers: GI bleed type/associated pathology: unspecified gastrointestinal hemorrhage type Qualified Code(s): K92.2 - Gastrointestinal hemorrhage, unspecified (3) Pneumonia Code(s): J18.9 - PNEUMONIA, UNSPECIFIED ORGANISM
--- NOTE | 2020-01-02 11:35 | PN ---
Teaching Attending Note Name of Resident: Varsha Davis ATTENDING PHYSICIAN STATEMENT I saw and evaluated the patient. I reviewed the resident's note and discussed the case with the resident. I agree with the resident's findings and plan as documented. SUBJECTIVE: Pt seen and examined in the ICU. Remains intubated, sedated on protonix, levophed and vasopressin gtts. Continues to bleed, Hgb 6.3 this AM. OBJECTIVE: Vital Signs Period Temp Pulse Resp BP Sys/Garcia Pulse Ox Last 24 Hr 99 F-100.9 F 56-101 17-27 96-134/57-71 94-100 Intake & Output 12/30/19 12/31/19 01/01/20 01/02/20 23:59 23:59 23:59 23:59 Intake Total 3690.8 5643 4652 2352 Output Total 950 1150 2500 1100 Balance 2740.8 4493 2152 1252 Weight 58.513 kg Gen: intubated, sedated Heart: RRR Lung: bilateral rhonchi Abd: soft, nontender Ext: no edema CBC, BMP 01/02/20 05:50 01/02/20 05:50 Active Medications Chlorhexidine Gluconate (Hibiclens For Decolonization -) 1 applic TP HS [facility] Last Admin: 01/01/20 21:53 Dose: 1 applic Documented by: Cyanocobalamin (Vitamin B12 Injection -) 1,000 mcg IM DAILY T[facility] Last Admin: 01/02/20 09:01 Dose: 1,000 mcg Documented by: Fentanyl (Sublimaze Ivpb) 500 mcg in 100 mls @ 1 mls/hr IVPB TITR [facility] Last Admin: 01/02/20 05:12 Dose: 75 mcg/hr, 15 mls/hr Documented by: Midazolam HCl (Midazolam 100mg/100ml-0.9%Nacl) 100 mg in 100 mls @ 1 mls/hr IVPB [facility]R [facility]; Protocol Last Titration: 01/02/20 08:01 Dose: 3 mg/hr, 3 mls/hr Documented by: Vasopressin 40 units/ Sodium (Chloride) 100 mls @ 5 mls/hr IVPB ASDIR [facility]; Protocol Last Titration: 01/02/20 08:26 Dose: 1 units/hr, 2.5 mls/hr Documented by: Norepinephrine Bitartrate (Levophed Bag) 16,000 mcg in 500 mls @ 9.375 mls/hr IVPB TITR [facility]; Protocol Last Admin: 01/01/20 18:02 Dose: 4 mcg/min, 7.5 mls/hr Documented by: Pantoprazole Sodium 80 mg/ (Sodium Chloride) 100 mls @ 10 mls/hr IVPB Q10H [facility] Stop: 01/03/20 12:07 Last Admin: 01/02/20 05:10 Dose: 10 mls/hr Documented by: Piperacillin Sod/Tazobactam (Sod 3.375 gm/ Dextrose) 50 mls @ 100 mls/hr IVPB Q8H-IV [facility]; Protocol Last Admin: 01/02/20 08:59 Dose: 100 mls/hr Documented by: Potassium Chloride/Dextrose/Sod Cl (D5-1/2ns+20 Meq Kcl -) 20 meq in 1,000 mls @ 75 mls/hr IV ASDIR [facility] Last Admin: 01/02/20 07:48 Dose: 75 mls/hr Documented by: Sodium Phosphate 15 mm/ Sodium (Chloride) 255 mls @ 42.5 mls/hr IVPB ONCE ONE Stop: 01/02/20 15:59 Last Admin: 01/02/20 10:36 Dose: 42.5 mls/hr Documented by: Vancomycin HCl (Vancomycin (Pre-Docked)) 1,000 mg in 250 mls @ 166.667 mls/hr IVPB Q12H [facility]; Protocol Last Admin: 01/02/20 11:32 Dose: 166.667 mls/hr Documented by: Thiamine HCl (Vitamin B1 Injection -) 200 mg IVPB DAILY [facility] Last Admin: 01/02/20 09:00 Dose: 200 mg Documented by: ASSESSMENT AND PLAN: Acute Respiratory Failure Upper GI Bleed/Duodenal Ulcer Pneumonia likely Aspiration Chronic NSAID use Lactic Acidosis HTN PAD - continue protonix gtt - monitor H/H, coags - transfuse as needed - continue antibiotics - repeat cultures - change out lines - monitor lytes - NPO - continue volume assist control - DVT prophylaxis - continue ICU monitoring - GI f/u, if no further planned interventions, will need transfer to [facility] time spent in reviewing chart, evaluating patient and formulating plan 35 min
[2020-01-02 11:42] LABS: PLATELET ESTIMATE ADEQUATE
[2020-01-02 11:43] LABS: ANISOCYTOSIS 1+; MACROCYTOSIS 1+
[2020-01-02] MEDS ORDERED: VANCOMYCIN 1 GRAM (PRE-DOCKED) 1,000 MG/250 ML BAG IVPB SCH (12:00)
[2020-01-02] MEDS ORDERED: MULTIVIT INJ. ADULT COMBO WITH VIT K 1 COMBO 10 ML VIAL IV SCH (13:15)
[2020-01-02] MEDS ORDERED: AMINO ACIDS 4.25%/D5W 1,000 ML IV SCH ×2 (13:15)
[2020-01-02 14:19] VITALS: TEMP 100.2
--- NOTE | 2020-01-02 14:29 | PROC ---
Central Line Insertion Indication: Sepsis Risks and Benefits Explained: No (done emergently) Consent on Chart: No Central Line: Triple Lumen Catheter Anesthesia: 2% Lidocaine Sterile Technique: Yes Ultrasound Guided Assistance: Yes Position: Right Internal Jugular Post Insertion: Yes: Bilateral Breath Sounds, Chest X-Ray Ordered Sterile Dressing Applied: Yes
[2020-01-02 14:53] LABS: HEMOGLOBIN 8.6 GM/dL (11.7-16.9); MCH 30.8 pg (25.7-33.7); MCHC 34.3 g/dl (32.0-35.9); MEAN CELL VOLUME 89.8 fl (80-96); MEAN PLT VOLUME 7.8 fl (7.5-11.1); PLATELET COUNT 156 K/MM3 (134-434); RBC 2.79 M/mm3 (4.00-5.60); RDW 17.4 % (11.9-15.9)
[2020-01-02 15:02] LABS: INR 1.25 (0.83-1.09); PROTHROMBIN TIME (PATIENT) 14.8 SEC (9.7-13.0)
[2020-01-02] MEDS ORDERED: VASOPRESSIN 20 UNITS/ML VIAL IV ONE (15:12)
--- NOTE | 2020-01-02 15:54 | PN ---
Progress Note (short form) - Note Progress Note: Rebleeding reported yesterday and melena noted again today with worsened anemia. Spoke with Dr. Johnston. Hagerman that potential surgical intervention required could require expertise at an alternate institution / tertiary care center. Performing a second look endoscopy given previously noted EGD findings (large ulcer in the region of bleeding in an acutely angulated area of the duodenum) and active GDA bleeding source noted on CTA would be futile. Spoke with Dr. Jethro Nichlos @ [facility] who accepted him for transfer. Can have surgical intervention performed there +/- attempt at repeat endoscopy. Mr. Davies will be getting transferred to the [facility] as there are no available ICU beds @ [facility]. Discussed with Danna, Mr. Davies's sister. She has agreed to the transfer and is aware that Mr. Davies is critically ill. Continue supportive measures with PPI drip, blood products. Supplement 1g calcium gluconate IVPB x1 Problem List - Problems (1) GIB (gastrointestinal bleeding) Code(s): K92.2 - GASTROINTESTINAL HEMORRHAGE, UNSPECIFIED Qualifiers: GI bleed type/associated pathology: unspecified gastrointestinal hemorrhage type Qualified Code(s): K92.2 - Gastrointestinal hemorrhage, unspecified
[2020-01-02 16:01] VITALS: BP 103/57; PULSE 80
--- NOTE | 2020-01-02 16:02 | DS ---
Physical Exam: SUBJECTIVE: Patient seen and examined bedside. Intubated, sedated, on pressors, pale. Still having bowel movements with lots of melena as per night team. OBJECTIVE: Vital Signs 01/02/20 01/02/20 11:59 12:28 Temperature 101 F H 100.4 F H Pulse Rate 82 76 Respiratory 20 20 Rate Blood Pressure 92/54 L 92/54 L O2 Sat by Pulse Oximetry (%) 01/02/20 14:00 Temperature 100.2 F H Pulse Rate 76 Respiratory 20 Rate Blood Pressure 106/60 O2 Sat by Pulse Oximetry (%) PHYSICAL EXAM GENERAL: The patient is sedated HEAD: Normal with no signs of trauma. EYES: PERRL ENT: intubated, NGT in place. Patient tongue has black eschar that is hard to palpation NECK: Trachea midline, R IJ in place LUNGS: decreased breath sounds on right side HEART: RRR, s1, s2 ABDOMEN: Soft, nontender, nondistended, EXTREMITIES: warm, well-perfused, no edema. NEUROLOGICAL: sedated SKIN: Warm, dry, multiple ecchymosis on BL arms and legs Intake & Output 12/30/19 12/31/19 01/01/20 01/02/20 23:59 23:59 23:59 23:59 Intake Total 3690.8 5643 4652 3402 Output Total 950 1150 2500 1500 Balance 2740.8 4493 2152 1902 Weight 129 lb Laboratory Tests 12/27/19 12/27/19 12/27/19 22:45 22:45 22:45 WBC 7.1 RBC 3.26 L Hgb 11.6 L Hct 34.1 L D MCV 104.7 H MCH 35.5 H MCHC 33.9 RDW 13.3 Plt Count 312 D MPV 6.2 L Absolute Neuts (auto) 5.9 Total Counted Neutrophils % 83.6 H Neutrophils % (Manual) Band Neutrophils % Lymphocytes % 8.4 Lymphocytes % (Manual) Monocytes % 5.9 Monocytes % (Manual) Eosinophils % 1.4 D Eosinophils % (Manual) Basophils % 0.7 D Basophils % (Manual) Myelocytes % (Man) Promyelocytes % (Man) Blast Cells % (Manual) Nucleated RBC % 0 Metamyelocytes Hypochromia Platelet Estimate Platelet Comment Polychromasia Poikilocytosis Basophilic Stippling Anisocytosis Microcytosis Macrocytosis [place] Cells Retic Count 1.50 PT with INR INR PTT (Actin FS) Fibrinogen Anticoagulation Therapy Puncture Site Patient Temperature ABG pH ABG pCO2 ABG pO2 ABG HCO3 ABG O2 Sat (Measured) ABG O2 Content ABG Base Excess Vipul Test Patient On Oxygen O2 Delivery Device Oxygen Flow Rate Vent Mode Vent Rate Mechanical Rate PEEP Pressure Support Vent Sodium 125 L Potassium 4.4 Chloride 90 L Carbon Dioxide 20 L Anion Gap 14 BUN 8.9 Creatinine 0.9 Est GFR (CKD-EPI)AfAm 107.22 Est GFR (CKD-EPI)NonAf 92.51 Random Glucose 105 Serum Osmolality Lactic Acid Calcium 8.0 L Phosphorus Magnesium Iron TIBC Iron Saturation Unsaturated IBC Ferritin Total Bilirubin 0.4 AST 22 ALT 15 Alkaline Phosphatase 99 Creatine Kinase Troponin I Total Protein 6.0 L Albumin 3.2 L Vitamin B12 Serum Folate Urine Color Urine Appearance Urine pH Ur Specific [place] Urine Protein Urine Glucose (UA) Urine Ketones Urine Blood Urine Nitrite Urine Bilirubin Urine Urobilinogen Ur Leukocyte Esterase Urine WBC (Auto) Urine RBC (Auto) Urine Casts (Auto) U Epithel Cells (Auto) Urine Bacteria (Auto) Urine Osmolality Ur Random Sodium Ur Random Potassium Ur Random Chloride Stool Occult Blood Opiates Screen Methadone Screen Barbiturate Screen Phencyclidine Screen Ur Amphetamines Screen MDMA (Ecstasy) Screen Benzodiazepines Screen Cocaine Screen U Marijuana (THC) Screen Alcohol, Quantitative COVID-19 ([place]) Blood Type A NEGATIVE Antibody Screen Negative Crossmatch See Detail 12/27/19 12/27/19 12/28/19 22:45 22:45 00:00 WBC RBC Hgb Hct MCV MCH MCHC RDW Plt Count MPV Absolute Neuts (auto) Total Counted Neutrophils % Neutrophils % (Manual) Band Neutrophils % Lymphocytes % Lymphocytes % (Manual) Monocytes % Monocytes % (Manual) Eosinophils % Eosinophils % (Manual) Basophils % Basophils % (Manual) Myelocytes % (Man) Promyelocytes % (Man) Blast Cells % (Manual) Nucleated RBC % Metamyelocytes Hypochromia Platelet Estimate Platelet Comment Polychromasia Poikilocytosis Basophilic Stippling Anisocytosis Microcytosis Macrocytosis [place] Cells Retic Count PT with INR 11.90 INR 1.01 PTT (Actin FS) Fibrinogen Anticoagulation Therapy Puncture Site Patient Temperature ABG pH ABG pCO2 ABG pO2 ABG HCO3 ABG O2 Sat (Measured) ABG O2 Content ABG Base Excess Vipul Test Patient On Oxygen O2 Delivery Device Oxygen Flow Rate Vent Mode Vent Rate Mechanical Rate PEEP Pressure Support Vent Sodium Potassium Chloride Carbon Dioxide Anion Gap BUN Creatinine Est GFR (CKD-EPI)AfAm Est GFR (CKD-EPI)NonAf Random Glucose Serum Osmolality Lactic Acid Calcium Phosphorus Magnesium Iron TIBC Iron Saturation Unsaturated IBC Ferritin Total Bilirubin AST ALT Alkaline Phosphatase Creatine Kinase 84 Troponin I < 0.02 Total Protein Albumin Vitamin B12 Serum Folate Urine Color Urine Appearance Urine pH Ur Specific [place] Urine Protein Urine Glucose (UA) Urine Ketones Urine Blood Urine Nitrite Urine Bilirubin Urine Urobilinogen Ur Leukocyte Esterase Urine WBC (Auto) Urine RBC (Auto) Urine Casts (Auto) U Epithel Cells (Auto) Urine Bacteria (Auto) Urine Osmolality Ur Random Sodium Ur Random Potassium Ur Random Chloride Stool Occult Blood Opiates Screen Methadone Screen Barbiturate Screen Phencyclidine Screen Ur Amphetamines Screen MDMA (Ecstasy) Screen Benzodiazepines Screen Cocaine Screen U Marijuana (THC) Screen Alcohol, Quantitative COVID-19 ([place]) Blood Type A NEGATIVE Antibody Screen Crossmatch 12/28/19 12/28/19 12/28/19 00:01 04:34 04:34 WBC RBC Hgb Hct MCV MCH MCHC RDW Plt Count MPV Absolute Neuts (auto) Total Counted Neutrophils % Neutrophils % (Manual) Band Neutrophils % Lymphocytes % Lymphocytes % (Manual) Monocytes % Monocytes % (Manual) Eosinophils % Eosinophils % (Manual) Basophils % Basophils % (Manual) Myelocytes % (Man) Promyelocytes % (Man) Blast Cells % (Manual) Nucleated RBC % Metamyelocytes Hypochromia Platelet Estimate Platelet Comment Polychromasia Poikilocytosis Basophilic Stippling Anisocytosis Microcytosis Macrocytosis John Cells Retic Count PT with INR INR PTT (Actin FS) Fibrinogen Anticoagulation Therapy Puncture Site Patient Temperature ABG pH ABG pCO2 ABG pO2 ABG HCO3 ABG O2 Sat (Measured) ABG O2 Content ABG Base Excess Vipul Test Patient On Oxygen O2 Delivery Device Oxygen Flow Rate Vent Mode Vent Rate Mechanical Rate PEEP Pressure Support Vent Sodium 127 L Potassium 4.6 Chloride 92 L Carbon Dioxide 20 L Anion Gap 15 BUN 15.8 Creatinine 0.9 Est GFR (CKD-EPI)AfAm 107.22 Est GFR (CKD-EPI)NonAf 92.51 Random Glucose 143 H Serum Osmolality Lactic Acid Calcium 7.2 L Phosphorus 6.0 H Magnesium 2.0 Iron TIBC Iron Saturation Unsaturated IBC Ferritin Total Bilirubin 0.4 AST 23 ALT 16 Alkaline Phosphatase 89 Creatine Kinase Troponin I Total Protein 5.1 L Albumin 2.7 L Vitamin B12 338 Serum Folate 6 Urine Color Urine Appearance Urine pH Ur Specific [place] Urine Protein Urine Glucose (UA) Urine Ketones Urine Blood Urine Nitrite Urine Bilirubin Urine Urobilinogen Ur Leukocyte Esterase Urine WBC (Auto) Urine RBC (Auto) Urine Casts (Auto) U Epithel Cells (Auto) Urine Bacteria (Auto) Urine Osmolality Ur Random Sodium Ur Random Potassium Ur Random Chloride Stool Occult Blood Positive Opiates Screen Methadone Screen Barbiturate Screen Phencyclidine Screen Ur Amphetamines Screen MDMA (Ecstasy) Screen Benzodiazepines Screen Cocaine Screen U Marijuana (THC) Screen Alcohol, Quantitative COVID-19 ([place]) Blood Type A NEGATIVE Antibody Screen Negative Crossmatch See Detail 12/28/19 12/28/19 12/28/19 04:34 04:34 04:34 WBC 11.5 H RBC 2.72 L Hgb 9.5 L Hct 28.4 L D MCV 104.6 H MCH 35.0 H MCHC 33.4 RDW 13.6 Plt Count 348 MPV 6.6 L Absolute Neuts (auto) Total Counted Neutrophils % Neutrophils % (Manual) Band Neutrophils % Lymphocytes % Lymphocytes % (Manual) Monocytes % Monocytes % (Manual) Eosinophils % Eosinophils % (Manual) Basophils % Basophils % (Manual) Myelocytes % (Man) Promyelocytes % (Man) Blast Cells % (Manual) Nucleated RBC % Metamyelocytes Hypochromia Platelet Estimate Platelet Comment Polychromasia Poikilocytosis Basophilic Stippling Anisocytosis Microcytosis Macrocytosis John Cells Retic Count PT with INR INR PTT (Actin FS) Fibrinogen Anticoagulation Therapy Puncture Site Patient Temperature ABG pH ABG pCO2 ABG pO2 ABG HCO3 ABG O2 Sat (Measured) ABG O2 Content ABG Base Excess Vipul Test Patient On Oxygen O2 Delivery Device Oxygen Flow Rate Vent Mode Vent Rate Mechanical Rate PEEP Pressure Support Vent Sodium Potassium Chloride Carbon Dioxide Anion Gap BUN Creatinine Est GFR (CKD-EPI)AfAm Est GFR (CKD-EPI)NonAf Random Glucose Serum Osmolality Lactic Acid 6.5 H* Calcium Phosphorus Magnesium Iron TIBC Iron Saturation Unsaturated IBC Ferritin Total Bilirubin AST ALT Alkaline Phosphatase Creatine Kinase Troponin I Total Protein Albumin Vitamin B12 Serum Folate Urine Color Urine Appearance Urine pH Ur Specific [place] Urine Protein Urine Glucose (UA) Urine Ketones Urine Blood Urine Nitrite Urine Bilirubin Urine Urobilinogen Ur Leukocyte Esterase Urine WBC (Auto) Urine RBC (Auto) Urine Casts (Auto) U Epithel Cells (Auto) Urine Bacteria (Auto) Urine Osmolality Ur Random Sodium Ur Random Potassium Ur Random Chloride Stool Occult Blood Opiates Screen Methadone Screen Barbiturate Screen Phencyclidine Screen Ur Amphetamines Screen MDMA (Ecstasy) Screen Benzodiazepines Screen Cocaine Screen U Marijuana (THC) Screen Alcohol, Quantitative 64.2 H COVID-19 ([place]) Blood Type Antibody Screen Crossmatch 12/28/19 12/28/19 12/28/19 07:42 11:00 11:00 WBC 7.5 RBC 3.84 L Hgb 12.0 Hct 35.0 L D MCV 91.2 D MCH 31.1 D MCHC 34.2 RDW 27.1 H Plt Count 217 D MPV 6.6 L Absolute Neuts (auto) 7.1 Total Counted Neutrophils % 94.5 H Neutrophils % (Manual) 94.9 H D Band Neutrophils % 1.0 Lymphocytes % 1.6 L D Lymphocytes % (Manual) 1.0 L D Monocytes % 3.8 Monocytes % (Manual) 3 L Eosinophils % 0.0 D Eosinophils % (Manual) 0.0 D Basophils % 0.1 Basophils % (Manual) 0.0 Myelocytes % (Man) 0 Promyelocytes % (Man) 0 Blast Cells % (Manual) 0 Nucleated RBC % 0 Metamyelocytes 0 Hypochromia 0 Platelet Estimate Normal Platelet Comment Polychromasia 1+ Poikilocytosis 1+ Basophilic Stippling Anisocytosis 1+ Microcytosis 1+ Macrocytosis 0 [place] Cells 1+ Retic Count PT with INR INR PTT (Actin FS) Fibrinogen 249.0 Anticoagulation Therapy No Result Required. Puncture Site Right radial Patient Temperature No Result Required. ABG pH 7.246 L ABG pCO2 41.10 ABG pO2 128.3 H ABG HCO3 17.5 L ABG O2 Sat (Measured) 98.1 H ABG O2 Content No Result Required. ABG Base Excess -9.3 L Vipul Test Positive Patient On Oxygen Yes O2 Delivery Device V Oxygen Flow Rate 100 Vent Mode Ac Vent Rate 14 Mechanical Rate V PEEP 10.0 Pressure Support Vent 360 Sodium Potassium Chloride Carbon Dioxide Anion Gap BUN Creatinine Est GFR (CKD-EPI)AfAm Est GFR (CKD-EPI)NonAf Random Glucose Serum Osmolality Lactic Acid Calcium Phosphorus Magnesium Iron TIBC Iron Saturation Unsaturated IBC Ferritin Total Bilirubin AST ALT Alkaline Phosphatase Creatine Kinase Troponin I Total Protein Albumin Vitamin B12 Serum Folate Urine Color Urine Appearance Urine pH Ur Specific [place] Urine Protein Urine Glucose (UA) Urine Ketones Urine Blood Urine Nitrite Urine Bilirubin Urine Urobilinogen Ur Leukocyte Esterase Urine WBC (Auto) Urine RBC (Auto) Urine Casts (Auto) U Epithel Cells (Auto) Urine Bacteria (Auto) Urine Osmolality Ur Random Sodium Ur Random Potassium Ur Random Chloride Stool Occult Blood Opiates Screen Methadone Screen Barbiturate Screen Phencyclidine Screen Ur Amphetamines Screen MDMA (Ecstasy) Screen Benzodiazepines Screen Cocaine Screen U Marijuana (THC) Screen Alcohol, Quantitative COVID-19 ([place]) Blood Type Antibody Screen Crossmatch 12/28/19 12/28/19 12/28/19 11:00 11:00 11:00 WBC RBC Hgb Hct MCV MCH MCHC RDW Plt Count MPV Absolute Neuts (auto) Total Counted Neutrophils % Neutrophils % (Manual) Band Neutrophils % Lymphocytes % Lymphocytes % (Manual) Monocytes % Monocytes % (Manual) Eosinophils % Eosinophils % (Manual) Basophils % Basophils % (Manual) Myelocytes % (Man) Promyelocytes % (Man) Blast Cells % (Manual) Nucleated RBC % Metamyelocytes Hypochromia Platelet Estimate Platelet Comment Polychromasia Poikilocytosis Basophilic Stippling Anisocytosis Microcytosis Macrocytosis John Cells Retic Count PT with INR 13.10 H INR 1.11 H PTT (Actin FS) 30.0 Fibrinogen Anticoagulation Therapy Puncture Site Patient Temperature ABG pH ABG pCO2 ABG pO2 ABG HCO3 ABG O2 Sat (Measured) ABG O2 Content ABG Base Excess Vipul Test Patient On Oxygen O2 Delivery Device Oxygen Flow Rate Vent Mode Vent Rate Mechanical Rate PEEP Pressure Support Vent Sodium Potassium Chloride Carbon Dioxide Anion Gap BUN Creatinine Est GFR (CKD-EPI)AfAm Est GFR (CKD-EPI)NonAf Random Glucose Serum Osmolality Lactic Acid 1.4 Calcium Phosphorus Magnesium Iron TIBC Iron Saturation Unsaturated IBC Ferritin Total Bilirubin AST ALT Alkaline Phosphatase Creatine Kinase Troponin I Total Protein Albumin Vitamin B12 Serum Folate Urine Color Urine Appearance Urine pH Ur Specific [place] Urine Protein Urine Glucose (UA) Urine Ketones Urine Blood Urine Nitrite Urine Bilirubin Urine Urobilinogen Ur Leukocyte Esterase Urine WBC (Auto) Urine RBC (Auto) Urine Casts (Auto) U Epithel Cells (Auto) Urine Bacteria (Auto) Urine Osmolality Ur Random Sodium Ur Random Potassium Ur Random Chloride Stool Occult Blood Opiates Screen Methadone Screen Barbiturate Screen Phencyclidine Screen Ur Amphetamines Screen MDMA (Ecstasy) Screen Benzodiazepines Screen Cocaine Screen U Marijuana (THC) Screen Alcohol, Quantitative COVID-19 ([place]) Not detected Blood Type Antibody Screen Crossmatch 12/28/19 12/28/19 12/28/19 11:55 11:55 20:20 WBC RBC Hgb Hct MCV MCH MCHC RDW Plt Count MPV Absolute Neuts (auto) Total Counted Neutrophils % Neutrophils % (Manual) Band Neutrophils % Lymphocytes % Lymphocytes % (Manual) Monocytes % Monocytes % (Manual) Eosinophils % Eosinophils % (Manual) Basophils % Basophils % (Manual) Myelocytes % (Man) Promyelocytes % (Man) Blast Cells % (Manual) Nucleated RBC % Metamyelocytes Hypochromia Platelet Estimate Platelet Comment Polychromasia Poikilocytosis Basophilic Stippling Anisocytosis Microcytosis Macrocytosis [place] Cells Retic Count PT with INR INR PTT (Actin FS) Fibrinogen Anticoagulation Therapy Puncture Site Patient Temperature ABG pH ABG pCO2 ABG pO2 ABG HCO3 ABG O2 Sat (Measured) ABG O2 Content ABG Base Excess Vipul Test Patient On Oxygen O2 Delivery Device Oxygen Flow Rate Vent Mode Vent Rate Mechanical Rate PEEP Pressure Support Vent Sodium Potassium Chloride Carbon Dioxide Anion Gap BUN Creatinine Est GFR (CKD-EPI)AfAm Est GFR (CKD-EPI)NonAf Random Glucose Serum Osmolality Lactic Acid Calcium Phosphorus Magnesium Iron TIBC Iron Saturation Unsaturated IBC Ferritin Total Bilirubin AST ALT Alkaline Phosphatase Creatine Kinase Troponin I Total Protein Albumin Vitamin B12 Serum Folate Urine Color Yellow Urine Appearance Clear Urine pH 6.5 Ur Specific [place] 1.033 Urine Protein Negative Urine Glucose (UA) 1+ H Urine Ketones Negative Urine Blood 1+ H Urine Nitrite Negative Urine Bilirubin Negative Urine Urobilinogen 0.2 Ur Leukocyte Esterase Negative Urine WBC (Auto) 3 Urine RBC (Auto) 99 Urine Casts (Auto) 0 U Epithel Cells (Auto) 6 Urine Bacteria (Auto) 57 Urine Osmolality 518 Ur Random Sodium 39 L Ur Random Potassium 62.0 Ur Random Chloride 78 L Stool Occult Blood Opiates Screen Negative Methadone Screen Negative Barbiturate Screen Negative Phencyclidine Screen Negative Ur Amphetamines Screen Negative MDMA (Ecstasy) Screen Negative Benzodiazepines Screen Positive A* Cocaine Screen Negative U Marijuana (THC) Screen Negative Alcohol, Quantitative COVID-19 ([place]) Blood Type Antibody Screen Crossmatch 12/28/19 12/28/19 12/29/19 20:20 21:15 05:35 WBC 7.1 6.3 RBC 3.04 L 2.96 L Hgb 9.7 L 9.2 L Hct 27.8 L D 27.1 L MCV 91.6 91.5 MCH 32.0 31.1 MCHC 35.0 34.1 RDW 27.3 H 27.4 H Plt Count 186 174 MPV 6.8 L 7.0 L Absolute Neuts (auto) Total Counted Neutrophils % Neutrophils % (Manual) Band Neutrophils % Lymphocytes % Lymphocytes % (Manual) Monocytes % Monocytes % (Manual) Eosinophils % Eosinophils % (Manual) Basophils % Basophils % (Manual) Myelocytes % (Man) Promyelocytes % (Man) Blast Cells % (Manual) Nucleated RBC % Metamyelocytes Hypochromia Platelet Estimate Platelet Comment Polychromasia Poikilocytosis Basophilic Stippling Anisocytosis Microcytosis Macrocytosis [place] Cells Retic Count PT with INR INR PTT (Actin FS) Fibrinogen Anticoagulation Therapy Puncture Site Patient Temperature ABG pH ABG pCO2 ABG pO2 ABG HCO3 ABG O2 Sat (Measured) ABG O2 Content ABG Base Excess Vipul Test Patient On Oxygen O2 Delivery Device Oxygen Flow Rate Vent Mode Vent Rate Mechanical Rate PEEP Pressure Support Vent Sodium Potassium Chloride Carbon Dioxide Anion Gap BUN Creatinine Est GFR (CKD-EPI)AfAm Est GFR (CKD-EPI)NonAf Random Glucose Serum Osmolality Lactic Acid Calcium Phosphorus Magnesium Iron TIBC Iron Saturation Unsaturated IBC Ferritin Total Bilirubin AST ALT Alkaline Phosphatase Creatine Kinase Troponin I Total Protein Albumin Vitamin B12 Serum Folate Urine Color Yellow Urine Appearance Clear Urine pH 6.0 Ur Specific [place] 1.023 Urine Protein Negative Urine Glucose (UA) Negative Urine Ketones Negative Urine Blood 3+ H Urine Nitrite Negative Urine Bilirubin Negative Urine Urobilinogen 0.2 Ur Leukocyte Esterase Negative Urine WBC (Auto) 9 Urine RBC (Auto) 289 Urine Casts (Auto) 0 U Epithel Cells (Auto) 2 Urine Bacteria (Auto) 0 Urine Osmolality Ur Random Sodium Ur Random Potassium Ur Random Chloride Stool Occult Blood Opiates Screen Methadone Screen Barbiturate Screen Phencyclidine Screen Ur Amphetamines Screen MDMA (Ecstasy) Screen Benzodiazepines Screen Cocaine Screen U Marijuana (THC) Screen Alcohol, Quantitative COVID-19 ([place]) Blood Type Antibody Screen Crossmatch 12/29/19 12/29/19 12/29/19 05:35 05:35 16:00 WBC RBC Hgb Hct MCV MCH MCHC RDW Plt Count MPV Absolute Neuts (auto) Total Counted Neutrophils % Neutrophils % (Manual) Band Neutrophils % Lymphocytes % Lymphocytes % (Manual) Monocytes % Monocytes % (Manual) Eosinophils % Eosinophils % (Manual) Basophils % Basophils % (Manual) Myelocytes % (Man) Promyelocytes % (Man) Blast Cells % (Manual) Nucleated RBC % Metamyelocytes Hypochromia Platelet Estimate Platelet Comment Polychromasia Poikilocytosis Basophilic Stippling Anisocytosis Microcytosis Macrocytosis [place] Cells Retic Count PT with INR INR PTT (Actin FS) Fibrinogen Anticoagulation Therapy Puncture Site Patient Temperature ABG pH ABG pCO2 ABG pO2 ABG HCO3 ABG O2 Sat (Measured) ABG O2 Content ABG Base Excess Vipul Test Patient On Oxygen O2 Delivery Device Oxygen Flow Rate Vent Mode Vent Rate Mechanical Rate PEEP Pressure Support Vent Sodium 131 L Potassium 4.4 Chloride 100 Carbon Dioxide 25 Anion Gap 6 L BUN 14.0 Creatinine 0.7 Est GFR (CKD-EPI)AfAm 118.88 Est GFR (CKD-EPI)NonAf 102.57 Random Glucose 141 H Serum Osmolality 268 L Lactic Acid Calcium 6.9 L* Phosphorus 2.7 Magnesium 1.5 L Iron 10 L TIBC 128 L Iron Saturation 7 L Unsaturated IBC 118 L Ferritin Total Bilirubin 0.8 AST 20 ALT 11 L Alkaline Phosphatase 51 Creatine Kinase Troponin I Total Protein 4.3 L Albumin 2.1 L Vitamin B12 Serum Folate Urine Color Urine Appearance Urine pH Ur Specific [place] Urine Protein Urine Glucose (UA) Urine Ketones Urine Blood Urine Nitrite Urine Bilirubin Urine Urobilinogen Ur Leukocyte Esterase Urine WBC (Auto) Urine RBC (Auto) Urine Casts (Auto) U Epithel Cells (Auto) Urine Bacteria (Auto) Urine Osmolality Ur Random Sodium Ur Random Potassium Ur Random Chloride Stool Occult Blood Opiates Screen Methadone Screen Barbiturate Screen Phencyclidine Screen Ur Amphetamines Screen MDMA (Ecstasy) Screen Benzodiazepines Screen Cocaine Screen U Marijuana (THC) Screen Alcohol, Quantitative COVID-19 ([place]) Blood Type Antibody Screen Crossmatch 12/29/19 12/29/19 12/30/19 16:00 16:00 06:00 WBC 5.9 5.3 RBC 2.53 L 2.48 L Hgb 8.1 L 7.7 L Hct 23.6 L 22.9 L MCV 93.3 92.7 MCH 32.0 31.3 MCHC 34.3 33.8 RDW 27.5 H 27.4 H Plt Count 184 185 MPV 7.3 L 7.0 L Absolute Neuts (auto) 5.1 Total Counted Neutrophils % 86.3 H Neutrophils % (Manual) Band Neutrophils % Lymphocytes % 6.4 L D Lymphocytes % (Manual) Monocytes % 5.6 Monocytes % (Manual) Eosinophils % 0.9 D Eosinophils % (Manual) Basophils % 0.8 D Basophils % (Manual) Myelocytes % (Man) Promyelocytes % (Man) Blast Cells % (Manual) Nucleated RBC % 0 Metamyelocytes Hypochromia Platelet Estimate Platelet Comment Polychromasia Poikilocytosis Basophilic Stippling Anisocytosis Microcytosis Macrocytosis [place] Cells Retic Count PT with INR INR PTT (Actin FS) Fibrinogen Anticoagulation Therapy Puncture Site Patient Temperature ABG pH ABG pCO2 ABG pO2 ABG HCO3 ABG O2 Sat (Measured) ABG O2 Content ABG Base Excess Vipul Test Patient On Oxygen O2 Delivery Device Oxygen Flow Rate Vent Mode Vent Rate Mechanical Rate PEEP Pressure Support Vent Sodium Potassium Chloride Carbon Dioxide Anion Gap BUN Creatinine Est GFR (CKD-EPI)AfAm Est GFR (CKD-EPI)NonAf Random Glucose Serum Osmolality Lactic Acid Calcium Phosphorus Magnesium Iron TIBC Iron Saturation Unsaturated IBC Ferritin 325.7 Total Bilirubin AST ALT Alkaline Phosphatase Creatine Kinase Troponin I Total Protein Albumin Vitamin B12 Serum Folate Urine Color Urine Appearance Urine pH Ur Specific [place] Urine Protein Urine Glucose (UA) Urine Ketones Urine Blood Urine Nitrite Urine Bilirubin Urine Urobilinogen Ur Leukocyte Esterase Urine WBC (Auto) Urine RBC (Auto) Urine Casts (Auto) U Epithel Cells (Auto) Urine Bacteria (Auto) Urine Osmolality Ur Random Sodium Ur Random Potassium Ur Random Chloride Stool Occult Blood Opiates Screen Methadone Screen Barbiturate Screen Phencyclidine Screen Ur Amphetamines Screen MDMA (Ecstasy) Screen Benzodiazepines Screen Cocaine Screen U Marijuana (THC) Screen Alcohol, Quantitative COVID-19 ([place]) Blood Type Antibody Screen Crossmatch 12/30/19 12/30/19 12/30/19 06:00 06:00 06:25 WBC RBC Hgb Hct MCV MCH MCHC RDW Plt Count MPV Absolute Neuts (auto) Total Counted Neutrophils % Neutrophils % (Manual) Band Neutrophils % Lymphocytes % Lymphocytes % (Manual) Monocytes % Monocytes % (Manual) Eosinophils % Eosinophils % (Manual) Basophils % Basophils % (Manual) Myelocytes % (Man) Promyelocytes % (Man) Blast Cells % (Manual) Nucleated RBC % Metamyelocytes Hypochromia Platelet Estimate Platelet Comment Polychromasia Poikilocytosis Basophilic Stippling Anisocytosis Microcytosis Macrocytosis John Cells Retic Count PT with INR INR PTT (Actin FS) Fibrinogen Anticoagulation Therapy No Result Required. Puncture Site Left radial Patient Temperature No Result Required. ABG pH 7.370 ABG pCO2 41.70 ABG pO2 93.0 ABG HCO3 23.6 ABG O2 Sat (Measured) 96.9 ABG O2 Content No Result Required. ABG Base Excess -1.6 Vipul Test Positive Patient On Oxygen Yes O2 Delivery Device Vent Oxygen Flow Rate 50% Vent Mode Ac Vent Rate 16 Mechanical Rate Yes PEEP 5.0 Pressure Support Vent 450 Sodium 134 L Potassium 4.0 Chloride 102 Carbon Dioxide 26 Anion Gap 5 L BUN 9.2 Creatinine 0.5 L Est GFR (CKD-EPI)AfAm 136.51 Est GFR (CKD-EPI)NonAf 117.79 Random Glucose 91 Serum Osmolality Lactic Acid Calcium 7.0 L Phosphorus 2.2 L Magnesium 2.0 Iron TIBC Iron Saturation Unsaturated IBC Ferritin Total Bilirubin 0.6 AST 12 L ALT 9 L Alkaline Phosphatase 55 Creatine Kinase Troponin I Total Protein 4.3 L Albumin 1.9 L Vitamin B12 Serum Folate Urine Color Urine Appearance Urine pH Ur Specific [place] Urine Protein Urine Glucose (UA) Urine Ketones Urine Blood Urine Nitrite Urine Bilirubin Urine Urobilinogen Ur Leukocyte Esterase Urine WBC (Auto) Urine RBC (Auto) Urine Casts (Auto) U Epithel Cells (Auto) Urine Bacteria (Auto) Urine Osmolality Ur Random Sodium Ur Random Potassium Ur Random Chloride Stool Occult Blood Opiates Screen Methadone Screen Barbiturate Screen Phencyclidine Screen Ur Amphetamines Screen MDMA (Ecstasy) Screen Benzodiazepines Screen Cocaine Screen U Marijuana (THC) Screen Alcohol, Quantitative COVID-19 ([place]) Blood Type A NEGATIVE Antibody Screen Negative Crossmatch See Detail 12/30/19 12/30/19 12/30/19 12:20 18:15 22:15 WBC 9.2 13.0 H RBC 1.98 L 2.43 L Hgb 6.4 L* 7.4 L Hct 18.8 L D 22.0 L D MCV 94.9 90.2 MCH 32.4 30.5 MCHC 34.2 33.8 RDW 27.3 H 19.6 H Plt Count 266 D 167 D MPV 7.3 L 7.4 L Absolute Neuts (auto) 7.4 11.6 H Total Counted Neutrophils % 79.9 89.2 H Neutrophils % (Manual) Band Neutrophils % Lymphocytes % 11.0 D 2.2 L D Lymphocytes % (Manual) Monocytes % 5.8 8.3 Monocytes % (Manual) Eosinophils % 1.8 D 0.0 D Eosinophils % (Manual) Basophils % 1.5 0.3 Basophils % (Manual) Myelocytes % (Man) Promyelocytes % (Man) Blast Cells % (Manual) Nucleated RBC % 0 0 Metamyelocytes Hypochromia Platelet Estimate Platelet Comment Polychromasia Poikilocytosis Basophilic Stippling Anisocytosis Microcytosis Macrocytosis [place] Cells Retic Count PT with INR INR PTT (Actin FS) Fibrinogen Anticoagulation Therapy No Result Required. Puncture Site Left radial Patient Temperature No Result Required. ABG pH 7.298 L ABG pCO2 42.90 ABG pO2 203.2 H ABG HCO3 20.5 L ABG O2 Sat (Measured) 99.3 H ABG O2 Content No Result Required. ABG Base Excess -5.5 L Vipul Test Positive Patient On Oxygen Yes O2 Delivery Device Vent Oxygen Flow Rate 100 Vent Mode A/c Vent Rate 16 Mechanical Rate No Result Required. PEEP 5.0 Pressure Support Vent 450 Sodium Potassium Chloride Carbon Dioxide Anion Gap BUN Creatinine Est GFR (CKD-EPI)AfAm Est GFR (CKD-EPI)NonAf Random Glucose Serum Osmolality Lactic Acid Calcium Phosphorus Magnesium Iron TIBC Iron Saturation Unsaturated IBC Ferritin Total Bilirubin AST ALT Alkaline Phosphatase Creatine Kinase Troponin I Total Protein Albumin Vitamin B12 Serum Folate Urine Color Urine Appearance Urine pH Ur Specific [place] Urine Protein Urine Glucose (UA) Urine Ketones Urine Blood Urine Nitrite Urine Bilirubin Urine Urobilinogen Ur Leukocyte Esterase Urine WBC (Auto) Urine RBC (Auto) Urine Casts (Auto) U Epithel Cells (Auto) Urine Bacteria (Auto) Urine Osmolality Ur Random Sodium Ur Random Potassium Ur Random Chloride Stool Occult Blood Opiates Screen Methadone Screen Barbiturate Screen Phencyclidine Screen Ur Amphetamines Screen MDMA (Ecstasy) Screen Benzodiazepines Screen Cocaine Screen U Marijuana (THC) Screen Alcohol, Quantitative COVID-19 ([place]ALE) Blood Type Antibody Screen Crossmatch 12/31/19 12/31/19 12/31/19 04:27 04:27 04:27 WBC 10.7 H RBC 2.71 L Hgb 8.6 L Hct 24.4 L MCV 89.9 MCH 31.8 MCHC 35.4 RDW 17.6 H Plt Count 162 MPV 7.9 Absolute Neuts (auto) Total Counted Neutrophils % Neutrophils % (Manual) 88.9 H Band Neutrophils % 3.0 Lymphocytes % Lymphocytes % (Manual) 3.1 L D Monocytes % Monocytes % (Manual) 1 L Eosinophils % Eosinophils % (Manual) 0.0 Basophils % Basophils % (Manual) 0.0 Myelocytes % (Man) 1 D Promyelocytes % (Man) 0 Blast Cells % (Manual) 0 Nucleated RBC % 0 Metamyelocytes 1 D Hypochromia 0 Platelet Estimate Decreased Platelet Comment Polychromasia 1+ Poikilocytosis 1+ Basophilic Stippling Anisocytosis 1+ Microcytosis 1+ Macrocytosis 0 [place] Cells 2+ Retic Count PT with INR 14.40 H INR 1.22 H PTT (Actin FS) 35.9 Fibrinogen Anticoagulation Therapy Puncture Site Patient Temperature ABG pH ABG pCO2 ABG pO2 ABG HCO3 ABG O2 Sat (Measured) ABG O2 Content ABG Base Excess Vipul Test Patient On Oxygen O2 Delivery Device Oxygen Flow Rate Vent Mode Vent Rate Mechanical Rate PEEP Pressure Support Vent Sodium 139 Potassium 4.9 Chloride 111 H Carbon Dioxide 24 Anion Gap 5 L BUN 19.0 H Creatinine 1.0 Est GFR (CKD-EPI)AfAm 94.39 Est GFR (CKD-EPI)NonAf 81.44 Random Glucose 131 H Serum Osmolality Lactic Acid Calcium 6.5 L* Phosphorus 3.9 Magnesium 1.6 L Iron TIBC Iron Saturation Unsaturated IBC Ferritin Total Bilirubin 0.8 AST 515 H ALT 192 H Alkaline Phosphatase 47 Creatine Kinase Troponin I Total Protein 3.2 L Albumin 1.4 L Vitamin B12 Serum Folate Urine Color Urine Appearance Urine pH Ur Specific [place] Urine Protein Urine Glucose (UA) Urine Ketones Urine Blood Urine Nitrite Urine Bilirubin Urine Urobilinogen Ur Leukocyte Esterase Urine WBC (Auto) Urine RBC (Auto) Urine Casts (Auto) U Epithel Cells (Auto) Urine Bacteria (Auto) Urine Osmolality Ur Random Sodium Ur Random Potassium Ur Random Chloride Stool Occult Blood Opiates Screen Methadone Screen Barbiturate Screen Phencyclidine Screen Ur Amphetamines Screen MDMA (Ecstasy) Screen Benzodiazepines Screen Cocaine Screen U Marijuana (THC) Screen Alcohol, Quantitative COVID-19 ([place]) Blood Type Antibody Screen Crossmatch 12/31/19 12/31/19 01/01/20 06:30 22:15 03:30 WBC 9.2 10.4 H RBC 2.13 L 2.52 L Hgb 6.8 L* 8.1 L Hct 19.4 L D 23.4 L D MCV 91.1 92.6 MCH 31.8 32.3 MCHC 34.9 34.9 RDW 17.9 H 17.4 H Plt Count 194 187 MPV 7.3 L 7.3 L Absolute Neuts (auto) Total Counted Neutrophils % Neutrophils % (Manual) Band Neutrophils % Lymphocytes % Lymphocytes % (Manual) Monocytes % Monocytes % (Manual) Eosinophils % Eosinophils % (Manual) Basophils % Basophils % (Manual) Myelocytes % (Man) Promyelocytes % (Man) Blast Cells % (Manual) Nucleated RBC % Metamyelocytes Hypochromia Platelet Estimate Platelet Comment Polychromasia Poikilocytosis Basophilic Stippling Anisocytosis Microcytosis Macrocytosis [place] Cells Retic Count PT with INR INR PTT (Actin FS) Fibrinogen Anticoagulation Therapy No Result Required. Puncture Site Left radial Patient Temperature No Result Required. ABG pH 7.191 L* ABG pCO2 51.00 H ABG pO2 223.6 H ABG HCO3 19.1 L ABG O2 Sat (Measured) 99.3 H ABG O2 Content No Result Required. ABG Base Excess -8.7 L Vipul Test Positive Patient On Oxygen Yes O2 Delivery Device Vent Oxygen Flow Rate 80% Vent Mode A/c Vent Rate 16 Mechanical Rate Yes PEEP 5.0 Pressure Support Vent 450 Sodium Potassium Chloride Carbon Dioxide Anion Gap BUN Creatinine Est GFR (CKD-EPI)AfAm Est GFR (CKD-EPI)NonAf Random Glucose Serum Osmolality Lactic Acid Calcium Phosphorus Magnesium Iron TIBC Iron Saturation Unsaturated IBC Ferritin Total Bilirubin AST ALT Alkaline Phosphatase Creatine Kinase Troponin I Total Protein Albumin Vitamin B12 Serum Folate Urine Color Urine Appearance Urine pH Ur Specific [place] Urine Protein Urine Glucose (UA) Urine Ketones Urine Blood Urine Nitrite Urine Bilirubin Urine Urobilinogen Ur Leukocyte Esterase Urine WBC (Auto) Urine RBC (Auto) Urine Casts (Auto) U Epithel Cells (Auto) Urine Bacteria (Auto) Urine Osmolality Ur Random Sodium Ur Random Potassium Ur Random Chloride Stool Occult Blood Opiates Screen Methadone Screen Barbiturate Screen Phencyclidine Screen Ur Amphetamines Screen MDMA (Ecstasy) Screen Benzodiazepines Screen Cocaine Screen U Marijuana (THC) Screen Alcohol, Quantitative COVID-19 ([place]) Blood Type Antibody Screen Crossmatch 01/01/20 01/01/20 01/01/20 05:10 05:30 05:30 WBC 10.3 H RBC 2.58 L Hgb 8.2 L Hct 23.8 L MCV 92.2 MCH 31.7 MCHC 34.4 RDW 17.2 H Plt Count 190 MPV 7.3 L Absolute Neuts (auto) 8.2 H Total Counted Neutrophils % 79.5 Neutrophils % (Manual) 85.0 H Band Neutrophils % 0.0 Lymphocytes % 5.0 L D Lymphocytes % (Manual) 7.0 L D Monocytes % 14.2 H Monocytes % (Manual) 7 D Eosinophils % 1.1 D Eosinophils % (Manual) 1.0 D Basophils % 0.2 Basophils % (Manual) 0.0 Myelocytes % (Man) 0 D Promyelocytes % (Man) 0 Blast Cells % (Manual) 0 Nucleated RBC % 0 Metamyelocytes 0 D Hypochromia 0 Platelet Estimate Normal Platelet Comment Polychromasia 1+ Poikilocytosis 1+ Basophilic Stippling Anisocytosis 1+ Microcytosis 0 Macrocytosis 0 [place] Cells 1+ Retic Count PT with INR INR PTT (Actin FS) Fibrinogen Anticoagulation Therapy No Result Required. Puncture Site Left radial Patient Temperature No Result Required. ABG pH 7.350 ABG pCO2 37.80 ABG pO2 78.1 L ABG HCO3 20.4 L ABG O2 Sat (Measured) 95.1 ABG O2 Content No Result Required. ABG Base Excess -4.8 L Vipul Test Positive Patient On Oxygen Yes O2 Delivery Device Vent Oxygen Flow Rate 70% Vent Mode Ac Vent Rate 20 Mechanical Rate Yes PEEP 5.0 Pressure Support Vent 450 Sodium 141 Potassium 4.4 Chloride 112 H Carbon Dioxide 24 Anion Gap 4 L BUN 16.0 Creatinine 0.8 Est GFR (CKD-EPI)AfAm 112.53 Est GFR (CKD-EPI)NonAf 97.10 Random Glucose 116 H Serum Osmolality Lactic Acid Calcium 6.8 L* Phosphorus 2.6 Magnesium 1.8 Iron TIBC Iron Saturation Unsaturated IBC Ferritin Total Bilirubin 1.0 AST 149 H ALT 140 H Alkaline Phosphatase 55 Creatine Kinase Troponin I Total Protein 3.5 L Albumin 1.3 L Vitamin B12 Serum Folate Urine Color Urine Appearance Urine pH Ur Specific [place] Urine Protein Urine Glucose (UA) Urine Ketones Urine Blood Urine Nitrite Urine Bilirubin Urine Urobilinogen Ur Leukocyte Esterase Urine WBC (Auto) Urine RBC (Auto) Urine Casts (Auto) U Epithel Cells (Auto) Urine Bacteria (Auto) Urine Osmolality Ur Random Sodium Ur Random Potassium Ur Random Chloride Stool Occult Blood Opiates Screen Methadone Screen Barbiturate Screen Phencyclidine Screen Ur Amphetamines Screen MDMA (Ecstasy) Screen Benzodiazepines Screen Cocaine Screen U Marijuana (THC) Screen Alcohol, Quantitative COVID-19 ([place]) Blood Type Antibody Screen Crossmatch 01/01/20 01/01/20 01/02/20 16:20 22:22 05:50 WBC 4.9 5.6 14.0 H RBC 2.36 L 2.31 L 2.05 L Hgb 7.6 L 7.3 L 6.3 L* Hct 21.9 L 21.0 L 19.0 L MCV 92.8 90.9 92.8 MCH 32.2 31.5 30.8 MCHC 34.7 34.7 33.2 RDW 16.8 H 16.4 H 16.8 H Plt Count 159 149 161 MPV 7.3 L 7.2 L 7.5 Absolute Neuts (auto) 3.8 5.0 12.8 H Total Counted 100 Neutrophils % 79.2 89.8 H 91.3 H Neutrophils % (Manual) 75.7 68.0 Band Neutrophils % 1.0 18.0 Lymphocytes % 6.5 L D 1.9 L D 1.9 L Lymphocytes % (Manual) 6.8 L 3.0 L D Monocytes % 12.4 H 7.8 6.7 Monocytes % (Manual) 13 H D 7 Eosinophils % 1.5 0.3 0.0 D Eosinophils % (Manual) 0.0 D Basophils % 0.4 0.2 0.1 Basophils % (Manual) 0.0 Myelocytes % (Man) 1 D Promyelocytes % (Man) 0 Blast Cells % (Manual) 0 Nucleated RBC % 0 0 0 Metamyelocytes 2 D Hypochromia 0 2+ Platelet Estimate Normal Adequate Platelet Comment Rare giant plts Polychromasia 1+ 1+ Poikilocytosis 1+ 1+ Basophilic Stippling 1+ Anisocytosis 1+ 1+ Microcytosis 1+ Macrocytosis 0 1+ [place] Cells 1+ Retic Count PT with INR INR PTT (Actin FS) Fibrinogen Anticoagulation Therapy Puncture Site Patient Temperature ABG pH ABG pCO2 ABG pO2 ABG HCO3 ABG O2 Sat (Measured) ABG O2 Content ABG Base Excess Vipul Test Patient On Oxygen O2 Delivery Device Oxygen Flow Rate Vent Mode Vent Rate Mechanical Rate PEEP Pressure Support Vent Sodium Potassium Chloride Carbon Dioxide Anion Gap BUN Creatinine Est GFR (CKD-EPI)AfAm Est GFR (CKD-EPI)NonAf Random Glucose Serum Osmolality Lactic Acid Calcium Phosphorus Magnesium Iron TIBC Iron Saturation Unsaturated IBC Ferritin Total Bilirubin AST ALT Alkaline Phosphatase Creatine Kinase Troponin I Total Protein Albumin Vitamin B12 Serum Folate Urine Color Urine Appearance Urine pH Ur Specific [place] Urine Protein Urine Glucose (UA) Urine Ketones Urine Blood Urine Nitrite Urine Bilirubin Urine Urobilinogen Ur Leukocyte Esterase Urine WBC (Auto) Urine RBC (Auto) Urine Casts (Auto) U Epithel Cells (Auto) Urine Bacteria (Auto) Urine Osmolality Ur Random Sodium Ur Random Potassium Ur Random Chloride Stool Occult Blood Opiates Screen Methadone Screen Barbiturate Screen Phencyclidine Screen Ur Amphetamines Screen MDMA (Ecstasy) Screen Benzodiazepines Screen Cocaine Screen U Marijuana (THC) Screen Alcohol, Quantitative COVID-19 ([place]) Blood Type Antibody Screen Crossmatch 01/02/20 01/02/20 01/02/20 05:50 09:00 14:00 WBC 15.0 H RBC 2.79 L Hgb 8.6 L Hct 25.0 L D MCV 89.8 MCH 30.8 MCHC 34.3 RDW 17.4 H Plt Count 156 MPV 7.8 Absolute Neuts (auto) Total Counted Neutrophils % Neutrophils % (Manual) Band Neutrophils % Lymphocytes % Lymphocytes % (Manual) Monocytes % Monocytes % (Manual) Eosinophils % Eosinophils % (Manual) Basophils % Basophils % (Manual) Myelocytes % (Man) Promyelocytes % (Man) Blast Cells % (Manual) Nucleated RBC % Metamyelocytes Hypochromia Platelet Estimate Platelet Comment Polychromasia Poikilocytosis Basophilic Stippling Anisocytosis Microcytosis Macrocytosis [place] Cells Retic Count PT with INR INR PTT (Actin FS) Fibrinogen Anticoagulation Therapy Puncture Site Patient Temperature ABG pH ABG pCO2 ABG pO2 ABG HCO3 ABG O2 Sat (Measured) ABG O2 Content ABG Base Excess Vipul Test Patient On Oxygen O2 Delivery Device Oxygen Flow Rate Vent Mode Vent Rate Mechanical Rate PEEP Pressure Support Vent Sodium 144 Potassium 3.0 L Chloride 114 H Carbon Dioxide 27 Anion Gap 3 L BUN 10.8 Creatinine 0.7 Est GFR (CKD-EPI)AfAm 118.88 Est GFR (CKD-EPI)NonAf 102.57 Random Glucose 91 Serum Osmolality Lactic Acid Calcium 6.6 L* Phosphorus 2.0 L Magnesium 1.7 L Iron TIBC Iron Saturation Unsaturated IBC Ferritin Total Bilirubin 0.5 AST 132 H ALT 111 H Alkaline Phosphatase 50 Creatine Kinase Troponin I Total Protein 3.1 L Albumin 1.1 L Vitamin B12 Serum Folate Urine Color Urine Appearance Urine pH Ur Specific [place] Urine Protein Urine Glucose (UA) Urine Ketones Urine Blood Urine Nitrite Urine Bilirubin Urine Urobilinogen Ur Leukocyte Esterase Urine WBC (Auto) Urine RBC (Auto) Urine Casts (Auto) U Epithel Cells (Auto) Urine Bacteria (Auto) Urine Osmolality Ur Random Sodium Ur Random Potassium Ur Random Chloride Stool Occult Blood Opiates Screen Methadone Screen Barbiturate Screen Phencyclidine Screen Ur Amphetamines Screen MDMA (Ecstasy) Screen Benzodiazepines Screen Cocaine Screen U Marijuana (THC) Screen Alcohol, Quantitative COVID-19 ([place]) Blood Type A NEGATIVE Antibody Screen Negative Crossmatch See Detail 01/02/20 01/02/20 14:00 14:00 WBC RBC Hgb Hct MCV MCH MCHC RDW Plt Count MPV Absolute Neuts (auto) Total Counted Neutrophils % Neutrophils % (Manual) Band Neutrophils % Lymphocytes % Lymphocytes % (Manual) Monocytes % Monocytes % (Manual) Eosinophils % Eosinophils % (Manual) Basophils % Basophils % (Manual) Myelocytes % (Man) Promyelocytes % (Man) Blast Cells % (Manual) Nucleated RBC % Metamyelocytes Hypochromia Platelet Estimate Platelet Comment Polychromasia Poikilocytosis Basophilic Stippling Anisocytosis Microcytosis Macrocytosis [place] Cells Retic Count PT with INR 14.80 H INR 1.25 H PTT (Actin FS) Fibrinogen 469.0 Anticoagulation Therapy Puncture Site Patient Temperature ABG pH ABG pCO2 ABG pO2 ABG HCO3 ABG O2 Sat (Measured) ABG O2 Content ABG Base Excess Vipul Test Patient On Oxygen O2 Delivery Device Oxygen Flow Rate Vent Mode Vent Rate Mechanical Rate PEEP Pressure Support Vent Sodium Potassium Chloride Carbon Dioxide Anion Gap BUN Creatinine Est GFR (CKD-EPI)AfAm Est GFR (CKD-EPI)NonAf Random Glucose Serum Osmolality Lactic Acid Calcium Phosphorus Magnesium Iron TIBC Iron Saturation Unsaturated IBC Ferritin Total Bilirubin AST ALT Alkaline Phosphatase Creatine Kinase Troponin I Total Protein Albumin Vitamin B12 Serum Folate Urine Color Urine Appearance Urine pH Ur Specific [place] Urine Protein Urine Glucose (UA) Urine Ketones Urine Blood Urine Nitrite Urine Bilirubin Urine Urobilinogen Ur Leukocyte Esterase Urine WBC (Auto) Urine RBC (Auto) Urine Casts (Auto) U Epithel Cells (Auto) Urine Bacteria (Auto) Urine Osmolality Ur Random Sodium Ur Random Potassium Ur Random Chloride Stool Occult Blood Opiates Screen Methadone Screen Barbiturate Screen Phencyclidine Screen Ur Amphetamines Screen MDMA (Ecstasy) Screen Benzodiazepines Screen Cocaine Screen U Marijuana (THC) Screen Alcohol, Quantitative COVID-19 ([place]) Blood Type Antibody Screen Crossmatch HOSPITAL COURSE: 59 YO M with PMH HTN, PVD (on plavix), chronic alcohol abuse, NSAIDs, & tobacco use. Presented to the Ed with hematemsis and syncope. Admitted to ICU for GI bleed and hypotension requiring pressors and transfusion and intubation. On 12/30 had an episode of ME bleeding and became very hypotensive and tachycardic. Had emergency embolization of the gastroduodenal artery by IR. Patient was stable after procedure but continues to have bouts of melena requiring multiple transfusion including 2 units of pRBCs today. The patient is on levophed, vasopression, fentanyl, and versed. He was previously on propofol which was d/c after he became bradycardic very early Thursday morning (12/31). Patient became febrile today with Temp 101.0, blood cultures were drawn. Patient already on zosyn (day 2) because of concern for aspiration pneumonia. R femoral cordis and Left IJ lines removed. New Right IJ placed today, xray confirmed placement. GI and surgery both agree that patient needs tertiary care for possible total gastrectomy w/reconstruction. Patient is being transferred to [facility] under the care of Dr. Jethro Rahman. For follow up on blood cultures please call ) Date of Admission:12/28/19 Date of Discharge: 01/02/20 Minutes to complete discharge: 45 Discharge Summary Problems reviewed: Yes Reason For Visit: GASTROINTESTINAL HEMORRHAGE,SYNCOPE Current Active Problems GIB (gastrointestinal bleeding) (Acute) Respiratory distress, acute (Acute) Respiratory failure (Acute) Pneumonia (Acute) Anemia (Acute) Duodenal ulcer (Acute) Condition: Critical - Instructions Referrals: Clarence Zazueta MD [Primary Care Provider] - Disposition: TRANSFER ACUTE CARE/OTHER HOSP - Home Medications Comprehensive Discharge Medication List: Ambulatory Orders Losartan Potassium 10 mg PO DAILY 12/28/19 Plavix 75 mg Q2D 12/28/19 This patient is new to me today: No Emergency Visit: Yes ED Registration Date: 12/28/19 Care time: The patient presented to the Emergency Department on the above date and was hospitalized for further evaluation of their emergent condition. Critical Care patient: Yes Total Critical Care Time (in minutes): 40 Critical Care Statement: The care of this patient involved high complexity decision making to prevent further life threatening deterioration of the patient's condition and/or to evaluate & treat vital organ system(s) failure or risk of failure. - Discharge Referral Referred to [facility] No ATTENDING PHYSICIAN STATEMENT I saw and evaluated the patient. I reviewed the resident's note and discussed the case with the resident. I agree with the resident's findings and plan as documented. SUBJECTIVE: OBJECTIVE: ASSESSMENT AND PLAN:
--- NOTE | 2020-01-02 16:21 | PN ---
Progress Note, Physician History of Present Illness: Pt seen and examined at bedside. He remains in the ICU. He remains intubated. - Current Medication List Current Medications: Active Medications Chlorhexidine Gluconate (Hibiclens For Decolonization -) 1 applic TP HS TREVOR Last Admin: 01/01/20 21:53 Dose: 1 applic Documented by: Cyanocobalamin (Vitamin B12 Injection -) 1,000 mcg IM DAILY TREVOR Last Admin: 01/02/20 09:01 Dose: 1,000 mcg Documented by: Fentanyl (Sublimaze Ivpb) 500 mcg in 100 mls @ 1 mls/hr IVPB TITR TREVOR Last Admin: 01/02/20 05:12 Dose: 75 mcg/hr, 15 mls/hr Documented by: Midazolam HCl (Midazolam 100mg/100ml-0.9%Nacl) 100 mg in 100 mls @ 1 mls/hr IVPB TITR TREVOR; Protocol Last Titration: 01/02/20 08:01 Dose: 3 mg/hr, 3 mls/hr Documented by: Vasopressin 40 units/ Sodium (Chloride) 100 mls @ 5 mls/hr IVPB ASDIR TREVOR; Protocol Last Titration: 01/02/20 08:26 Dose: 1 units/hr, 2.5 mls/hr Documented by: Norepinephrine Bitartrate (Levophed Bag) 16,000 mcg in 500 mls @ 9.375 mls/hr IVPB TITR TREVOR; Protocol Last Admin: 01/01/20 18:02 Dose: 4 mcg/min, 7.5 mls/hr Documented by: Pantoprazole Sodium 80 mg/ (Sodium Chloride) 100 mls @ 10 mls/hr IVPB Q10H TREVOR Stop: 01/03/20 12:07 Last Admin: 01/02/20 05:10 Dose: 10 mls/hr Documented by: Piperacillin Sod/Tazobactam (Sod 3.375 gm/ Dextrose) 50 mls @ 100 mls/hr IVPB Q8H-IV TREVOR; Protocol Last Admin: 01/02/20 08:59 Dose: 100 mls/hr Documented by: Potassium Chloride/Dextrose/Sod Cl (D5-1/2ns+20 Meq Kcl -) 20 meq in 1,000 mls @ 75 mls/hr IV ASDIR TREVOR Last Admin: 01/02/20 07:48 Dose: 75 mls/hr Documented by: Vancomycin HCl (Vancomycin (Pre-Docked)) 1,000 mg in 250 mls @ 166.667 mls/hr IVPB Q12H PENDING SALE TO [facility]; Protocol Last Admin: 01/02/20 11:32 Dose: 166.667 mls/hr Documented by: Amino Acids (Clinimix -) 1,000 mls @ 42 mls/hr IV DAILY PENDING SALE TO [facility] Multivitamins/Minerals (Infuvite Adult -) 10 ml IV DAILY PENDING SALE TO [facility] Thiamine HCl (Vitamin B1 Injection -) 200 mg IVPB DAILY PENDING SALE TO [facility] Last Admin: 01/02/20 09:00 Dose: 200 mg Documented by: - Objective Vital Signs: Vital Signs Temperature 100.2 F H 01/02/20 14:18 Pulse Rate 80 01/02/20 16:00 Respiratory Rate 20 01/02/20 16:00 Blood Pressure 103/57 L 01/02/20 16:00 O2 Sat by Pulse Oximetry (%) 100 01/02/20 15:47 Constitutional: Yes: Calm Eyes: Yes: Conjunctiva Clear HENT: Yes: Atraumatic Cardiovascular: Yes: S1, S2 Respiratory: Yes: Mechanically Ventilated Gastrointestinal: Yes: Soft Genitourinary: Yes: Munoz Present Edema: LUE: Trace, RUE: Trace Integumentary: Yes: Tattoos Neurological: Yes: Lethargy Labs: CBC, BMP 01/02/20 14:00 01/02/20 05:50 INR, PTT INR 1.25 (0.83-1.09) H 01/02/20 14:00 Fibrinogen 469.0 mg/dL (238-498) 01/02/20 14:00 Problem List - Problems (1) GIB (gastrointestinal bleeding) Code(s): K92.2 - GASTROINTESTINAL HEMORRHAGE, UNSPECIFIED Qualifiers: Qualified Code(s): K92.2 - Gastrointestinal hemorrhage, unspecified (2) Respiratory distress, acute Code(s): R06.03 - ACUTE RESPIRATORY DISTRESS (3) Alcohol abuse Code(s): F10.10 - ALCOHOL ABUSE, UNCOMPLICATED (4) HTN (hypertension) Code(s): I10 - ESSENTIAL (PRIMARY) HYPERTENSION (5) Hyponatremia Code(s): E87.1 - HYPO-OSMOLALITY AND HYPONATREMIA Assessment/Plan Current Medications Generic Name Dose Route Start Last Admin Trade Name Freq PRN Reason Stop Dose Admin Chlorhexidine Gluconate 1 applic 12/28/19 22:00 01/01/20 21:53 Hibiclens For Decolonization - TP 1 applic HS TREVOR Administration Cyanocobalamin 1,000 mcg 12/29/19 13:30 01/02/20 09:01 Vitamin B12 Injection - IM 1,000 mcg DAILY TREVOR Administration Fentanyl 500 mcg in 100 mls @ 1 mls/hr 12/28/19 17:50 01/02/20 05:12 Sublimaze Ivpb IVPB 75 mcg/hr TITR TREVOR 15 mls/hr Administration 5 MCG/HR Midazolam HCl 100 mg in 100 mls @ 1 mls/hr 12/29/19 05:00 01/02/20 08:01 Midazolam 100mg/100ml-0.9%Nacl IVPB 3 mg/hr TITR TREVOR 3 mls/hr Titration Protocol 1 MG/HR Vasopressin 40 units/ Sodium 100 mls @ 5 mls/hr 12/30/19 13:30 01/02/20 08:26 Chloride IVPB 1 units/hr ASDIR TREVOR 2.5 mls/hr Titration Protocol 2 UNITS/HR Norepinephrine Bitartrate 16,000 mcg in 500 mls @ 9.375 mls/hr 12/30/19 21:15 01/01/20 18:02 Levophed Bag IVPB 4 mcg/min TITR TREVOR 7.5 mls/hr Administration Protocol 5 MCG/MIN Pantoprazole Sodium 80 mg/ 100 mls @ 10 mls/hr 12/31/19 12:15 01/02/20 05:10 Sodium Chloride IVPB 01/03/20 12:07 10 mls/hr Q10H TREVOR Administration 8 MG/HR Piperacillin Sod/Tazobactam 50 mls @ 100 mls/hr 01/01/20 18:15 01/02/20 08:59 Sod 3.375 gm/ Dextrose IVPB 100 mls/hr Q8H-IV TREVOR Administration Protocol Potassium Chloride/Dextrose/Sod Cl 20 meq in 1,000 mls @ 75 mls/hr 01/02/20 07:45 01/02/20 07:48 D5-1/2ns+20 Meq Kcl - IV 75 mls/hr ASDIR TREVOR Administration Vancomycin HCl 1,000 mg in 250 mls @ 166.667 mls/hr 01/02/20 12:00 01/02/20 11:32 Vancomycin (Pre-Docked) IVPB 166.667 mls/hr Q12H TREVOR Administration Protocol Amino Acids 1,000 mls @ 42 mls/hr 01/02/20 13:15 Clinimix - IV DAILY TREVOR Multivitamins/Minerals 10 ml 01/02/20 13:15 Infuvite Adult - IV DAILY TREVOR Thiamine HCl 200 mg 12/29/19 13:45 01/02/20 09:00 Vitamin B1 Injection - IVPB 200 mg DAILY TREVOR Administration Impression 1. hyponatremia 2. lactic acidosis 3. resp failure requiring intubation 4. etoh abuse 5. hematemesis 6. possible aspiration pna 7. active smoker 8. copd on home oxygen 9. pvd 10. gi bleed Plan - replace potassium - replace mag - adjusted iv fluids - cont to monitor lytes - discussed with ICU team - cont vent support - monitor hg - cont ICU care - maintain map 65 - discussed with ICU - monitor volume status
== END 2020-01-02 17:54 | disposition short-term general hospital (02) | DRG 222 ==
LOC: JER 21:55 → JERBED 12-28 00:32 → JICU 12-28 06:31
PROVIDERS: ADMIT Hospitalist; ATTEND Family Medicine
PROC: 5A1955Z Respiratory Ventilation, Greater than 96 Consecutive Hours (ICD-10-PCS; 2019-12-27)
PROC: 0BH17EZ Insertion of Endotracheal Airway into Trachea, Via Natural or Artificial Opening (ICD-10-PCS; 2019-12-27)
PROC: 0DH67UZ Insertion of Feeding Device into Stomach, Via Natural or Artificial Opening (ICD-10-PCS; 2019-12-27)
PROC: 3E0G76Z Introduction of Nutritional Substance into Upper GI, Via Natural or Artificial Opening (ICD-10-PCS; 2019-12-27)
PROC: 30233N1 Transfusion of Nonautologous Red Blood Cells into Peripheral Vein, Percutaneous Approach (ICD-10-PCS; 2019-12-28)
PROC: 30233R1 Transfusion of Nonautologous Platelets into Peripheral Vein, Percutaneous Approach (ICD-10-PCS; 2019-12-28)
PROC: 0DJ08ZZ Inspection of Upper Intestinal Tract, Via Natural or Artificial Opening Endoscopic (ICD-10-PCS; 2019-12-29)
PROC: 04L23ZZ Occlusion of Gastric Artery, Percutaneous Approach (ICD-10-PCS; principal; 2019-12-30)
PROC: 02HV33Z Insertion of Infusion Device into Superior Vena Cava, Percutaneous Approach (ICD-10-PCS; 2020-01-02)
PROC: B548ZZA Ultrasonography of Superior Vena Cava, Guidance (ICD-10-PCS; 2020-01-02)
DX: K26.9 Duodenal ulcer, unspecified as acute or chronic, without hemorrhage or perforation (principal); J69.0 Pneumonitis due to inhalation of food and vomit; J96.00 Acute respiratory failure, unspecified whether with hypoxia or hypercapnia; E46 Unspecified protein-calorie malnutrition; J44.9 Chronic obstructive pulmonary disease, unspecified; R64 Cachexia; E87.2 Acidosis; Z99.81 Dependence on supplemental oxygen; E87.1 Hypo-osmolality and hyponatremia; F10.10 Alcohol abuse, uncomplicated; R55 Syncope and collapse; I73.9 Peripheral vascular disease, unspecified; I10 Essential (primary) hypertension; F17.210 Nicotine dependence, cigarettes, uncomplicated; Z68.1 Body mass index [BMI] 19.9 or less, adult; D62 Acute posthemorrhagic anemia
CPT/HCPCS: 36415; 36430; 36600; 37244; 71045-TC-FY; 71260-TC; 74018-TC-FY; 74174-TC; 74177-TC; 80053; 80307; 81003; 82272; 82436; 82550; 82607; 82728; 82746; 82803; 83540; 83550; 83605; 83735; 83930; 83935; 84100; 84133; 84300; 84484; 85025; 85027; 85045; 85362; 85384; 85610; 85730; 86850; 86900; 86901; 86922; 87040; 87070; 87077; 87186; 87205; 87899; 93005; 93010; 94002; 99291; 99292; C1760; C1769; C1887; J0131; J1439; P9034; P9058; Q9967; U0003